=== PATIENT | male | born 1950 | race Caucasian/White ===

== ENCOUNTER 2018-08-13 12:01 | Emergency (ER) | payer MEDICARE, OTHER ==
[~2018-08-13] VITALS: Ht 170.2 cm; Wt 122.5 kg
[2018-08-13 12:06] VITALS: BP 137/79
[2018-08-13 13:02] LABS: BASO % 1 % (0-3); EOS # 0.1 x10^3/uL (0.0-0.7); EOS % 2 % (0-3); HEMATOCRIT 36.8 % (39.0-53.0); HEMOGLOBIN 12.2 g/dL (13.0-17.5); LYMPH # 0.8 x10^3/uL (1.0-4.8); LYMPH % 13 % (24-48); MEAN CORPUSCULAR HEMOGLOBIN 32 pg (25-35); MEAN CORPUSCULAR HGB CONC 33 g/dL (31-37); MEAN CORPUSCULAR VOLUME 97 fL (79-100); MONO # 0.6 x10^3/uL (0.0-1.1); MONO % 10 % (0-9); NEUT # 4.6 x10^3uL (1.8-7.7); NEUT % 74 % (31-73); PLATELET COUNT 195 x10^3/uL (140-400); RED BLOOD COUNT 3.81 x10^6/uL (4.30-5.70); RED CELL DISTRIBUTION WIDTH 14.2 % (11.5-14.5); WHITE BLOOD COUNT 6.2 x10^3/uL (4.0-11.0)
[2018-08-13 13:12] LABS: CALCIUM 8.9 mg/dL (8.5-10.1); CREATININE 1.4 mg/dL (0.7-1.3); GFR 50.5; POTASSIUM 4.2 mmol/L (3.5-5.1)
[2018-08-13 13:17] LABS: ALBUMIN 3.7 g/dL (3.4-5.0); ALBUMIN/GLOBULIN RATIO 1.3 (1.0-1.7); TOTAL BILIRUBIN 0.4 mg/dL (0.2-1.0); TOTAL PROTEIN 6.6 g/dL (6.4-8.2)
--- NOTE | 2018-08-13 13:48 | RAD ---
Examination: PA view the chest with the 4 views of the bilateral ribs HISTORY: History of fall, pain COMPARISON: None available Findings/ impression: Low lung volumes and technique accentuates heart size and pulmonary vascularity. There is no acute infiltrate or visualized pneumothorax identified. Minimal displaced fracture of the right lower anterolateral rib fractures identified possibly the eighth or the ninth rib. Probable minimal displaced fractures of the left posterior seventh, eighth, ninth ribs. Examination limited due to patient body habitus. Electronically signed by: Ender Moreno MD (08/13/2018 1:45 PM) [place] [id number]
[2018-08-13] MEDS ORDERED: fentaNYL PF VIAL 100 MCG/2 ML VIAL IV PRN (14:15)
[2018-08-13] MEDS ORDERED: IV NORMAL SALINE 500ML BAG 500 ML IV ONE (14:15)
[2018-08-13] MEDS ORDERED: HYDR-2761 PO (16:00)
--- NOTE | 2018-08-13 16:01 | PHYS DOC ---
Past Medical History Past Medical History: CHF, Hypertension Additional Past Medical Histor: CHRONIC LOW BACK PAIN Past Surgical History: Other Additional Past Surgical Histo: EYE SURG Alcohol Use: Heavy Additional Information: DRINKS 1 PINT OR MORE EVERY DAY, LAST DRINK AT 0100 Drug Use: None Adult General Chief Complaint Chief Complaint: MECHANICAL FALL HPI HPI 68-year-old gentleman presenting with a fall and complaining of pain in the left and right ribs. He was walking to the mailbox when he slipped and fell on the anterior portion of his chest. He has pain in the ribs that is sharp shooting and worse with deep breaths. The pain is moderate. He denies head injury or loss of conscious. He is not on blood thinners. Review of systems is negative for abdominal pain nausea vomiting. He denies any injuries to his extremities. All other review of systems is negative unless otherwise noted in history of present illness. ED course: 68-year-old male presenting the emergency room after falling and sustaining rib fractures found on chest x-ray. EKG obtained and reviewed by myself shows sinus rhythm with a regular rate. QTc is mildly prolonged. [place] interval is also prolonged. EKG is not consistent with ACS. No previous available for me at this time. Patient was given pain medication here in the emergency room and pain medication upon discharge. We had respiratory therapy come down to do incentive spirometry and teaching patient about incentive spirometry. I offer the patient [place] the hospital which she declined. Will need him to follow-up with his PCP tomorrow or the next day or to return for worsening symptoms.The patient has been examined and was not found to have an emergency medical condition. The patient was then discharged home in stable condition to follow up with their primary care physician over the next 1-2 days. They were to return if their symptoms worsened or if they were concerned for any reason. They were also instructed to return to the emergency department if they were unable to get the recommended and appropriate follow- up. [id number] discharge instructions and return precautions were given. Patient's questions were answered to their satisfaction. Patient is comfortable with plan. Review of Systems Review of Systems SEE ABOVE. Current Medications Current Medications Current Medications Medications (Trade) Dose Ordered Sig/Marlon Start Time Stop Time Status Last Admin Dose Admin Fentanyl Citrate (Fentanyl 2ml Vial) 25 mcg 1X PRN PRN 08/13/18 14:15 Sodium Chloride 500 ml @ 500 mls/hr 1X ONCE 08/13/18 14:15 08/13/18 15:14 DC 08/13/18 14:31 500 MLS/HR Allergies Allergies Allergies Coded Allergies Type Severity Reaction Last Updated Verified No Known Drug Allergies 08/13/18 No Physical Exam Physical Exam SEE ABOVE Constitutional: Well developed, well nourished, no acute distress, non-toxic appearance. [] HENT: Normocephalic, atraumatic, bilateral external ears normal, oropharynx moist, no oral exudates, nose normal. [] Eyes: PERRLA, EOMI, conjunctiva normal, no discharge. [] Neck: Normal range of motion, no tenderness, supple, no stridor. [] Cardiovascular:Heart rate regular rhythm, no murmur [] Lungs & Thorax: Bilateral breath sounds clear to auscultation []no crepitus to palpation the chest wall. There is tenderness palpation along the left and right ribs. Nontender abdomen. Abdomen: Bowel sounds normal, soft, no tenderness. No rebound tenderness or guarding. Patient does have a umbilical hernia that he states has been there for many years and is not causing him any pain. Skin: Warm, dry, no erythema, no rash. [] Back: No tenderness, no CVA tenderness. [] Extremities: No tenderness, no cyanosis, no clubbing, ROM intact, no edema. [] Neurologic: Alert and oriented X 3, normal motor function, normal sensory function, no focal deficits noted. [] Psychologic: Affect normal, judgement normal, mood normal. [] Current Patient Data Vital Signs Vital Signs Date Time Temp Pulse Resp B/P (MAP) Pulse Ox O2 Delivery O2 Flow Rate FiO2 08/13/18 12:06 97.7 83 18 137/79 (98) 96 Room Air 97.7 Lab Values Laboratory Tests Test 08/13/18 12:53 White Blood Count 6.2 x10^3/uL (4.0-11.0) Red Blood Count 3.81 x10^6/uL (4.30-5.70) L Hemoglobin 12.2 g/dL (13.0-17.5) L Hematocrit 36.8 % (39.0-53.0) L Mean Corpuscular Volume 97 fL (79-100) Mean Corpuscular Hemoglobin 32 pg (25-35) Mean Corpuscular Hemoglobin Concent 33 g/dL (31-37) Red Cell Distribution Width 14.2 % (11.5-14.5) Platelet Count 195 x10^3/uL (140-400) Neutrophils (%) (Auto) 74 % (31-73) H Lymphocytes (%) (Auto) 13 % (24-48) L Monocytes (%) (Auto) 10 % (0-9) H Eosinophils (%) (Auto) 2 % (0-3) Basophils (%) (Auto) 1 % (0-3) Neutrophils # (Auto) 4.6 x10^3uL (1.8-7.7) Lymphocytes # (Auto) 0.8 x10^3/uL (1.0-4.8) L Monocytes # (Auto) 0.6 x10^3/uL (0.0-1.1) Eosinophils # (Auto) 0.1 x10^3/uL (0.0-0.7) Basophils # (Auto) 0.0 x10^3/uL (0.0-0.2) Sodium Level 139 mmol/L (136-145) Potassium Level 4.2 mmol/L (3.5-5.1) Chloride Level 104 mmol/L (98-107) Carbon Dioxide Level 27 mmol/L (21-32) Anion Gap 8 (6-14) Blood Urea Nitrogen 20 mg/dL (8-26) Creatinine 1.4 mg/dL (0.7-1.3) H Estimated GFR (Cockcroft-Gault) 50.5 BUN/Creatinine Ratio 14 (6-20) Glucose Level 108 mg/dL (70-99) H Calcium Level 8.9 mg/dL (8.5-10.1) Total Bilirubin 0.4 mg/dL (0.2-1.0) Aspartate Amino Transferase (AST) 25 U/L (15-37) Alanine Aminotransferase (ALT) 26 U/L (16-63) Alkaline Phosphatase 55 U/L (46-116) Troponin I Quantitative 0.027 ng/mL (0.000-0.055) Total Protein 6.6 g/dL (6.4-8.2) Albumin 3.7 g/dL (3.4-5.0) Albumin/Globulin Ratio 1.3 (1.0-1.7) Laboratory Tests 2/15/19 12:53 Laboratory Tests 08/13/18 12:53 EKG EKG [] Radiology/Procedures Radiology/Procedures [] Course & Med Decision Making Course & Med Decision Making Pertinent Labs and Imaging studies reviewed. (See chart for details) [] Dragon Disclaimer Dragon Disclaimer This electronic medical record was generated, in whole or in part, using a voice recognition dictation system. Departure Departure Impression: Primary Impression: Ribs, multiple fractures Disposition: HOME, SELF-CARE Condition: STABLE Referrals: UNKNOWN PCP NAME (PCP) Patient Instructions: Rib Fracture Additional Instructions: Thank you for allowing us to participate in your care today. Return to the emergency department you have any new or worsening symptoms, or if you are concerned for any reason. Return to emergency department if you have any new or concerning symptoms including but not limited to fever, chills, nausea, vomiting, intractable pain, any new rashes, chest pain, shortness of air , uncontrolled bleeding, difficulty breathing, and/or vision loss. Follow up with your primary care physician within 1-2 days. Call your Primary Doctor tomorrow and inform them of your visit today. If you do not have a primary care provider we are happy to provide you with a list of our primary care providers contact information. This condition should be evaluated by your primary care physician and any recommended consulting services for continued management within 2 days after discharge. If at any time, you are having difficulty getting into your primary care doctor or a specialist, return to the emergency department. Scripts Hydrocodone Bit/Acetaminophen (HYDROCODONE-APAP 5-325 ) 1 Tab Tablet 1 TAB PO PRN Q8HRS PRN for sev, #12 TAB 0 Refills Prov: HUSEYIN JARA MD 08/13/18 HUSEYIN JARA MD Aug 13, 2018 16:01
--- NOTE | 2018-08-16 14:00 | EKG ---
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
== END 2018-08-13 15:57 | disposition home or self-care (01) ==
LOC: ER 12:01
DX: S22.43XA Multiple fractures of ribs, bilateral, initial encounter for closed fracture (principal); K42.9 Umbilical hernia without obstruction or gangrene; I11.0 Hypertensive heart disease with heart failure; I50.9 Heart failure, unspecified; G89.29 Other chronic pain; F10.20 Alcohol dependence, uncomplicated; Y90.9 Presence of alcohol in blood, level not specified; W01.0XXA Fall on same level from slipping, tripping and stumbling without subsequent striking against object, initial encounter; Y93.89 Activity, other specified; Y92.89 Other specified places as the place of occurrence of the external cause; Y99.8 Other external cause status
CPT/HCPCS: 36415; 71111; 80053; 84484; 85025; 93005; 99284; G0238; J7040

== ENCOUNTER 2018-08-17 08:57 | Emergency (ER) | payer MEDICARE, OTHER ==
[~2018-08-17] VITALS: Ht 170.2 cm; Wt 124.7 kg
[~2018-08-17 08:57] MED LIST: HYDR-2761 PO
[2018-08-17 09:00] VITALS: BP 199/88
[2018-08-17] MEDS ORDERED: ONDANSETRON PF 4 MG/2 ML VIAL. IV ONE (09:15)
[2018-08-17] MEDS ORDERED: MORPHINE SULFATE 10 MG/ML VIAL. IV ONE (09:15)
--- NOTE | 2018-08-17 09:16 | PHYS DOC ---
Past Medical History Past Medical History: CHF, Hypertension Additional Past Medical Histor: CHRONIC LOW BACK PAIN Past Surgical History: Other Additional Past Surgical Histo: EYE SURG Alcohol Use: Heavy Drug Use: None Adult General Chief Complaint Chief Complaint: RIB PAIN HPI HPI Patient is a 68 year old male who presents to the ED today to be evaluated for worsening rib pain and shortness of breath. Patient fell 5 days ago and sustained multiple rib fractures. He was seen in the ED and sent home with 5 hydrocodone which he ran out. He states has continued to have rib pain as well as shortness of breath. He states his rib pain is worse when he takes a deep breath. Patient denies any fever. Review of Systems Review of Systems Constitutional: Denies fever or chills [] Eyes: Denies change in visual acuity, redness, or eye pain [] HENT: Denies nasal congestion or sore throat [] Respiratory: Reports left sided rib pain and shortness of breath Cardiovascular: No additional information not addressed in HPI [] GI: Denies abdominal pain, nausea, vomiting, bloody stools or diarrhea [] : Denies dysuria or hematuria [] Musculoskeletal: Denies back pain or joint pain [] Integument: Denies rash or skin lesions [] Neurologic: Denies headache, focal weakness or sensory changes [] All other systems were reviewed and found to be within normal limits, except as documented in this note. Current Medications Current Medications Current Medications Medications (Trade) Dose Ordered Sig/Marlon Start Time Stop Time Status Last Admin Dose Admin Info (CONTRAST GIVEN -- Rx MONITORING) 1 each PRN DAILY PRN 08/17/18 10:15 08/19/18 10:14 Iohexol (Omnipaque 300 Mg/ml) 75 ml 1X ONCE 08/17/18 10:00 08/17/18 10:01 DC 08/17/18 10:00 75 ML Morphine Sulfate (Morphine Sulfate) 5 mg 1X ONCE 08/17/18 09:15 08/17/18 09:16 DC 08/17/18 09:31 5 MG Ondansetron HCl (Zofran) 4 mg 1X ONCE 08/17/18 09:15 08/17/18 09:16 DC 08/17/18 09:31 4 MG Allergies Allergies Allergies Coded Allergies Type Severity Reaction Last Updated Verified No Known Drug Allergies 08/13/18 No Physical Exam Physical Exam Constitutional: Well developed, well nourished, no acute distress, non-toxic appearance. [] HENT: Normocephalic, atraumatic, bilateral external ears normal, oropharynx moist, no oral exudates, nose normal. [] Eyes: PERRLA, EOMI, conjunctiva normal, no discharge. [] Neck: Normal range of motion, no tenderness, supple, no stridor. [] Cardiovascular:Heart rate regular rhythm, no murmur [] Lungs & Thorax: Patient is guarding his left mid ribs. Tenderness to posterior left lower ribs, tenderness on the left anterior mid and lower ribs mid clavicular line, Bilateral breath sounds clear to auscultation [] Abdomen: Bowel sounds normal, soft, no tenderness, no masses, no pulsatile masses. [] Skin: Warm, dry, no erythema, no rash. [] Back: No tenderness, no CVA tenderness. [] Extremities: No tenderness, no cyanosis, no clubbing, ROM intact, no edema. [] Neurologic: Alert and oriented X 3, normal motor function, normal sensory function, no focal deficits noted. [] Psychologic: Affect normal, judgement normal, mood normal. [] Current Patient Data Vital Signs Vital Signs Date Time Temp Pulse Resp B/P (MAP) Pulse Ox O2 Delivery O2 Flow Rate FiO2 08/17/18 09:31 20 97 Room Air 08/17/18 09:00 98.1 106 166/112 (130) 98.1 199/88 (125) Lab Values Laboratory Tests Test 08/17/18 09:25 White Blood Count 4.6 x10^3/uL (4.0-11.0) Red Blood Count 3.66 x10^6/uL (4.30-5.70) L Hemoglobin 11.9 g/dL (13.0-17.5) L Hematocrit 34.9 % (39.0-53.0) L Mean Corpuscular Volume 95 fL (79-100) Mean Corpuscular Hemoglobin 33 pg (25-35) Mean Corpuscular Hemoglobin Concent 34 g/dL (31-37) Red Cell Distribution Width 13.7 % (11.5-14.5) Platelet Count 189 x10^3/uL (140-400) Neutrophils (%) (Auto) 65 % (31-73) Lymphocytes (%) (Auto) 20 % (24-48) L Monocytes (%) (Auto) 12 % (0-9) H Eosinophils (%) (Auto) 2 % (0-3) Basophils (%) (Auto) 1 % (0-3) Neutrophils # (Auto) 3.0 x10^3uL (1.8-7.7) Lymphocytes # (Auto) 0.9 x10^3/uL (1.0-4.8) L Monocytes # (Auto) 0.5 x10^3/uL (0.0-1.1) Eosinophils # (Auto) 0.1 x10^3/uL (0.0-0.7) Basophils # (Auto) 0.0 x10^3/uL (0.0-0.2) Sodium Level 141 mmol/L (136-145) Potassium Level 4.7 mmol/L (3.5-5.1) Chloride Level 103 mmol/L (98-107) Carbon Dioxide Level 26 mmol/L (21-32) Anion Gap 12 (6-14) Blood Urea Nitrogen 23 mg/dL (8-26) Creatinine 1.2 mg/dL (0.7-1.3) Estimated GFR (Cockcroft-Gault) 60.4 BUN/Creatinine Ratio 19 (6-20) Glucose Level 110 mg/dL (70-99) H Calcium Level 9.7 mg/dL (8.5-10.1) Total Bilirubin 0.3 mg/dL (0.2-1.0) Aspartate Amino Transferase (AST) 40 U/L (15-37) H Alanine Aminotransferase (ALT) 32 U/L (16-63) Alkaline Phosphatase 60 U/L (46-116) Troponin I Quantitative 0.029 ng/mL (0.000-0.055) UP-Hsn-U-Type Natriuretic Peptide 330 pg/mL (0-124) H Total Protein 6.8 g/dL (6.4-8.2) Albumin 3.6 g/dL (3.4-5.0) Albumin/Globulin Ratio 1.1 (1.0-1.7) Laboratory Tests 08/17/18 09:25 Laboratory Tests 08/17/18 09:25 EKG EKG [address] Aguirre by sinus rhythm HR 97 no STEMI Radiology/Procedures Radiology/Procedures []PROCEDURE: CT CHEST W/CONTRAST CT STUDY OF THE CHEST WITH CONTRAST Clinical indications: Rib fracture last week. Shortness of air. History of a fall. COMPARISON: No previous chest CT. TECHNIQUE: After IV infusion of 75 cc of Omnipaque 300, helical CT scanning of the chest was performed. PQRS compliance Statement One or more of the following individualized dose reduction techniques were utilized for this study: 1. Automated exposure control 2. Adjustment of the mA and/or kV according to patient size 3. Use of iterative reconstruction technique FINDINGS: No enlarged thoracic lymphadenopathy is evident. No focal aneurysmal dilatation or dissection of the thoracic aorta is seen. The heart size is at the upper limits of normal and no pericardial effusion is seen. Calcified atheromatous disease of coronary arteries is seen. No pleural effusion or pneumothorax is seen. There is focal pleural thickening of the left lateral pleural space related to a displaced subacute fracture of the posterior lateral aspect of the left eighth rib. This fracture is not healed. There is a nonhealed subacute fracture of the posterior lateral aspect of the left seventh rib. Acute appearing nondisplaced fracture of the anterolateral aspect of the left sixth rib is seen. Healed fracture of the posterior lateral aspect of the left ninth rib is seen. Nondisplaced fracture of the anterolateral aspect of the right 6 and seventh ribs is seen. No lytic process is seen. Right renal cyst is seen. Nonobstructing punctate stone of the right kidney is seen. No adrenal mass is evident. Diffuse fatty infiltration of liver is evident. IMPRESSION: Bilateral rib contractures as discussed above. No acute lung infiltrate or pleural effusion or pneumothorax is seen. Mild calcified atheromatous disease of the coronary arteries. Electronically signed by: Aurora Georges MD (08/17/2018 11:04 AM) [id number] DICTATED and SIGNED BY: AURORA GEORGES MD DATE: 08/17/18 1039 Course & Med Decision Making Course & Med Decision Making Pertinent Labs and Imaging studies reviewed. (See chart for details) This is a 68-year-old male patient presenting to the ED today with worsening rib pain and shortness of breath. Patient fell down 5 days ago, sustained a 5 rib fractures. O2 sats 96% on room air on arrival, respiration 24. Patient states she ran out of the medications There is focal pleural thickening of the left lateral pleural space related to a displaced subacute fracture of the posterior lateral aspect of the left eighth rib.This fracture is not healed. There is a nonhealed subacute fracture of the posterior lateral aspect of the left seventh rib. Acute appearing nondisplaced fracture of the anterolateral aspect of the left sixth rib is seen. Healed fracture of the posterior lateral aspect of the left ninth rib is seen. Nondisplaced fracture of the anterolateral aspect of the right 6 and seventh ribs is seen. No lytic process is seen. Patient feeling better after being given morphine. Will be discharged with oxycodone. Also given cyclobenzaprine. Encouraged to continue using the incentive spirometry every hour while awake. F/u with PCP in the course of this week. Dragon Disclaimer Dragon Disclaimer This electronic medical record was generated, in whole or in part, using a voice recognition dictation system. Departure Departure Impression: Primary Impression: Ribs, multiple fractures Disposition: HOME, SELF-CARE Condition: STABLE Referrals: UNKNOWN PCP NAME (PCP) Follow-up with your doctor in the course of this week Patient Instructions: Rib Fracture, [id number] Additional Instructions: You were evaluated in the emergency room for multiple rib fractures. Continue using your incentive spirometry every hour while awake. Take the prescribed pain medicine as needed. Follow-up with your doctor in the course of this week. Scripts Cyclobenzaprine Hcl (CYCLOBENZAPRINE HCL) 10 Mg Tablet 1 TAB PO TID, #40 TAB Prov: EVER CHRISTINA APRN 08/17/18 Oxycodone/Apap 5-325 (PERCOCET 5-325 MG TABLET ) 1 Each Tablet 1 TAB PO PRN Q6HRS PRN for PAIN, #35 TAB 0 Refills Prov: EVER CHRISTINA APRN 08/17/18 Problem Qualifiers Primary Impression: Ribs, multiple fractures Encounter type: initial encounter Fracture type: closed Laterality: bilateral Qualified Codes: S22.43XA - Multiple fractures of ribs, bilateral, initial encounter for closed fracture EVER CHRISTINA APRN Aug 17, 2018 09:16
[2018-08-17 09:43] LABS: BASO % 1 % (0-3); EOS # 0.1 x10^3/uL (0.0-0.7); EOS % 2 % (0-3); HEMATOCRIT 34.9 % (39.0-53.0); HEMOGLOBIN 11.9 g/dL (13.0-17.5); LYMPH # 0.9 x10^3/uL (1.0-4.8); LYMPH % 20 % (24-48); MEAN CORPUSCULAR HEMOGLOBIN 33 pg (25-35); MEAN CORPUSCULAR HGB CONC 34 g/dL (31-37); MEAN CORPUSCULAR VOLUME 95 fL (79-100); MONO # 0.5 x10^3/uL (0.0-1.1); MONO % 12 % (0-9); NEUT % 65 % (31-73); PLATELET COUNT 189 x10^3/uL (140-400); RED BLOOD COUNT 3.66 x10^6/uL (4.30-5.70); RED CELL DISTRIBUTION WIDTH 13.7 % (11.5-14.5); WHITE BLOOD COUNT 4.6 x10^3/uL (4.0-11.0)
[2018-08-17 09:48] LABS: CALCIUM 9.7 mg/dL (8.5-10.1); CREATININE 1.2 mg/dL (0.7-1.3); GFR 60.4
[2018-08-17 09:54] LABS: ALBUMIN 3.6 g/dL (3.4-5.0); ALBUMIN/GLOBULIN RATIO 1.1 (1.0-1.7); POTASSIUM 4.7 mmol/L (3.5-5.1); TOTAL BILIRUBIN 0.3 mg/dL (0.2-1.0); TOTAL PROTEIN 6.8 g/dL (6.4-8.2)
[2018-08-17] MEDS ORDERED: IOHEXOL 300 MG/ML 100ML VIAL. IV ONE (10:00)
[2018-08-17] MEDS ORDERED: CONTRAST GIVEN. MC PRN (10:15)
--- NOTE | 2018-08-17 11:08 | RAD ---
CT STUDY OF THE CHEST WITH CONTRAST Clinical indications: Rib fracture last week. Shortness of air. History of a fall. COMPARISON: No previous chest CT. TECHNIQUE: After IV infusion of 75 cc of Omnipaque 300, helical CT scanning of the chest was performed. PQRS compliance Statement One or more of the following individualized dose reduction techniques were utilized for this study: 1. Automated exposure control 2. Adjustment of the mA and/or kV according to patient size 3. Use of iterative reconstruction technique FINDINGS: No enlarged thoracic lymphadenopathy is evident. No focal aneurysmal dilatation or dissection of the thoracic aorta is seen. The heart size is at the upper limits of normal and no pericardial effusion is seen. Calcified atheromatous disease of coronary arteries is seen. No pleural effusion or pneumothorax is seen. There is focal pleural thickening of the left lateral pleural space related to a displaced subacute fracture of the posterior lateral aspect of the left eighth rib. This fracture is not healed. There is a nonhealed subacute fracture of the posterior lateral aspect of the left seventh rib. Acute appearing nondisplaced fracture of the anterolateral aspect of the left sixth rib is seen. Healed fracture of the posterior lateral aspect of the left ninth rib is seen. Nondisplaced fracture of the anterolateral aspect of the right 6 and seventh ribs is seen. No lytic process is seen. Right renal cyst is seen. Nonobstructing punctate stone of the right kidney is seen. No adrenal mass is evident. Diffuse fatty infiltration of liver is evident. IMPRESSION: Bilateral rib contractures as discussed above. No acute lung infiltrate or pleural effusion or pneumothorax is seen. Mild calcified atheromatous disease of the coronary arteries. Electronically signed by: Jared Georges MD (08/17/2018 11:04 AM) [id number]
[2018-08-17] MEDS ORDERED: CYCL10TA2 PO (11:35)
[2018-08-17] MEDS ORDERED: OXYC1TAB15 PO (11:35)
--- NOTE | 2018-08-17 14:18 | EKG ---
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
[2018-11-28] MEDS ORDERED: WARF4TAB68 PO (10:46)
[2018-11-28] MEDS ORDERED: ENOX120D SQ (10:46)
== END 2018-08-17 11:56 | disposition home or self-care (01) ==
LOC: ER 08:57
DX: S22.42XG Multiple fractures of ribs, left side, subsequent encounter for fracture with delayed healing (principal); I11.0 Hypertensive heart disease with heart failure; I50.9 Heart failure, unspecified; G89.29 Other chronic pain; M54.5 Low back pain; F10.20 Alcohol dependence, uncomplicated; Y90.9 Presence of alcohol in blood, level not specified; W18.39XD Other fall on same level, subsequent encounter
CPT/HCPCS: 36415; 71260; 80053; 83880; 84484; 85025; 93005; 96374; 96375; 99284; J2270; J2405; Q9967

== ENCOUNTER 2018-11-27 05:43 | Inpatient (IN) | payer MEDICARE, OTHER ==
[~2018-11-27] VITALS: Ht 170.2 cm; Wt 124.7 kg
[~2018-11-27 05:43] MED LIST changes: +CYCL10TA2 PO; +OXYC1TAB15 PO
--- NOTE | 2018-11-27 05:55 | PHYS DOC ---
Past Medical History Past Medical History: CAD, CHF, High Cholesterol, Hypertension Additional Past Medical Histor: CHRONIC LOW BACK PAIN, rib fx (MONTRELL HURTADO DO) Past Surgical History: Appendectomy, Coronary Bypass Surgery, Knee Replacement, Pacemaker, Other Additional Past Surgical Histo: EYE SURG (MONTRELL HURTADO DO) Alcohol Use: Heavy Drug Use: None (MONTRELL HURTADO DO) Adult General Chief Complaint Chief Complaint: SHORTNESS OF BREATH HPI HPI 68-year-old male status post CABG and pacemaker placement 2 weeks ago at presents with report of progressive shortness of breath since yesterday. Reports worse this AM. Patient denies known trauma. Denies fever or chills. Denies calves pain. Reports some increased fluid hydration. Patient does reports history of CHF. Reports some chest wall pain but thinks it is from his surgery. (MONTRELL HURTADO DO) Review of Systems Review of Systems Constitutional: Denies fever or chills Eyes: Denies redness or eye pain HENT: Denies nasal congestion or sore throat Respiratory: Reports shortness of breath and orthopnea Cardiovascular: Reports chest discomfort; denies palpitations GI: Denies abdominal pain, nausea, or vomiting : Denies dysuria or hematuria Musculoskeletal: Reports some leg swelling; denies calf pain Integument: Denies rash or skin lesions Neurologic: Denies headache, focal weakness or sensory changes Complete systems were reviewed and found to be within normal limits, except as documented in this note. (MONTRELL HURTADO DO) Current Medications Current Medications Current Medications Medications (Trade) Dose Ordered Sig/Marlon Start Time Stop Time Status Last Admin Dose Admin Aspirin (Ruth Aspirin) 325 mg 1X ONCE 11/27/18 06:00 11/27/18 06:01 DC 11/27/18 06:19 325 MG Fentanyl Citrate (Fentanyl 2ml Vial) 50 mcg 1X ONCE 11/27/18 06:30 11/27/18 06:31 DC 11/27/18 06:30 50 MCG Info (CONTRAST GIVEN -- Rx MONITORING) 1 each PRN DAILY PRN 11/27/18 08:15 11/29/18 08:14 Iohexol (Omnipaque 350 Mg/ml) 100 ml 1X ONCE 11/27/18 08:15 11/27/18 08:16 DC 11/27/18 08:44 100 ML Nitroglycerin (Nitro-Bid Oint) 1 inch 1X ONCE 11/27/18 06:00 11/27/18 06:01 DC 11/27/18 06:20 1 INCH (JOSE MARTIN BONNER MD) Allergies Allergies Allergies Coded Allergies Type Severity Reaction Last Updated Verified No Known Drug Allergies 08/13/18 No (JOSE MARTIN BONNER MD) Physical Exam Physical Exam Constitutional: Well developed, well nourished, mild respiratory distress, non- toxic appearance HENT: Normocephalic, atraumatic, oropharynx moist Eyes: PERRL, EOMI, conjunctiva normal, no discharge Neck: Normal range of motion, no tenderness, supple, JVD Cardiovascular: Heart rate normal, regular rhythm Lungs & Thorax: Coarse breath sounds throughout, healing with sternal incision- clean dry and intact Abdomen: Soft, no tenderness Skin: Warm, dry, no erythema, no rash Back: No tenderness, no CVA tenderness Extremities: No tenderness, ROM intact, trace bilateral edema Neurologic: Alert and oriented X 3, normal motor function, normal sensory function, no focal deficits noted Psychologic: Affect normal, judgement normal, mood normal (MONTRELL HURTADO DO) Current Patient Data Vital Signs Vital Signs Date Time Temp Pulse Resp B/P (MAP) Pulse Ox O2 Delivery O2 Flow Rate FiO2 11/27/18 08:03 76 21 125/64 (84) 96 Nasal Cannula 2.0 11/27/18 05:45 97.8 97.8 (JOSE MARTIN BONNER MD) Lab Values Laboratory Tests Test 11/27/18 05:45 White Blood Count 9.9 x10^3/uL (4.0-11.0) Red Blood Count 2.88 x10^6/uL (4.30-5.70) L Hemoglobin 8.7 g/dL (13.0-17.5) L Hematocrit 26.8 % (39.0-53.0) L Mean Corpuscular Volume 93 fL (79-100) Mean Corpuscular Hemoglobin 30 pg (25-35) Mean Corpuscular Hemoglobin Concent 33 g/dL (31-37) Red Cell Distribution Width 14.4 % (11.5-14.5) Platelet Count 428 x10^3/uL (140-400) H Neutrophils (%) (Auto) 79 % (31-73) H Lymphocytes (%) (Auto) 11 % (24-48) L Monocytes (%) (Auto) 8 % (0-9) Eosinophils (%) (Auto) 2 % (0-3) Basophils (%) (Auto) 1 % (0-3) Neutrophils # (Auto) 7.9 x10^3uL (1.8-7.7) H Lymphocytes # (Auto) 1.0 x10^3/uL (1.0-4.8) Monocytes # (Auto) 0.8 x10^3/uL (0.0-1.1) Eosinophils # (Auto) 0.1 x10^3/uL (0.0-0.7) Basophils # (Auto) 0.1 x10^3/uL (0.0-0.2) Prothrombin Time 23.6 SEC (11.7-14.0) H Prothrombin Time INR 2.1 (0.8-1.1) H PTT 56 SEC (24-38) H D-Dimer (Kenyatta) 6.29 ug/mlFEU (0.00-0.50) H Sodium Level 143 mmol/L (136-145) Potassium Level 4.0 mmol/L (3.5-5.1) Chloride Level 106 mmol/L (98-107) Carbon Dioxide Level 27 mmol/L (21-32) Anion Gap 10 (6-14) Blood Urea Nitrogen 20 mg/dL (8-26) Creatinine 0.9 mg/dL (0.7-1.3) Estimated GFR (Cockcroft-Gault) 84.2 BUN/Creatinine Ratio 22 (6-20) H Glucose Level 123 mg/dL (70-99) H Lactic Acid Level 0.9 mmol/L (0.4-2.0) Calcium Level 9.6 mg/dL (8.5-10.1) Magnesium Level 2.0 mg/dL (1.8-2.4) Total Bilirubin 0.3 mg/dL (0.2-1.0) Aspartate Amino Transferase (AST) 23 U/L (15-37) Alanine Aminotransferase (ALT) 37 U/L (16-63) Alkaline Phosphatase 90 U/L (46-116) Creatine Kinase 103 U/L (39-308) Creatine Kinase MB (Mass) 3.6 ng/mL (0.0-3.6) Creatine Kinase MB Relative Index 3.5 % (0-4) Troponin I Quantitative 0.043 ng/mL (0.000-0.055) CE-Viw-V-Type Natriuretic Peptide 1110 pg/mL (0-124) H Total Protein 6.6 g/dL (6.4-8.2) Albumin 3.0 g/dL (3.4-5.0) L Albumin/Globulin Ratio 0.8 (1.0-1.7) L Lipase 444 U/L (73-393) H Laboratory Tests 11/27/18 05:45 Laboratory Tests 11/27/18 05:45 (JOSE MARTIN BONNER MD) EKG EKG @0549 Paced rhythm at 82bpm (MONTRELL HURTADO DO) Radiology/Procedures Radiology/Procedures [] (MONTRELL HURTADO DO) Radiology/Procedures [facility] [address] [place] [address] IMAGING REPORT Signed PATIENT: LADARIUS ELLIS ACCOUNT: [id number] : 1950 LOCATION: [address] [place] [address] AGE: 68 SEX: M EXAM STATUS: ADM IN ORD. PHYSICIAN: JOSE MARTIN BONNER MD REASON: Recent CABG, shortness of breath, elevated d-dimer PROCEDURE: CT ANGIOGRAPHY CHEST Examination: CT angio chest HISTORY: History of shortness of breath, elevated d-dimer COMPARISON: CT chest from 08/17/2018 TECHNIQUE: Axial CT and radiographic images of chest were performed with IV contrast. Coronal and sagittal 3-D MIP reformats are performed Exposure: One or more of the following individualized dose reduction techniques were utilized for this examination: 1. Automated exposure control 2. Adjustment of the mA and/or kV according to patient size 3. Use of iterative reconstruction technique FINDINGS: The central airways are patent. Mild cardiomegaly. Coronary artery calcifications identified. Mitral valve prosthesis is identified. The caliber of the aorta grossly appears unremarkable. There is mild stranding identified in the anterior mediastinum probably due to recent surgery. Probable small pericardial effusion the evaluation of which is limited due to streak artifact. There is no evidence of filling defect identified in the main pulmonary artery and right and left main pulmonary arteries. The evaluation of the lobar, segmental branches of the pulmonary arteries is limited due to lack of significant contrast within these branches. Coronary artery calcifications. Patchy airspace opacities identified in the right upper lobe, left lower lobe of the lung and in the left lingula likely atelectasis or infiltrates. Trace left pleural effusion. The visualized liver, spleen, adrenals grossly appears unremarkable. Moderate degenerative changes thoracic spine. Old fractures of the left fourth, fifth, sixth, seventh, eighth ribs. There is mild pleural thickening identified about the eighth rib fracture. IMPRESSION: 1. No evidence of central pulmonary embolism. However examination is limited due to lack of significant contrast within the distal lobar, segmental branches. If clinical suspicion for pulmonary embolism persists, consider follow-up VQ scan and bilateral lower extremity venous Doppler. 2. Trace pericardial effusion and small left pleural effusion. 3. Patchy airspace opacities identified in the right upper lobe, left lingular left lung base likely atelectasis or infiltrates. 4. Coronary artery calcifications. Electronically signed by: Ender Moreno MD (11/27/2018 8:52 AM) [facility] DICTATED and SIGNED BY: ENDER MORENO MD DATE: 11/27/18 0852 (JOSE MARTIN BONNER MD) Course & Med Decision Making Course & Med Decision Making Patient with recent CABG and pacemaker placement at 2 weeks ago presents with progressive dyspnea over the last few days. EKG with paced rhythm. Labs obtained and pending. Chest x-ray pending. Concern for possible CHF exacerbation. 1 inch of nitroglycerin placed provided. Aspirin also given. Sign out given to Dr. Bonner for further evaluation and final disposition. Discussed current findings and plan with patient and family, who acknowledge understanding and agreement. (MONTRELL HURTADO DO) Course & Med Decision Making Patient had elevation of d-dimer with unremarkable CT of chest for PE and concern for possible atelectasia or infiltrate. Patient didn't have fever, leukocytosis or elevation of lactic acid. Patient had Lasix and plan to admit with diagnosis of CHF exacerbation. (JOSE MARTIN BONNER MD) Dragon Disclaimer Dragon Disclaimer This electronic medical record was generated, in whole or in part, using a voice recognition dictation system. (MONTRELL HURTADO DO) Departure Departure Impression: Primary Impression: Shortness of breath Additional Impressions: CHF exacerbation Anemia Disposition: 09 ADMITTED INPATIENT (at 0908) Admitting Physician: [facility] (Dr. Gillespie accepted admission at 0907) (JOSE MARTIN BONNER MD) Condition: IMPROVED Referrals: UNKNOWN PCP NAME (PCP) Problem Qualifiers Additional Impressions: CHF exacerbation Heart failure type: unspecified Qualified Codes: I50.9 - Heart failure, unspecified Anemia Anemia type: unspecified type Qualified Codes: D64.9 - Anemia, unspecified MONTRELL HURTADO DO Nov 27, 2018 05:55 JOSE MARTIN BONNER MD Nov 27, 2018 09:11
[2018-11-27] MEDS ORDERED: NITROGLYCERIN OINT 1 GM PACKET. TP ONE (06:00)
[2018-11-27] MEDS ORDERED: ASPIRIN 325 MG TABLET PO ONE (06:00)
[2018-11-27 06:15] LABS: BASO # 0.1 x10^3/uL (0.0-0.2); BASO % 1 % (0-3); EOS # 0.1 x10^3/uL (0.0-0.7); EOS % 2 % (0-3); HEMATOCRIT 26.8 % (39.0-53.0); HEMOGLOBIN 8.7 g/dL (13.0-17.5); LYMPH % 11 % (24-48); MEAN CORPUSCULAR HEMOGLOBIN 30 pg (25-35); MEAN CORPUSCULAR HGB CONC 33 g/dL (31-37); MEAN CORPUSCULAR VOLUME 93 fL (79-100); MONO # 0.8 x10^3/uL (0.0-1.1); MONO % 8 % (0-9); NEUT # 7.9 x10^3uL (1.8-7.7); NEUT % 79 % (31-73); PLATELET COUNT 428 x10^3/uL (140-400); RED BLOOD COUNT 2.88 x10^6/uL (4.30-5.70); RED CELL DISTRIBUTION WIDTH 14.4 % (11.5-14.5); WHITE BLOOD COUNT 9.9 x10^3/uL (4.0-11.0)
[2018-11-27] MEDS ORDERED: fentaNYL PF VIAL 100 MCG/2 ML VIAL IV ONE ×2 (06:30→08:45)
[2018-11-27 06:32] LABS: CALCIUM 9.6 mg/dL (8.5-10.1); CREATININE 0.9 mg/dL (0.7-1.3); GFR 84.2
[2018-11-27 06:37] LABS: ALBUMIN/GLOBULIN RATIO 0.8 (1.0-1.7); TOTAL BILIRUBIN 0.3 mg/dL (0.2-1.0); TOTAL PROTEIN 6.6 g/dL (6.4-8.2)
[2018-11-27 06:48] LABS: PROTHROMBIN TIME PATIENT 23.6 SEC (11.7-14.0)
[2018-11-27] MEDS ORDERED: IOHEXOL 350 MG/ML 100 ML VIAL. IV ONE (08:15)
[2018-11-27] MEDS ORDERED: CONTRAST GIVEN. MC PRN (08:15)
--- NOTE | 2018-11-27 08:15 | RAD ---
EXAM: CHEST 1 VIEW History: Dyspnea COMPARISON: 08/13/2018 TECHNIQUE: Single portable radiograph of the chest FINDINGS: Low lung volumes and technique accentuates heart size and pulmonary vascularity. Mild cardiomegaly. There is mild prominent appearing bilateral interstitial lung markings likely congestive changes. Left lung base airspace opacity likely atelectasis or infiltrate. Partially visualized right-sided cardiac pacer identified. Valve prosthesis is identified. IMPRESSION: 1. Mild congestive changes. 2. Left lung base airspace opacity likely atelectasis or infiltrate. Electronically signed by: Ender Moreno MD (11/27/2018 8:12 AM) [facility]
--- NOTE | 2018-11-27 08:55 | RAD ---
Examination: CT angio chest HISTORY: History of shortness of breath, elevated d-dimer COMPARISON: CT chest from 08/17/2018 TECHNIQUE: Axial CT and radiographic images of chest were performed with IV contrast. Coronal and sagittal 3-D MIP reformats are performed Exposure: One or more of the following individualized dose reduction techniques were utilized for this examination: 1. Automated exposure control 2. Adjustment of the mA and/or kV according to patient size 3. Use of iterative reconstruction technique FINDINGS: The central airways are patent. Mild cardiomegaly. Coronary artery calcifications identified. Mitral valve prosthesis is identified. The caliber of the aorta grossly appears unremarkable. There is mild stranding identified in the anterior mediastinum probably due to recent surgery. Probable small pericardial effusion the evaluation of which is limited due to streak artifact. There is no evidence of filling defect identified in the main pulmonary artery and right and left main pulmonary arteries. The evaluation of the lobar, segmental branches of the pulmonary arteries is limited due to lack of significant contrast within these branches. Coronary artery calcifications. Patchy airspace opacities identified in the right upper lobe, left lower lobe of the lung and in the left lingula likely atelectasis or infiltrates. Trace left pleural effusion. The visualized liver, spleen, adrenals grossly appears unremarkable. Moderate degenerative changes thoracic spine. Old fractures of the left fourth, fifth, sixth, seventh, eighth ribs. There is mild pleural thickening identified about the eighth rib fracture. IMPRESSION: 1. No evidence of central pulmonary embolism. However examination is limited due to lack of significant contrast within the distal lobar, segmental branches. If clinical suspicion for pulmonary embolism persists, consider follow-up VQ scan and bilateral lower extremity venous Doppler. 2. Trace pericardial effusion and small left pleural effusion. 3. Patchy airspace opacities identified in the right upper lobe, left lingular left lung base likely atelectasis or infiltrates. 4. Coronary artery calcifications. Electronically signed by: Ender Moreno MD (11/27/2018 8:52 AM) [facility]
[2018-11-27] MEDS ORDERED: FUROSEMIDE 40 MG/4 ML VIAL. IVP ONE (09:00)
--- NOTE | 2018-11-27 09:13 | PDOC1 ---
History and Physical Date of Admission Date of Admission DATE: 11/27/18 TIME: 09:10 Identification/Chief Complaint Chief Complaint Shortness of breath Source Source: Patient History of Present Illness History of Present Illness Mr Campos is a 68 yo M w/ PMHx chronic low back pain, CHF, High Cholesterol, Hypertension, ESTEFANI, Bipolar I most recently depressed, HOCM status post ventricular septal myomectomy and mechanical mitral valve replacement and PPM placement at [facility] 2 weeks ago who presents with report of progressive shortness of breath since yesterday. Reports worse this AM with sternal pain and cough. Patient denies known trauma. Denies fever or chills. Denies calves pain. Reports some increased fluid hydration. Patient does reports history of CHF. Reports some chest wall pain but thinks it is from his surgery. He moved from [place] 9 months ago and had progressive shortness of breath since then. He had a prolonged hospital stay at [facility] from where he was just discharged 11/21/18 with above ventricular septal myomectomy and mechanical mitral valve replacement and PPM placement performed. 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 Previously has been hospitalized for Bipolar depression and suicide attempt which was successfully treated with ECT followed by maintenance lamictal with cymbalta dosing. EKG showed paced rhythm. BNP elevated at 1100. CXR consistent with recent sternotomy. Past Medical History Cardiovascular: AFIB (S/p PPM), CHF, HTN, Mitral valve stenosis (S/p mechanical mitral valve replacement), Other (HOCM) Pulmonary: No pertinent hx GI: No pertinent hx Heme/Onc: No pertinent hx Hepatobiliary: No pertinent hx Psych: Bipolar, Depression Musculoskeletal: low back pain Rheumatologic: No pertinent hx Infectious disease: No pertinent hx ENT: No pertinent hx Renal/: No pertinent hx Endocrine: No pertinent hx Dermatology: No pertinent hx Past Surgical History Past Surgical History: Pacemaker, Appendectomy, Total knee replacement (Bilateral), Other (Mechanical Mitral Valve, Ventricular Septal Myomectomy) Family History Family History: High Cholestrol, Hypertension Social History Smoke: Quit ALCOHOL: rare Drugs: None Current Problem List Problem List Problems Medical Problems: (1) Shortness of breath Status: Acute Current Medications Current Medications Current Medications Aspirin (Ruth Aspirin) 325 mg 1X ONCE PO Last administered on 11/27/18at 06:19; Start 11/27/18 at 06:00; Stop 11/27/18 at 06:01; Status DC Nitroglycerin (Nitro-Bid Oint) 1 inch 1X ONCE TP Last administered on 11/27/18at 06:20; Start 11/27/18 at 06:00; Stop 11/27/18 at 06:01; Status DC Fentanyl Citrate (Fentanyl 2ml Vial) 50 mcg 1X ONCE IV Last administered on 11/27/18at 06:30; Start 11/27/18 at 06:30; Stop 11/27/18 at 06:31; Status DC Iohexol (Omnipaque 350 Mg/ml) 100 ml 1X ONCE IV Last administered on 11/27/18at 08:44; Start 11/27/18 at 08:15; Stop 11/27/18 at 08:16; Status DC Info (CONTRAST GIVEN -- Rx MONITORING) 1 each PRN DAILY PRN MC SEE COMMENTS; Start 11/27/18 at 08:15; Stop 11/29/18 at 08:14 Fentanyl Citrate (Fentanyl 2ml Vial) 50 mcg 1X ONCE IV Last administered on 11/27/18at 08:46; Start 11/27/18 at 08:45; Stop 11/27/18 at 08:46; Status DC Furosemide (Lasix) 40 mg 1X ONCE IVP Last administered on 11/27/18at 09:04; Start 11/27/18 at 09:00; Stop 11/27/18 at 09:01; Status DC Active Scripts Active Cyclobenzaprine Hcl 10 Mg Tablet 1 Tab PO TID Percocet 5-325 Mg Tablet (Oxycodone/Acetaminophen) 1 Each Tablet 1 Tab PO PRN Q6HRS PRN Hydrocodone-Apap 5-325 (Hydrocodone Bit/Acetaminophen) 1 Tab Tablet 1 Tab PO PRN Q8HRS PRN Allergies Allergies: Coded Allergies: No Known Drug Allergies (Unverified , 08/13/18) ROS General: YES: Fatigue, Malaise; No: Chills, Night Sweats, Appetite, Other PSYCHOLOGICAL ROS: YES: Anxiety, Depression; No: Behavioral Disorder, Concentration difficultie, Decreased libido, Disor ientation, Hallucinations, Hostility, Irritablity, Memory difficulties, Mood Swings, Obsessive thoughts, Physical abuse, Sexual abuse, Sleep disturbances, Suicidal ideation, Other Eyes: No Blurry vision, No Decreased vision, No Double vision, No Dry eyes, No Excessive tearing, No Eye Pain, No Itchy Eyes, No Loss of vision, No Photophobia, No Scotomata, No Uses contacts, No Uses glasses, No Other HEENT: No: Heacaches, Visual Changes, Hearing change, Nasal congestion, Nasal discharge, Oral lesions, Sinus pain, Sore Throat, Epistaxis, Sneezing, Snoring, Tinnitus, Vertigo, Vocal changes, Other ALLERGY AND IMMUNOLOGY: No: Hives, Insect Bite Sensitivity, Itchy/Watery Eyes, Nasal Congestion, Post Nasal Drip, Seasonal Allergies, Other Hematological and Lymphatic: No: Bleeding Problems, Blood Clots, Blood Transfusions, Brusing, Night Sweats, Pallor, Swollen Lymph Nodes, Other ENDOCRINE: No: Breast Changes, Galactorrhea, Hair Pattern Changes, Hot Flashes, Malaise/lethargy, Mood Swings, Palpitations, Polydipsia/polyuria, Skin Changes, Temperature Intolerance, Unexpected Weight Changes, Other Breast: No New/Changing Breast Lumps, No Nipple changes, No Nipple discharge, No Other Respiratory: YES: Cough, Pleuritic Pain, Shortness of breath, Tachypnea; No: Hemoptysis, Orthopnea, SOB with excertion, Sputum Changes, Stridor, Wheezing, Other Cardiovascular: yes Chest Pain, yes Edema; No Palpitations, No Orthopnea, No Paroxysmal Noc. Dyspnea, No Lt Headedness, No Other Gastrointestinal: Yes Nausea; No Vomiting, No Abdominal Pain, No Diarrhea, No Constipation, No Melena, No Hematochezia, No Other Genitourinary: No Dysuria, No Frequency, No Incontinence, No Hematuria, No Retention, No Discharge, No Urgency, No Pain, No Flank Pain, No Other, No , No , No , No , No , No , No Musculoskeletal: No Gait Disturbance, No Joint Pain, No Joint Stiffness, No Joint Swelling, No Muscle Pain, No Muscular Weakness, No Pain In:, No Swelling In:, No Other Neurological: No Behavorial Changes, No Bowel/Bladder ControlChng, No Confusion, No Dizziness, No Gait Disturbance, No Headaches, No Impaired Coord/balance, No Memory Loss, No Numbness/Tingling, No Seizures, No Speech Problems, No Tremors, No Visual Changes, No Weakness, No Other Skin: No Dry Skin, No Eczema, No Hair Changes, No Lumps, No Mole Changes, No Mottling, No Nail Changes, No Pruritus, No Rash, No Skin Lesion Changes, No Other, No Acne Physical Exam General: Alert, Oriented X3, Cooperative, No acute distress HEENT: Atraumatic, PERRLA, EOMI, Mucous membr. moist/pink Lungs: Other (Bilateral crackles) Heart: S1S2, RRR, murmurs (3/6 mechanical diastolic murmur), other (Right chest wall sutures, palpable PPM. Sternotomy clean and dry) Abdomen: Normal bowel sounds, Soft, No tenderness, No hepatosplenomegaly, No masses Rectal Exam: not examined Extremities: No clubbing, No cyanosis, Normal pulses, No tenderness/swelling, Other (2+ pedal edema) Skin: No rashes, No breakdown, No significant lesion Neuro: Normal gait, Normal speech, Strength at 5/5 X4 ext, Normal tone, Sensation intact, Cranial nerves 3-12 NL, Reflexes 2+ Psych/Mental Status: Mental status NL, Mood NL Vitals Vitals Vital Signs Date Time Temp Pulse Resp B/P (MAP) Pulse Ox O2 Delivery O2 Flow Rate FiO2 11/27/18 08:46 20 94 Room Air 11/27/18 08:44 78 164/81 (108) 2.0 11/27/18 05:45 97.8 97.8 Labs Labs Laboratory Tests Test 11/27/18 05:45 White Blood Count 9.9 x10^3/uL (4.0-11.0) Red Blood Count 2.88 x10^6/uL (4.30-5.70) Hemoglobin 8.7 g/dL (13.0-17.5) Hematocrit 26.8 % (39.0-53.0) Mean Corpuscular Volume 93 fL (79-100) Mean Corpuscular Hemoglobin 30 pg (25-35) Mean Corpuscular Hemoglobin Concent 33 g/dL (31-37) Red Cell Distribution Width 14.4 % (11.5-14.5) Platelet Count 428 x10^3/uL (140-400) Neutrophils (%) (Auto) 79 % (31-73) Lymphocytes (%) (Auto) 11 % (24-48) Monocytes (%) (Auto) 8 % (0-9) Eosinophils (%) (Auto) 2 % (0-3) Basophils (%) (Auto) 1 % (0-3) Neutrophils # (Auto) 7.9 x10^3uL (1.8-7.7) Lymphocytes # (Auto) 1.0 x10^3/uL (1.0-4.8) Monocytes # (Auto) 0.8 x10^3/uL (0.0-1.1) Eosinophils # (Auto) 0.1 x10^3/uL (0.0-0.7) Basophils # (Auto) 0.1 x10^3/uL (0.0-0.2) Prothrombin Time 23.6 SEC (11.7-14.0) Prothromb Time International Ratio 2.1 (0.8-1.1) Activated Partial Thromboplast Time 56 SEC (24-38) D-Dimer (Kenyatta) 6.29 ug/mlFEU (0.00-0.50) Sodium Level 143 mmol/L (136-145) Potassium Level 4.0 mmol/L (3.5-5.1) Chloride Level 106 mmol/L (98-107) Carbon Dioxide Level 27 mmol/L (21-32) Anion Gap 10 (6-14) Blood Urea Nitrogen 20 mg/dL (8-26) Creatinine 0.9 mg/dL (0.7-1.3) Estimated GFR (Cockcroft-Gault) 84.2 BUN/Creatinine Ratio 22 (6-20) Glucose Level 123 mg/dL (70-99) Lactic Acid Level 0.9 mmol/L (0.4-2.0) Calcium Level 9.6 mg/dL (8.5-10.1) Magnesium Level 2.0 mg/dL (1.8-2.4) Total Bilirubin 0.3 mg/dL (0.2-1.0) Aspartate Amino Transf (AST/SGOT) 23 U/L (15-37) Alanine Aminotransferase (ALT/SGPT) 37 U/L (16-63) Alkaline Phosphatase 90 U/L (46-116) Creatine Kinase 103 U/L (39-308) Creatine Kinase MB (Mass) 3.6 ng/mL (0.0-3.6) Creatine Kinase MB Relative Index 3.5 % (0-4) Troponin I Quantitative 0.043 ng/mL (0.000-0.055) JO-Jcd-Z-Type Natriuretic Peptide 1110 pg/mL (0-124) Total Protein 6.6 g/dL (6.4-8.2) Albumin 3.0 g/dL (3.4-5.0) Albumin/Globulin Ratio 0.8 (1.0-1.7) Lipase 444 U/L (73-393) Laboratory Tests Test 11/27/18 05:45 White Blood Count 9.9 x10^3/uL (4.0-11.0) Red Blood Count 2.88 x10^6/uL (4.30-5.70) Hemoglobin 8.7 g/dL (13.0-17.5) Hematocrit 26.8 % (39.0-53.0) Mean Corpuscular Volume 93 fL (79-100) Mean Corpuscular Hemoglobin 30 pg (25-35) Mean Corpuscular Hemoglobin Concent 33 g/dL (31-37) Red Cell Distribution Width 14.4 % (11.5-14.5) Platelet Count 428 x10^3/uL (140-400) Neutrophils (%) (Auto) 79 % (31-73) Lymphocytes (%) (Auto) 11 % (24-48) Monocytes (%) (Auto) 8 % (0-9) Eosinophils (%) (Auto) 2 % (0-3) Basophils (%) (Auto) 1 % (0-3) Neutrophils # (Auto) 7.9 x10^3uL (1.8-7.7) Lymphocytes # (Auto) 1.0 x10^3/uL (1.0-4.8) Monocytes # (Auto) 0.8 x10^3/uL (0.0-1.1) Eosinophils # (Auto) 0.1 x10^3/uL (0.0-0.7) Basophils # (Auto) 0.1 x10^3/uL (0.0-0.2) Prothrombin Time 23.6 SEC (11.7-14.0) Prothromb Time International Ratio 2.1 (0.8-1.1) Activated Partial Thromboplast Time 56 SEC (24-38) D-Dimer (Kenyatta) 6.29 ug/mlFEU (0.00-0.50) Sodium Level 143 mmol/L (136-145) Potassium Level 4.0 mmol/L (3.5-5.1) Chloride Level 106 mmol/L (98-107) Carbon Dioxide Level 27 mmol/L (21-32) Anion Gap 10 (6-14) Blood Urea Nitrogen 20 mg/dL (8-26) Creatinine 0.9 mg/dL (0.7-1.3) Estimated GFR (Cockcroft-Gault) 84.2 BUN/Creatinine Ratio 22 (6-20) Glucose Level 123 mg/dL (70-99) Lactic Acid Level 0.9 mmol/L (0.4-2.0) Calcium Level 9.6 mg/dL (8.5-10.1) Magnesium Level 2.0 mg/dL (1.8-2.4) Total Bilirubin 0.3 mg/dL (0.2-1.0) Aspartate Amino Transf (AST/SGOT) 23 U/L (15-37) Alanine Aminotransferase (ALT/SGPT) 37 U/L (16-63) Alkaline Phosphatase 90 U/L (46-116) Creatine Kinase 103 U/L (39-308) Creatine Kinase MB (Mass) 3.6 ng/mL (0.0-3.6) Creatine Kinase MB Relative Index 3.5 % (0-4) Troponin I Quantitative 0.043 ng/mL (0.000-0.055) MR-Mzs-Z-Type Natriuretic Peptide 1110 pg/mL (0-124) Total Protein 6.6 g/dL (6.4-8.2) Albumin 3.0 g/dL (3.4-5.0) Albumin/Globulin Ratio 0.8 (1.0-1.7) Lipase 444 U/L (73-393) Images Images CXR - 1. Mild congestive changes. 2. Left lung base airspace opacity likely atelectasis or infiltrate. CTPA - 1. No evidence of central pulmonary embolism. However examination is limited due to lack of significant contrast within the distal lobar, segmental branches. 2. Trace pericardial effusion and small left pleural effusion. 3. Patchy airspace opacities identified in the right upper lobe, left lingular left lung base likely atelectasis or infiltrates. 4. Coronary artery calcifications. VTE Prophylaxis Ordered VTE Prophylaxis Devices: No VTE Pharmacological Prophylaxi: Yes Assessment/Plan Assessment/Plan A/P: Shortness of breath - with elevated BNP, congestive changes on CXR and CT scan (patchy) and recently mitral valve replacement this is likely acute pulmonary edema, possibly from diastolic CHF, will check procalcitonin to r/o pneumonia (otherwise will treat HCAP). Lucille, consult cards HOCM - status post ventricular septal myomectomy S/P mechanical mitral valve replacement - INR subtherapeutic at 2.1, will place on heparin GTT and bridge back to goal INR of 2.5-2.5 S/P PPM placement - paced on telemetry, will monitor. He states this was 2/2 afib. Will obtain records CHF - per [facility] discharge records patient is holding, unknown EF. Will get stat [facility] records High Cholesterol - cont lipitor Hypertension - cont metoprolol ESTEFANI with Bipolar I most recently depressed - cont lamictal, cymbalta. He is s/o ECT with good outcome Hyperglycemia - unknown DM history, will screen with A1c. Elevated Lipase - Likely had some mild pancreatitis. Will ADAT Anemia - likely post-operative. Will monitor. Would transfuse for Hb < 8, trend. Thrombocytosis - likely reactive with his anemia. Will monitor Chronic low back pain - states he would rather not take pain meds for this FEN - Cardiac diet PPX - heparin gtt --> warfarin, goal INR 2.5-3.5 DNI, ok with pressors, shocks and compressions Dispo - CVC for likely acute CHF exacerbation, will consult cardiology. Likely 2 midnights inpatient FAY LEMUS MD Nov 27, 2018 09:13
[2018-11-27 09:35] VITALS: BP 112/68
--- NOTE | 2018-11-27 10:34 | EKG ---
[facility] [address] [place] [address] Test Date: 2018-11-27 Test Time: 05:49:31 Pat Name: LADARIUS ELLIS Department: Room: Gender: M Consultant: : [id number] Requested By: MONTRELL HURTADO Order Number: [id number] Reading MD: Measurements Intervals [place] Rate: 81 P: -46 MD: 272 QRS: -2 QRSD: 138 T: 171 QT: 448 QTc: 527 Interpretive Statements SUPRAVENTRICULAR RHYTHM PROLONGED MD INTERVAL LEFT ATRIAL ABNORMALITY LEFTWARD AXIS LEFT BUNDLE BRANCH BLOCK ABNORMAL ECG No previous ECG available for comparison
[2018-11-27] MEDS ORDERED: WARF2TAB96 PO (10:47)
[2018-11-27] MEDS ORDERED: LAMO200T2 PO (10:47)
[2018-11-27] MEDS ORDERED: ASPI-612 PO (10:47)
[2018-11-27] MEDS ORDERED: OXYC1TAB7 PO (10:47)
[2018-11-27] MEDS ORDERED: GABA600T7 PO (10:47)
[2018-11-27] MEDS ORDERED: DULO60CA6 PO (10:47)
[2018-11-27] MEDS ORDERED: EZET10TA18 PO (10:47)
[2018-11-27] MEDS ORDERED: SENN-80 PO (10:47)
[2018-11-27] MEDS ORDERED: ATOR40TA59 PO (10:47)
[2018-11-27] MEDS ORDERED: METO25TA4 PO (10:47)
[2018-11-27] MEDS ORDERED: AMIO200T4 PO (10:47)
[2018-11-27] MEDS ORDERED: FENO145T PO (10:47)
[2018-11-27] MEDS ORDERED: POTA10TA12 PO (10:47)
[2018-11-27] MEDS ORDERED: FURO20TA3 PO (10:47)
[2018-11-27] MEDS ORDERED: MULT-245 PO (10:47)
[2018-11-27] MEDS ORDERED: CLON1TAB PO (10:47)
[2018-11-27] MEDS: MORPHINE SULFATE 4 MG/ML VIAL. IV PRN ×3 (11:15→19:20)
[2018-11-27] MEDS ORDERED: clonazePAM 1 MG TABLET PO PRN (13:30)
[2018-11-27] MEDS ORDERED: oxyCODONE/APAP 5/325 1 TAB TABLET PO PRN (13:30)
[2018-11-27] MEDS ORDERED: HEPARIN for IV BOLUS 10,000 UNIT/10 ML VIAL. IV PRN ×2 (13:30)
[2018-11-27] MEDS ORDERED: ONDANSETRON PF 4 MG/2 ML VIAL. IV PRN (13:45)
[2018-11-27] MEDS: MULTIVITAMIN with MINERAL TABLET. PO SCH (14:00)
[2018-11-27] MEDS: DULoxetine HCL 30 MG CAPSULE.DR PO SCH (14:11)
[2018-11-27] MEDS: lamoTRIgine 100 MG TABLET. PO SCH ×2 (14:12→20:51)
[2018-11-27] MEDS: EZETIMIBE 10 MG TABLET. PO SCH (14:12)
[2018-11-27] MEDS: GABAPENTIN 300 MG CAPSULE. PO SCH ×2 (14:14→20:51)
[2018-11-27] MEDS: ASPIRIN ENTERIC COATED 81 MG TABLET.DR. PO SCH (14:14)
[2018-11-27] MEDS: POTASSIUM CHLORIDE 10 MEQ TABLET.ER. PO SCH (14:14)
[2018-11-27] MEDS: AMIODARONE HCL 200 MG TABLET. PO SCH (14:14)
[2018-11-27] MEDS: METOPROLOL TART IMMED RELEASE 25 MG TABLET. PO SCH ×2 (14:15→20:52)
[2018-11-27] MEDS: POLYETHYLENE GLYCOL 3350 17 GM PACKET. PO SCH (14:15)
[2018-11-27] MEDS: FUROSEMIDE 40 MG/4 ML VIAL. IVP SCH (14:16)
[2018-11-27] MEDS: HEPARIN 25,000UTS/500ML PREMIX 500 ML IV PRN (14:30)
[2018-11-27 15:01] VITALS: BP 124/73
--- NOTE | 2018-11-27 15:15 | NUR ---
Pharmacy Warfarin Dosing Note S:Pharmacy consulted to assist with anticoagulation therapy with target INR: 2.5 - 3.5 O:LADARIUS ELLIS is a 68 year old M with Atrial Fibrillation, Mechanical Mitral Valve LABS: Last INR: 2.1 Last HGB: 8.7 Last HCT: 26.8 Last PLT: 428 Previous Regimen: 2MG/DAY Vitamin K given: N A:INR of 2.1 is below desired range. Target range for this patient is: 2.5 - 3.5 P: Warfarin dose: 3 mg Today at 1600 Bridge Therapy: Heparin Therapeutic Next INR due tomorrow Pharmacy anticoagulation service will continue to follow. Cat Mott RPH, 11/27/18 2088
[2018-11-27 15:22] LABS: BARBITURATES NEG (NEG); BENZODIAZEPINES NEG (NEG); CANNABINOIDS NEG (NEG); COCAINE NEG (NEG); METHADONE NEG (NEG); OPIATES POS (NEG); PHENCYCLIDINE NEG (NEG)
[2018-11-27 15:23] LABS: AMPHETAMINE/METHAMPHETAMINE NEG (NEG)
[2018-11-27] MEDS ORDERED: WARFARIN 3 MG TABLET. PO ONE (16:00)
--- NOTE | 2018-11-27 16:00 | PDOC2 ---
CONSULT Date of Consult Date of Consult DATE: 11/27/18 TIME: 15:51 Reason for Consult Reason for Consult: Heart failure, recent cardiac surgery at . Referring Physician Referring Physician: Dr. Gillespie Identification/Chief Complaint Chief Complaint Shortness of breath. Source Source: Chart review, Patient History of Present Illness Reason for Visit: The patient is a 68-year-old male who presented to the emergency room with one to 2 days of increasing shortness of breath. Patient reported chest discomfort over the side of a recent incision but no other episodes of chest discomfort. His chest x-ray showed mild congestive changes. A CT scan of the chest showed no central PE, trace pericardial effusion and a small left pleural effusion patient has been initially treated with diuretics and is feeling better. Limited records show the patient was just discharged from on November 21. He has a diagnosis of HOCM and underwent a ventricular septal myomectomy and mitral valve replacement approximately 2 weeks ago. He also had a permanent pacemaker placed and reporte rosita has chronic atrial fibrillation. The patient reports being compliant with his medications although he cannot give a clear history of his hospital course or the procedure performed during his hospitalization. Past Medical History Cardiovascular: AFIB (S/p PPM), CHF, HTN, Mitral valve stenosis (S/p mechanical mitral valve replacement), Other (HOCM) Pulmonary: No pertinent hx, COPD GI: No pertinent hx Heme/Onc: No pertinent hx Hepatobiliary: No pertinent hx Psych: Bipolar, Depression Musculoskeletal: low back pain Rheumatologic: No pertinent hx Infectious disease: No pertinent hx ENT: No pertinent hx Renal/: No pertinent hx Endocrine: No pertinent hx Dermatology: No pertinent hx Past Surgical History Past Surgical History: Pacemaker, Appendectomy, Total knee replacement (Bilateral), Other (Mechanical Mitral Valve, Ventricular Septal Myomectomy) Family History Family History: High Cholestrol, Hypertension Social History Quit ALCOHOL: rare Drugs: None Current Problem List Problem List Problems Medical Problems: (1) Anemia Status: Acute (2) CHF exacerbation Status: Acute (3) Shortness of breath Status: Acute Current Medications Current Medications Current Medications Aspirin (Ruth Aspirin) 325 mg 1X ONCE PO Last administered on 11/27/18at 06:19; Start 11/27/18 at 06:00; Stop 11/27/18 at 06:01; Status DC Nitroglycerin (Nitro-Bid Oint) 1 inch 1X ONCE TP Last administered on 11/27/18at 06:20; Start 11/27/18 at 06:00; Stop 11/27/18 at 06:01; Status DC Fentanyl Citrate (Fentanyl 2ml Vial) 50 mcg 1X ONCE IV Last administered on 11/27/18at 06:30; Start 11/27/18 at 06:30; Stop 11/27/18 at 06:31; Status DC Iohexol (Omnipaque 350 Mg/ml) 100 ml 1X ONCE IV Last administered on 11/27/18at 08:44; Start 11/27/18 at 08:15; Stop 11/27/18 at 08:16; Status DC Info (CONTRAST GIVEN -- Rx MONITORING) 1 each PRN DAILY PRN MC SEE COMMENTS; Start 11/27/18 at 08:15; Stop 11/29/18 at 08:14 Fentanyl Citrate (Fentanyl 2ml Vial) 50 mcg 1X ONCE IV Last administered on 11/27/18at 08:46; Start 11/27/18 at 08:45; Stop 11/27/18 at 08:46; Status DC Furosemide (Lasix) 40 mg 1X ONCE IVP Last administered on 11/27/18at 09:04; Start 11/27/18 at 09:00; Stop 11/27/18 at 09:01; Status DC Morphine Sulfate (Morphine Sulfate) 4 mg PRN Q3HRS PRN IV PAIN Last administered on 11/27/18at 11:15; Start 11/27/18 at 11:15 Amiodarone HCl (Cordarone) 200 mg DAILY PO Last administered on 11/27/18at 14:14; Start 11/27/18 at 14:00 Aspirin (Ecotrin) 81 mg DAILY08 PO Last administered on 11/27/18at 14:14; Start 11/27/18 at 14:00 Atorvastatin Calcium (Lipitor) 40 mg QHS PO ; Start 11/27/18 at 21:00 Clonazepam (KlonoPIN) 1 mg PRN BID PRN PO ANXIETY / AGITATION; Start 11/27/18 at 13:30 EZETIMIBE (Zetia) 10 mg DAILY PO Last administered on 11/27/18at 14:12; Start 11/27/18 at 14:00 Metoprolol Tartrate (Lopressor) 12.5 mg BID PO Last administered on 11/27/18at 14:15; Start 11/27/18 at 14:00 Oxycodone/ Acetaminophen (Percocet 5/325) 1 tab PRN Q4HRS PRN PO PAIN; Start 11/27/18 at 13:30 Potassium Chloride (Klor-Con) 10 meq DAILY08 PO Last administered on 11/27/18at 14:14; Start 11/27/18 at 14:00 Duloxetine HCl (Cymbalta) 90 mg DAILY PO Last administered on 11/27/18at 14:11; Start 11/27/18 at 14:00 Gabapentin (Neurontin) 300 mg TID PO Last administered on 11/27/18at 14:14; Start 11/27/18 at 14:00 Lamotrigine (LaMICtal) 200 mg BID PO Last administered on 11/27/18at 14:12; Start 11/27/18 at 14:00 Multivitamins (Thera M Plus) 1 tab DAILY PO Last administered on 11/27/18at 14:00; Start 11/27/18 at 14:00 Warfarin Sodium (Coumadin) 2 mg DAILY16 PO ; Start 11/28/18 at 16:00 Heparin Sodium/ Dextrose 500 ml @ 0 mls/hr CONT PRN IV SEE I/O RECORD Last administered on 11/27/18at 14:30; Start 11/27/18 at 13:30 Heparin Sodium (Porcine) (Heparin Sodium) 3,800 unit PRN Q6HRS PRN IV FOR UFH LEVEL LESS THAN 0.2; Start 11/27/18 at 13:30 Heparin Sodium (Porcine) (Heparin Sodium) 1,900 unit PRN Q6HRS PRN IV FOR UFH LEVEL 0.2 - 0.29; Start 11/27/18 at 13:30 Warfarin Sodium (Coumadin Per Pharmacy) 1 each PRN DAILY PRN MC SEE COMMENTS Last administered on 11/27/18at 15:15; Start 11/27/18 at 13:30 Warfarin Sodium (Coumadin Per Pharmacy) 1 each PRN DAILY PRN MC SEE COMMENTS; Start 11/27/18 at 13:30; Status UNV Ondansetron HCl (Zofran) 4 mg PRN Q6HRS PRN IV NAUSEA/VOMITING; Start 11/27/18 at 13:45 Polyethylene Glycol (miraLAX PACKET) 17 gm DAILY PO Last administered on 11/27/18at 14:15; Start 11/27/18 at 13:45 Furosemide (Lasix) 40 mg BID92 IVP Last administered on 11/27/18at 14:16; Start 11/27/18 at 14:00 Warfarin Sodium (Coumadin) 3 mg 1X WARF ONCE PO ; Start 11/27/18 at 16:00; Stop 11/27/18 at 16:01 Active Scripts Active Reported Multi Vitamin Daily (Multivitamin) 1 Each Tablet 1 Each PO DAILY Warfarin Sodium 2 Mg Tablet 2 Mg PO DAILY Senna (Sennosides) 8.6 Mg Tablet 17.2 Mg PO BID Potassium Chloride 10 Meq Tablet.er 10 Meq PO DAILY Oxycodone-Acetaminophen 5-325 (Oxycodone Hcl/Acetaminophen) 1 Each Tablet 1 Each PO PRN Q4HRS PRN Metoprolol Tartrate 25 Mg Tablet 12.5 Mg PO BID Lamotrigine 200 Mg Tablet 1 Tab PO BID Klonopin (Clonazepam) 1 Mg Tablet 1 Mg PO PRN BID PRN Gabapentin 600 Mg Tablet 300 Mg PO TID Furosemide 20 Mg Tablet 1 Tab PO DAILY Tricor (Fenofibrate Nanocrystallized) 145 Mg Tablet 1 Tab PO DAILY Zetia (Ezetimibe) 10 Mg Tablet 1 Tab PO DAILY Cymbalta (Duloxetine Hcl) 60 Mg Capsule.dr 90 Mg PO DAILY Atorvastatin Calcium 40 Mg Tablet 1 Tab PO DAILY Aspirin Ec (Aspirin) 81 Mg Tablet.dr 1 Tab PO DAILY Amiodarone Hcl 200 Mg Tablet 200 Mg PO DAILY Allergies Allergies: Coded Allergies: No Known Drug Allergies (Unverified , 08/13/18) ROS General: YES: Fatigue Respiratory: YES: Shortness of breath, SOB with excertion Physical Exam General: mild distress HEENT: Atraumatic Lungs: Other (decreased breath sounds) Heart: Regular rate Abdomen: Normal bowel sounds Vitals VITALS Vital Signs Date Time Temp Pulse Resp B/P (MAP) Pulse Ox O2 Delivery O2 Flow Rate FiO2 11/27/18 15:01 98.2 75 16 124/73 (90) 95 Room Air 98.2 11/27/18 11:05 2.0 Labs Labs Laboratory Tests Test 11/27/18 05:45 11/27/18 12:55 11/27/18 14:08 11/27/18 14:30 White Blood Count 9.9 x10^3/uL (4.0-11.0) Red Blood Count 2.88 x10^6/uL (4.30-5.70) Hemoglobin 8.7 g/dL (13.0-17.5) Hematocrit 26.8 % (39.0-53.0) Mean Corpuscular Volume 93 fL (79-100) Mean Corpuscular Hemoglobin 30 pg (25-35) Mean Corpuscular Hemoglobin Concent 33 g/dL (31-37) Red Cell Distribution Width 14.4 % (11.5-14.5) Platelet Count 428 x10^3/uL (140-400) Neutrophils (%) (Auto) 79 % (31-73) Lymphocytes (%) (Auto) 11 % (24-48) Monocytes (%) (Auto) 8 % (0-9) Eosinophils (%) (Auto) 2 % (0-3) Basophils (%) (Auto) 1 % (0-3) Neutrophils # (Auto) 7.9 x10^3uL (1.8-7.7) Lymphocytes # (Auto) 1.0 x10^3/uL (1.0-4.8) Monocytes # (Auto) 0.8 x10^3/uL (0.0-1.1) Eosinophils # (Auto) 0.1 x10^3/uL (0.0-0.7) Basophils # (Auto) 0.1 x10^3/uL (0.0-0.2) Prothrombin Time 23.6 SEC (11.7-14.0) Prothromb Time International Ratio 2.1 (0.8-1.1) Activated Partial Thromboplast Time 56 SEC (24-38) D-Dimer (Kenyatta) 6.29 ug/mlFEU (0.00-0.50) Sodium Level 143 mmol/L (136-145) Potassium Level 4.0 mmol/L (3.5-5.1) Chloride Level 106 mmol/L (98-107) Carbon Dioxide Level 27 mmol/L (21-32) Anion Gap 10 (6-14) Blood Urea Nitrogen 20 mg/dL (8-26) Creatinine 0.9 mg/dL (0.7-1.3) Estimated GFR (Cockcroft-Gault) 84.2 BUN/Creatinine Ratio 22 (6-20) Glucose Level 123 mg/dL (70-99) Lactic Acid Level 0.9 mmol/L (0.4-2.0) Calcium Level 9.6 mg/dL (8.5-10.1) Magnesium Level 2.0 mg/dL (1.8-2.4) Total Bilirubin 0.3 mg/dL (0.2-1.0) Aspartate Amino Transf (AST/SGOT) 23 U/L (15-37) Alanine Aminotransferase (ALT/SGPT) 37 U/L (16-63) Alkaline Phosphatase 90 U/L (46-116) Creatine Kinase 103 U/L (39-308) Creatine Kinase MB (Mass) 3.6 ng/mL (0.0-3.6) Creatine Kinase MB Relative Index 3.5 % (0-4) Troponin I Quantitative 0.043 ng/mL (0.000-0.055) 0.047 ng/mL (0.000-0.055) KN-Sqx-K-Type Natriuretic Peptide 1110 pg/mL (0-124) Total Protein 6.6 g/dL (6.4-8.2) Albumin 3.0 g/dL (3.4-5.0) Albumin/Globulin Ratio 0.8 (1.0-1.7) Lipase 444 U/L (73-393) Thyroid Stimulating Hormone (TSH) 5.545 uIU/mL (0.358-3.74) Procalcitonin < 0.10 ng/mL (0.00-0.10) Urine Opiates Screen Pos (NEG) Urine Methadone Screen Neg (NEG) Urine Barbiturates Neg (NEG) Urine Phencyclidine Screen Neg (NEG) Urine Amphetamine/Methamphetamine Neg (NEG) Urine Benzodiazepines Screen Neg (NEG) Urine Cocaine Screen Neg (NEG) Urine Cannabinoids Screen Neg (NEG) Urine Ethyl Alcohol Neg (NEG) Laboratory Tests Test 11/27/18 05:45 11/27/18 12:55 11/27/18 14:08 11/27/18 14:30 White Blood Count 9.9 x10^3/uL (4.0-11.0) Red Blood Count 2.88 x10^6/uL (4.30-5.70) Hemoglobin 8.7 g/dL (13.0-17.5) Hematocrit 26.8 % (39.0-53.0) Mean Corpuscular Volume 93 fL (79-100) Mean Corpuscular Hemoglobin 30 pg (25-35) Mean Corpuscular Hemoglobin Concent 33 g/dL (31-37) Red Cell Distribution Width 14.4 % (11.5-14.5) Platelet Count 428 x10^3/uL (140-400) Neutrophils (%) (Auto) 79 % (31-73) Lymphocytes (%) (Auto) 11 % (24-48) Monocytes (%) (Auto) 8 % (0-9) Eosinophils (%) (Auto) 2 % (0-3) Basophils (%) (Auto) 1 % (0-3) Neutrophils # (Auto) 7.9 x10^3uL (1.8-7.7) Lymphocytes # (Auto) 1.0 x10^3/uL (1.0-4.8) Monocytes # (Auto) 0.8 x10^3/uL (0.0-1.1) Eosinophils # (Auto) 0.1 x10^3/uL (0.0-0.7) Basophils # (Auto) 0.1 x10^3/uL (0.0-0.2) Prothrombin Time 23.6 SEC (11.7-14.0) Prothromb Time International Ratio 2.1 (0.8-1.1) Activated Partial Thromboplast Time 56 SEC (24-38) D-Dimer (Kenyatta) 6.29 ug/mlFEU (0.00-0.50) Sodium Level 143 mmol/L (136-145) Potassium Level 4.0 mmol/L (3.5-5.1) Chloride Level 106 mmol/L (98-107) Carbon Dioxide Level 27 mmol/L (21-32) Anion Gap 10 (6-14) Blood Urea Nitrogen 20 mg/dL (8-26) Creatinine 0.9 mg/dL (0.7-1.3) Estimated GFR (Cockcroft-Gault) 84.2 BUN/Creatinine Ratio 22 (6-20) Glucose Level 123 mg/dL (70-99) Lactic Acid Level 0.9 mmol/L (0.4-2.0) Calcium Level 9.6 mg/dL (8.5-10.1) Magnesium Level 2.0 mg/dL (1.8-2.4) Total Bilirubin 0.3 mg/dL (0.2-1.0) Aspartate Amino Transf (AST/SGOT) 23 U/L (15-37) Alanine Aminotransferase (ALT/SGPT) 37 U/L (16-63) Alkaline Phosphatase 90 U/L (46-116) Creatine Kinase 103 U/L (39-308) Creatine Kinase MB (Mass) 3.6 ng/mL (0.0-3.6) Creatine Kinase MB Relative Index 3.5 % (0-4) Troponin I Quantitative 0.043 ng/mL (0.000-0.055) 0.047 ng/mL (0.000-0.055) MQ-Itp-B-Type Natriuretic Peptide 1110 pg/mL (0-124) Total Protein 6.6 g/dL (6.4-8.2) Albumin 3.0 g/dL (3.4-5.0) Albumin/Globulin Ratio 0.8 (1.0-1.7) Lipase 444 U/L (73-393) Thyroid Stimulating Hormone (TSH) 5.545 uIU/mL (0.358-3.74) Procalcitonin < 0.10 ng/mL (0.00-0.10) Urine Opiates Screen Pos (NEG) Urine Methadone Screen Neg (NEG) Urine Barbiturates Neg (NEG) Urine Phencyclidine Screen Neg (NEG) Urine Amphetamine/Methamphetamine Neg (NEG) Urine Benzodiazepines Screen Neg (NEG) Urine Cocaine Screen Neg (NEG) Urine Cannabinoids Screen Neg (NEG) Urine Ethyl Alcohol Neg (NEG) Images Images CT scan of the chest shows no central PE. It does show trace pericardial effusion and a small left pleural effusion. Chest x-ray shows mild congestive changes. Assessment/Plan Assessment/Plan 1. Acute and chronic heart failure. Probable diastolic heart failure. We'll treat with diuresis and close monitoring. Will check an echocardiogram. 2. Status post mechanical mitral valve. As per the primary's notes patient is being covered with heparin due to a below therapeutic INR. Echocardiogram as above. Further discussion with the patient. 3. HOCM. Status post ventricular septal myomectomy. We'll continue present medications and obtain records from [facility]. 4. Status post recent pacemaker placement. 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 5. History of atrial fibrillation. Pacemaker as above. On anticoagulation. 6. Hypertension. Continue to monitor and adjust medications as needed. 7. Hyperlipidemia. We'll check home medications. We'll check a lipid panel. 8. Possible bipolar disease. Thank you for allowing us to participate in the care of your patient. MAXIMILIAN RIVERA MD Nov 27, 2018 16:00
[2018-11-27 18:50] VITALS: BP 108/83
[2018-11-27] MEDS: ATORVASTATIN CALCIUM 40 MG TABLET. PO SCH (20:51)
[2018-11-27 22:56] VITALS: BP 103/58
[2018-11-28] MEDS: HEPARIN 25,000UTS/500ML PREMIX 500 ML IV PRN (02:12)
[2018-11-28 02:53] VITALS: BP 123/72
[2018-11-28 05:19] LABS: HEMOGLOBIN 8.9 g/dL (13.0-17.5); RED BLOOD COUNT 2.96 x10^6/uL (4.30-5.70); RED CELL DISTRIBUTION WIDTH 15.1 % (11.5-14.5); WHITE BLOOD COUNT 7.5 x10^3/uL (4.0-11.0)
[2018-11-28 05:42] LABS: CALCIUM 9.5 mg/dL (8.5-10.1); CREATININE 1.2 mg/dL (0.7-1.3); GFR 60.4; POTASSIUM 3.6 mmol/L (3.5-5.1)
[2018-11-28 06:07] LABS: PROTHROMBIN TIME PATIENT 22.7 SEC (11.7-14.0)
[2018-11-28 06:39] LABS: CHOLESTEROL/HDL RATIO 4.3
[2018-11-28 07:00] VITALS: BP 125/73
--- NOTE | 2018-11-28 08:03 | PDOC ---
PROGRESS NOTES Chief Complaint Chief Complaint A/P: Shortness of breath - with elevated BNP, congestive changes on CXR and CT scan (patchy) and recently mitral valve replacement this is likely acute pulmonary edema, possibly from diastolic CHF, will check procalcitonin to r/o pneumonia (otherwise will treat HCAP). Lucille, consult cards HOCM - status post ventricular septal myomectomy S/P mechanical mitral valve replacement - INR subtherapeutic at 2.1, will place on heparin GTT and bridge back to goal INR of 2.5-2.5 S/P PPM placement - paced on telemetry, will monitor. He states this was 2/2 afib. Will obtain records CHF - per [facility] discharge records patient is holding, unknown EF. Will get stat [facility] records High Cholesterol - cont lipitor Hypertension - cont metoprolol ESTEFANI with Bipolar I most recently depressed - cont lamictal, cymbalta. He is s/o ECT with good outcome Hyperglycemia - unknown DM history, will screen with A1c. Elevated Lipase - Likely had some mild pancreatitis. Will ADAT Anemia - likely post-operative. Iron levels are low, though TIBC is WNL, will give IVF iron as he states he has not tolerated PO well, but he should still try along with vitamin c to aid absorption Thrombocytosis - likely reactive with his anemia. Will monitor Chronic low back pain - states he would rather not take pain meds for this FEN - Cardiac diet PPX - heparin gtt --> warfarin, goal INR 2.5-3.5 DNI, ok with pressors, shocks and compressions Dispo - CVC for likely acute CHF exacerbation, will consult cardiology. Likely 2 midnights inpatient History of Present Illness History of Present Illness Mr Campos is a 68 yo M w/ PMHx chronic low back pain, CHF, High Cholesterol, Hypertension, ESTEFANI, Bipolar I most recently depressed, HOCM status post ventricular septal myomectomy and mechanical mitral valve replacement and PPM placement at [facility] 2 weeks ago who presents with report of progressive shortness of breath since yesterday. Reports worse this AM with sternal pain and cough. Patient denies known trauma. Denies fever or chills. Denies calves pain. Reports some increased fluid hydration. Patient does reports history of CHF. Reports some chest wall pain but thinks it is from his surgery. He moved from [place] 9 months ago and had progressive shortness of breath since then. He had a prolonged hospital stay at [facility] from where he was just discharged 11/21/18 with above ventricular septal myomectomy and mechanical mitral valve replacement and PPM placement performed. 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 Previously has been hospitalized for Bipolar depression and suicide attempt which was successfully treated with ECT followed by maintenance lamictal with cymbalta dosing. EKG showed paced rhythm. BNP elevated at 1100. CXR consistent with recent sternotomy. Overnight with 3 doses of IV lasix he feels significantly better. However, his INR is now 2. He wishes to leave the hospital and is amenable to lovenox injections to bridge back to therapeutic INR as he has good cardiology f/u at [facility]. He diuresed 2L and went from 125.7kg to 122.4kg, feels this is where he is most comfortable, no longer requiring O2. Procalcitonin and troponin both negative. Vitals Vitals Vital Signs Date Time Temp Pulse Resp B/P (MAP) Pulse Ox O2 Delivery O2 Flow Rate FiO2 11/28/18 02:53 98.1 69 21 123/72 (89) 96 Nasal Cannula 2.0 98.1 Physical Exam General: mild distress Heart: Regular rate Abdomen: Normal bowel sounds Extremities: No clubbing, No cyanosis, Normal pulses, No tenderness/swelling, Other (2+ pedal edema) Skin: No rashes, No breakdown, No significant lesion Labs LABS Laboratory Tests Test 11/27/18 12:55 11/27/18 14:08 11/27/18 14:30 11/27/18 20:40 Troponin I Quantitative 0.047 ng/mL (0.000-0.055) 0.054 ng/mL (0.000-0.055) Procalcitonin < 0.10 ng/mL (0.00-0.10) Urine Opiates Screen Pos (NEG) Urine Methadone Screen Neg (NEG) Urine Barbiturates Neg (NEG) Urine Phencyclidine Screen Neg (NEG) Urine Amphetamine/Methamphetamine Neg (NEG) Urine Benzodiazepines Screen Neg (NEG) Urine Cocaine Screen Neg (NEG) Urine Cannabinoids Screen Neg (NEG) Urine Ethyl Alcohol Neg (NEG) Heparin Anti-Xa Act, Unfractionated 0.34 IU/mL (0.30-0.70) Test 11/28/18 04:45 White Blood Count 7.5 x10^3/uL (4.0-11.0) Red Blood Count 2.96 x10^6/uL (4.30-5.70) Hemoglobin 8.9 g/dL (13.0-17.5) Hematocrit 28.0 % (39.0-53.0) Mean Corpuscular Volume 95 fL (79-100) Mean Corpuscular Hemoglobin 30 pg (25-35) Mean Corpuscular Hemoglobin Concent 32 g/dL (31-37) Red Cell Distribution Width 15.1 % (11.5-14.5) Platelet Count 432 x10^3/uL (140-400) Prothrombin Time 22.7 SEC (11.7-14.0) Prothromb Time International Ratio 2.0 (0.8-1.1) Sodium Level 145 mmol/L (136-145) Potassium Level 3.6 mmol/L (3.5-5.1) Chloride Level 104 mmol/L (98-107) Carbon Dioxide Level 33 mmol/L (21-32) Anion Gap 8 (6-14) Blood Urea Nitrogen 18 mg/dL (8-26) Creatinine 1.2 mg/dL (0.7-1.3) Estimated GFR (Cockcroft-Gault) 60.4 Glucose Level 106 mg/dL (70-99) Calcium Level 9.5 mg/dL (8.5-10.1) Magnesium Level 2.1 mg/dL (1.8-2.4) Iron Level 36 ug/dL (65-175) Total Iron Binding Capacity 353 ug/dL (250-450) Iron Saturation 10 % (15-34) Triglycerides Level 176 mg/dL (0-150) Cholesterol Level 124 mg/dL (0-200) LDL Cholesterol, Calculated 60 mg/dL (0-100) VLDL Cholesterol, Calculated 35 mg/dL (0-40) Non-HDL Cholesterol Calculated 95 mg/dL (0-129) HDL Cholesterol 29 mg/dL (40-60) Cholesterol/HDL Ratio 4.3 Assessment and Plan Assessmemt and Plan Problems Medical Problems: (1) Anemia Status: Acute (2) CHF exacerbation Status: Acute (3) Shortness of breath Status: Acute Comment Review of Relevant I have reviewed the following items sebastian (where applicable) has been applied. Labs Laboratory Tests Test 11/27/18 05:45 11/27/18 12:55 11/27/18 14:08 11/27/18 14:30 White Blood Count 9.9 x10^3/uL (4.0-11.0) Red Blood Count 2.88 x10^6/uL (4.30-5.70) Hemoglobin 8.7 g/dL (13.0-17.5) Hematocrit 26.8 % (39.0-53.0) Mean Corpuscular Volume 93 fL (79-100) Mean Corpuscular Hemoglobin 30 pg (25-35) Mean Corpuscular Hemoglobin Concent 33 g/dL (31-37) Red Cell Distribution Width 14.4 % (11.5-14.5) Platelet Count 428 x10^3/uL (140-400) Neutrophils (%) (Auto) 79 % (31-73) Lymphocytes (%) (Auto) 11 % (24-48) Monocytes (%) (Auto) 8 % (0-9) Eosinophils (%) (Auto) 2 % (0-3) Basophils (%) (Auto) 1 % (0-3) Neutrophils # (Auto) 7.9 x10^3uL (1.8-7.7) Lymphocytes # (Auto) 1.0 x10^3/uL (1.0-4.8) Monocytes # (Auto) 0.8 x10^3/uL (0.0-1.1) Eosinophils # (Auto) 0.1 x10^3/uL (0.0-0.7) Basophils # (Auto) 0.1 x10^3/uL (0.0-0.2) Prothrombin Time 23.6 SEC (11.7-14.0) Prothromb Time International Ratio 2.1 (0.8-1.1) Activated Partial Thromboplast Time 56 SEC (24-38) D-Dimer (Kenyatta) 6.29 ug/mlFEU (0.00-0.50) Sodium Level 143 mmol/L (136-145) Potassium Level 4.0 mmol/L (3.5-5.1) Chloride Level 106 mmol/L (98-107) Carbon Dioxide Level 27 mmol/L (21-32) Anion Gap 10 (6-14) Blood Urea Nitrogen 20 mg/dL (8-26) Creatinine 0.9 mg/dL (0.7-1.3) Estimated GFR (Cockcroft-Gault) 84.2 BUN/Creatinine Ratio 22 (6-20) Glucose Level 123 mg/dL (70-99) Lactic Acid Level 0.9 mmol/L (0.4-2.0) Calcium Level 9.6 mg/dL (8.5-10.1) Magnesium Level 2.0 mg/dL (1.8-2.4) Total Bilirubin 0.3 mg/dL (0.2-1.0) Aspartate Amino Transf (AST/SGOT) 23 U/L (15-37) Alanine Aminotransferase (ALT/SGPT) 37 U/L (16-63) Alkaline Phosphatase 90 U/L (46-116) Creatine Kinase 103 U/L (39-308) Creatine Kinase MB (Mass) 3.6 ng/mL (0.0-3.6) Creatine Kinase MB Relative Index 3.5 % (0-4) Troponin I Quantitative 0.043 ng/mL (0.000-0.055) 0.047 ng/mL (0.000-0.055) SX-Zcg-E-Type Natriuretic Peptide 1110 pg/mL (0-124) Total Protein 6.6 g/dL (6.4-8.2) Albumin 3.0 g/dL (3.4-5.0) Albumin/Globulin Ratio 0.8 (1.0-1.7) Lipase 444 U/L (73-393) Thyroid Stimulating Hormone (TSH) 5.545 uIU/mL (0.358-3.74) Procalcitonin < 0.10 ng/mL (0.00-0.10) Urine Opiates Screen Pos (NEG) Urine Methadone Screen Neg (NEG) Urine Barbiturates Neg (NEG) Urine Phencyclidine Screen Neg (NEG) Urine Amphetamine/Methamphetamine Neg (NEG) Urine Benzodiazepines Screen Neg (NEG) Urine Cocaine Screen Neg (NEG) Urine Cannabinoids Screen Neg (NEG) Urine Ethyl Alcohol Neg (NEG) Test 11/27/18 20:40 11/28/18 04:45 Heparin Anti-Xa Act, Unfractionated 0.34 IU/mL (0.30-0.70) Troponin I Quantitative 0.054 ng/mL (0.000-0.055) White Blood Count 7.5 x10^3/uL (4.0-11.0) Red Blood Count 2.96 x10^6/uL (4.30-5.70) Hemoglobin 8.9 g/dL (13.0-17.5) Hematocrit 28.0 % (39.0-53.0) Mean Corpuscular Volume 95 fL (79-100) Mean Corpuscular Hemoglobin 30 pg (25-35) Mean Corpuscular Hemoglobin Concent 32 g/dL (31-37) Red Cell Distribution Width 15.1 % (11.5-14.5) Platelet Count 432 x10^3/uL (140-400) Prothrombin Time 22.7 SEC (11.7-14.0) Prothromb Time International Ratio 2.0 (0.8-1.1) Sodium Level 145 mmol/L (136-145) Potassium Level 3.6 mmol/L (3.5-5.1) Chloride Level 104 mmol/L (98-107) Carbon Dioxide Level 33 mmol/L (21-32) Anion Gap 8 (6-14) Blood Urea Nitrogen 18 mg/dL (8-26) Creatinine 1.2 mg/dL (0.7-1.3) Estimated GFR (Cockcroft-Gault) 60.4 Glucose Level 106 mg/dL (70-99) Calcium Level 9.5 mg/dL (8.5-10.1) Magnesium Level 2.1 mg/dL (1.8-2.4) Iron Level 36 ug/dL (65-175) Total Iron Binding Capacity 353 ug/dL (250-450) Iron Saturation 10 % (15-34) Triglycerides Level 176 mg/dL (0-150) Cholesterol Level 124 mg/dL (0-200) LDL Cholesterol, Calculated 60 mg/dL (0-100) VLDL Cholesterol, Calculated 35 mg/dL (0-40) Non-HDL Cholesterol Calculated 95 mg/dL (0-129) HDL Cholesterol 29 mg/dL (40-60) Cholesterol/HDL Ratio 4.3 Laboratory Tests Test 11/27/18 12:55 11/27/18 14:08 11/27/18 14:30 11/27/18 20:40 Troponin I Quantitative 0.047 ng/mL (0.000-0.055) 0.054 ng/mL (0.000-0.055) Procalcitonin < 0.10 ng/mL (0.00-0.10) Urine Opiates Screen Pos (NEG) Urine Methadone Screen Neg (NEG) Urine Barbiturates Neg (NEG) Urine Phencyclidine Screen Neg (NEG) Urine Amphetamine/Methamphetamine Neg (NEG) Urine Benzodiazepines Screen Neg (NEG) Urine Cocaine Screen Neg (NEG) Urine Cannabinoids Screen Neg (NEG) Urine Ethyl Alcohol Neg (NEG) Heparin Anti-Xa Act, Unfractionated 0.34 IU/mL (0.30-0.70) Test 11/28/18 04:45 White Blood Count 7.5 x10^3/uL (4.0-11.0) Red Blood Count 2.96 x10^6/uL (4.30-5.70) Hemoglobin 8.9 g/dL (13.0-17.5) Hematocrit 28.0 % (39.0-53.0) Mean Corpuscular Volume 95 fL (79-100) Mean Corpuscular Hemoglobin 30 pg (25-35) Mean Corpuscular Hemoglobin Concent 32 g/dL (31-37) Red Cell Distribution Width 15.1 % (11.5-14.5) Platelet Count 432 x10^3/uL (140-400) Prothrombin Time 22.7 SEC (11.7-14.0) Prothromb Time International Ratio 2.0 (0.8-1.1) Sodium Level 145 mmol/L (136-145) Potassium Level 3.6 mmol/L (3.5-5.1) Chloride Level 104 mmol/L (98-107) Carbon Dioxide Level 33 mmol/L (21-32) Anion Gap 8 (6-14) Blood Urea Nitrogen 18 mg/dL (8-26) Creatinine 1.2 mg/dL (0.7-1.3) Estimated GFR (Cockcroft-Gault) 60.4 Glucose Level 106 mg/dL (70-99) Calcium Level 9.5 mg/dL (8.5-10.1) Magnesium Level 2.1 mg/dL (1.8-2.4) Iron Level 36 ug/dL (65-175) Total Iron Binding Capacity 353 ug/dL (250-450) Iron Saturation 10 % (15-34) Triglycerides Level 176 mg/dL (0-150) Cholesterol Level 124 mg/dL (0-200) LDL Cholesterol, Calculated 60 mg/dL (0-100) VLDL Cholesterol, Calculated 35 mg/dL (0-40) Non-HDL Cholesterol Calculated 95 mg/dL (0-129) HDL Cholesterol 29 mg/dL (40-60) Cholesterol/HDL Ratio 4.3 Microbiology 11/27/18 Blood Culture - Preliminary, Resulted NO GROWTH AFTER 1 DAY Medications Current Medications Aspirin (Ruth Aspirin) 325 mg 1X ONCE PO Last administered on 11/27/18at 06:19; Start 11/27/18 at 06:00; Stop 11/27/18 at 06:01; Status DC Nitroglycerin (Nitro-Bid Oint) 1 inch 1X ONCE TP Last administered on 11/27/18at 06:20; Start 11/27/18 at 06:00; Stop 11/27/18 at 06:01; Status DC Fentanyl Citrate (Fentanyl 2ml Vial) 50 mcg 1X ONCE IV Last administered on 11/27/18at 06:30; Start 11/27/18 at 06:30; Stop 11/27/18 at 06:31; Status DC Iohexol (Omnipaque 350 Mg/ml) 100 ml 1X ONCE IV Last administered on 11/27/18at 08:44; Start 11/27/18 at 08:15; Stop 11/27/18 at 08:16; Status DC Info (CONTRAST GIVEN -- Rx MONITORING) 1 each PRN DAILY PRN MC SEE COMMENTS; Start 11/27/18 at 08:15; Stop 11/29/18 at 08:14 Fentanyl Citrate (Fentanyl 2ml Vial) 50 mcg 1X ONCE IV Last administered on 11/27/18at 08:46; Start 11/27/18 at 08:45; Stop 11/27/18 at 08:46; Status DC Furosemide (Lasix) 40 mg 1X ONCE IVP Last administered on 11/27/18at 09:04; Start 11/27/18 at 09:00; Stop 11/27/18 at 09:01; Status DC Morphine Sulfate (Morphine Sulfate) 4 mg PRN Q3HRS PRN IV PAIN Last administered on 11/27/18at 19:20; Start 11/27/18 at 11:15 Amiodarone HCl (Cordarone) 200 mg DAILY PO Last administered on 11/27/18 14:14; Start 11/27/18 at 14:00 Aspirin (Ecotrin) 81 mg DAILY08 PO Last administered on 11/27/18 14:14; Start 11/27/18 at 14:00 Atorvastatin Calcium (Lipitor) 40 mg QHS PO Last administered on 11/27/18 20:51; Start 11/27/18 at 21:00 Clonazepam (KlonoPIN) 1 mg PRN BID PRN PO ANXIETY / AGITATION; Start 11/27/18 at 13:30 EZETIMIBE (Zetia) 10 mg DAILY PO Last administered on 11/27/18 14:12; Start 11/27/18 at 14:00 Metoprolol Tartrate (Lopressor) 12.5 mg BID PO Last administered on 11/27/18 20:52; Start 11/27/18 at 14:00 Oxycodone/ Acetaminophen (Percocet 5/325) 1 tab PRN Q4HRS PRN PO PAIN; Start 11/27/18 at 13:30 Potassium Chloride (Klor-Con) 10 meq DAILY08 PO Last administered on 11/27/18 14:14; Start 11/27/18 at 14:00 Duloxetine HCl (Cymbalta) 90 mg DAILY PO Last administered on 11/27/18 14:11; Start 11/27/18 at 14:00 Gabapentin (Neurontin) 300 mg TID PO Last administered on 11/27/18 20:51; Start 11/27/18 at 14:00 Lamotrigine (LaMICtal) 200 mg BID PO Last administered on 11/27/18 20:51; Start 11/27/18 at 14:00 Multivitamins (Thera M Plus) 1 tab DAILY PO Last administered on 11/27/18 14:00; Start 11/27/18 at 14:00 Warfarin Sodium (Coumadin) 2 mg DAILY16 PO ; Start 11/28/18 at 16:00 Heparin Sodium/ Dextrose 500 ml @ 0 mls/hr CONT PRN IV SEE I/O RECORD Last administered on 11/28/18at 02:12; Start 11/27/18 at 13:30 Heparin Sodium (Porcine) (Heparin Sodium) 3,800 unit PRN Q6HRS PRN IV FOR UFH LEVEL LESS THAN 0.2; Start 11/27/18 at 13:30 Heparin Sodium (Porcine) (Heparin Sodium) 1,900 unit PRN Q6HRS PRN IV FOR UFH LEVEL 0.2 - 0.29; Start 11/27/18 at 13:30 Warfarin Sodium (Coumadin Per Pharmacy) 1 each PRN DAILY PRN MC SEE COMMENTS Last administered on 11/27/18at 15:15; Start 11/27/18 at 13:30 Warfarin Sodium (Coumadin Per Pharmacy) 1 each PRN DAILY PRN MC SEE COMMENTS; Start 11/27/18 at 13:30; Status UNV Ondansetron HCl (Zofran) 4 mg PRN Q6HRS PRN IV NAUSEA/VOMITING; Start 11/27/18 at 13:45 Polyethylene Glycol (miraLAX PACKET) 17 gm DAILY PO Last administered on 11/27/18at 14:15; Start 11/27/18 at 13:45 Furosemide (Lasix) 40 mg BID92 IVP Last administered on 11/27/18at 14:16; Start 11/27/18 at 14:00 Warfarin Sodium (Coumadin) 3 mg 1X WARF ONCE PO Last administered on 11/27/18at 16:07; Start 11/27/18 at 16:00; Stop 11/27/18 at 16:01; Status DC Active Scripts Active Reported Multi Vitamin Daily (Multivitamin) 1 Each Tablet 1 Each PO DAILY Warfarin Sodium 2 Mg Tablet 2 Mg PO DAILY Senna (Sennosides) 8.6 Mg Tablet 17.2 Mg PO BID Potassium Chloride 10 Meq Tablet.er 10 Meq PO DAILY Oxycodone-Acetaminophen 5-325 (Oxycodone Hcl/Acetaminophen) 1 Each Tablet 1 Each PO PRN Q4HRS PRN Metoprolol Tartrate 25 Mg Tablet 12.5 Mg PO BID Lamotrigine 200 Mg Tablet 1 Tab PO BID Klonopin (Clonazepam) 1 Mg Tablet 1 Mg PO PRN BID PRN Gabapentin 600 Mg Tablet 300 Mg PO TID Furosemide 20 Mg Tablet 1 Tab PO DAILY Tricor (Fenofibrate Nanocrystallized) 145 Mg Tablet 1 Tab PO DAILY Zetia (Ezetimibe) 10 Mg Tablet 1 Tab PO DAILY Cymbalta (Duloxetine Hcl) 60 Mg Capsule.dr 90 Mg PO DAILY Atorvastatin Calcium 40 Mg Tablet 1 Tab PO DAILY Aspirin Ec (Aspirin) 81 Mg Tablet.dr 1 Tab PO DAILY Amiodarone Hcl 200 Mg Tablet 200 Mg PO DAILY Vitals/I & O Vital Sign - Last 24 Hours 11/27/18 11/27/18 11/27/18 11/27/18 08:03 08:44 08:46 09:30 Pulse 76 78 Resp 21 29 20 B/P (MAP) 125/64 (84) 164/81 (108) Pulse Ox 96 94 94 95 O2 Delivery Nasal Cannula Nasal Cannula Room Air Nasal Cannula O2 Flow Rate 2.0 2.0 2.0 11/27/18 11/27/18 11/27/18 11/27/18 09:30 09:35 09:35 11:05 Temp 97.7 97.7 Pulse 75 Resp 20 B/P (MAP) 112/68 (83) Pulse Ox 95 95 O2 Delivery Nasal Cannula Room Air Nasal Cannula Nasal Cannula O2 Flow Rate 2.0 2.0 2.0 11/27/18 11/27/18 11/27/18 11/27/18 11:15 14:14 14:15 15:01 Temp 98.2 98.2 Pulse 75 75 75 Resp 16 B/P (MAP) 112/68 112/68 124/73 (90) Pulse Ox 95 95 O2 Delivery Room Air Room Air 11/27/18 11/27/18 11/27/18 11/27/18 16:09 18:50 19:20 19:50 Temp 98.3 98.3 Pulse 67 Resp 16 B/P (MAP) 108/83 (91) Pulse Ox 95 98 98 98 O2 Delivery Room Air Room Air Room Air Room Air 11/27/18 11/27/18 11/27/18 11/28/18 20:00 20:52 22:56 02:53 Temp 98.1 98.1 98.1 98.1 Pulse 67 61 69 Resp 20 21 B/P (MAP) 108/83 103/58 (73) 123/72 (89) Pulse Ox 97 96 O2 Delivery Room Air Nasal Cannula Nasal Cannula O2 Flow Rate 2.0 2.0 Intake and Output 11/27/18 11/27/18 11/28/18 14:59 22:59 06:59 Intake Total 240 ml 900 ml 627 ml Output Total 750 ml 1225 ml 0 ml Balance -510 ml -325 ml 627 ml FAY LEMUS MD Nov 28, 2018 08:03
[2018-11-28] MEDS: MULTIVITAMIN with MINERAL TABLET. PO SCH (09:35)
[2018-11-28] MEDS: DULoxetine HCL 30 MG CAPSULE.DR PO SCH (09:35)
[2018-11-28] MEDS: GABAPENTIN 300 MG CAPSULE. PO SCH ×3 (09:35→20:59)
[2018-11-28] MEDS: EZETIMIBE 10 MG TABLET. PO SCH (09:35)
[2018-11-28] MEDS: ASPIRIN ENTERIC COATED 81 MG TABLET.DR. PO SCH (09:35)
[2018-11-28] MEDS: METOPROLOL TART IMMED RELEASE 25 MG TABLET. PO SCH ×2 (09:36→20:59)
[2018-11-28] MEDS: lamoTRIgine 100 MG TABLET. PO SCH ×2 (09:36→20:59)
[2018-11-28] MEDS: POTASSIUM CHLORIDE 10 MEQ TABLET.ER. PO SCH (09:36)
[2018-11-28] MEDS: AMIODARONE HCL 200 MG TABLET. PO SCH (09:36)
[2018-11-28] MEDS: FUROSEMIDE 40 MG/4 ML VIAL. IVP SCH ×2 (09:37→14:11)
[2018-11-28] MEDS: POLYETHYLENE GLYCOL 3350 17 GM PACKET. PO SCH (09:37)
[2018-11-28] MEDS ORDERED: ENOX120D SQ (10:46)
[2018-11-28] MEDS ORDERED: WARF4TAB68 PO (10:46)
--- NOTE | 2018-11-28 10:56 | PDOC3 ---
Discharge Summary Visit Information Date of Admission: Nov 27, 2018 Date of Discharge: Nov 29, 2018 Admitting Diagnosis: Acute CHF exacerbation, subtherapeutic INR Final Diagnosis Problems Medical Problems: (1) Anemia Status: Acute (2) CHF exacerbation Status: Acute (3) Shortness of breath Status: Acute Brief Hospital Course Allergies Allergies Coded Allergies Type Severity Reaction Last Updated Verified No Known Drug Allergies 08/13/18 No Vital Signs Vital Signs Date Time Temp Pulse Resp B/P (MAP) Pulse Ox O2 Delivery O2 Flow Rate FiO2 11/28/18 09:36 77 125/73 11/28/18 08:00 Room Air 11/28/18 07:00 98.0 18 94 2.0 98.0 Lab Results Laboratory Tests Test 11/27/18 05:45 11/27/18 12:55 11/27/18 14:08 11/27/18 14:30 White Blood Count 9.9 x10^3/uL (4.0-11.0) Red Blood Count 2.88 x10^6/uL (4.30-5.70) Hemoglobin 8.7 g/dL (13.0-17.5) Hematocrit 26.8 % (39.0-53.0) Mean Corpuscular Volume 93 fL (79-100) Mean Corpuscular Hemoglobin 30 pg (25-35) Mean Corpuscular Hemoglobin Concent 33 g/dL (31-37) Red Cell Distribution Width 14.4 % (11.5-14.5) Platelet Count 428 x10^3/uL (140-400) Neutrophils (%) (Auto) 79 % (31-73) Lymphocytes (%) (Auto) 11 % (24-48) Monocytes (%) (Auto) 8 % (0-9) Eosinophils (%) (Auto) 2 % (0-3) Basophils (%) (Auto) 1 % (0-3) Neutrophils # (Auto) 7.9 x10^3uL (1.8-7.7) Lymphocytes # (Auto) 1.0 x10^3/uL (1.0-4.8) Monocytes # (Auto) 0.8 x10^3/uL (0.0-1.1) Eosinophils # (Auto) 0.1 x10^3/uL (0.0-0.7) Basophils # (Auto) 0.1 x10^3/uL (0.0-0.2) Prothrombin Time 23.6 SEC (11.7-14.0) Prothromb Time International Ratio 2.1 (0.8-1.1) Activated Partial Thromboplast Time 56 SEC (24-38) D-Dimer (Kenyatta) 6.29 ug/mlFEU (0.00-0.50) Sodium Level 143 mmol/L (136-145) Potassium Level 4.0 mmol/L (3.5-5.1) Chloride Level 106 mmol/L (98-107) Carbon Dioxide Level 27 mmol/L (21-32) Anion Gap 10 (6-14) Blood Urea Nitrogen 20 mg/dL (8-26) Creatinine 0.9 mg/dL (0.7-1.3) Estimated GFR (Cockcroft-Gault) 84.2 BUN/Creatinine Ratio 22 (6-20) Glucose Level 123 mg/dL (70-99) Lactic Acid Level 0.9 mmol/L (0.4-2.0) Calcium Level 9.6 mg/dL (8.5-10.1) Magnesium Level 2.0 mg/dL (1.8-2.4) Total Bilirubin 0.3 mg/dL (0.2-1.0) Aspartate Amino Transf (AST/SGOT) 23 U/L (15-37) Alanine Aminotransferase (ALT/SGPT) 37 U/L (16-63) Alkaline Phosphatase 90 U/L (46-116) Creatine Kinase 103 U/L (39-308) Creatine Kinase MB (Mass) 3.6 ng/mL (0.0-3.6) Creatine Kinase MB Relative Index 3.5 % (0-4) Troponin I Quantitative 0.043 ng/mL (0.000-0.055) 0.047 ng/mL (0.000-0.055) GN-Mzb-P-Type Natriuretic Peptide 1110 pg/mL (0-124) Total Protein 6.6 g/dL (6.4-8.2) Albumin 3.0 g/dL (3.4-5.0) Albumin/Globulin Ratio 0.8 (1.0-1.7) Lipase 444 U/L (73-393) Thyroid Stimulating Hormone (TSH) 5.545 uIU/mL (0.358-3.74) Procalcitonin < 0.10 ng/mL (0.00-0.10) Urine Opiates Screen Pos (NEG) Urine Methadone Screen Neg (NEG) Urine Barbiturates Neg (NEG) Urine Phencyclidine Screen Neg (NEG) Urine Amphetamine/Methamphetamine Neg (NEG) Urine Benzodiazepines Screen Neg (NEG) Urine Cocaine Screen Neg (NEG) Urine Cannabinoids Screen Neg (NEG) Urine Ethyl Alcohol Neg (NEG) Test 11/27/18 20:40 11/28/18 04:45 Heparin Anti-Xa Act, Unfractionated 0.34 IU/mL (0.30-0.70) Troponin I Quantitative 0.054 ng/mL (0.000-0.055) White Blood Count 7.5 x10^3/uL (4.0-11.0) Red Blood Count 2.96 x10^6/uL (4.30-5.70) Hemoglobin 8.9 g/dL (13.0-17.5) Hematocrit 28.0 % (39.0-53.0) Mean Corpuscular Volume 95 fL (79-100) Mean Corpuscular Hemoglobin 30 pg (25-35) Mean Corpuscular Hemoglobin Concent 32 g/dL (31-37) Red Cell Distribution Width 15.1 % (11.5-14.5) Platelet Count 432 x10^3/uL (140-400) Prothrombin Time 22.7 SEC (11.7-14.0) Prothromb Time International Ratio 2.0 (0.8-1.1) Sodium Level 145 mmol/L (136-145) Potassium Level 3.6 mmol/L (3.5-5.1) Chloride Level 104 mmol/L (98-107) Carbon Dioxide Level 33 mmol/L (21-32) Anion Gap 8 (6-14) Blood Urea Nitrogen 18 mg/dL (8-26) Creatinine 1.2 mg/dL (0.7-1.3) Estimated GFR (Cockcroft-Gault) 60.4 Glucose Level 106 mg/dL (70-99) Calcium Level 9.5 mg/dL (8.5-10.1) Magnesium Level 2.1 mg/dL (1.8-2.4) Iron Level 36 ug/dL (65-175) Total Iron Binding Capacity 353 ug/dL (250-450) Iron Saturation 10 % (15-34) Triglycerides Level 176 mg/dL (0-150) Cholesterol Level 124 mg/dL (0-200) LDL Cholesterol, Calculated 60 mg/dL (0-100) VLDL Cholesterol, Calculated 35 mg/dL (0-40) Non-HDL Cholesterol Calculated 95 mg/dL (0-129) HDL Cholesterol 29 mg/dL (40-60) Cholesterol/HDL Ratio 4.3 Laboratory Tests Test 11/27/18 12:55 11/27/18 14:08 11/27/18 14:30 11/27/18 20:40 Troponin I Quantitative 0.047 ng/mL (0.000-0.055) 0.054 ng/mL (0.000-0.055) Procalcitonin < 0.10 ng/mL (0.00-0.10) Urine Opiates Screen Pos (NEG) Urine Methadone Screen Neg (NEG) Urine Barbiturates Neg (NEG) Urine Phencyclidine Screen Neg (NEG) Urine Amphetamine/Methamphetamine Neg (NEG) Urine Benzodiazepines Screen Neg (NEG) Urine Cocaine Screen Neg (NEG) Urine Cannabinoids Screen Neg (NEG) Urine Ethyl Alcohol Neg (NEG) Heparin Anti-Xa Act, Unfractionated 0.34 IU/mL (0.30-0.70) Test 11/28/18 04:45 White Blood Count 7.5 x10^3/uL (4.0-11.0) Red Blood Count 2.96 x10^6/uL (4.30-5.70) Hemoglobin 8.9 g/dL (13.0-17.5) Hematocrit 28.0 % (39.0-53.0) Mean Corpuscular Volume 95 fL (79-100) Mean Corpuscular Hemoglobin 30 pg (25-35) Mean Corpuscular Hemoglobin Concent 32 g/dL (31-37) Red Cell Distribution Width 15.1 % (11.5-14.5) Platelet Count 432 x10^3/uL (140-400) Prothrombin Time 22.7 SEC (11.7-14.0) Prothromb Time International Ratio 2.0 (0.8-1.1) Sodium Level 145 mmol/L (136-145) Potassium Level 3.6 mmol/L (3.5-5.1) Chloride Level 104 mmol/L (98-107) Carbon Dioxide Level 33 mmol/L (21-32) Anion Gap 8 (6-14) Blood Urea Nitrogen 18 mg/dL (8-26) Creatinine 1.2 mg/dL (0.7-1.3) Estimated GFR (Cockcroft-Gault) 60.4 Glucose Level 106 mg/dL (70-99) Calcium Level 9.5 mg/dL (8.5-10.1) Magnesium Level 2.1 mg/dL (1.8-2.4) Iron Level 36 ug/dL (65-175) Total Iron Binding Capacity 353 ug/dL (250-450) Iron Saturation 10 % (15-34) Triglycerides Level 176 mg/dL (0-150) Cholesterol Level 124 mg/dL (0-200) LDL Cholesterol, Calculated 60 mg/dL (0-100) VLDL Cholesterol, Calculated 35 mg/dL (0-40) Non-HDL Cholesterol Calculated 95 mg/dL (0-129) HDL Cholesterol 29 mg/dL (40-60) Cholesterol/HDL Ratio 4.3 Brief Hospital Course Mr Campos is a 68 yo M w/ PMHx chronic low back pain, CHF, High Cholesterol, Hypertension, ESTEFANI, Bipolar I most recently depressed, HOCM status post ve ntricular septal myomectomy and mechanical mitral valve replacement and PPM placement at [facility] 2 weeks ago who presents with report of progressive shortness of breath since yesterday. Reports worse this AM with sternal pain and cough. Patient denies known trauma. Denies fever or chills. Denies calves pain. Reports some increased fluid hydration. Patient does reports history of CHF. Reports some chest wall pain but thinks it is from his surgery. He moved from [place] 9 months ago and had progressive shortness of breath since then. He had a prolonged hospital stay at [facility] from where he was just discharged 11/21/18 with above ventricular septal myomectomy and mechanical mitral valve replacement and PPM placement performed. 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 Previously has been hospitalized for Bipolar depression and suicide attempt whi ch was successfully treated with ECT followed by maintenance lamictal with cymbalta dosing. EKG showed paced rhythm. BNP elevated at 1100. CXR consistent with recent sternotomy. Overnight with 3 doses of IV lasix he feels significantly better. However, his INR is now 2. He wishes to leave the hospital and is amenable to lovenox injections to bridge back to therapeutic INR as he has good cardiology f/u at [facility]. He diuresed 2L and went from 125.7kg to 122.4kg, feels this is where he is most comfortable, no longer requiring O2. Procalcitonin and troponin both negative. Seen by cardiology here who is amenable to the plan as he already has outpatient f/u scheduled at [phone] A/P: Shortness of breath - with elevated BNP, congestive changes on CXR and CT scan (patchy) and recently mitral valve replacement this is likely acute pulmonary edema, possibly from diastolic CHF, negative procalcitonin to r/o pneumonia. Diuresed, consulted cards HOCM - status post ventricular septal myomectomy S/P mechanical mitral valve replacement - INR subtherapeutic at 2.1, will place on heparin GTT and bridge back to goal INR of 2.5-2.5 S/P PPM placement - paced on telemetry, will monitor. He states this was 2/2 afib. Will obtain records CHF - per [facility] discharge records patient is holding, unknown EF. Will get stat [facility] records High Cholesterol - cont lipitor Hypertension - cont metoprolol ESTEFANI with Bipolar I most recently depressed - cont lamictal, cymbalta. He is s/o ECT with good outcome Hyperglycemia - unknown DM history, will screen with A1c. Elevated Lipase - Likely had some mild pancreatitis. Will ADAT Anemia - likely post-operative. Iron levels are low, though TIBC is WNL, will give IVF iron as he states he has not tolerated PO well, but he should still try along with vitamin c to aid absorption Thrombocytosis - likely reactive with his anemia. Will monitor Chronic low back pain - states he would rather not take pain meds for this DNI, ok with pressors, shocks and compressions Dispo - Ok for d/c on lovenox 120mg BID and Coumadin 4mg SuTuThSa, 2mg MWF, f/u INR 11/30/18 Greater than 30 minutes spent on discharge. He does not wish for home health at this time. Discharge Information Condition at Discharge: Improved Follow Up: Weeks (1) Disposition/Orders: D/C to Home Scheduled Amiodarone Hcl (Amiodarone Hcl) 200 Mg Tablet, 200 MG PO DAILY for Recurrent afib, (Reported) Entered as Reported by: ALESHA JORGE on 11/27/181046 Last Action: Continued on 11/27/181334 by FAY LEMUS MD Aspirin (Aspirin Ec) 81 Mg Tablet.dr, 1 TAB PO DAILY for CAD, #30 Ref 3 (Reported) Entered as Reported by: ALESHA JORGE on 11/27/181046 Last Action: Continued on 11/27/181334 by FAY LEMUS MD Atorvastatin Calcium (Atorvastatin Calcium) 40 Mg Tablet, 1 TAB PO DAILY for HLD, #30 Ref 5 (Reported) Entered as Reported by: ALESHA JORGE on 11/27/181046 Last Action: Continued on 11/27/181334 by FAY LEMUS MD Duloxetine Hcl (Cymbalta) 60 Mg Capsule.dr, 90 MG PO DAILY for Depression, (Reported) Entered as Reported by: ALESHA JORGE on 11/27/181046 Last Action: Converted on 11/27/181334 by FAY LEMUS MD Enoxaparin Sodium (Lovenox) 120 Mg/0.8 Ml Disp.syrin, 120 MG SQ BID for ANTI- COAGULANT for 5 Days, #10 Prescribed by: FAY LEUMS MD on 11/28/181045 Ezetimibe (Zetia) 10 Mg Tablet, 1 TAB PO DAILY for HLD, #30 Ref 5 (Reported) Entered as Reported by: ALESHA JORGE on 11/27/181046 Last Action: Continued on 11/27/181334 by FAY LEMUS MD Fenofibrate Nanocrystallized (Tricor) 145 Mg Tablet, 1 TAB PO DAILY for HLD, #30 Ref 5 (Reported) Entered as Reported by: ALESHA JORGE on 11/27/181046 Last Action: New Order on 11/27/181046 by ALESHA JORGE Furosemide (Furosemide) 20 Mg Tablet, 1 TAB PO DAILY for CHF, #90 Ref 1 (Reported) Entered as Reported by: ALESHA JORGE on 11/27/181046 Last Action: New Order on 11/27/181046 by ALESHA JORGE Gabapentin (Gabapentin) 600 Mg Tablet, 300 MG PO TID for NEUROGENIC PAIN, (Reported) Entered as Reported by: ALESHA JORGE on 11/27/181046 Last Action: Converted on 11/27/181334 by FAY LEMUS MD Lamotrigine (Lamotrigine) 200 Mg Tablet, 1 TAB PO BID for Anticonvulsant, #60 Ref 2 (Reported) Entered as Reported by: ALESHA JORGE on 11/27/181046 Last Action: Converted on 11/27/181334 by FAY LEMUS MD Metoprolol Tartrate (Metoprolol Tartrate) 25 Mg Tablet, 12.5 MG PO BID for FOR HYPERTENSION, #60 Ref 0 (Reported) Entered as Reported by: ALESHA JORGE on 11/27/181046 Last Action: Continued on 11/27/181334 by FAY LEMUS MD Multivitamin (Multi Vitamin Daily) 1 Each Tablet, 1 EACH PO DAILY for Multivitamin, (Reported) Entered as Reported by: ALESHA JORGE on 11/27/181046 Last Action: Converted on 11/27/181334 by FAY LEMUS MD Potassium Chloride (Potassium Chloride) 10 Meq Tablet.er, 10 MEQ PO DAILY for Electrolyte support, (Reported) Entered as Reported by: ALESHA JORGE on 11/27/181046 Last Action: Continued on 11/27/181334 by FAY LEMUS MD Sennosides (Senna) 8.6 Mg Tablet, 17.2 MG PO BID for Stool Softener, (Reported) Entered as Reported by: ALESHA JORGE on 11/27/181046 Last Action: New Order on 11/27/181046 by ALESHA JORGE Warfarin Sodium (Warfarin Sodium) 2 Mg Tablet, 2 MG PO DAILY for Blood Thinner, #30 (Reported) Entered as Reported by: ALESHA JORGE on 11/27/181046 Last Action: Converted on 11/27/181334 by FAY LEMUS MD Warfarin Sodium (Coumadin) 4 Mg Tablet, 1 TAB PO see admin instructio for Mechanical mitral valve for 30 Days, #30 Take Thursday, Thursday, , and Thursday. Take 2mg tabs MWF F/u INR at [facility] Cardiology clinic Prescribed by: FAY LEMUS MD on 11/28/18 1046 Scheduled PRN Clonazepam (Klonopin) 1 Mg Tablet, 1 MG PO PRN BID PRN for ANXIETY / AGITATION, (Reported) Entered as Reported by: ALESHA JORGE on 11/27/18 104 Last Action: Continued on 11/27/181334 by FAY LEMUS MD Oxycodone Hcl/Acetaminophen (Oxycodone-Acetaminophen 5-325) 1 Each Tablet, 1 EACH PO PRN Q4HRS PRN for PAIN, Ref 0 (Reported) Entered as Reported by: ALESHA JORGE on 11/27/181046 Last Action: Continued on 11/27/181334 by MD ALLAN BURT CHRISTOPHER S MD Nov 28, 2018 10:56
[2018-11-28 11:00] VITALS: BP 129/75
[2018-11-28] MEDS ORDERED: IRON SUCROSE COMPLEX 200 MG in IV NORMAL SALINE 100ML 100 ML IV ONE (12:00)
--- NOTE | 2018-11-28 12:35 | PDOC ---
PROGRESS NOTES Subjective Subjective Patient seen and examined He is feeling better today. Objective Objective Vital Signs Date Time Temp Pulse Resp B/P (MAP) Pulse Ox O2 Delivery O2 Flow Rate FiO2 11/28/18 11:00 98.3 67 18 129/75 (93) 93 Nasal Cannula 2.0 98.3 Intake and Output 11/28/18 07:00 Intake Total 1767 ml Output Total 1975 ml Balance -208 ml Intake Oral 1140 ml IV Total 627 ml Output Urine Total 1975 ml Physical Exam Abdomen: Normal bowel sounds Heart: Regular rate General: mild distress Lungs: Other (mildly decreased breath sounds) Assessment Assessment Problems Medical Problems: (1) Anemia Status: Acute (2) CHF exacerbation Status: Acute (3) Shortness of breath Status: Acute 1. Acute and chronic heart failure. Probable diastolic heart failure. Approved today on diuresis. Echocardiogram pending. 2. Status post mechanical mitral valve. As per the primary's notes patient is being covered with heparin due to a below therapeutic INR. Echocardiogram as above. 3. HOCM. Status post ventricular septal myomectomy. We'll continue present medications and obtain records from [facility]. 4. Status post recent pacemaker placement. We'll obtain side splitter and interrogate. 5. History of atrial fibrillation. Pacemaker as above. On anticoagulation. 6. Hypertension. Continue to monitor and adjust medications as needed. 7. Hyperlipidemia. We'll check home medications. 8. Possible bipolar disease. Comment Review of Relevant I have reviewed the following items sebastian (where applicable) has been applied. Labs Laboratory Tests Test 11/27/18 05:45 11/27/18 12:55 11/27/18 14:08 11/27/18 14:30 White Blood Count 9.9 x10^3/uL (4.0-11.0) Red Blood Count 2.88 x10^6/uL (4.30-5.70) Hemoglobin 8.7 g/dL (13.0-17.5) Hematocrit 26.8 % (39.0-53.0) Mean Corpuscular Volume 93 fL (79-100) Mean Corpuscular Hemoglobin 30 pg (25-35) Mean Corpuscular Hemoglobin Concent 33 g/dL (31-37) Red Cell Distribution Width 14.4 % (11.5-14.5) Platelet Count 428 x10^3/uL (140-400) Neutrophils (%) (Auto) 79 % (31-73) Lymphocytes (%) (Auto) 11 % (24-48) Monocytes (%) (Auto) 8 % (0-9) Eosinophils (%) (Auto) 2 % (0-3) Basophils (%) (Auto) 1 % (0-3) Neutrophils # (Auto) 7.9 x10^3uL (1.8-7.7) Lymphocytes # (Auto) 1.0 x10^3/uL (1.0-4.8) Monocytes # (Auto) 0.8 x10^3/uL (0.0-1.1) Eosinophils # (Auto) 0.1 x10^3/uL (0.0-0.7) Basophils # (Auto) 0.1 x10^3/uL (0.0-0.2) Prothrombin Time 23.6 SEC (11.7-14.0) Prothromb Time International Ratio 2.1 (0.8-1.1) Activated Partial Thromboplast Time 56 SEC (24-38) D-Dimer (Kenyatta) 6.29 ug/mlFEU (0.00-0.50) Sodium Level 143 mmol/L (136-145) Potassium Level 4.0 mmol/L (3.5-5.1) Chloride Level 106 mmol/L (98-107) Carbon Dioxide Level 27 mmol/L (21-32) Anion Gap 10 (6-14) Blood Urea Nitrogen 20 mg/dL (8-26) Creatinine 0.9 mg/dL (0.7-1.3) Estimated GFR (Cockcroft-Gault) 84.2 BUN/Creatinine Ratio 22 (6-20) Glucose Level 123 mg/dL (70-99) Lactic Acid Level 0.9 mmol/L (0.4-2.0) Calcium Level 9.6 mg/dL (8.5-10.1) Magnesium Level 2.0 mg/dL (1.8-2.4) Total Bilirubin 0.3 mg/dL (0.2-1.0) Aspartate Amino Transf (AST/SGOT) 23 U/L (15-37) Alanine Aminotransferase (ALT/SGPT) 37 U/L (16-63) Alkaline Phosphatase 90 U/L (46-116) Creatine Kinase 103 U/L (39-308) Creatine Kinase MB (Mass) 3.6 ng/mL (0.0-3.6) Creatine Kinase MB Relative Index 3.5 % (0-4) Troponin I Quantitative 0.043 ng/mL (0.000-0.055) 0.047 ng/mL (0.000-0.055) IY-Pxb-P-Type Natriuretic Peptide 1110 pg/mL (0-124) Total Protein 6.6 g/dL (6.4-8.2) Albumin 3.0 g/dL (3.4-5.0) Albumin/Globulin Ratio 0.8 (1.0-1.7) Lipase 444 U/L (73-393) Thyroid Stimulating Hormone (TSH) 5.545 uIU/mL (0.358-3.74) Procalcitonin < 0.10 ng/mL (0.00-0.10) Urine Opiates Screen Pos (NEG) Urine Methadone Screen Neg (NEG) Urine Barbiturates Neg (NEG) Urine Phencyclidine Screen Neg (NEG) Urine Amphetamine/Methamphetamine Neg (NEG) Urine Benzodiazepines Screen Neg (NEG) Urine Cocaine Screen Neg (NEG) Urine Cannabinoids Screen Neg (NEG) Urine Ethyl Alcohol Neg (NEG) Test 11/27/18 20:40 11/28/18 04:45 11/28/18 10:40 Heparin Anti-Xa Act, Unfractionated 0.34 IU/mL (0.30-0.70) 0.54 IU/mL (0.30-0.70) Troponin I Quantitative 0.054 ng/mL (0.000-0.055) White Blood Count 7.5 x10^3/uL (4.0-11.0) Red Blood Count 2.96 x10^6/uL (4.30-5.70) Hemoglobin 8.9 g/dL (13.0-17.5) Hematocrit 28.0 % (39.0-53.0) Mean Corpuscular Volume 95 fL (79-100) Mean Corpuscular Hemoglobin 30 pg (25-35) Mean Corpuscular Hemoglobin Concent 32 g/dL (31-37) Red Cell Distribution Width 15.1 % (11.5-14.5) Platelet Count 432 x10^3/uL (140-400) Prothrombin Time 22.7 SEC (11.7-14.0) Prothromb Time International Ratio 2.0 (0.8-1.1) Sodium Level 145 mmol/L (136-145) Potassium Level 3.6 mmol/L (3.5-5.1) Chloride Level 104 mmol/L (98-107) Carbon Dioxide Level 33 mmol/L (21-32) Anion Gap 8 (6-14) Blood Urea Nitrogen 18 mg/dL (8-26) Creatinine 1.2 mg/dL (0.7-1.3) Estimated GFR (Cockcroft-Gault) 60.4 Glucose Level 106 mg/dL (70-99) Calcium Level 9.5 mg/dL (8.5-10.1) Magnesium Level 2.1 mg/dL (1.8-2.4) Iron Level 36 ug/dL (65-175) Total Iron Binding Capacity 353 ug/dL (250-450) Iron Saturation 10 % (15-34) Triglycerides Level 176 mg/dL (0-150) Cholesterol Level 124 mg/dL (0-200) LDL Cholesterol, Calculated 60 mg/dL (0-100) VLDL Cholesterol, Calculated 35 mg/dL (0-40) Non-HDL Cholesterol Calculated 95 mg/dL (0-129) HDL Cholesterol 29 mg/dL (40-60) Cholesterol/HDL Ratio 4.3 Laboratory Tests Test 11/27/18 12:55 11/27/18 14:08 11/27/18 14:30 11/27/18 20:40 Troponin I Quantitative 0.047 ng/mL (0.000-0.055) 0.054 ng/mL (0.000-0.055) Procalcitonin < 0.10 ng/mL (0.00-0.10) Urine Opiates Screen Pos (NEG) Urine Methadone Screen Neg (NEG) Urine Barbiturates Neg (NEG) Urine Phencyclidine Screen Neg (NEG) Urine Amphetamine/Methamphetamine Neg (NEG) Urine Benzodiazepines Screen Neg (NEG) Urine Cocaine Screen Neg (NEG) Urine Cannabinoids Screen Neg (NEG) Urine Ethyl Alcohol Neg (NEG) Heparin Anti-Xa Act, Unfractionated 0.34 IU/mL (0.30-0.70) Test 11/28/18 04:45 11/28/18 10:40 White Blood Count 7.5 x10^3/uL (4.0-11.0) Red Blood Count 2.96 x10^6/uL (4.30-5.70) Hemoglobin 8.9 g/dL (13.0-17.5) Hematocrit 28.0 % (39.0-53.0) Mean Corpuscular Volume 95 fL (79-100) Mean Corpuscular Hemoglobin 30 pg (25-35) Mean Corpuscular Hemoglobin Concent 32 g/dL (31-37) Red Cell Distribution Width 15.1 % (11.5-14.5) Platelet Count 432 x10^3/uL (140-400) Prothrombin Time 22.7 SEC (11.7-14.0) Prothromb Time International Ratio 2.0 (0.8-1.1) Sodium Level 145 mmol/L (136-145) Potassium Level 3.6 mmol/L (3.5-5.1) Chloride Level 104 mmol/L (98-107) Carbon Dioxide Level 33 mmol/L (21-32) Anion Gap 8 (6-14) Blood Urea Nitrogen 18 mg/dL (8-26) Creatinine 1.2 mg/dL (0.7-1.3) Estimated GFR (Cockcroft-Gault) 60.4 Glucose Level 106 mg/dL (70-99) Calcium Level 9.5 mg/dL (8.5-10.1) Magnesium Level 2.1 mg/dL (1.8-2.4) Iron Level 36 ug/dL (65-175) Total Iron Binding Capacity 353 ug/dL (250-450) Iron Saturation 10 % (15-34) Triglycerides Level 176 mg/dL (0-150) Cholesterol Level 124 mg/dL (0-200) LDL Cholesterol, Calculated 60 mg/dL (0-100) VLDL Cholesterol, Calculated 35 mg/dL (0-40) Non-HDL Cholesterol Calculated 95 mg/dL (0-129) HDL Cholesterol 29 mg/dL (40-60) Cholesterol/HDL Ratio 4.3 Heparin Anti-Xa Act, Unfractionated 0.54 IU/mL (0.30-0.70) Microbiology 11/27/18 Blood Culture - Preliminary, Resulted NO GROWTH AFTER 1 DAY Medications Current Medications Aspirin (Ruth Aspirin) 325 mg 1X ONCE PO Last administered on 11/27/18at 06:19; Start 11/27/18 at 06:00; Stop 11/27/18 at 06:01; Status DC Nitroglycerin (Nitro-Bid Oint) 1 inch 1X ONCE TP Last administered on 11/27/18at 06:20; Start 11/27/18 at 06:00; Stop 11/27/18 at 06:01; Status DC Fentanyl Citrate (Fentanyl 2ml Vial) 50 mcg 1X ONCE IV Last administered on 11/27/18at 06:30; Start 11/27/18 at 06:30; Stop 11/27/18 at 06:31; Status DC Iohexol (Omnipaque 350 Mg/ml) 100 ml 1X ONCE IV Last administered on 11/27/18at 08:44; Start 11/27/18 at 08:15; Stop 11/27/18 at 08:16; Status DC Info (CONTRAST GIVEN -- Rx MONITORING) 1 each PRN DAILY PRN MC SEE COMMENTS; Start 11/27/18 at 08:15; Stop 11/29/18 at 08:14 Fentanyl Citrate (Fentanyl 2ml Vial) 50 mcg 1X ONCE IV Last administered on 11/27/18at 08:46; Start 11/27/18 at 08:45; Stop 11/27/18 at 08:46; Status DC Furosemide (Lasix) 40 mg 1X ONCE IVP Last administered on 11/27/18at 09:04; Start 11/27/18 at 09:00; Stop 11/27/18 at 09:01; Status DC Morphine Sulfate (Morphine Sulfate) 4 mg PRN Q3HRS PRN IV PAIN Last administered on 11/27/18at 19:20; Start 11/27/18 at 11:15 Amiodarone HCl (Cordarone) 200 mg DAILY PO Last administered on 11/28/18at 09:36; Start 11/27/18 at 14:00 Aspirin (Ecotrin) 81 mg DAILY08 PO Last administered on 11/28/18 09:35; Start 11/27/18 at 14:00 Atorvastatin Calcium (Lipitor) 40 mg QHS PO Last administered on 11/27/18at 20:51; Start 11/27/18 at 21:00 Clonazepam (KlonoPIN) 1 mg PRN BID PRN PO ANXIETY / AGITATION; Start 11/27/18 at 13:30 EZETIMIBE (Zetia) 10 mg DAILY PO Last administered on 11/28/18 09:35; Start 11/27/18 at 14:00 Metoprolol Tartrate (Lopressor) 12.5 mg BID PO Last administered on 11/28/18 09:36; Start 11/27/18 at 14:00 Oxycodone/ Acetaminophen (Percocet 5/325) 1 tab PRN Q4HRS PRN PO PAIN; Start 11/27/18 at 13:30 Potassium Chloride (Klor-Con) 10 meq DAILY08 PO Last administered on 11/28/18 09:36; Start 11/27/18 at 14:00 Duloxetine HCl (Cymbalta) 90 mg DAILY PO Last administered on 11/28/18 09:35; Start 11/27/18 at 14:00 Gabapentin (Neurontin) 300 mg TID PO Last administered on 11/28/18 09:35; Start 11/27/18 at 14:00 Lamotrigine (LaMICtal) 200 mg BID PO Last administered on 11/28/18 09:36; Start 11/27/18 at 14:00 Multivitamins (Thera M Plus) 1 tab DAILY PO Last administered on 11/28/18 09:35; Start 11/27/18 at 14:00 Warfarin Sodium (Coumadin) 2 mg DAILY16 PO ; Start 11/28/18 at 16:00 Heparin Sodium/ Dextrose 500 ml @ 0 mls/hr CONT PRN IV SEE I/O RECORD Last administered on 11/28/18at 02:12; Start 11/27/18 at 13:30; Stop 11/28/18 at 12:04; Status DC Heparin Sodium (Porcine) (Heparin Sodium) 3,800 unit PRN Q6HRS PRN IV FOR UFH LEVEL LESS THAN 0.2; Start 11/27/18 at 13:30; Stop 11/28/18 at 12:04; Status DC Heparin Sodium (Porcine) (Heparin Sodium) 1,900 unit PRN Q6HRS PRN IV FOR UFH LEVEL 0.2 - 0.29; Start 11/27/18 at 13:30; Stop 11/28/18 at 12:04; Status DC Warfarin Sodium (Coumadin Per Pharmacy) 1 each PRN DAILY PRN MC SEE COMMENTS Last administered on 11/27/18at 15:15; Start 11/27/18 at 13:30 Warfarin Sodium (Coumadin Per Pharmacy) 1 each PRN DAILY PRN MC SEE COMMENTS; Start 11/27/18 at 13:30; Status UNV Ondansetron HCl (Zofran) 4 mg PRN Q6HRS PRN IV NAUSEA/VOMITING; Start 11/27/18 at 13:45 Polyethylene Glycol (miraLAX PACKET) 17 gm DAILY PO Last administered on 11/28/18at 09:37; Start 11/27/18 at 13:45 Furosemide (Lasix) 40 mg BID92 IVP Last administered on 11/28/18at 09:37; Start 11/27/18 at 14:00 Warfarin Sodium (Coumadin) 3 mg 1X WARF ONCE PO Last administered on 11/27/18at 16:07; Start 11/27/18 at 16:00; Stop 11/27/18 at 16:01; Status DC Iron Sucrose 200 mg/Sodium Chloride 110 ml @ 55 mls/hr 1X ONCE IV Last administered on 11/28/18at 12:08; Start 11/28/18 at 12:00; Stop 11/28/18 at 13:59 Enoxaparin Sodium (Lovenox 120mg Syringe) 120 mg Q12HR SQ ; Start 11/28/18 at 12:15 Active Scripts Active Coumadin (Warfarin Sodium) 4 Mg Tablet 1 Tab PO SEE ADMIN INSTRUCTIO 30 Days Take Thursday, Thursday, , and Thursday. Take 2mg tabs MWF F/u INR at [facility] Cardiology clinic Lovenox (Enoxaparin Sodium) 120 Mg/0.8 Ml Disp.syrin 120 Mg SQ BID 5 Days Reported Multi Vitamin Daily (Multivitamin) 1 Each Tablet 1 Each PO DAILY Warfarin Sodium 2 Mg Tablet 2 Mg PO DAILY Senna (Sennosides) 8.6 Mg Tablet 17.2 Mg PO BID Potassium Chloride 10 Meq Tablet.er 10 Meq PO DAILY Oxycodone-Acetaminophen 5-325 (Oxycodone Hcl/Acetaminophen) 1 Each Tablet 1 Each PO PRN Q4HRS PRN Metoprolol Tartrate 25 Mg Tablet 12.5 Mg PO BID Lamotrigine 200 Mg Tablet 1 Tab PO BID Klonopin (Clonazepam) 1 Mg Tablet 1 Mg PO PRN BID PRN Gabapentin 600 Mg Tablet 300 Mg PO TID Furosemide 20 Mg Tablet 1 Tab PO DAILY Tricor (Fenofibrate Nanocrystallized) 145 Mg Tablet 1 Tab PO DAILY Zetia (Ezetimibe) 10 Mg Tablet 1 Tab PO DAILY Cymbalta (Duloxetine Hcl) 60 Mg Capsule. 90 Mg PO DAILY Atorvastatin Calcium 40 Mg Tablet 1 Tab PO DAILY Aspirin Ec (Aspirin) 81 Mg Tablet.dr 1 Tab PO DAILY Amiodarone Hcl 200 Mg Tablet 200 Mg PO DAILY Vitals/I & O Vital Sign - Last 24 Hours 11/27/18 11/27/18 11/27/18 11/27/18 14:14 14:15 15:01 16:09 Temp 98.2 98.2 Pulse 75 75 75 Resp 16 B/P (MAP) 112/68 112/68 124/73 (90) Pulse Ox 95 95 O2 Delivery Room Air Room Air 11/27/18 11/27/18 11/27/18 11/27/18 18:50 19:20 19:50 20:00 Temp 98.3 98.3 Pulse 67 Resp 16 B/P (MAP) 108/83 (91) Pulse Ox 98 98 98 O2 Delivery Room Air Room Air Room Air Room Air 11/27/18 11/27/18 11/28/18 11/28/18 20:52 22:56 02:53 07:00 Temp 98.1 98.1 98.0 98.1 98.1 98.0 Pulse 67 61 69 66 Resp 20 21 18 B/P (MAP) 108/83 103/58 (73) 123/72 (89) 125/73 (90) Pulse Ox 97 96 94 O2 Delivery Nasal Cannula Nasal Cannula Nasal Cannula O2 Flow Rate 2.0 2.0 2.0 11/28/18 11/28/18 11/28/18 11/28/18 08:00 09:36 09:36 11:00 Temp 98.3 98.3 Pulse 77 77 67 Resp 18 B/P (MAP) 125/73 125/73 129/75 (93) Pulse Ox 93 O2 Delivery Room Air Nasal Cannula O2 Flow Rate 2.0 Intake and Output 11/27/18 11/27/18 11/28/18 15:00 23:00 07:00 Intake Total 240 ml 900 ml 627 ml Output Total 750 ml 1225 ml 0 ml Balance -510 ml -325 ml 627 ml MAXIMILIAN RIVERA MD Nov 28, 2018 12:34
--- NOTE | 2018-11-28 13:07 | NUR ---
Pharmacy Warfarin Dosing Note S:Pharmacy consulted to assist with anticoagulation therapy with target INR: 2.5 - 3.5 O:LADARIUS ELLIS is a 68 year old M with Atrial Fibrillation, Mechanical Mitral Valve LABS: Last INR: 2 Last HGB: 8.9 Last HCT: 28 Last PLT: 432 Last dose of 3 mg given on 11/27/18 at 1607 Previous Regimen: 2MG/DAY Vitamin K given: N Drug Interaction Changes: Same Interacting Drug Ongoing Drug Interactions: DULOXETINE, AMIODARONE A:INR of 2 is below desired range. Target range for this patient is: 2.5 - 3.5 P: Warfarin dose: 4 mg Today at 1600 Bridge Therapy: Enoxaparin 1 mg/kg q12h Next INR due tomorrow Pharmacy anticoagulation service will continue to follow. Cat Mott RPH, 11/28/18 [id number]
[2018-11-28 15:00] VITALS: BP_SYST 108; BP_SYST 117; BP_DIAS 59; BP_DIAS 60
[2018-11-28] MEDS ORDERED: WARFARIN 2 MG TABLET. PO SCH (16:00)
[2018-11-28] MEDS ORDERED: WARFARIN 4 MG TABLET. PO ONE ×2 (16:00)
[2018-11-28 19:25] VITALS: BP 108/59
[2018-11-28] MEDS: ATORVASTATIN CALCIUM 40 MG TABLET. PO SCH (20:59)
[2018-11-28 22:50] VITALS: BP 120/74
[2018-11-29 01:06] LABS: HEMOGLOBIN A1C 5.5 % (4.8-5.6)
[2018-11-29 01:06] LABS: HEMOGLOBIN A1C 5.6 % (4.8-5.6)
[2018-11-29 03:05] VITALS: BP 110/64
[2018-11-29 06:25] LABS: HEMATOCRIT 28.5 % (39.0-53.0); HEMOGLOBIN 9.4 g/dL (13.0-17.5); RED BLOOD COUNT 3.12 x10^6/uL (4.30-5.70); RED CELL DISTRIBUTION WIDTH 14.8 % (11.5-14.5); WHITE BLOOD COUNT 6.1 x10^3/uL (4.0-11.0)
[2018-11-29 06:39] LABS: CALCIUM 9.6 mg/dL (8.5-10.1); CREATININE 1.1 mg/dL (0.7-1.3); GFR 66.8; POTASSIUM 3.7 mmol/L (3.5-5.1)
[2018-11-29 07:00] VITALS: BP 135/70
[2018-11-29] MEDS: MULTIVITAMIN with MINERAL TABLET. PO SCH (08:03)
[2018-11-29] MEDS: ASPIRIN ENTERIC COATED 81 MG TABLET.DR. PO SCH (08:03)
[2018-11-29] MEDS: EZETIMIBE 10 MG TABLET. PO SCH (08:03)
[2018-11-29] MEDS: GABAPENTIN 300 MG CAPSULE. PO SCH ×2 (08:03→14:00)
[2018-11-29] MEDS: POLYETHYLENE GLYCOL 3350 17 GM PACKET. PO SCH (08:03)
[2018-11-29] MEDS: lamoTRIgine 100 MG TABLET. PO SCH (08:03)
[2018-11-29] MEDS: DULoxetine HCL 30 MG CAPSULE.DR PO SCH (08:03)
[2018-11-29] MEDS: METOPROLOL TART IMMED RELEASE 25 MG TABLET. PO SCH (08:04)
[2018-11-29] MEDS: POTASSIUM CHLORIDE 10 MEQ TABLET.ER. PO SCH (08:04)
[2018-11-29] MEDS: FUROSEMIDE 40 MG/4 ML VIAL. IVP SCH ×2 (08:05→14:00)
[2018-11-29] MEDS: AMIODARONE HCL 200 MG TABLET. PO SCH (08:05)
--- NOTE | 2018-11-29 08:20 | PDOC ---
PROGRESS NOTES Chief Complaint Chief Complaint A/P: Shortness of breath - with elevated BNP, congestive changes on CXR and CT scan (patchy) and recently mitral valve replacement this is likely acute pulmonary edema, possibly from diastolic CHF, will check procalcitonin to r/o pneumonia (otherwise will treat HCAP). Lucille, consult cards HOCM - status post ventricular septal myomectomy S/P mechanical mitral valve replacement - INR subtherapeutic at 2.1, will place on heparin GTT and bridge back to goal INR of 2.5-2.5 S/P PPM placement - paced on telemetry, will monitor. He states this was 2/2 afib. Will obtain records CHF - per [facility] discharge records patient is holding, unknown EF. Will get stat [facility] records High Cholesterol - cont lipitor Hypertension - cont metoprolol ESTEFANI with Bipolar I most recently depressed - cont lamictal, cymbalta. He is s/o ECT with good outcome Hyperglycemia - unknown DM history, will screen with A1c. Elevated Lipase - Likely had some mild pancreatitis. Will ADAT Anemia - likely post-operative. Iron levels are low, though TIBC is WNL, will give IVF iron as he states he has not tolerated PO well, but he should still try along with vitamin c to aid absorption Thrombocytosis - likely reactive with his anemia. Will monitor Chronic low back pain - states he would rather not take pain meds for this FEN - Cardiac diet PPX - heparin gtt --> warfarin, goal INR 2.5-3.5 DNI, ok with pressors, shocks and compressions Dispo - CVC for likely acute CHF exacerbation, will consult cardiology. Likely 2 midnights inpatient History of Present Illness History of Present Illness Mr Campos is a 68 yo M w/ PMHx chronic low back pain, CHF, High Cholesterol, Hypertension, ESTEFANI, Bipolar I most recently depressed, HOCM status post ventricular septal myomectomy and mechanical mitral valve replacement and PPM placement at [facility] 2 weeks ago who presents with report of progressive shortness of breath since yesterday. Reports worse this AM with sternal pain and cough. Patient denies known trauma. Denies fever or chills. Denies calves pain. Reports some increased fluid hydration. Patient does reports history of CHF. Reports some chest wall pain but thinks it is from his surgery. He moved from [place] 9 months ago and had progressive shortness of breath since then. He had a prolonged hospital stay at [facility] from where he was just discharged 11/21/18 with above ventricular septal myomectomy and mechanical mitral valve replacement and PPM placement performed. 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 Previously has been hospitalized for Bipolar depression and suicide attempt which was successfully treated with ECT followed by maintenance lamictal with cymbalta dosing. EKG showed paced rhythm. BNP elevated at 1100. CXR consistent with recent sternotomy. Total 5 doses of IV lasix he feels significantly better. However, his INR is still low. He wishes to leave the hospital and is amenable to lovenox injections to bridge back to therapeutic INR as he has good cardiology f/u at [facility]. He diuresed 2L and went from 125.7kg to 122.4kg, feels this is where he is most comfortable, no longer requiring O2. Procalcitonin and troponin both negative. Vitals Vitals Vital Signs Date Time Temp Pulse Resp B/P (MAP) Pulse Ox O2 Delivery O2 Flow Rate FiO2 11/29/18 08:05 75 135/70 11/29/18 07:00 97.8 18 95 Room Air 97.8 11/28/18 15:00 2.0 Physical Exam General: mild distress Heart: Regular rate Abdomen: Normal bowel sounds Extremities: No clubbing, No cyanosis, Normal pulses, No tenderness/swelling, Other (2+ pedal edema) Skin: No rashes, No breakdown, No significant lesion Labs LABS Laboratory Tests Test 11/28/18 10:40 11/29/18 06:15 Heparin Anti-Xa Act, Unfractionated 0.54 IU/mL (0.30-0.70) White Blood Count 6.1 x10^3/uL (4.0-11.0) Red Blood Count 3.12 x10^6/uL (4.30-5.70) Hemoglobin 9.4 g/dL (13.0-17.5) Hematocrit 28.5 % (39.0-53.0) Mean Corpuscular Volume 91 fL (79-100) Mean Corpuscular Hemoglobin 30 pg (25-35) Mean Corpuscular Hemoglobin Concent 33 g/dL (31-37) Red Cell Distribution Width 14.8 % (11.5-14.5) Platelet Count 402 x10^3/uL (140-400) Prothrombin Time 24.0 SEC (11.7-14.0) Prothromb Time International Ratio 2.2 (0.8-1.1) Sodium Level 141 mmol/L (136-145) Potassium Level 3.7 mmol/L (3.5-5.1) Chloride Level 101 mmol/L (98-107) Carbon Dioxide Level 32 mmol/L (21-32) Anion Gap 8 (6-14) Blood Urea Nitrogen 18 mg/dL (8-26) Creatinine 1.1 mg/dL (0.7-1.3) Estimated GFR (Cockcroft-Gault) 66.8 Glucose Level 108 mg/dL (70-99) Calcium Level 9.6 mg/dL (8.5-10.1) Magnesium Level 2.0 mg/dL (1.8-2.4) Assessment and Plan Assessmemt and Plan Problems Medical Problems: (1) Anemia Status: Acute (2) CHF exacerbation Status: Acute (3) Shortness of breath Status: Acute Comment Review of Relevant I have reviewed the following items sebastian (where applicable) has been applied. Labs Laboratory Tests Test 11/27/18 12:55 11/27/18 14:08 11/27/18 14:30 11/27/18 20:40 Troponin I Quantitative 0.047 ng/mL (0.000-0.055) 0.054 ng/mL (0.000-0.055) Procalcitonin < 0.10 ng/mL (0.00-0.10) Urine Opiates Screen Pos (NEG) Urine Methadone Screen Neg (NEG) Urine Barbiturates Neg (NEG) Urine Phencyclidine Screen Neg (NEG) Urine Amphetamine/Methamphetamine Neg (NEG) Urine Benzodiazepines Screen Neg (NEG) Urine Cocaine Screen Neg (NEG) Urine Cannabinoids Screen Neg (NEG) Urine Ethyl Alcohol Neg (NEG) Heparin Anti-Xa Act, Unfractionated 0.34 IU/mL (0.30-0.70) Test 11/28/18 04:45 11/28/18 10:40 11/29/18 06:15 White Blood Count 7.5 x10^3/uL (4.0-11.0) 6.1 x10^3/uL (4.0-11.0) Red Blood Count 2.96 x10^6/uL (4.30-5.70) 3.12 x10^6/uL (4.30-5.70) Hemoglobin 8.9 g/dL (13.0-17.5) 9.4 g/dL (13.0-17.5) Hematocrit 28.0 % (39.0-53.0) 28.5 % (39.0-53.0) Mean Corpuscular Volume 95 fL (79-100) 91 fL (79-100) Mean Corpuscular Hemoglobin 30 pg (25-35) 30 pg (25-35) Mean Corpuscular Hemoglobin Concent 32 g/dL (31-37) 33 g/dL (31-37) Red Cell Distribution Width 15.1 % (11.5-14.5) 14.8 % (11.5-14.5) Platelet Count 432 x10^3/uL (140-400) 402 x10^3/uL (140-400) Prothrombin Time 22.7 SEC (11.7-14.0) 24.0 SEC (11.7-14.0) Prothromb Time International Ratio 2.0 (0.8-1.1) 2.2 (0.8-1.1) Sodium Level 145 mmol/L (136-145) 141 mmol/L (136-145) Potassium Level 3.6 mmol/L (3.5-5.1) 3.7 mmol/L (3.5-5.1) Chloride Level 104 mmol/L (98-107) 101 mmol/L (98-107) Carbon Dioxide Level 33 mmol/L (21-32) 32 mmol/L (21-32) Anion Gap 8 (6-14) 8 (6-14) Blood Urea Nitrogen 18 mg/dL (8-26) 18 mg/dL (8-26) Creatinine 1.2 mg/dL (0.7-1.3) 1.1 mg/dL (0.7-1.3) Estimated GFR (Cockcroft-Gault) 60.4 66.8 Glucose Level 106 mg/dL (70-99) 108 mg/dL (70-99) Hemoglobin A1c 5.5 % (4.8-5.6) Calcium Level 9.5 mg/dL (8.5-10.1) 9.6 mg/dL (8.5-10.1) Magnesium Level 2.1 mg/dL (1.8-2.4) 2.0 mg/dL (1.8-2.4) Iron Level 36 ug/dL (65-175) Total Iron Binding Capacity 353 ug/dL (250-450) Iron Saturation 10 % (15-34) Triglycerides Level 176 mg/dL (0-150) Cholesterol Level 124 mg/dL (0-200) LDL Cholesterol, Calculated 60 mg/dL (0-100) VLDL Cholesterol, Calculated 35 mg/dL (0-40) Non-HDL Cholesterol Calculated 95 mg/dL (0-129) HDL Cholesterol 29 mg/dL (40-60) Cholesterol/HDL Ratio 4.3 Heparin Anti-Xa Act, Unfractionated 0.54 IU/mL (0.30-0.70) Laboratory Tests Test 11/28/18 10:40 11/29/18 06:15 Heparin Anti-Xa Act, Unfractionated 0.54 IU/mL (0.30-0.70) White Blood Count 6.1 x10^3/uL (4.0-11.0) Red Blood Count 3.12 x10^6/uL (4.30-5.70) Hemoglobin 9.4 g/dL (13.0-17.5) Hematocrit 28.5 % (39.0-53.0) Mean Corpuscular Volume 91 fL (79-100) Mean Corpuscular Hemoglobin 30 pg (25-35) Mean Corpuscular Hemoglobin Concent 33 g/dL (31-37) Red Cell Distribution Width 14.8 % (11.5-14.5) Platelet Count 402 x10^3/uL (140-400) Prothrombin Time 24.0 SEC (11.7-14.0) Prothromb Time International Ratio 2.2 (0.8-1.1) Sodium Level 141 mmol/L (136-145) Potassium Level 3.7 mmol/L (3.5-5.1) Chloride Level 101 mmol/L (98-107) Carbon Dioxide Level 32 mmol/L (21-32) Anion Gap 8 (6-14) Blood Urea Nitrogen 18 mg/dL (8-26) Creatinine 1.1 mg/dL (0.7-1.3) Estimated GFR (Cockcroft-Gault) 66.8 Glucose Level 108 mg/dL (70-99) Calcium Level 9.6 mg/dL (8.5-10.1) Magnesium Level 2.0 mg/dL (1.8-2.4) Microbiology 11/27/18 Blood Culture - Preliminary, Resulted NO GROWTH AFTER 1 DAY Medications Current Medications Aspirin (Ruth Aspirin) 325 mg 1X ONCE PO Last administered on 11/27/18at 06:19; Start 11/27/18 at 06:00; Stop 11/27/18 at 06:01; Status DC Nitroglycerin (Nitro-Bid Oint) 1 inch 1X ONCE TP Last administered on 11/27/18at 06:20; Start 11/27/18 at 06:00; Stop 11/27/18 at 06:01; Status DC Fentanyl Citrate (Fentanyl 2ml Vial) 50 mcg 1X ONCE IV Last administered on 11/27/18at 06:30; Start 11/27/18 at 06:30; Stop 11/27/18 at 06:31; Status DC Iohexol (Omnipaque 350 Mg/ml) 100 ml 1X ONCE IV Last administered on 11/27/18at 08:44; Start 11/27/18 at 08:15; Stop 11/27/18 at 08:16; Status DC Info (CONTRAST GIVEN -- Rx MONITORING) 1 each PRN DAILY PRN MC SEE COMMENTS; Start 11/27/18 at 08:15; Stop 11/29/18 at 08:14; Status DC Fentanyl Citrate (Fentanyl 2ml Vial) 50 mcg 1X ONCE IV Last administered on 11/27/18at 08:46; Start 11/27/18 at 08:45; Stop 11/27/18 at 08:46; Status DC Furosemide (Lasix) 40 mg 1X ONCE IVP Last administered on 11/27/18at 09:04; Start 11/27/18 at 09:00; Stop 11/27/18 at 09:01; Status DC Morphine Sulfate (Morphine Sulfate) 4 mg PRN Q3HRS PRN IV PAIN Last administer ed on 11/27/18at 19:20; Start 11/27/18 at 11:15 Amiodarone HCl (Cordarone) 200 mg DAILY PO Last administered on 11/29/18at 08:05; Start 11/27/18 at 14:00 Aspirin (Ecotrin) 81 mg DAILY08 PO Last administered on 11/29/18 08:03; Start 11/27/18 at 14:00 Atorvastatin Calcium (Lipitor) 40 mg QHS PO Last administered on 11/28/18at 20:59; Start 11/27/18 at 21:00 Clonazepam (KlonoPIN) 1 mg PRN BID PRN PO ANXIETY / AGITATION; Start 11/27/18 at 13:30 EZETIMIBE (Zetia) 10 mg DAILY PO Last administered on 11/29/18 08:03; Start 11/27/18 at 14:00 Metoprolol Tartrate (Lopressor) 12.5 mg BID PO Last administered on 11/29/18 08:04; Start 11/27/18 at 14:00 Oxycodone/ Acetaminophen (Percocet 5/325) 1 tab PRN Q4HRS PRN PO PAIN; Start 11/27/18 at 13:30 Potassium Chloride (Klor-Con) 10 meq DAILY08 PO Last administered on 11/29/18at 08:04; Start 11/27/18 at 14:00 Duloxetine HCl (Cymbalta) 90 mg DAILY PO Last administered on 11/29/18 08:03; Start 11/27/18 at 14:00 Gabapentin (Neurontin) 300 mg TID PO Last administered on 11/29/18 08:03; Sta rt 11/27/18 at 14:00 Lamotrigine (LaMICtal) 200 mg BID PO Last administered on 11/29/18 08:03; Start 11/27/18 at 14:00 Multivitamins (Thera M Plus) 1 tab DAILY PO Last administered on 11/29/18 08:03; Start 11/27/18 at 14:00 Warfarin Sodium (Coumadin) 2 mg DAILY16 PO ; Start 11/28/18 at 16:00; Stop 11/28/18 at 16:00; Status DC Heparin Sodium/ Dextrose 500 ml @ 0 mls/hr CONT PRN IV SEE I/O RECORD Last administered on 11/28/18at 02:12; Start 11/27/18 at 13:30; Stop 11/28/18 at 12:04; Status DC Heparin Sodium (Porcine) (Heparin Sodium) 3,800 unit PRN Q6HRS PRN IV FOR UFH LEVEL LESS THAN 0.2; Start 11/27/18 at 13:30; Stop 11/28/18 at 12:04; Status DC Heparin Sodium (Porcine) (Heparin Sodium) 1,900 unit PRN Q6HRS PRN IV FOR UFH LEVEL 0.2 - 0.29; Start 11/27/18 at 13:30; Stop 11/28/18 at 12:04; Status DC Warfarin Sodium (Coumadin Per Pharmacy) 1 each PRN DAILY PRN MC SEE COMMENTS Last administered on 11/28/18at 13:05; Start 11/27/18 at 13:30 Warfarin Sodium (Coumadin Per Pharmacy) 1 each PRN DAILY PRN MC SEE COMMENTS; Start 11/27/18 at 13:30; Status UNV Ondansetron HCl (Zofran) 4 mg PRN Q6HRS PRN IV NAUSEA/VOMITING; Start 11/27/18 at 13:45 Polyethylene Glycol (miraLAX PACKET) 17 gm DAILY PO Last administered on 11/29/18at 08:03; Start 11/27/18 at 13:45 Furosemide (Lasix) 40 mg BID92 IVP Last administered on 11/29/18at 08:05; Start 11/27/18 at 14:00 Warfarin Sodium (Coumadin) 3 mg 1X WARF ONCE PO Last administered on 11/27/18at 16:07; Start 11/27/18 at 16:00; Stop 11/27/18 at 16:01; Status DC Iron Sucrose 200 mg/Sodium Chloride 110 ml @ 55 mls/hr 1X ONCE IV Last administered on 11/28/18at 12:08; Start 11/28/18 at 12:00; Stop 11/28/18 at 13:59; Status DC Enoxaparin Sodium (Lovenox 120mg Syringe) 120 mg Q12HR SQ Last administered on 11/29/18at 08:06; Start 11/28/18 at 12:15 Warfarin Sodium (Coumadin) 4 mg 1X WARF ONCE PO ; Start 11/28/18 at 16:00; Stop 11/28/18 at 16:01; Status Cancel Warfarin Sodium (Coumadin) 4 mg 1X WARF ONCE PO Last administered on 11/28/18at 16:12; Start 11/28/18 at 16:00; Stop 11/28/18 at 16:01; Status DC Active Scripts Active Coumadin (Warfarin Sodium) 4 Mg Tablet 1 Tab PO SEE ADMIN INSTRUCTIO 30 Days Take Thursday, Thursday, , and Thursday. Take 2mg tabs MWF F/u INR at [facility] Cardiology clinic Lovenox (Enoxaparin Sodium) 120 Mg/0.8 Ml Disp.syrin 120 Mg SQ BID 5 Days Reported Multi Vitamin Daily (Multivitamin) 1 Each Tablet 1 Each PO DAILY Warfarin Sodium 2 Mg Tablet 2 Mg PO DAILY Senna (Sennosides) 8.6 Mg Tablet 17.2 Mg PO BID Potassium Chloride 10 Meq Tablet.er 10 Meq PO DAILY Oxycodone-Acetaminophen 5-325 (Oxycodone Hcl/Acetaminophen) 1 Each Tablet 1 Each PO PRN Q4HRS PRN Metoprolol Tartrate 25 Mg Tablet 12.5 Mg PO BID Lamotrigine 200 Mg Tablet 1 Tab PO BID Klonopin (Clonazepam) 1 Mg Tablet 1 Mg PO PRN BID PRN Gabapentin 600 Mg Tablet 300 Mg PO TID Furosemide 20 Mg Tablet 1 Tab PO DAILY Tricor (Fenofibrate Nanocrystallized) 145 Mg Tablet 1 Tab PO DAILY Zetia (Ezetimibe) 10 Mg Tablet 1 Tab PO DAILY Cymbalta (Duloxetine Hcl) 60 Mg Capsule. 90 Mg PO DAILY Atorvastatin Calcium 40 Mg Tablet 1 Tab PO DAILY Aspirin Ec (Aspirin) 81 Mg Tablet. 1 Tab PO DAILY Amiodarone Hcl 200 Mg Tablet 200 Mg PO DAILY Vitals/I & O Vital Sign - Last 24 Hours 11/28/18 11/28/18 11/28/18 11/28/18 09:36 09:36 11:00 15:00 Temp 98.3 97.9 98.3 97.9 Pulse 77 77 67 68 Resp 18 18 B/P (MAP) 125/73 125/73 129/75 (93) 117/60 (79) Pulse Ox 93 97 O2 Delivery Nasal Cannula Nasal Cannula O2 Flow Rate 2.0 2.0 11/28/18 11/28/18 11/28/18 11/28/18 19:25 19:35 20:59 22:50 Temp 98.1 98.2 98.1 98.2 Pulse 77 77 66 Resp 20 18 B/P (MAP) 108/59 (75) 108/59 120/74 (89) Pulse Ox 94 97 O2 Delivery Room Air Room Air Room Air 11/29/18 11/29/18 11/29/18 11/29/18 03:05 07:00 08:04 08:05 Temp 97.7 97.8 97.7 97.8 Pulse 67 70 75 75 Resp 20 18 B/P (MAP) 110/64 (79) 135/70 (91) 135/70 135/70 Pulse Ox 94 95 O2 Delivery Room Air Room Air Intake and Output 0 11/28/18 11/28/18 11/29/18 14:59 22:59 06:59 Intake Total 710 ml 600 ml Output Total 500 ml 1475 ml 300 ml Balance 210 ml -1475 ml 300 ml FAY LEMUS MD Nov 29, 2018 08:19
--- NOTE | 2018-11-29 08:26 | CARD ---
MR#: [id number] Date of Study: 11/28/2018 Ordering Physician: MAXIMILIAN RIVERA, Referring Physician: FAY LEMUS Tech: Chloe Nichole SACHIN APPROVED REPORT EXAM: Two-dimensional and M-mode echocardiogram with Doppler and color Doppler. Other Information Quality : Fair Technically limited study due to body habitus. INDICATION Congestive Heart Failure MVR Surgery/Intervention Status/Post Mitral Valve Replacement: Mechanical Date: 10/2018 Pacemaker: 2D DIMENSIONS RVDd2.6 (2.9-3.5cm)Left Atrium(2D)6.2 (1.6-4.0cm) IVSd1.5 (0.7-1.1cm)Aortic Root(2D)3.6 (2.0-3.7cm) LVDd5.5 (3.9-5.9cm)LVOT Diameter2.5 (1.8-2.4cm) PWd1.6 (0.7-1.1cm)LVDs4.6 (2.5-4.0cm) FS (%) 16.1 %SV49.2 ml LVEF(%)33.5 (>50%) Aortic Valve AoV Peak Maco.181.9cm/sAoV VTI29.3cm AO Peak GR.13.2mmHgLVOT VTI 21.51cm AO Mean GR.7mmHgAVA (VTI)3.70cm2 Mitral Valve MV E Aosfgitb527.1cm/sMV E Peak Gr.14mmHg MV DECEL [id number] A Xeuywlvn196.4cm/s MV E Mean Gr.6mmHgE/A Ratio1.2 Tricuspid Valve TR P. [id number] [id number] TR Peak Gr.[id number] LEFT VENTRICLE The left ventricle is normal size. There is moderate concentric left ventricular hypertrophy. Left ve ntricle systolic function is mildly to moderately impaired. The Ejection Fraction is 40%. Septal kevin on consistent with post-operative state and pacing. Moderate global hypokinesis. Wall motion not well visualized. Tissue Doppler imaging reveals moderate left ventricular diastolic dysfunction. RIGHT VENTRICLE The right ventricle is normal size. The right ventricular systolic function is normal. ATRIA The left atrium is severely dilated. The right atrium size is normal. The interatrial septum is intac t with no evidence for an atrial septal defect or patent foramen ovale as noted on 2-D or Doppler mahendra ging. AORTIC VALVE The aortic valve is not well visualized. Doppler and Color Flow revealed no significant aortic regurg itation. There is no significant aortic valvular stenosis. MITRAL VALVE Calculated mitral valve area is 2.7 cm2 with maximum pressure gradient of 14 mmHg and mean pressure g radient of 6 mmHg. Doppler and Color-flow revealed trace mitral regurgitation. There is a mechanical mitral valve and it is not well visualized. TRICUSPID VALVE The tricuspid valve is normal in structure and function. Doppler and Color Flow revealed trace tricus pid regurgitation. The PA pressure was estimated at 36 mmHg. There is no tricuspid valve stenosis. PULMONIC VALVE The pulmonic valve is not well visualized. Doppler and Color Flow revealed no pulmonic valvular regur gitation. There is no pulmonic valvular stenosis. GREAT VESSELS Not well visualized. The ascending aorta is normal in size. The IVC is normal in size and collapses > 50% with inspiration. PERICARDIAL EFFUSION There is no evidence of significant pericardial effusion. Critical Notification Critical Value: No <Conclusion> Left ventricle systolic function is mildly to moderately impaired. The Ejection Fraction is 40%. Septal motion consistent with post-operative state and pacing. Moderate global hypokinesis. Wall kevin on not well visualized. There is a mechanical mitral valve and it is not well visualized. Calculated mitral valve area is 2.7 cm2 with maximum pressure gradient of 14 mmHg and mean pressure g radient of 6 mmHg. Technically very difficult study Signed by : Lucas Carranza, Electronically Approved : 11/29/2018 08:26:05
[2018-11-29 10:45] VITALS: BP 123/60
--- NOTE | 2018-11-29 14:57 | NUR ---
Discharge Note: LADARIUS ELLIS Discharge instructions and discharge home medications reviewed with Patient and a copy given. All questions have been answered and understanding verbalized. The following instructions and handouts were given: Low Sodium diet, cardiac diet,and alcohol use. Discontinued iv lines and catheter intact. Patient discharged to home with self-care via private vehicle.
== END 2018-11-29 14:33 | disposition home or self-care (01) | DRG 291 ==
LOC: ER 05:43 → 2 NORTH 08:15
PROVIDERS: ADMIT Internal Medicine; ATTEND Internal Medicine
DX: I11.0 Hypertensive heart disease with heart failure (principal); K85.90 Acute pancreatitis without necrosis or infection, unspecified; I50.33 Acute on chronic diastolic (congestive) heart failure; I42.1 Obstructive hypertrophic cardiomyopathy; E78.00 Pure hypercholesterolemia, unspecified; I25.10 Atherosclerotic heart disease of native coronary artery without angina pectoris; G89.29 Other chronic pain; Z96.653 Presence of artificial knee joint, bilateral; D64.9 Anemia, unspecified; F41.1 Generalized anxiety disorder; F31.9 Bipolar disorder, unspecified; R73.9 Hyperglycemia, unspecified; D47.3 Essential (hemorrhagic) thrombocythemia; I48.2 Chronic atrial fibrillation; E78.5 Hyperlipidemia, unspecified; I05.0 Rheumatic mitral stenosis; Z90.49 Acquired absence of other specified parts of digestive tract; Z95.1 Presence of aortocoronary bypass graft; Z95.0 Presence of cardiac pacemaker; Z95.2 Presence of prosthetic heart valve; Z82.49 Family history of ischemic heart disease and other diseases of the circulatory system; Z87.891 Personal history of nicotine dependence; Z79.01 Long term (current) use of anticoagulants; Z91.5 Personal history of self-harm
CPT/HCPCS: 36415; 71045; 71275; 80048; 80053; 80061; 80307; 82553; 82607; 83036; 83540; 83550; 83605; 83690; 83735; 83880; 84145; 84443; 84484; 85025; 85027; 85379; 85520; 85610; 85730; 87040; 93005; 93306; 96374; 96375; 96376; J1650; J1756; J1940; J2270; J3010; Q9967; 99285-25

== ENCOUNTER 2019-03-04 17:09 | Emergency (ER) | payer MEDICARE, OTHER ==
[~2019-03-04] VITALS: Ht 167.6 cm; Wt 124.7 kg
[~2019-03-04 17:09] MED LIST changes: +AMIO200T4 PO; +ASPI-612 PO; +ATOR40TA59 PO; +CLON1TAB PO; +DULO60CA6 PO; +ENOX120D SQ; +EZET10TA20 PO; +FENO145T PO; +FURO20TA3 PO; +GABA600T7 PO; +LAMO200T2 PO; +METO25TA4 PO; +MULT-245 PO; +OXYC1TAB7 PO; +POTA10TA12 PO; +SENN-80 PO; +WARF2TAB96 PO; +WARF4TAB68 PO
[2019-03-04] MEDS ORDERED: NITROGLYCERIN SUBLINGUAL 0.4 MG BOTTLE OF 25. SL PRN (17:30)
[2019-03-04] MEDS ORDERED: ASPIRIN 325 MG TABLET PO ONE (17:30)
[2019-03-04] MEDS ORDERED: IPRATRPIUM/ALBUTEROL 0.5/2.5MG 3 ML NEBU. NEB ONE (17:30)
[2019-03-04] MEDS ORDERED: MORPHINE SULFATE 4 MG/ML VIAL. IV/SQ PRN (17:30)
[2019-03-04] MEDS ORDERED: methylPREDNISolone SOD SUCC PF 125 MG/2 ML VIAL. IV ONE (17:30)
[2019-03-04 17:50] LABS: BASO # 0.1 x10^3/uL (0.0-0.2); BASO % 1 % (0-3); EOS # 0.2 x10^3/uL (0.0-0.7); EOS % 3 % (0-3); HEMATOCRIT 40.1 % (39.0-53.0); HEMOGLOBIN 13.3 g/dL (13.0-17.5); LYMPH # 1.5 x10^3/uL (1.0-4.8); LYMPH % 21 % (24-48); MEAN CORPUSCULAR HEMOGLOBIN 29 pg (25-35); MEAN CORPUSCULAR HGB CONC 33 g/dL (31-37); MEAN CORPUSCULAR VOLUME 88 fL (79-100); MONO # 0.8 x10^3/uL (0.0-1.1); MONO % 11 % (0-9); NEUT # 4.5 x10^3/uL (1.8-7.7); NEUT % 64 % (31-73); PLATELET COUNT 206 x10^3/uL (140-400); RED BLOOD COUNT 4.56 x10^6/uL (4.30-5.70); RED CELL DISTRIBUTION WIDTH 18.3 % (11.5-14.5); WHITE BLOOD COUNT 7.1 x10^3/uL (4.0-11.0)
[2019-03-04 18:03] LABS: CALCIUM 9.8 mg/dL (8.5-10.1); CREATININE 1.2 mg/dL (0.7-1.3); GFR 60.2
[2019-03-04 18:08] LABS: ALBUMIN 3.9 g/dL (3.4-5.0); ALBUMIN/GLOBULIN RATIO 1.1 (1.0-1.7); TOTAL BILIRUBIN 0.4 mg/dL (0.2-1.0); TOTAL PROTEIN 7.3 g/dL (6.4-8.2)
--- NOTE | 2019-03-04 18:14 | PHYS DOC ---
Past Medical History Past Medical History: CAD, CHF, High Cholesterol, Hypertension Additional Past Medical Histor: CHRONIC LOW BACK PAIN, rib fx (EVER CHRISTINA APRN) Past Surgical History: Appendectomy, Coronary Bypass Surgery, Knee Replacement, Pacemaker, Other Additional Past Surgical Histo: EYE SURG (EVER CHRISTINA APRN) Alcohol Use: Heavy Drug Use: None (EVER CHRISTINA APRN) Adult General Chief Complaint Chief Complaint: SHORTNESS OF BREATH HPI HPI Patient is a 69 year old male with history of hypertension, open heart surgery 5 months ago at [facility], high cholesterol, who presents to the ED today complaining of shortness of breath for 5 days. Patient states 3 weeks ago he developed upper respiratory infection symptoms specifically cough and running nose. He states for the last 5 days it's noted increased work of breathing e specially on exertion. Denies any chest pain. He states he is on Coumadin. (EVER CHRISTINA APRN) Review of Systems Review of Systems Constitutional: Denies fever or chills [] Eyes: Denies change in visual acuity, redness, or eye pain [] HENT: Reports nasal congestion, denies sore throat [] Respiratory: Reports cough and shortness of breath [] Cardiovascular: No additional information not addressed in HPI [] GI: Denies abdominal pain, nausea, vomiting, bloody stools or diarrhea [] : Denies dysuria or hematuria [] Musculoskeletal: Denies back pain or joint pain [] Integument: Denies rash or skin lesions [] Neurologic: Denies headache, focal weakness or sensory changes [] All other systems were reviewed and found to be within normal limits, except as documented in this note. (EVER CHRISTINA APRN) Current Medications Current Medications Current Medications Medications (Trade) Dose Ordered Sig/Marlon Start Time Stop Time Status Last Admin Dose Admin Albuterol/ Ipratropium (Duoneb) 3 ml 1X ONCE 03/04/19 17:30 03/04/19 17:31 DC 03/04/19 17:40 3 ML Aspirin (Ruth Aspirin) 325 mg 1X ONCE 03/04/19 17:30 03/04/19 17:31 DC 03/04/19 17:50 325 MG Ceftriaxone Sodium (Rocephin) 1 gm 1X ONCE 03/04/19 18:45 03/04/19 18:46 DC 03/04/19 18:59 1 GM Methylprednisolone Sodium Succinate (SOLU-Medrol 125MG VIAL) 125 mg 1X ONCE 03/04/19 17:30 03/04/19 17:31 DC 03/04/19 17:50 125 MG Morphine Sulfate (Morphine Sulfate) 4 mg PRN Q15MIN PRN 03/04/19 17:30 03/04/19 19:09 DC Nitroglycerin (Nitrostat) 0.4 mg PRN Q5MIN PRN 03/04/19 17:30 03/04/19 19:09 DC (MONTRELL HURTADO DO) Allergies Allergies Allergies Coded Allergies Type Severity Reaction Last Updated Verified No Known Drug Allergies 08/13/18 No (MONTRELL HURTADO DO) Physical Exam Physical Exam Constitutional: Well developed, well nourished, no acute distress, non-toxic appearance. [] HENT: Normocephalic, atraumatic, bilateral external ears normal, oropharynx moist, no oral exudates, nose normal. [] Eyes: PERRLA, EOMI, conjunctiva normal, no discharge. [] Neck: Normal range of motion, no tenderness, supple, no stridor. [] Cardiovascular: Well-healed surgical incision noted midline chest. Heart rate regular rhythm, no murmur [] Lungs & Thorax: Patient appears short of breath on exertion. Wheezing noted posterior lung bases. Abdomen: Bowel sounds normal, soft, no tenderness, no masses, no pulsatile masses. [] Skin: Warm, dry, no erythema, no rash. [] Back: No tenderness, no CVA tenderness. [] Extremities: No tenderness, no cyanosis, no clubbing, ROM intact, no edema. [] Neurologic: Alert and oriented X 3, normal motor function, normal sensory function, no focal deficits noted. [] Psychologic: Affect normal, judgement normal, mood normal. [] (EVER CHRISTINA APRN) Current Patient Data Vital Signs Vital Signs Date Time Temp Pulse Resp B/P (MAP) Pulse Ox O2 Delivery O2 Flow Rate FiO2 03/04/19 18:48 72 20 150/70 (96) 93 Room Air 03/04/19 17:14 98.1 98.1 (MONTRELL HURTADO DO) Lab Values Laboratory Tests Test 03/04/19 17:25 03/04/19 17:37 03/04/19 18:11 Urine Opiates Screen Neg (NEG) Urine Methadone Screen Neg (NEG) Urine Barbiturates Neg (NEG) Urine Phencyclidine Screen Neg (NEG) Urine Amphetamine/Methamphetamine Neg (NEG) Urine Benzodiazepines Screen Neg (NEG) Urine Cocaine Screen Neg (NEG) Urine Cannabinoids Screen Neg (NEG) Urine Ethyl Alcohol Neg (NEG) White Blood Count 7.1 x10^3/uL (4.0-11.0) Red Blood Count 4.56 x10^6/uL (4.30-5.70) Hemoglobin 13.3 g/dL (13.0-17.5) Hematocrit 40.1 % (39.0-53.0) Mean Corpuscular Volume 88 fL (79-100) Mean Corpuscular Hemoglobin 29 pg (25-35) Mean Corpuscular Hemoglobin Concent 33 g/dL (31-37) Red Cell Distribution Width 18.3 % (11.5-14.5) H Platelet Count 206 x10^3/uL (140-400) Neutrophils (%) (Auto) 64 % (31-73) Lymphocytes (%) (Auto) 21 % (24-48) L Monocytes (%) (Auto) 11 % (0-9) H Eosinophils (%) (Auto) 3 % (0-3) Basophils (%) (Auto) 1 % (0-3) Neutrophils # (Auto) 4.5 x10^3/uL (1.8-7.7) Lymphocytes # (Auto) 1.5 x10^3/uL (1.0-4.8) Monocytes # (Auto) 0.8 x10^3/uL (0.0-1.1) Eosinophils # (Auto) 0.2 x10^3/uL (0.0-0.7) Basophils # (Auto) 0.1 x10^3/uL (0.0-0.2) Prothrombin Time 22.9 SEC (11.7-14.0) H Prothrombin Time INR 2.1 (0.8-1.1) H Sodium Level 140 mmol/L (136-145) Potassium Level 5.0 mmol/L (3.5-5.1) Chloride Level 103 mmol/L (98-107) Carbon Dioxide Level 29 mmol/L (21-32) Anion Gap 8 (6-14) Blood Urea Nitrogen 23 mg/dL (8-26) Creatinine 1.2 mg/dL (0.7-1.3) Estimated GFR (Cockcroft-Gault) 60.2 BUN/Creatinine Ratio 19 (6-20) Glucose Level 100 mg/dL (70-99) H Calcium Level 9.8 mg/dL (8.5-10.1) Magnesium Level 2.0 mg/dL (1.8-2.4) Total Bilirubin 0.4 mg/dL (0.2-1.0) Aspartate Amino Transferase (AST) 28 U/L (15-37) Alanine Aminotransferase (ALT) 24 U/L (16-63) Alkaline Phosphatase 72 U/L (46-116) Creatine Kinase 277 U/L (39-308) Creatine Kinase MB (Mass) 6.8 ng/mL (0.0-3.6) H Creatine Kinase MB Relative Index 2.5 % (0-4) Troponin I Quantitative 0.026 ng/mL (0.000-0.055) KB-Qlt-A-Type Natriuretic Peptide 411 pg/mL (0-124) H Total Protein 7.3 g/dL (6.4-8.2) Albumin 3.9 g/dL (3.4-5.0) Albumin/Globulin Ratio 1.1 (1.0-1.7) Thyroid Stimulating Hormone (TSH) 3.572 uIU/mL (0.358-3.74) Urine Collection Type Void Urine Color Yellow Urine Clarity Clear Urine pH 6.5 Urine Specific [place] 1.020 Urine Protein Negative mg/dL (NEG-TRACE) Urine Glucose (UA) Negative mg/dL (NEG) Urine Ketones (Stick) Negative mg/dL (NEG) Urine Blood Negative (NEG) Urine Nitrite Negative (NEG) Urine Bilirubin Negative (NEG) Urine Urobilinogen Dipstick 0.2 mg/dL (0.2 mg/dL) Urine Leukocyte Esterase Negative (NEG) Urine RBC 0 /HPF (0-2) Urine WBC 1-4 /HPF (0-4) Urine Squamous Epithelial Cells Few /LPF Urine Bacteria Few /HPF (0-FEW) Urine Hyaline Casts Occasional /HPF Urine Mucus Mod /LPF Laboratory Tests 03/04/19 17:37 Laboratory Tests 03/04/19 17:37 (MONTRELL HURTADO DO) EKG EKG 172s Interpreted by Dr. Stanley chronic LBBB no STEMI, EKG similar to 11/27/2018 (EVER CHRISTINA APRN) Radiology/Procedures Radiology/Procedures [] (EVER CHRISTINA APRN) Course & Med Decision Making Course & Med Decision Making Pertinent Labs and Imaging studies reviewed. (See chart for details) This is a 69-year-old male patient who presents to the ED today complaining of shortness of breath that began 5 days ago. Patient did have a cold 3 weeks ago that has progressed to shortness of breath. CBC with a normal WBC. CMP with no acute findings. Troponin 0.026, EKG noted for chronic LBBB. Chest x-ray was noted for atelectasis, underlying pneumonia was hard to rule out. Patient is on Coumadin, INR 2.1. Vitals temperature 98.1, heart rate 82, respirations 20, blood pressure 152/91 and O2 sats 99% he was given a DuoNeb treatment and Solu-Medrol in the ED. He s tates is feeling better. Patient was offered admission, he declined, he states he has bad memories of this hospital, he states his in this hospital recently and he cannot stand being in any hospital rooms, he states he cannot stand looking at Hospital equipment. Patient was discharged to home on doxycycline. He was given Rocephin IV before discharge. He promised to be back in the ED at any point symptoms worsen. (EVER CHRISTINA APRN) Dragon Disclaimer Dragon Disclaimer This electronic medical record was generated, in whole or in part, using a voice recognition dictation system. (EVER CHRISTINA APRN) Departure Departure Impression: Primary Impression: Shortness of breath Additional Impressions: Upper respiratory infection Acute bronchitis Disposition: HOME, SELF-CARE Condition: STABLE Referrals: UNKNOWN PCP NAME (PCP) Follow-up with your doctor on Thursday Patient Instructions: Acute Bronchitis, [id number], Shortness of Breath, [id number], Upper Respiratory Infection, Adult, [id number] Additional Instructions: You were evaluated in the emergency and was discharged on antibiotics. Ensure you take them until completed. Use the breathing treatments as needed. Please follow-up with your doctor on Thursday to the ED at any point symptoms worsen. Scripts Doxycycline Hyclate (DOXYCYCLINE HYCLATE) 100 Mg Tablet 1 TAB PO BID, #14 TAB Prov: EVER CHRISTINA LEAD MANUFACTURING ENGINEERING TECH 03/04/19 Albuterol Sulfate (Proair Hfa) 8.5 Gm Hfa.aer.ad 1 PUFF INH PRN Q6HRS PRN for SHORTNESS OF BREATH, #1 INHALER Prov: EVER CHRISTINA LEAD MANUFACTURING ENGINEERING TECH 03/04/19 Attending Signature Attending Signature I have reviewed the PA/SHEAR TENDER's note and plan of care. I was available for consultation as needed during the patient's visit in the emergency department. I agree with the clinical impression, plan, and disposition. (MONTRELL HURTADO DO) Problem Qualifiers Additional Impressions: Upper respiratory infection URI type: unspecified URI Qualified Codes: J06.9 - Acute upper respiratory infection, unspecified Acute bronchitis Bronchitis organism: unspecified organism Qualified Codes: J20.9 - Acute bronchitis, unspecified EVER CHRISTINA THIAGO Mar 04, 2019 18:14 MONTRELL HURTADO DO Mar 04, 2019 22:03
[2019-03-04 18:19] LABS: PROTHROMBIN TIME PATIENT 22.9 SEC (11.7-14.0)
[2019-03-04 18:24] LABS: BILIRUBIN,URINE NEGATIVE (NEG); CLARITY,URINE CLEAR; COLOR,URINE YELLOW; NITRITE,URINE NEGATIVE (NEG); PH,URINE 6.5; PROTEIN,URINE NEGATIVE (NEG-TRACE); UROBILINOGEN,URINE 0.2 mg/dL (0.2 mg/dL)
[2019-03-04 18:29] LABS: BARBITURATES NEG (NEG); BENZODIAZEPINES NEG (NEG); CANNABINOIDS NEG (NEG); COCAINE NEG (NEG); METHADONE NEG (NEG); OPIATES NEG (NEG); PHENCYCLIDINE NEG (NEG)
[2019-03-04 18:30] LABS: AMPHETAMINE/METHAMPHETAMINE NEG (NEG)
[2019-03-04] MEDS ORDERED: ALBU2.5V8 INH (18:41)
[2019-03-04] MEDS ORDERED: DOXY100T PO (18:41)
[2019-03-04] MEDS ORDERED: cefTRIAXone IV Push 1 GM VIAL. IVP ONE (18:45)
[2019-03-04 18:48] VITALS: BP 150/70
[2019-03-04 18:52] LABS: BACTERIA,URINE FEW /HPF (0-FEW); RBC,URINE 0 /HPF (0-2); SQUAMOUS EPITHELIAL CELL,UR FEW /LPF
[2019-03-04 18:53] LABS: HYALINE CASTS, URINE OCCASIONAL /HPF
--- NOTE | 2019-03-04 19:30 | RAD ---
PORTABLE CHEST 1V History: Shortness of breath. Comparison with 11/27/2018. Cardiomediastinal silhouette remains widened and enlarged. Mild improvement in congestive findings. No pneumothorax. No large effusion. Markings in left lung base is again seen, likely atelectasis or fibrosis. Less apparent than on prior study. Impression: Enlargement of the cardiomediastinal silhouette persists. No new consolidating infiltrate. Electronically signed by: Ba Spears MD (03/04/2019 7:20 PM) [id number]
--- NOTE | 2019-03-07 07:06 | EKG ---
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
== END 2019-03-04 19:01 | disposition home or self-care (01) ==
LOC: ER 17:09
DX: J20.9 Acute bronchitis, unspecified (principal); J06.9 Acute upper respiratory infection, unspecified; I11.0 Hypertensive heart disease with heart failure; I50.9 Heart failure, unspecified; E78.00 Pure hypercholesterolemia, unspecified; I25.10 Atherosclerotic heart disease of native coronary artery without angina pectoris; G89.29 Other chronic pain; Z95.0 Presence of cardiac pacemaker; Z95.1 Presence of aortocoronary bypass graft; Z79.01 Long term (current) use of anticoagulants; F10.20 Alcohol dependence, uncomplicated; Y90.9 Presence of alcohol in blood, level not specified
CPT/HCPCS: 36415; 71045; 80053; 80307; 81001; 82553; 83735; 83880; 84443; 84484; 85025; 85610; 93005; 94640; 96374; 96375; 99285; J0696; J2930; J7620

== ENCOUNTER 2019-05-16 12:48 | Inpatient (IN) | payer MEDICARE, OTHER ==
[~2019-05-16] VITALS: Ht 170.2 cm; Wt 122.2 kg
[~2019-05-16 12:48] MED LIST changes: +ALBU2.5V8 INH; +DOXY100T PO; -LAMO200T2 PO; +LAMO200T6 PO
[2019-05-16] MEDS ORDERED: ONDANSETRON PF 4 MG/2 ML VIAL. IV ONE (14:00)
[2019-05-16 14:01] LABS: BASO % 1 % (0-3); EOS # 0.2 x10^3/uL (0.0-0.7); EOS % 3 % (0-3); HEMATOCRIT 42.5 % (39.0-53.0); HEMOGLOBIN 14.2 g/dL (13.0-17.5); LYMPH # 0.6 x10^3/uL (1.0-4.8); LYMPH % 11 % (24-48); MEAN CORPUSCULAR HEMOGLOBIN 31 pg (25-35); MEAN CORPUSCULAR HGB CONC 34 g/dL (31-37); MEAN CORPUSCULAR VOLUME 92 fL (79-100); MONO # 0.6 x10^3/uL (0.0-1.1); MONO % 11 % (0-9); NEUT # 4.2 x10^3/uL (1.8-7.7); NEUT % 75 % (31-73); PLATELET COUNT 167 x10^3/uL (140-400); RED BLOOD COUNT 4.61 x10^6/uL (4.30-5.70); RED CELL DISTRIBUTION WIDTH 14.5 % (11.5-14.5); WHITE BLOOD COUNT 5.6 x10^3/uL (4.0-11.0)
[2019-05-16 14:12] LABS: CALCIUM 10.1 mg/dL (8.5-10.1); CREATININE 1.1 mg/dL (0.7-1.3); GFR 66.6; POTASSIUM 4.6 mmol/L (3.5-5.1)
[2019-05-16] MEDS ORDERED: CONTRAST GIVEN. MC PRN (14:15)
[2019-05-16] MEDS ORDERED: IOHEXOL 300 MG/ML 100ML VIAL. IV ONE (14:15)
[2019-05-16 14:17] LABS: ALBUMIN 3.9 g/dL (3.4-5.0); ALBUMIN/GLOBULIN RATIO 1.1 (1.0-1.7); TOTAL BILIRUBIN 0.2 mg/dL (0.2-1.0); TOTAL PROTEIN 7.5 g/dL (6.4-8.2)
[2019-05-16] MEDS: MORPHINE SULFATE 4 MG/ML VIAL. IV/SQ PRN ×3 (14:24→16:56)
--- NOTE | 2019-05-16 14:43 | RAD ---
PORTABLE CHEST 1V 05/16/2019 1:50 PM INDICATION: Abdominal pain, diaphoretic COMPARISON: 03/04/2019 TECHNIQUE: Portable frontal view of the chest is provided. FINDINGS: The cardiomediastinal silhouette is similar in appearance. Median sternotomy changes are present. Cardiac valvular prosthesis noted. There are no significant pleural effusions. There is no pulmonary vascular congestion. No pneumothorax. IMPRESSION: Stable cardiomegaly without new airspace consolidation. Electronically signed by: Janell Palmer MD (05/16/2019 2:41 PM) [id number]
--- NOTE | 2019-05-16 15:05 | RAD ---
CT of the abdomen and pelvis with contrast 05/16/2019 INDICATION: Abdominal pain COMPARISON STUDY: None TECHNIQUE: Multidetector CT imaging of the abdomen and pelvis was performed following the administration of contrast FINDINGS: Lung bases demonstrate no acute abnormality. Chronic left-sided rib fractures noted. 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 The appearance is unchanged from prior CT chest exam. Liver and gallbladder are unremarkable. Spleen is unremarkable. Adrenal glands are unremarkable. Pancreas is unremarkable. Nonspecific mild perinephric stranding is seen bilaterally. Small cyst noted within the anterior mid right kidney. The kidneys are otherwise grossly unremarkable. Descending and distal colonic diverticulosis is noted without evidence of acute diverticulitis. There is a umbilical hernia containing a loop of mildly dilated small bowel. Moderate fat stranding is noted within the hernia sac. On sagittal imaging the hernia defect in the anterior abdominal wall measures 2 cm in diameter. Hernia sac measures 10 cm AP by 8 cm transverse by 8 cm longitudinal. The small bowel distal to the hernia is nearly completely decompressed. The small bowel proximal to the hernia is not overtly dilated, but mildly prominent with respect to the more distal small bowel. Partial obstruction is not excluded. Given the amount of stranding within the hernia sac early incarceration cannot be completely excluded. No free fluid or free air is seen in the abdomen or pelvis. The bladder is grossly unremarkable. No evidence of acute osseous abnormality is seen. Degenerative changes of the thoracolumbar spine are seen. IMPRESSION: Umbilical hernia as described, containing a mildly dilated loop of small bowel with moderate fat stranding within the hernia sac. No gross obstruction. Early incarceration not excluded. Correlate with physical exam findings. CT DOSING PQRS STATEMENT: One or more of the following individualized dose reduction techniques were utilized for this examination: 1. Automated exposure control 2. Adjustment of the mA and/or kV according to patient size 3. Use of iterative reconstruction technique Electronically signed by: Willard Chow MD (05/16/2019 3:02 PM) [id number]
--- NOTE | 2019-05-16 15:14 | EKG ---
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
[2019-05-16 17:14] LABS: BARBITURATES NEG (NEG); BENZODIAZEPINES NEG (NEG); CANNABINOIDS NEG (NEG); COCAINE NEG (NEG); METHADONE NEG (NEG); OPIATES POS (NEG); PHENCYCLIDINE NEG (NEG)
[2019-05-16 17:15] LABS: AMPHETAMINE/METHAMPHETAMINE NEG (NEG)
[2019-05-16] MEDS ORDERED: clonazePAM 0.5 MG TABLET PO PRN (17:30)
[2019-05-16] MEDS ORDERED: hydrALAZINE 20 MG/ML VIAL. IVP PRN (17:30)
[2019-05-16] MEDS ORDERED: oxyCODONE/APAP 5/325 1 TAB TABLET PO PRN ×2 (17:30)
--- NOTE | 2019-05-16 17:36 | PDOC1 ---
History and Physical Date of Admission Date of Admission DATE: 05/16/19 TIME: 17:29 Identification/Chief Complaint Chief Complaint abd pain Source Source: Caregiver, Chart review, Patient History of Present Illness History of Present Illness HE has long standing umbilical hernia that has not been causing any problems up until today, sudden onset 10/10 Right sided abd pain, no fevers, no mention of emesis,. CT is non commital, cant say if early obstruction or strangulation but the hernia is there with bowel loops. Pt has signif CARDIAC hx including RECENT CABG AND ARTIFICIAL valve on warfarin at [facility] October 2018, NO INR check yet, REst of VS and labs ok, TEnder to my moderate palpation on exam, right side , i see at ER, no rebound guarding, non toxic ,looking. HE is agreeable to sx if recommended\ CT: Umbilical hernia as described, containing a mildly dilated loop of small bowel with moderate fat stranding within the hernia sac. No gross obstruction. Early incarceration not excluded. Correlate with physical exam finding Past Medical History Cardiovascular: AFIB, CHF, HTN, Mitral valve stenosis, Other Pulmonary: No pertinent hx, COPD GI: No pertinent hx Heme/Onc: No pertinent hx Hepatobiliary: No pertinent hx Psych: Bipolar, Depression Musculoskeletal: low back pain Rheumatologic: No pertinent hx Infectious disease: No pertinent hx Renal/: No pertinent hx Endocrine: No pertinent hx Past Surgical History Past Surgical History: Pacemaker, Appendectomy, Total knee replacement, Other Family History Family History: High Cholestrol, Hypertension Social History Smoke: No ALCOHOL: rare Drugs: None Current Medications Current Medications Current Medications Morphine Sulfate (Morphine Sulfate) 4 mg PRN Q15MIN PRN IV/SQ PAIN GREATER THAN 3/10 Last administered on 05/16/19at 16:56; Start 05/16/19 at 14:00; Stop 05/17/19 at 13:59 Ondansetron HCl (Zofran) 4 mg 1X ONCE IV Last administered on 05/16/19at 14:23; Start 05/16/19 at 14:00; Stop 05/16/19 at 14:01; Status DC Iohexol (Omnipaque 300 Mg/ml) 75 ml 1X ONCE IV Last administered on 05/16/19at 14:15; Start 05/16/19 at 14:15; Stop 05/16/19 at 14:16; Status DC Info (CONTRAST GIVEN -- Rx MONITORING) 1 each PRN DAILY PRN MC SEE COMMENTS; Start 05/16/19 at 14:15; Stop 05/18/19 at 14:14 Hydralazine HCl (Apresoline Inj) 10 mg PRN Q4HRS PRN IVP ELEVATED BP, SEE COMMENTS; Start 05/16/19 at 17:30; Status UNV Morphine Sulfate (Morphine Sulfate) 4 mg PRN Q2HR PRN IV PAIN; Start 05/16/19 at 17:30; Status UNV Ondansetron HCl (Zofran) 4 mg PRN Q6HRS PRN IVP NAUSEA/VOMITING; Start 05/16/19 at 17:30; Status UNV Oxycodone/ Acetaminophen (Percocet 5/325) 1 tab PRN Q4HRS PRN PO PAIN; Start 05/16/19 at 17:30; Status UNV Calcium Carbonate/ Glycine (Tums) 500 mg PRN AFTMEALHC PRN PO INDIGESTION; Start 05/16/19 at 17:30; Status UNV Active Scripts Active Doxycycline Hyclate 100 Mg Tablet 1 Tab PO BID Proair Hfa (Albuterol Sulfate) 8.5 Gm Hfa.aer.ad 1 Puff INH PRN Q6HRS PRN Coumadin (Warfarin Sodium) 4 Mg Tablet 1 Tab PO SEE ADMIN INSTRUCTIO 30 Days Take Thursday, Thursday, , and Thursday. Take 2mg tabs MWF F/u INR at [facility] Cardiology clinic Lovenox (Enoxaparin Sodium) 120 Mg/0.8 Ml Disp.syrin 120 Mg SQ BID 5 Days Reported Multi Vitamin Daily (Multivitamin) 1 Each Tablet 1 Each PO DAILY Warfarin Sodium 2 Mg Tablet 2 Mg PO DAILY Senna (Sennosides) 8.6 Mg Tablet 17.2 Mg PO BID Potassium Chloride 10 Meq Tablet.er 10 Meq PO DAILY Oxycodone-Acetaminophen 5-325 (Oxycodone Hcl/Acetaminophen) 1 Each Tablet 1 Each PO PRN Q4HRS PRN Metoprolol Tartrate 25 Mg Tablet 12.5 Mg PO BID Lamotrigine 200 Mg Tablet 1 Tab PO BID Klonopin (Clonazepam) 1 Mg Tablet 1 Mg PO PRN BID PRN Gabapentin 600 Mg Tablet 300 Mg PO TID Furosemide 20 Mg Tablet 1 Tab PO DAILY Tricor (Fenofibrate Nanocrystallized) 145 Mg Tablet 1 Tab PO DAILY Zetia (Ezetimibe) 10 Mg Tablet 1 Tab PO DAILY Cymbalta (Duloxetine Hcl) 60 Mg Capsule.dr 90 Mg PO DAILY Atorvastatin Calcium 40 Mg Tablet 1 Tab PO DAILY Aspirin Ec (Aspirin) 81 Mg Tablet.dr 1 Tab PO DAILY Amiodarone Hcl 200 Mg Tablet 200 Mg PO DAILY Allergies Allergies: Coded Allergies: No Known Drug Allergies (Unverified , 08/13/18) ROS Review of System abd pain as per HPI, all else is neg Physical Exam General: Alert, Oriented X3, Cooperative, No acute distress HEENT: Atraumatic, PERRLA, EOMI Lungs: Clear to auscultation, Normal air movement Heart: S1S2, RRR, no thrills, no rubs, no gallops, no murmurs Cardiovascular: S1, S2 Abdomen: Normal bowel sounds, Soft, Other (RT sided abd pain, on palp, no rebound guarding, no guarding) Male Genitals Exam: normal genitalia, normal prostate Rectal Exam: not examined PELVIC: Nml ext genitalia Extremities: No clubbing, No cyanosis, No edema, Normal pulses, No tenderness/swelling Skin: No rashes, No breakdown, No significant lesion Neuro: Normal gait, Normal speech, Strength at 5/5 X4 ext, Normal tone, Sensation intact, Cranial nerves 3-12 NL, Reflexes 2+ Psych/Mental Status: Mental status NL, Mood NL Vitals Vitals Vital Signs Date Time Temp Pulse Resp B/P (MAP) Pulse Ox O2 Delivery O2 Flow Rate FiO2 05/16/19 16:56 Room Air 05/16/19 13:35 97.5 65 16 157/89 (111) 97 97.5 Labs Labs Laboratory Tests Test 05/16/19 13:49 05/16/19 16:59 White Blood Count 5.6 x10^3/uL (4.0-11.0) Red Blood Count 4.61 x10^6/uL (4.30-5.70) Hemoglobin 14.2 g/dL (13.0-17.5) Hematocrit 42.5 % (39.0-53.0) Mean Corpuscular Volume 92 fL (79-100) Mean Corpuscular Hemoglobin 31 pg (25-35) Mean Corpuscular Hemoglobin Concent 34 g/dL (31-37) Red Cell Distribution Width 14.5 % (11.5-14.5) Platelet Count 167 x10^3/uL (140-400) Neutrophils (%) (Auto) 75 % (31-73) Lymphocytes (%) (Auto) 11 % (24-48) Monocytes (%) (Auto) 11 % (0-9) Eosinophils (%) (Auto) 3 % (0-3) Basophils (%) (Auto) 1 % (0-3) Neutrophils # (Auto) 4.2 x10^3/uL (1.8-7.7) Lymphocytes # (Auto) 0.6 x10^3/uL (1.0-4.8) Monocytes # (Auto) 0.6 x10^3/uL (0.0-1.1) Eosinophils # (Auto) 0.2 x10^3/uL (0.0-0.7) Basophils # (Auto) 0.0 x10^3/uL (0.0-0.2) Sodium Level 140 mmol/L (136-145) Potassium Level 4.6 mmol/L (3.5-5.1) Chloride Level 101 mmol/L (98-107) Carbon Dioxide Level 31 mmol/L (21-32) Anion Gap 8 (6-14) Blood Urea Nitrogen 21 mg/dL (8-26) Creatinine 1.1 mg/dL (0.7-1.3) Estimated GFR (Cockcroft-Gault) 66.6 BUN/Creatinine Ratio 19 (6-20) Glucose Level 118 mg/dL (70-99) Calcium Level 10.1 mg/dL (8.5-10.1) Magnesium Level 2.0 mg/dL (1.8-2.4) Total Bilirubin 0.2 mg/dL (0.2-1.0) Aspartate Amino Transf (AST/SGOT) 27 U/L (15-37) Alanine Aminotransferase (ALT/SGPT) 28 U/L (16-63) Alkaline Phosphatase 74 U/L (46-116) Creatine Kinase 267 U/L (39-308) Creatine Kinase MB (Mass) 7.4 ng/mL (0.0-3.6) Creatine Kinase MB Relative Index 2.8 % (0-4) Troponin I Quantitative < 0.017 ng/mL (0.000-0.055) IH-Fyw-J-Type Natriuretic Peptide 182 pg/mL (0-124) Total Protein 7.5 g/dL (6.4-8.2) Albumin 3.9 g/dL (3.4-5.0) Albumin/Globulin Ratio 1.1 (1.0-1.7) Lipase 85 U/L (73-393) Thyroid Stimulating Hormone (TSH) 3.098 uIU/mL (0.358-3.74) Urine Opiates Screen Pos (NEG) Urine Methadone Screen Neg (NEG) Urine Barbiturates Neg (NEG) Urine Phencyclidine Screen Neg (NEG) Urine Amphetamine/Methamphetamine Neg (NEG) Urine Benzodiazepines Screen Neg (NEG) Urine Cocaine Screen Neg (NEG) Urine Cannabinoids Screen Neg (NEG) Urine Ethyl Alcohol Neg (NEG) Laboratory Tests Test 05/16/19 13:49 05/16/19 16:59 White Blood Count 5.6 x10^3/uL (4.0-11.0) Red Blood Count 4.61 x10^6/uL (4.30-5.70) Hemoglobin 14.2 g/dL (13.0-17.5) Hematocrit 42.5 % (39.0-53.0) Mean Corpuscular Volume 92 fL (79-100) Mean Corpuscular Hemoglobin 31 pg (25-35) Mean Corpuscular Hemoglobin Concent 34 g/dL (31-37) Red Cell Distribution Width 14.5 % (11.5-14.5) Platelet Count 167 x10^3/uL (140-400) Neutrophils (%) (Auto) 75 % (31-73) Lymphocytes (%) (Auto) 11 % (24-48) Monocytes (%) (Auto) 11 % (0-9) Eosinophils (%) (Auto) 3 % (0-3) Basophils (%) (Auto) 1 % (0-3) Neutrophils # (Auto) 4.2 x10^3/uL (1.8-7.7) Lymphocytes # (Auto) 0.6 x10^3/uL (1.0-4.8) Monocytes # (Auto) 0.6 x10^3/uL (0.0-1.1) Eosinophils # (Auto) 0.2 x10^3/uL (0.0-0.7) Basophils # (Auto) 0.0 x10^3/uL (0.0-0.2) Sodium Level 140 mmol/L (136-145) Potassium Level 4.6 mmol/L (3.5-5.1) Chloride Level 101 mmol/L (98-107) Carbon Dioxide Level 31 mmol/L (21-32) Anion Gap 8 (6-14) Blood Urea Nitrogen 21 mg/dL (8-26) Creatinine 1.1 mg/dL (0.7-1.3) Estimated GFR (Cockcroft-Gault) 66.6 BUN/Creatinine Ratio 19 (6-20) Glucose Level 118 mg/dL (70-99) Calcium Level 10.1 mg/dL (8.5-10.1) Magnesium Level 2.0 mg/dL (1.8-2.4) Total Bilirubin 0.2 mg/dL (0.2-1.0) Aspartate Amino Transf (AST/SGOT) 27 U/L (15-37) Alanine Aminotransferase (ALT/SGPT) 28 U/L (16-63) Alkaline Phosphatase 74 U/L (46-116) Creatine Kinase 267 U/L (39-308) Creatine Kinase MB (Mass) 7.4 ng/mL (0.0-3.6) Creatine Kinase MB Relative Index 2.8 % (0-4) Troponin I Quantitative < 0.017 ng/mL (0.000-0.055) QD-Mvo-T-Type Natriuretic Peptide 182 pg/mL (0-124) Total Protein 7.5 g/dL (6.4-8.2) Albumin 3.9 g/dL (3.4-5.0) Albumin/Globulin Ratio 1.1 (1.0-1.7) Lipase 85 U/L (73-393) Thyroid Stimulating Hormone (TSH) 3.098 uIU/mL (0.358-3.74) Urine Opiates Screen Pos (NEG) Urine Methadone Screen Neg (NEG) Urine Barbiturates Neg (NEG) Urine Phencyclidine Screen Neg (NEG) Urine Amphetamine/Methamphetamine Neg (NEG) Urine Benzodiazepines Screen Neg (NEG) Urine Cocaine Screen Neg (NEG) Urine Cannabinoids Screen Neg (NEG) Urine Ethyl Alcohol Neg (NEG) VTE Prophylaxis Ordered VTE Prophylaxis Devices: Yes VTE Pharmacological Prophylaxi: Yes Assessment/Plan Assessment/Plan Long standing umbilical hernia with acute abd pain cat r/o early obstruction or strangulation Recent CABG with artificial valve on warfarin _ October 2018, [facility] - check INR CHF, dyslipdemia, etc chronic stable Accel HTN with relative bradycardia - Hydralazine IVF PLAn: I allowed liq diet tonyt then NPO post MN since there was no immediate surgical plans as dw ER mid level PAin control HOLD Warfarin and ASA Check INR I will reverse if high once concrete surgical plans if any Otherwise, continue rest of cardiac meds FULL CODe seen at ER NO indication for abx, prophy as of now HYdralazine IV prn for high BP - can give on tele floor JER COSTELLO MD May 16, 2019 17:36
[2019-05-16 17:55] LABS: PROTHROMBIN TIME PATIENT 33.5 SEC (11.7-14.0)
[2019-05-16] MEDS ORDERED: ONDANSETRON PF 4 MG/2 ML VIAL. IV PRN (18:30)
[2019-05-16] MEDS ORDERED: MORPHINE SULFATE 4 MG/ML VIAL. IV PRN (18:30)
[2019-05-16] MEDS ORDERED: ACETAMINOPHEN 325 MG TABLET. PO PRN (18:30)
[2019-05-16] MEDS ORDERED: HYDROmorphone 2 MG/ML VIAL IV ONE (18:30)
--- NOTE | 2019-05-16 18:32 | PHYS DOC ---
Past Medical History Past Medical History: CAD, High Cholesterol, Hypertension Additional Past Medical Histor: hernia Past Surgical History: Appendectomy, Coronary Bypass Surgery, Other Additional Past Surgical Histo: eye surgery Alcohol Use: Heavy Drug Use: None Adult General Chief Complaint Chief Complaint: ABDOMINAL PAIN HPI HPI Patient is a 69 year old male patient with history of CAD, open heart surgery in August 2018, hypertension, high cholesterol, umbilical hernia, who presents to the ED today complaining of 10 out of 10 epigastric abdominal pain radiating to the umbilicus that began at 11:30 AM this morning. Patient describes the pain as sharp worse when he is sitting up from lying position. Denies anything specific at her living the pain. He reports he has an umbilical hernia that has been there for years. Denies any fever, chest pain, shortness of breath. Review of Systems Review of Systems Constitutional: Denies fever or chills [] Eyes: Denies change in visual acuity, redness, or eye pain [] HENT: Denies nasal congestion or sore throat [] Respiratory: Denies cough or shortness of breath [] Cardiovascular: No additional information not addressed in HPI [] GI: Reports epigastric abdominal pain, umbilicus abdominal pain, denies nausea, vomiting, bloody stools or diarrhea [] : Denies dysuria or hematuria [] Musculoskeletal: Denies back pain or joint pain [] Integument: Denies rash or skin lesions [] Neurologic: Denies headache, focal weakness or sensory changes [] All other systems were reviewed and found to be within normal limits, except as documented in this note. Current Medications Current Medications Current Medications Medications (Trade) Dose Ordered Sig/Marlon Start Time Stop Time Status Last Admin Dose Admin Amiodarone HCl (Cordarone) 200 mg DAILY 05/17/19 09:00 Atorvastatin Calcium (Lipitor) 40 mg DAILY 05/17/19 09:00 Calcium Carbonate/ Glycine (Tums) 500 mg PRN AFTMEALHC PRN 05/16/19 17:30 Clonazepam (KlonoPIN) 1 mg PRN BID PRN 05/16/19 17:30 Duloxetine HCl (Cymbalta) 90 mg DAILY 05/17/19 09:00 EZETIMIBE (Zetia) 10 mg DAILY 05/17/19 09:00 Fenofibrate (Lofibra) 134 mg DAILY 05/17/19 09:00 Furosemide (Lasix) 20 mg DAILY 05/17/19 09:00 Gabapentin (Neurontin) 300 mg TID 05/16/19 21:00 Hydralazine HCl (Apresoline Inj) 10 mg PRN Q4HRS PRN 05/16/19 17:30 Hydromorphone HCl (Dilaudid) 1 mg 1X ONCE 05/16/19 18:30 05/16/19 18:31 05/16/19 18:21 1 MG Info (CONTRAST GIVEN -- Rx MONITORING) 1 each PRN DAILY PRN 05/16/19 14:15 05/18/19 14:14 Iohexol (Omnipaque 300 Mg/ml) 75 ml 1X ONCE 05/16/19 14:15 05/16/19 14:16 DC 05/16/19 14:15 75 ML Lamotrigine (LaMICtal) 200 mg BID 05/16/19 21:00 Metoprolol Tartrate (Lopressor) 12.5 mg BID 05/16/19 21:00 Morphine Sulfate (Morphine Sulfate) 4 mg PRN Q2HR PRN 05/16/19 17:30 Multivitamins (Thera M Plus) 1 tab DAILY 05/17/19 09:00 Ondansetron HCl (Zofran) 4 mg PRN Q6HRS PRN 05/16/19 17:30 Oxycodone/ Acetaminophen (Percocet 5/325) 1 tab PRN Q4HRS PRN 05/16/19 17:30 Potassium Chloride (Klor-Con) 10 meq DAILY 05/17/19 09:00 Sennosides (Senna) 17.2 mg BID 05/16/19 21:00 Zolpidem Tartrate (Ambien) 5 mg PRN QHS PRN 05/16/19 17:30 Allergies Allergies Allergies Coded Allergies Type Severity Reaction Last Updated Verified No Known Drug Allergies 08/13/18 No Physical Exam Physical Exam Constitutional: Well developed, well nourished, no acute distress, non-toxic appearance. [] HENT: Normocephalic, atraumatic, bilateral external ears normal, oropharynx moist, no oral exudates, nose normal. [] Eyes: PERRLA, EOMI, conjunctiva normal, no discharge. [] Neck: Normal range of motion, no tenderness, supple, no stridor. [] Cardiovascular: Old healed surgical incision midline chest. Heart rate regular rhythm, no murmur [] Lungs & Thorax: Bilateral breath sounds clear to auscultation [] Abdomen: Rounded abdomen. Umbilical hernia noted physical exam, patient would not let me reduce it. He states it is painful and has been like that for years. Bowel sounds normal, soft, no masses, no pulsatile masses. [] Skin: Warm, dry, no erythema, no rash. [] Back: No tenderness, no CVA tenderness. [] Extremities: No tenderness, no cyanosis, no clubbing, ROM intact, no edema. [] Neurologic: Alert and oriented X 3, normal motor function, normal sensory function, no focal deficits noted. [] Psychologic: Affect normal, judgement normal, mood normal. [] Current Patient Data Vital Signs Vital Signs Date Time Temp Pulse Resp B/P (MAP) Pulse Ox O2 Delivery O2 Flow Rate FiO2 05/16/19 18:21 Room Air 05/16/19 17:00 61 12 173/79 (110) 98 2.0 05/16/19 13:35 97.5 97.5 Lab Values Laboratory Tests Test 05/16/19 13:49 05/16/19 16:59 White Blood Count 5.6 x10^3/uL (4.0-11.0) Red Blood Count 4.61 x10^6/uL (4.30-5.70) Hemoglobin 14.2 g/dL (13.0-17.5) Hematocrit 42.5 % (39.0-53.0) Mean Corpuscular Volume 92 fL (79-100) Mean Corpuscular Hemoglobin 31 pg (25-35) Mean Corpuscular Hemoglobin Concent 34 g/dL (31-37) Red Cell Distribution Width 14.5 % (11.5-14.5) Platelet Count 167 x10^3/uL (140-400) Neutrophils (%) (Auto) 75 % (31-73) H Lymphocytes (%) (Auto) 11 % (24-48) L Monocytes (%) (Auto) 11 % (0-9) H Eosinophils (%) (Auto) 3 % (0-3) Basophils (%) (Auto) 1 % (0-3) Neutrophils # (Auto) 4.2 x10^3/uL (1.8-7.7) Lymphocytes # (Auto) 0.6 x10^3/uL (1.0-4.8) L Monocytes # (Auto) 0.6 x10^3/uL (0.0-1.1) Eosinophils # (Auto) 0.2 x10^3/uL (0.0-0.7) Basophils # (Auto) 0.0 x10^3/uL (0.0-0.2) Prothrombin Time 33.5 SEC (11.7-14.0) H Prothrombin Time INR 3.3 (0.8-1.1) H Sodium Level 140 mmol/L (136-145) Potassium Level 4.6 mmol/L (3.5-5.1) Chloride Level 101 mmol/L (98-107) Carbon Dioxide Level 31 mmol/L (21-32) Anion Gap 8 (6-14) Blood Urea Nitrogen 21 mg/dL (8-26) Creatinine 1.1 mg/dL (0.7-1.3) Estimated GFR (Cockcroft-Gault) 66.6 BUN/Creatinine Ratio 19 (6-20) Glucose Level 118 mg/dL (70-99) H Calcium Level 10.1 mg/dL (8.5-10.1) Magnesium Level 2.0 mg/dL (1.8-2.4) Total Bilirubin 0.2 mg/dL (0.2-1.0) Aspartate Amino Transferase (AST) 27 U/L (15-37) Alanine Aminotransferase (ALT) 28 U/L (16-63) Alkaline Phosphatase 74 U/L (46-116) Creatine Kinase 267 U/L (39-308) Creatine Kinase MB (Mass) 7.4 ng/mL (0.0-3.6) H Creatine Kinase MB Relative Index 2.8 % (0-4) Troponin I Quantitative < 0.017 ng/mL (0.000-0.055) MW-Kcx-J-Type Natriuretic Peptide 182 pg/mL (0-124) H Total Protein 7.5 g/dL (6.4-8.2) Albumin 3.9 g/dL (3.4-5.0) Albumin/Globulin Ratio 1.1 (1.0-1.7) Lipase 85 U/L (73-393) Thyroid Stimulating Hormone (TSH) 3.098 uIU/mL (0.358-3.74) Urine Opiates Screen Pos (NEG) Urine Methadone Screen Neg (NEG) Urine Barbiturates Neg (NEG) Urine Phencyclidine Screen Neg (NEG) Urine Amphetamine/Methamphetamine Neg (NEG) Urine Benzodiazepines Screen Neg (NEG) Urine Cocaine Screen Neg (NEG) Urine Cannabinoids Screen Neg (NEG) Urine Ethyl Alcohol Neg (NEG) Laboratory Tests 05/16/19 13:49 Laboratory Tests 05/16/19 13:49 EKG EKG [address] Lizeth AYALABB HR 65 no STEMI. EKG similar to 03/04/2019[] Radiology/Procedures Radiology/Procedures []PROCEDURE: CT ABD PELV W/ IV CONTRST ONLY CT of the abdomen and pelvis with contrast 05/16/2019 INDICATION: Abdominal pain COMPARISON STUDY: None TECHNIQUE: Multidetector CT imaging of the abdomen and pelvis was performed following the administration of contrast FINDINGS: Lung bases demonstrate no acute abnormality. Chronic left-sided rib fractures noted. 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 The appearance is unchanged from prior CT chest exam. Liver and gallbladder are unremarkable. Spleen is unremarkable. Adrenal glands are unremarkable. Pancreas is unremarkable. Nonspecific mild perinephric stranding is seen bilaterally. Small cyst noted within the anterior mid right kidney. The kidneys are otherwise grossly unremarkable. Descending and distal colonic diverticulosis is noted without evidence of acute diverticulitis. There is a umbilical hernia containing a loop of mildly dilated small bowel. Moderate fat stranding is noted within the hernia sac. On sagittal imaging the hernia defect in the anterior abdominal wall measures 2 cm in diameter. Hernia sac measures 10 cm AP by 8 cm transverse by 8 cm longitudinal. The small bowel distal to the hernia is nearly completely decompressed. The small bowel proximal to the hernia is not overtly dilated, but mildly prominent with respect to the more distal small bowel. Partial obstruction is not excluded. Given the amount of stranding within the hernia sac early incarceration cannot be completely excluded. No free fluid or free air is seen in the abdomen or pelvis. The bladder is grossly unremarkable. No evidence of acute osseous abnormality is seen. Degenerative changes of the thoracolumbar spine are seen. IMPRESSION: Umbilical hernia as described, containing a mildly dilated loop of small bowel with moderate fat stranding within the hernia sac. No gross obstruction. Early incarceration not excluded. Correlate with physical exam findings. CT DOSING PQRS STATEMENT: One or more of the following individualized dose reduction techniques were utilized for this examination: 1. Automated exposure control 2. Adjustment of the mA and/or kV according to patient size 3. Use of iterative reconstruction technique Electronically signed by: Willard Carpenter MD (05/16/2019 3:02 PM) [id number] DICTATED and SIGNED BY: WILLARD CARPENTER MD PROCEDURE: PORTABLE CHEST 1V PORTABLE CHEST 1V 05/16/2019 1:50 PM INDICATION: Abdominal pain, diaphoretic COMPARISON: 03/04/2019 TECHNIQUE: Portable frontal view of the chest is provided. FINDINGS: The cardiomediastinal silhouette is similar in appearance. Median sternotomy changes are present. Cardiac valvular prosthesis noted. There are no significant pleural effusions. There is no pulmonary vascular congestion. No pneumothorax. IMPRESSION: Stable cardiomegaly without new airspace consolidation. Electronically signed by: Stan Das MD (05/16/2019 2:41 PM) [id number] DICTATED and SIGNED BY: STAN DAS MD DATE: 05/16/19 1441 Course & Med Decision Making Course & Med Decision Making Pertinent Labs and Imaging studies reviewed. (See chart for details) This is a 69-year-old male patient presenting to the ED today with complaints of epigastric as well as umbilicus abdominal pain that began this morning. Labs are negative for any acute findings. CT of the abdomen and pelvis was noted for umbilical hernia, incarceration was not ruled out. Spoke with Dr. Centeno who will follow-up with patient Spoke with Dr. Nunes who accepted patient for admission Dragon Disclaimer Dragon Disclaimer This electronic medical record was generated, in whole or in part, using a voice recognition dictation system. Departure Departure Impression: Primary Impression: Umbilical hernia Disposition: ADMITTED INPATIENT Condition: STABLE Referrals: UNKNOWN PCP NAME (PCP) Problem Qualifiers Primary Impression: Umbilical hernia Obstruction and gangrene presence: without obstruction or gangrene Qualified Codes: K42.9 - Umbilical hernia without obstruction or gangrene [employer] May 16, 2019 18:32
[2019-05-16 19:55] VITALS: BP 148/101
--- NOTE | 2019-05-16 20:15 | NUR ---
PT ADMITTED TO ROOM 263 FROM ER WITH ABDOMINAL PAIN. ADMISSION PACKET GIVEN TO PT, CALL LIGHT IN PLACE, PLAN OF CARE EXPLAINED. WILL CONT TO MONITOR PT SAFETY AND STATUS. PMRN
--- NOTE | 2019-05-16 20:54 | PDOC2 ---
CONSULT Date of Consult Date of Consult DATE: 05/16/19 TIME: 20:51 History of Present Illness Reason for Visit: The patient is a 69 year old male who reported to the ER with abdominal pain. He has known about an umbilical hernia for many years, but was told that surgery wasn't necessary. This morning he developed acute onset of pain across the mid abdomen, worse at the umbilicus. The pain does not radiate and is constant. He denies nausea, vomiting, or changes in bowel function. Past Medical History Cardiovascular: AFIB, CHF, HTN, Mitral valve stenosis, Other Pulmonary: No pertinent hx, COPD GI: No pertinent hx Heme/Onc: No pertinent hx Hepatobiliary: No pertinent hx Psych: Bipolar, Depression Musculoskeletal: low back pain Rheumatologic: No pertinent hx Infectious disease: No pertinent hx Renal/: No pertinent hx Endocrine: No pertinent hx Past Surgical History Past Surgical History: Pacemaker, Appendectomy, Total knee replacement, Other Family History Family History: High Cholestrol, Hypertension Social History No ALCOHOL: rare Drugs: None Current Problem List Problem List Problems Medical Problems: (1) Umbilical hernia Status: Acute Current Medications Current Medications Current Medications Morphine Sulfate (Morphine Sulfate) 4 mg PRN Q15MIN PRN IV/SQ PAIN GREATER THAN 3/10 Last administered on 05/16/19at 16:56; Start 05/16/19 at 14:00; Stop 05/16/19 at 21:00 Ondansetron HCl (Zofran) 4 mg 1X ONCE IV Last administered on 05/16/19at 14:23; Start 05/16/19 at 14:00; Stop 05/16/19 at 14:01; Status DC Iohexol (Omnipaque 300 Mg/ml) 75 ml 1X ONCE IV Last administered on 05/16/19at 14:15; Start 05/16/19 at 14:15; Stop 05/16/19 at 14:16; Status DC Info (CONTRAST GIVEN -- Rx MONITORING) 1 each PRN DAILY PRN MC SEE COMMENTS; Start 05/16/19 at 14:15; Stop 05/18/19 at 14:14 Hydralazine HCl (Apresoline Inj) 10 mg PRN Q4HRS PRN IVP ELEVATED BP, SEE COMMENTS; Start 05/16/19 at 17:30 Morphine Sulfate (Morphine Sulfate) 4 mg PRN Q2HR PRN IV PAIN; Start 05/16/19 at 17:30 Ondansetron HCl (Zofran) 4 mg PRN Q6HRS PRN IVP NAUSEA/VOMITING; Start 05/16/19 at 17:30 Oxycodone/ Acetaminophen (Percocet 5/325) 1 tab PRN Q4HRS PRN PO PAIN; Start 05/16/19 at 17:30 Calcium Carbonate/ Glycine (Tums) 500 mg PRN AFTMEALHC PRN PO INDIGESTION; Start 05/16/19 at 17:30 Zolpidem Tartrate (Ambien) 5 mg PRN QHS PRN PO INSOMNIA; Start 05/16/19 at 17:30 Amiodarone HCl (Cordarone) 200 mg DAILY PO ; Start 05/17/19 at 09:00 Atorvastatin Calcium (Lipitor) 40 mg DAILY PO ; Start 05/17/19 at 09:00 EZETIMIBE (Zetia) 10 mg DAILY PO ; Start 05/17/19 at 09:00 Furosemide (Lasix) 20 mg DAILY PO ; Start 05/17/19 at 09:00 Metoprolol Tartrate (Lopressor) 12.5 mg BID PO ; Start 05/16/19 at 21:00 Oxycodone/ Acetaminophen (Percocet 5/325) 1 tab PRN Q4HRS PRN PO PAIN; Start 05/16/19 at 17:30; Status Cancel Potassium Chloride (Klor-Con) 10 meq DAILY PO ; Start 05/17/19 at 09:00 Sennosides (Senna) 17.2 mg BID PO ; Start 05/16/19 at 21:00 Clonazepam (KlonoPIN) 1 mg PRN BID PRN PO ANXIETY / AGITATION; Start 05/16/19 at 17:30 Duloxetine HCl (Cymbalta) 90 mg DAILY PO ; Start 05/17/19 at 09:00 Fenofibrate (Lofibra) 134 mg DAILY PO ; Start 05/17/19 at 09:00 Gabapentin (Neurontin) 300 mg TID PO ; Start 05/16/19 at 21:00 Lamotrigine (LaMICtal) 200 mg BID PO ; Start 05/16/19 at 21:00 Multivitamins (Thera M Plus) 1 tab DAILY PO ; Start 05/17/19 at 09:00 Hydromorphone HCl (Dilaudid) 1 mg 1X ONCE IV Last administered on 05/16/19at 18:21; Start 05/16/19 at 18:30; Stop 05/16/19 at 18:31; Status DC Ondansetron HCl (Zofran) 4 mg PRN Q8HRS PRN IV NAUSEA/VOMITING; Start 05/16/19 at 18:30; Stop 05/17/19 at 18:29; Status UNV Morphine Sulfate (Morphine Sulfate) 4 mg PRN Q2HR PRN IV PAIN; Start 05/16/19 at 18:30; Stop 05/17/19 at 18:29; Status UNV Acetaminophen (Tylenol) 650 mg PRN Q4HRS PRN PO FEVER; Start 05/16/19 at 18:30; Stop 05/17/19 at 18:29 Phytonadione 10 mg/Dextrose 51 ml @ 102 mls/hr 1X ONCE IV ; Start 05/16/19 at 21:00; Stop 05/16/19 at 21:29 Active Scripts Active Doxycycline Hyclate 100 Mg Tablet 1 Tab PO BID Proair Hfa (Albuterol Sulfate) 8.5 Gm Hfa.aer.ad 1 Puff INH PRN Q6HRS PRN Coumadin (Warfarin Sodium) 4 Mg Tablet 1 Tab PO SEE ADMIN INSTRUCTIO 30 Days Take Thursday, Thursday, , and Thursday. Take 2mg tabs MWF F/u INR at [facility] Cardiology clinic Lovenox (Enoxaparin Sodium) 120 Mg/0.8 Ml Disp.syrin 120 Mg SQ BID 5 Days Reported Multi Vitamin Daily (Multivitamin) 1 Each Tablet 1 Each PO DAILY Warfarin Sodium 2 Mg Tablet 2 Mg PO DAILY Senna (Sennosides) 8.6 Mg Tablet 17.2 Mg PO BID Potassium Chloride 10 Meq Tablet.er 10 Meq PO DAILY Oxycodone-Acetaminophen 5-325 (Oxycodone Hcl/Acetaminophen) 1 Each Tablet 1 Each PO PRN Q4HRS PRN Metoprolol Tartrate 25 Mg Tablet 12.5 Mg PO BID Lamotrigine 200 Mg Tablet 1 Tab PO BID Klonopin (Clonazepam) 1 Mg Tablet 1 Mg PO PRN BID PRN Gabapentin 600 Mg Tablet 300 Mg PO TID Furosemide 20 Mg Tablet 1 Tab PO DAILY Tricor (Fenofibrate Nanocrystallized) 145 Mg Tablet 1 Tab PO DAILY Zetia (Ezetimibe) 10 Mg Tablet 1 Tab PO DAILY Cymbalta (Duloxetine Hcl) 60 Mg Capsule.dr 90 Mg PO DAILY Atorvastatin Calcium 40 Mg Tablet 1 Tab PO DAILY Aspirin Ec (Aspirin) 81 Mg Tablet.dr 1 Tab PO DAILY Amiodarone Hcl 200 Mg Tablet 200 Mg PO DAILY Allergies Allergies: Coded Allergies: No Known Drug Allergies (Unverified , 08/13/18) ROS General: No: Chills, Night Sweats, Fatigue, Malaise, Appetite, Other PSYCHOLOGICAL ROS: No: Anxiety, Behavioral Disorder, Concentration difficultie, Decreased libido, Depression, Disorientation, Hallucinations, Hostility, Irritablity, Memory difficulties, Mood Swings, Obsessive thoughts, Physical abuse, Sexual abuse, Sleep disturbances, Suicidal ideation, Other Eyes: No Blurry vision, No Decreased vision, No Double vision, No Dry eyes, No Excessive tearing, No Eye Pain, No Itchy Eyes, No Loss of vision, No Photophobia, No Scotomata, No Uses contacts, No Uses glasses, No Other HEENT: No: Heacaches, Visual Changes, Hearing change, Nasal congestion, Nasal discharge, Oral lesions, Sinus pain, Sore Throat, Epistaxis, Sneezing, Snoring, Tinnitus, Vertigo, Vocal changes, Other ALLERGY AND IMMUNOLOGY: No: Hives, Insect Bite Sensitivity, Itchy/Watery Eyes, Nasal Congestion, Post Nasal Drip, Seasonal Allergies, Other Hematological and Lymphatic: No: Bleeding Problems, Blood Clots, Blood Transfusions, Brusing, Night Sweats, Pallor, Swollen Lymph Nodes, Other ENDOCRINE: No: Breast Changes, Galactorrhea, Hair Pattern Changes, Hot Flashes, Malaise/lethargy, Mood Swings, Palpitations, Polydipsia/polyuria, Skin Changes, Temperature Intolerance, Unexpected Weight Changes, Other Respiratory: No: Cough, Hemoptysis, Orthopnea, Pleuritic Pain, Shortness of breath, SOB with excertion, Sputum Changes, Stridor, Tachypnea, Wheezing, Other Cardiovascular: No Chest Pain, No Palpitations, No Orthopnea, No Paroxysmal Noc. Dyspnea, No Edema, No Lt Headedness, No Other Gastrointestinal: Yes Abdominal Pain Genitourinary: No Dysuria, No Frequency, No Incontinence, No Hematuria, No Retention, No Discharge, No Urgency, No Pain, No Flank Pain, No Other, No , No , No , No , No , No , No Musculoskeletal: No Gait Disturbance, No Joint Pain, No Joint Stiffness, No Joint Swelling, No Muscle Pain, No Muscular Weakness, No Pain In:, No Swelling In:, No Other Neurological: No Behavorial Changes, No Bowel/Bladder ControlChng, No Confusion, No Dizziness, No Gait Disturbance, No Headaches, No Impaired Coord/balance, No Memory Loss, No Numbness/Tingling, No Seizures, No Speech Problems, No Tremors, No Visual Changes, No Weakness, No Other Skin: No Dry Skin, No Eczema, No Hair Changes, No Lumps, No Mole Changes, No Mottling, No Nail Changes, No Pruritus, No Rash, No Skin Lesion Changes, No Other, No Acne Physical Exam General: Alert, Oriented X3, Cooperative HEENT: Atraumatic Lungs: Clear to auscultation Heart: Regular rate Abdomen: Soft (morbidly obese, incarcerated large umbilical hernia, tender with palpation) Extremities: No clubbing, No cyanosis Skin: No rashes Neuro: Normal speech, Strength at 5/5 X4 ext Psych/Mental Status: Mental status NL Vitals VITALS Vital Signs Date Time Temp Pulse Resp B/P (MAP) Pulse Ox O2 Delivery O2 Flow Rate FiO2 05/16/19 18:21 Room Air 05/16/19 18:00 64 12 186/98 (127) 98 3.0 05/16/19 13:35 97.5 97.5 Labs Labs Laboratory Tests Test 05/16/19 13:49 05/16/19 16:59 White Blood Count 5.6 x10^3/uL (4.0-11.0) Red Blood Count 4.61 x10^6/uL (4.30-5.70) Hemoglobin 14.2 g/dL (13.0-17.5) Hematocrit 42.5 % (39.0-53.0) Mean Corpuscular Volume 92 fL (79-100) Mean Corpuscular Hemoglobin 31 pg (25-35) Mean Corpuscular Hemoglobin Concent 34 g/dL (31-37) Red Cell Distribution Width 14.5 % (11.5-14.5) Platelet Count 167 x10^3/uL (140-400) Neutrophils (%) (Auto) 75 % (31-73) Lymphocytes (%) (Auto) 11 % (24-48) Monocytes (%) (Auto) 11 % (0-9) Eosinophils (%) (Auto) 3 % (0-3) Basophils (%) (Auto) 1 % (0-3) Neutrophils # (Auto) 4.2 x10^3/uL (1.8-7.7) Lymphocytes # (Auto) 0.6 x10^3/uL (1.0-4.8) Monocytes # (Auto) 0.6 x10^3/uL (0.0-1.1) Eosinophils # (Auto) 0.2 x10^3/uL (0.0-0.7) Basophils # (Auto) 0.0 x10^3/uL (0.0-0.2) Prothrombin Time 33.5 SEC (11.7-14.0) Prothromb Time International Ratio 3.3 (0.8-1.1) Sodium Level 140 mmol/L (136-145) Potassium Level 4.6 mmol/L (3.5-5.1) Chloride Level 101 mmol/L (98-107) Carbon Dioxide Level 31 mmol/L (21-32) Anion Gap 8 (6-14) Blood Urea Nitrogen 21 mg/dL (8-26) Creatinine 1.1 mg/dL (0.7-1.3) Estimated GFR (Cockcroft-Gault) 66.6 BUN/Creatinine Ratio 19 (6-20) Glucose Level 118 mg/dL (70-99) Calcium Level 10.1 mg/dL (8.5-10.1) Magnesium Level 2.0 mg/dL (1.8-2.4) Total Bilirubin 0.2 mg/dL (0.2-1.0) Aspartate Amino Transf (AST/SGOT) 27 U/L (15-37) Alanine Aminotransferase (ALT/SGPT) 28 U/L (16-63) Alkaline Phosphatase 74 U/L (46-116) Creatine Kinase 267 U/L (39-308) Creatine Kinase MB (Mass) 7.4 ng/mL (0.0-3.6) Creatine Kinase MB Relative Index 2.8 % (0-4) Troponin I Quantitative < 0.017 ng/mL (0.000-0.055) TS-Jhg-C-Type Natriuretic Peptide 182 pg/mL (0-124) Total Protein 7.5 g/dL (6.4-8.2) Albumin 3.9 g/dL (3.4-5.0) Albumin/Globulin Ratio 1.1 (1.0-1.7) Lipase 85 U/L (73-393) Thyroid Stimulating Hormone (TSH) 3.098 uIU/mL (0.358-3.74) Ethyl Alcohol Level < 10 mg/dL (0-10) Urine Opiates Screen Pos (NEG) Urine Methadone Screen Neg (NEG) Urine Barbiturates Neg (NEG) Urine Phencyclidine Screen Neg (NEG) Urine Amphetamine/Methamphetamine Neg (NEG) Urine Benzodiazepines Screen Neg (NEG) Urine Cocaine Screen Neg (NEG) Urine Cannabinoids Screen Neg (NEG) Urine Ethyl Alcohol Neg (NEG) Laboratory Tests Test 05/16/19 13:49 05/16/19 16:59 White Blood Count 5.6 x10^3/uL (4.0-11.0) Red Blood Count 4.61 x10^6/uL (4.30-5.70) Hemoglobin 14.2 g/dL (13.0-17.5) Hematocrit 42.5 % (39.0-53.0) Mean Corpuscular Volume 92 fL (79-100) Mean Corpuscular Hemoglobin 31 pg (25-35) Mean Corpuscular Hemoglobin Concent 34 g/dL (31-37) Red Cell Distribution Width 14.5 % (11.5-14.5) Platelet Count 167 x10^3/uL (140-400) Neutrophils (%) (Auto) 75 % (31-73) Lymphocytes (%) (Auto) 11 % (24-48) Monocytes (%) (Auto) 11 % (0-9) Eosinophils (%) (Auto) 3 % (0-3) Basophils (%) (Auto) 1 % (0-3) Neutrophils # (Auto) 4.2 x10^3/uL (1.8-7.7) Lymphocytes # (Auto) 0.6 x10^3/uL (1.0-4.8) Monocytes # (Auto) 0.6 x10^3/uL (0.0-1.1) Eosinophils # (Auto) 0.2 x10^3/uL (0.0-0.7) Basophils # (Auto) 0.0 x10^3/uL (0.0-0.2) Prothrombin Time 33.5 SEC (11.7-14.0) Prothromb Time International Ratio 3.3 (0.8-1.1) Sodium Level 140 mmol/L (136-145) Potassium Level 4.6 mmol/L (3.5-5.1) Chloride Level 101 mmol/L (98-107) Carbon Dioxide Level 31 mmol/L (21-32) Anion Gap 8 (6-14) Blood Urea Nitrogen 21 mg/dL (8-26) Creatinine 1.1 mg/dL (0.7-1.3) Estimated GFR (Cockcroft-Gault) 66.6 BUN/Creatinine Ratio 19 (6-20) Glucose Level 118 mg/dL (70-99) Calcium Level 10.1 mg/dL (8.5-10.1) Magnesium Level 2.0 mg/dL (1.8-2.4) Total Bilirubin 0.2 mg/dL (0.2-1.0) Aspartate Amino Transf (AST/SGOT) 27 U/L (15-37) Alanine Aminotransferase (ALT/SGPT) 28 U/L (16-63) Alkaline Phosphatase 74 U/L (46-116) Creatine Kinase 267 U/L (39-308) Creatine Kinase MB (Mass) 7.4 ng/mL (0.0-3.6) Creatine Kinase MB Relative Index 2.8 % (0-4) Troponin I Quantitative < 0.017 ng/mL (0.000-0.055) EW-Qqe-Y-Type Natriuretic Peptide 182 pg/mL (0-124) Total Protein 7.5 g/dL (6.4-8.2) Albumin 3.9 g/dL (3.4-5.0) Albumin/Globulin Ratio 1.1 (1.0-1.7) Lipase 85 U/L (73-393) Thyroid Stimulating Hormone (TSH) 3.098 uIU/mL (0.358-3.74) Ethyl Alcohol Level < 10 mg/dL (0-10) Urine Opiates Screen Pos (NEG) Urine Methadone Screen Neg (NEG) Urine Barbiturates Neg (NEG) Urine Phencyclidine Screen Neg (NEG) Urine Amphetamine/Methamphetamine Neg (NEG) Urine Benzodiazepines Screen Neg (NEG) Urine Cocaine Screen Neg (NEG) Urine Cannabinoids Screen Neg (NEG) Urine Ethyl Alcohol Neg (NEG) Assessment/Plan Assessment/Plan 69 year old male with incarcerated umbilical hernia, recommend surgical correction. The patient takes coumadin and his INR was elevated at 3.3. There has been no reversal of his coumadin thus far. Recommend FFP, Vit K VARUN to reverse his coumadin as soon as possible with urgent surgery to follow. I reviewed the details of surgery with the patient and he would like to proceed. HARRIET MCCORD MD May 16, 2019 20:54
[2019-05-16] MEDS ORDERED: PHYTONADIONE (VIT K1) IV 10 MG in IV DEXTROSE 5% 50 ML IV ONE (21:00)
[2019-05-16] MEDS: GABAPENTIN 300 MG CAPSULE. PO SCH (21:00)
[2019-05-16] MEDS: SENNOSIDES 8.6 MG TABLET PO SCH (21:05)
[2019-05-16] MEDS: lamoTRIgine 100 MG TABLET. PO SCH (21:06)
[2019-05-16] MEDS: METOPROLOL TART IMMED RELEASE 25 MG TABLET. PO SCH (21:06)
--- NOTE | 2019-05-16 22:00 | NUR ---
dr Centeno her to see pt, order received for ffp and vit k to be infused as soon as possible. will cont to monitor pt status and safety. pmrn
[2019-05-16 22:48] VITALS: BP 144/100
[2019-05-16 23:00] VITALS: BP 151/99
[2019-05-16 23:22] VITALS: BP 144/94
[2019-05-17] VITALS (22 sets, daily range): BP systolic 102–175; BP diastolic 58–96
[2019-05-17] MEDS ORDERED: NICOTINE 21MG PATCH. TD PRN
[2019-05-17 01:11] LABS: PROTHROMBIN TIME PATIENT 18.3 SEC (11.7-14.0)
--- NOTE | 2019-05-17 01:45 | NUR ---
dr harry notified of pt inr at 1.6 orde given to transfuse 2 more units of ffp's, would like inr close to 1.0 if at all possible. will cont to monitor pt. pmrn
[2019-05-17] MEDS: MORPHINE SULFATE 4 MG/ML VIAL. IV PRN ×3 (02:42→20:43)
[2019-05-17] MEDS: ONDANSETRON PF 4 MG/2 ML VIAL. IVP PRN ×2 (03:49→16:44)
[2019-05-17 04:05] LABS: BASO % 0 % (0-3); EOS # 0.1 x10^3/uL (0.0-0.7); EOS % 1 % (0-3); HEMATOCRIT 41.9 % (39.0-53.0); HEMOGLOBIN 13.9 g/dL (13.0-17.5); LYMPH # 0.4 x10^3/uL (1.0-4.8); LYMPH % 5 % (24-48); MEAN CORPUSCULAR HEMOGLOBIN 31 pg (25-35); MEAN CORPUSCULAR HGB CONC 33 g/dL (31-37); MEAN CORPUSCULAR VOLUME 93 fL (79-100); MONO # 0.8 x10^3/uL (0.0-1.1); MONO % 10 % (0-9); NEUT # 7.1 x10^3/uL (1.8-7.7); NEUT % 84 % (31-73); PLATELET COUNT 166 x10^3/uL (140-400); RED CELL DISTRIBUTION WIDTH 15.2 % (11.5-14.5); WHITE BLOOD COUNT 8.5 x10^3/uL (4.0-11.0)
[2019-05-17 04:15] LABS: PROTHROMBIN TIME PATIENT 16.1 SEC (11.7-14.0)
[2019-05-17 04:28] LABS: ALBUMIN 3.9 g/dL (3.4-5.0); ALBUMIN/GLOBULIN RATIO 1.1 (1.0-1.7); CALCIUM 10.5 mg/dL (8.5-10.1); CREATININE 0.8 mg/dL (0.7-1.3); GFR 96.1; TOTAL BILIRUBIN 0.3 mg/dL (0.2-1.0); TOTAL PROTEIN 7.5 g/dL (6.4-8.2)
[2019-05-17] MEDS ORDERED: HYDROmorphone 2 MG/ML VIAL IV PRN (06:30)
[2019-05-17] MEDS ORDERED: LIDOCAINE 1% PF 2 ML VIAL. ID PRN (06:30)
[2019-05-17] MEDS ORDERED: fentaNYL PF VIAL 100 MCG/2 ML VIAL IV PRN ×2 (06:30)
[2019-05-17] MEDS ORDERED: PROCHLORPERAZINE 10 MG/2 ML VIAL. IV PRN (06:30)
[2019-05-17] MEDS ORDERED: IV RINGERS,LACTATED 1000ML 1,000 ML IV SCH (06:30)
[2019-05-17] MEDS ORDERED: MORPHINE SULFATE 2 MG/ML VIAL. IV PRN (06:30)
[2019-05-17] MEDS ORDERED: ONDANSETRON PF 4 MG/2 ML VIAL. IV PRN (06:30)
--- NOTE | 2019-05-17 06:37 | NUR ---
pt to surgery via bed, family at bedside, report given to sonia hills.pmrn
[2019-05-17] MEDS ORDERED: IPRATRPIUM/ALBUTEROL 0.5/2.5MG 3 ML NEBU. ONE (06:45)
[2019-05-17] MEDS ORDERED: IPRATRPIUM/ALBUTEROL 0.5/2.5MG 3 ML NEBU. NEB ONE (07:00)
[2019-05-17] MEDS ORDERED: ONDANSETRON PF 4 MG/2 ML VIAL. ONE (07:12)
[2019-05-17] MEDS ORDERED: LIDOCAINE 2% PF 5 ML VIAL. ONE (07:12)
[2019-05-17] MEDS ORDERED: KETOROLAC 30 MG/ML VIAL. ONE (07:12)
[2019-05-17] MEDS ORDERED: DEXAMETHASONE SOD PHOS 4 MG/ML VIAL ONE (07:12)
[2019-05-17] MEDS ORDERED: PROPOFOL 20 ML IV ONE (07:12)
[2019-05-17] MEDS ORDERED: ROCURONIUM 50 MG/5 ML VIAL. ONE ×2 (07:13→08:27)
[2019-05-17] MEDS ORDERED: MIDAZOLAM HCL/PF 2 MG/2 ML VIAL. ONE (07:13)
[2019-05-17] MEDS ORDERED: fentaNYL PF VIAL 250 MCG/5 ML VIAL ONE (07:13)
[2019-05-17] MEDS ORDERED: SUCCINYLCHOLINE 200 MG/10 ML VIAL. ONE (07:13)
[2019-05-17] MEDS ORDERED: FAMOTIDINE 20 MG/2 ML VIAL ONE (07:14)
[2019-05-17] MEDS ORDERED: BUPIVACAINE-EPI 0.5%-1:200000 MPF 30 ML VIAL. INJ ONE (07:15)
[2019-05-17] MEDS ORDERED: SEVOFLURANE 61 TO 120 MINUTES. IH ONE (07:38)
[2019-05-17] MEDS ORDERED: NEOSTIGMINE METHYLSULFATE 5 MG/5 ML SYRINGE. ONE (07:40)
[2019-05-17] MEDS ORDERED: GLYCOPYRROLATE 1 MG/5 ML VIAL. ONE (07:40)
[2019-05-17] MEDS ORDERED: PHENYLEPHRINE in 0.9% NACL PF 1 MG/10 ML SYRINGE. IV ONE (07:42)
[2019-05-17] MEDS ORDERED: ceFAZolin 2GM PREMIX 2 GM/50 ML BAG IV ONE (08:00)
[2019-05-17] MEDS: GABAPENTIN 300 MG CAPSULE. PO SCH ×3 (09:00→20:12)
[2019-05-17] MEDS: METOPROLOL TART IMMED RELEASE 25 MG TABLET. PO SCH ×2 (09:00→20:13)
[2019-05-17] MEDS: AMIODARONE HCL 200 MG TABLET. PO SCH (09:00)
[2019-05-17] MEDS: EZETIMIBE 10 MG TABLET. PO SCH (09:00)
[2019-05-17] MEDS: MULTIVITAMIN with MINERAL TABLET. PO SCH (09:00)
[2019-05-17] MEDS ORDERED: FLU VAX QS 2019-20 (36MOS+)/PF 0.5 ML SYRINGE. VAX IM ONE (09:00)
[2019-05-17] MEDS: DULoxetine HCL 30 MG CAPSULE.DR PO SCH (09:00)
[2019-05-17] MEDS: FENOFIBRATE,MICRONIZED 134 MG CAPSULE PO SCH (09:00)
[2019-05-17] MEDS: ATORVASTATIN CALCIUM 40 MG TABLET. PO SCH (09:00)
[2019-05-17] MEDS: lamoTRIgine 100 MG TABLET. PO SCH ×2 (09:00→20:12)
[2019-05-17] MEDS: FUROSEMIDE 20 MG TABLET PO SCH (09:00)
[2019-05-17] MEDS: POTASSIUM CHLORIDE 10 MEQ TABLET.ER. PO SCH (09:00)
[2019-05-17] MEDS: SENNOSIDES 8.6 MG TABLET PO SCH ×2 (09:00→20:12)
--- NOTE | 2019-05-17 09:36 | PDOC4 ---
Operative Note Operative Note Operative Note: Preoperative Diagnosis: Incarcerated umbilical hernia Postoperative Diagnosis: Same Procedure: Repair of incarcerated umbilical hernia with mesh Surgeon: Jacobo Radio Station Manager: Alejandra PARKER Anesthesia: Gen. EBL: 50 mL Specimen: Incarcerated omentum, hernia sac to pathology Findings: Incarcerated omentum, single loop of small bowel with reversible ischemia Drains: None Complications: None Indication: The patient is a 69-year-old male with a long-standing history of an umbilical hernia. He developed acute onset of pain and clinical and radiographic findings are consistent with incarcerated hernia. The plan is for urgent surgical correction. He did present coagulopathic due to Coumadin and this was rapidly reversed preoperatively. The risks of surgery were discussed with the patient which include bleeding, infection, recurrence, pain, anesthetic risk, potential need for additional surgery or procedure. He understands and would like to proceed. Description: The patient was taken to the operating room and placed supine on the operating table. Gen. anesthesia was performed. The abdomen was prepped with ChloraPrep and draped in a standard surgical manner. A curved incision was made in the superior inferior direction around the umbilicus. Cautery dissection was carried down to the fascia. The skin was from the hernia sac and its contents. The hernia sac was opened with return of some clear fluid. There shania eared to be a large amount of incarcerated omentum. As we began mobilizing the omentum we did identify a single loop of small bowel located within the hernia sac which appeared dusky with signs of ischemia. The fascia of the hernia defect was opened some both superiorly and inferiorly to help relieve the obstruction. We were then able to deliver the loop of bowel for inspection. Initially there were ischemic findings however this did improve with time indicating that the ischemia was reversible. The bowel was returned to the abdominal cavity. Some of the excess incarcerated omentum was excised using the LigaSure. Also some redundant hernia sac was excised, and both these were sent to pathology. A preperitoneal plane was then developed circumferentially around the hernia defect. A large Ventralex ST mesh was then placed in the preperitoneal plane. The mesh was sutured around its periphery with several 0 Prolene sutures placed in horizontal mattress fashion. The fascial edges were closed over the mesh with interrupted 0 Prolene. The umbilicus was secured back to the fascia with 0 Vicryl. The subcutaneous tissue was closed with 3-0 Vicryl. The skin was approximated with 4-0 Monocryl. A sterile dressing was then applied. The patient tolerated the procedure well and was sent to the recovery room in stable condition. At the end of the case all counts were correct. HARRIET MCCORD MD May 17, 2019 09:36
--- NOTE | 2019-05-17 10:59 | NUR ---
SS following for discharge planning. SS reviewed pt chart. Pt is from home and is currently requiring oxygen. SS will continue to follow for discharge planning.
[2019-05-17] MEDS: oxyCODONE/APAP 5/325 1 TAB TABLET PO PRN ×2 (16:36→22:10)
[2019-05-17] MEDS ORDERED: ENOXAPARIN 40 MG/0.4 ML SYRINGE. SQ SCH (21:00)
[2019-05-18] VITALS (7 sets, daily range): BP systolic 111–142; BP diastolic 62–81
[2019-05-18] MEDS: METOPROLOL TART IMMED RELEASE 25 MG TABLET. PO SCH ×2 (09:27→21:04)
[2019-05-18] MEDS: GABAPENTIN 300 MG CAPSULE. PO SCH ×3 (09:27→21:04)
[2019-05-18] MEDS: FUROSEMIDE 20 MG TABLET PO SCH (09:27)
[2019-05-18] MEDS: DULoxetine HCL 30 MG CAPSULE.DR PO SCH (09:27)
[2019-05-18] MEDS: MULTIVITAMIN with MINERAL TABLET. PO SCH (09:27)
[2019-05-18] MEDS: ATORVASTATIN CALCIUM 40 MG TABLET. PO SCH (09:28)
[2019-05-18] MEDS: EZETIMIBE 10 MG TABLET. PO SCH (09:28)
[2019-05-18] MEDS: FENOFIBRATE,MICRONIZED 134 MG CAPSULE PO SCH (09:28)
[2019-05-18] MEDS: lamoTRIgine 100 MG TABLET. PO SCH ×2 (09:28→21:03)
[2019-05-18] MEDS: POTASSIUM CHLORIDE 10 MEQ TABLET.ER. PO SCH (09:28)
[2019-05-18] MEDS: AMIODARONE HCL 200 MG TABLET. PO SCH (09:28)
[2019-05-18] MEDS: SENNOSIDES 8.6 MG TABLET PO SCH ×2 (09:28→21:04)
--- NOTE | 2019-05-18 09:42 | PDOC ---
CARLOS RUANO CHAIN FORMING MACHINE OPERATOR 05/18/19 0942: SURGICAL PROGRESS NOTE Subjective has been taking liquids this AM denies n/v reports small amount of flatus wants to go home today Vital Signs Vital Signs Date Time Temp Pulse Resp B/P (MAP) Pulse Ox O2 Delivery O2 Flow Rate FiO2 05/18/19 09:28 78 111/68 05/18/19 07:28 98.1 16 96 Nasal Cannula 2.0 98.1 I&O Intake and Output 05/18/19 07:00 Intake Total 1380 ml Output Total 650 ml Balance 730 ml Intake Oral 380 ml IV Total 1000 ml Output Urine Total 350 ml Emesis 250 ml Estimated Blood Loss 50 ml # Voids 2 General: Alert, Cooperative Abdomen: Soft, Other (dressing dry, binder in place) Labs Laboratory Tests Test 05/16/19 13:49 05/16/19 16:59 05/17/19 00:45 05/17/19 03:55 White Blood Count 5.6 x10^3/uL (4.0-11.0) 8.5 x10^3/uL (4.0-11.0) Red Blood Count 4.61 x10^6/uL (4.30-5.70) 4.50 x10^6/uL (4.30-5.70) Hemoglobin 14.2 g/dL (13.0-17.5) 13.9 g/dL (13.0-17.5) Hematocrit 42.5 % (39.0-53.0) 41.9 % (39.0-53.0) Mean Corpuscular Volume 92 fL (79-100) 93 fL (79-100) Mean Corpuscular Hemoglobin 31 pg (25-35) 31 pg (25-35) Mean Corpuscular Hemoglobin Concent 34 g/dL (31-37) 33 g/dL (31-37) Red Cell Distribution Width 14.5 % (11.5-14.5) 15.2 % (11.5-14.5) Platelet Count 167 x10^3/uL (140-400) 166 x10^3/uL (140-400) Neutrophils (%) (Auto) 75 % (31-73) 84 % (31-73) Lymphocytes (%) (Auto) 11 % (24-48) 5 % (24-48) Monocytes (%) (Auto) 11 % (0-9) 10 % (0-9) Eosinophils (%) (Auto) 3 % (0-3) 1 % (0-3) Basophils (%) (Auto) 1 % (0-3) 0 % (0-3) Neutrophils # (Auto) 4.2 x10^3/uL (1.8-7.7) 7.1 x10^3/uL (1.8-7.7) Lymphocytes # (Auto) 0.6 x10^3/uL (1.0-4.8) 0.4 x10^3/uL (1.0-4.8) Monocytes # (Auto) 0.6 x10^3/uL (0.0-1.1) 0.8 x10^3/uL (0.0-1.1) Eosinophils # (Auto) 0.2 x10^3/uL (0.0-0.7) 0.1 x10^3/uL (0.0-0.7) Basophils # (Auto) 0.0 x10^3/uL (0.0-0.2) 0.0 x10^3/uL (0.0-0.2) Prothrombin Time 33.5 SEC (11.7-14.0) 18.3 SEC (11.7-14.0) 16.1 SEC (11.7-14.0) Prothromb Time International Ratio 3.3 (0.8-1.1) 1.6 (0.8-1.1) 1.3 (0.8-1.1) Sodium Level 140 mmol/L (136-145) 140 mmol/L (136-145) Potassium Level 4.6 mmol/L (3.5-5.1) 4.0 mmol/L (3.5-5.1) Chloride Level 101 mmol/L (98-107) 102 mmol/L (98-107) Carbon Dioxide Level 31 mmol/L (21-32) 31 mmol/L (21-32) Anion Gap 8 (6-14) 7 (6-14) Blood Urea Nitrogen 21 mg/dL (8-26) 13 mg/dL (8-26) Creatinine 1.1 mg/dL (0.7-1.3) 0.8 mg/dL (0.7-1.3) Estimated GFR (Cockcroft-Gault) 66.6 96.1 BUN/Creatinine Ratio 19 (6-20) 16 (6-20) Glucose Level 118 mg/dL (70-99) 142 mg/dL (70-99) Calcium Level 10.1 mg/dL (8.5-10.1) 10.5 mg/dL (8.5-10.1) Magnesium Level 2.0 mg/dL (1.8-2.4) Total Bilirubin 0.2 mg/dL (0.2-1.0) 0.3 mg/dL (0.2-1.0) Aspartate Amino Transf (AST/SGOT) 27 U/L (15-37) 28 U/L (15-37) Alanine Aminotransferase (ALT/SGPT) 28 U/L (16-63) 25 U/L (16-63) Alkaline Phosphatase 74 U/L (46-116) 77 U/L (46-116) Creatine Kinase 267 U/L (39-308) Creatine Kinase MB (Mass) 7.4 ng/mL (0.0-3.6) Creatine Kinase MB Relative Index 2.8 % (0-4) Troponin I Quantitative < 0.017 ng/mL (0.000-0.055) PS-Xkc-[id number]-Type Natriuretic Peptide 182 pg/mL (0-124) Total Protein 7.5 g/dL (6.4-8.2) 7.5 g/dL (6.4-8.2) Albumin 3.9 g/dL (3.4-5.0) 3.9 g/dL (3.4-5.0) Albumin/Globulin Ratio 1.1 (1.0-1.7) 1.1 (1.0-1.7) Lipase 85 U/L (73-393) Thyroid Stimulating Hormone (TSH) 3.098 uIU/mL (0.358-3.74) Ethyl Alcohol Level < 10 mg/dL (0-10) Urine Opiates Screen Pos (NEG) Urine Methadone Screen Neg (NEG) Urine Barbiturates Neg (NEG) Urine Phencyclidine Screen Neg (NEG) Urine Amphetamine/Methamphetamine Neg (NEG) Urine Benzodiazepines Screen Neg (NEG) Urine Cocaine Screen Neg (NEG) Urine Cannabinoids Screen Neg (NEG) Urine Ethyl Alcohol Neg (NEG) Test 05/17/19 06:35 Prothrombin Time 15.0 SEC (11.7-14.0) Prothromb Time International Ratio 1.2 (0.8-1.1) Problem List Problems Medical Problems: (1) Umbilical hernia Status: Acute Assessment/Plan s/p umbo repair will await bowel function, ok to continue clears HARRIET MCCORD MD 05/19/19 1259: SURGICAL PROGRESS NOTE Assessment/Plan Agree with above CARLOS RUANO CHAIN FORMING MACHINE OPERATOR May 18, 2019 09:42 HARRIET MCCORD MD May 19, 2019 12:59
[2019-05-18] MEDS ORDERED: FLU VAX QS 2019-20 (36MOS+)/PF 0.5 ML SYRINGE. VAX IM ONE (13:00)
--- NOTE | 2019-05-18 15:07 | PATHOLOGY ---
[facility] Accession Number: [id number] . 01 Material submitted: . abdomen - OMENTUM AND HERNIA SAC . 01 Clinical history: . Umbilical hernia . 02 Diagnosis: Segments of fibromembranous and fibroadipose tissue and omentum, hernia repair: - Hernia sac. - Congestion and focal fibrosis and chronic inflammation of omentum. . (JPM:aura; 05/18/2019) QMS 05/18/2019 1249 Local . 02 Comment: There is no evidence of malignancy. . 02 Electronically signed: . Blake Sunshine MD, Pathologist NPI- [id number] . 01 Gross description: . The specimen is received in formalin, labeled "Zan Campos, omentum and hernia sac". Received is a segment of pink-lang to red-brown fibromembranous tissue measuring 7.3 x 6.1 x 2.9 cm in greatest dimensions. No distinct nodules or lesions are noted grossly. The specimen is submitted representatively in cassette A1. . Also received within the specimen container is a large segment of omentum with attached fibromembranous tissue measuring 19.3 x 12.9 x 3.5 cm in greatest dimensions. Sectioning reveals yellow-mock, lobulated cut surfaces with no grossly distinct nodules or lesions. The specimen is submitted representatively in cassette A2. (CAA; 05/17/2019) QAC/QAC 05/17/2019 1506 Local . 02 Pathologist provided ICD-10: K44.9 . 02 CPT . 179219, [id number] Specimen Comment: A courtesy copy of this report has been sent to [phone] Specimen Comment: Report sent to Performed at: [address], [place], [place] [id number] MD David An MD Phone: [phone] Performed at: [address] [id number] MD Blake Sunshine MD Phone: [phone]
[2019-05-18] MEDS: oxyCODONE/APAP 5/325 1 TAB TABLET PO PRN ×2 (15:24→21:03)
[2019-05-18] MEDS: MORPHINE SULFATE 4 MG/ML VIAL. IV PRN (15:58)
[2019-05-18] MEDS: ONDANSETRON PF 4 MG/2 ML VIAL. IVP PRN (18:53)
[2019-05-18] MEDS: ZOLPIDEM 5 MG TABLET. PO PRN (21:07)
[2019-05-18] MEDS: CALCIUM CARBONATE 500 MG TAB.CHEW PO PRN (23:16)
[2019-05-19 03:42] VITALS: BP 123/63
[2019-05-19] MEDS: CALCIUM CARBONATE 500 MG TAB.CHEW PO PRN ×3 (06:17→17:32)
[2019-05-19 07:00] VITALS: BP 140/82
[2019-05-19] MEDS: DULoxetine HCL 30 MG CAPSULE.DR PO SCH (08:57)
[2019-05-19] MEDS: EZETIMIBE 10 MG TABLET. PO SCH (08:57)
[2019-05-19] MEDS: FENOFIBRATE,MICRONIZED 134 MG CAPSULE PO SCH (08:57)
[2019-05-19] MEDS: lamoTRIgine 100 MG TABLET. PO SCH ×2 (08:57→21:31)
[2019-05-19] MEDS: POTASSIUM CHLORIDE 10 MEQ TABLET.ER. PO SCH (08:57)
[2019-05-19] MEDS: MULTIVITAMIN with MINERAL TABLET. PO SCH (08:58)
[2019-05-19] MEDS: FUROSEMIDE 20 MG TABLET PO SCH (08:58)
[2019-05-19] MEDS: METOPROLOL TART IMMED RELEASE 25 MG TABLET. PO SCH ×2 (08:58→21:30)
[2019-05-19] MEDS: GABAPENTIN 300 MG CAPSULE. PO SCH ×3 (08:58→21:31)
[2019-05-19] MEDS: SENNOSIDES 8.6 MG TABLET PO SCH ×2 (08:59→21:31)
[2019-05-19] MEDS: ATORVASTATIN CALCIUM 40 MG TABLET. PO SCH (08:59)
[2019-05-19] MEDS: AMIODARONE HCL 200 MG TABLET. PO SCH (08:59)
[2019-05-19] MEDS: ONDANSETRON PF 4 MG/2 ML VIAL. IVP PRN (09:10)
--- NOTE | 2019-05-19 09:13 | NUR ---
SW following pt. Pt is a transfer from 2nd floor. Gen Sx following and await bowel function, okay to do clears diet. No SW needs identified at this time. SW will be available as needed.
--- NOTE | 2019-05-19 09:55 | PDOC ---
CARLOS RUANO MARBLE SETTER HELPER 05/19/19 0955: SURGICAL PROGRESS NOTE Subjective some nausea not much flatus pain managed Vital Signs Vital Signs Date Time Temp Pulse Resp B/P (MAP) Pulse Ox O2 Delivery O2 Flow Rate FiO2 05/19/19 08:59 79 140/82 05/19/19 07:00 98.8 20 91 Room Air 98.8 05/18/19 14:43 2.0 I&O Intake and Output 05/19/19 07:00 Intake Total 1310 ml Balance 1310 ml Intake Oral 1310 ml # Voids 1 General: Alert, Oriented X3, Cooperative Abdomen: Soft, Other (binder on , incision clean, mildly distended ) Problem List Problems Medical Problems: (1) Umbilical hernia Status: Acute Assessment/Plan s/p hernia repair advance diet when bowel function improved HARRIET MCCORD MD 05/19/19 1259: SURGICAL PROGRESS NOTE Problem List Agree with above CARLOS RUANO APRN May 19, 2019 09:55 HARRIET MCCORD MD May 19, 2019 12:59
[2019-05-19 11:00] VITALS: BP 138/79
--- NOTE | 2019-05-19 13:32 | PDOC ---
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 EBL: 50 mL Specimen: Incarcerated omentum, hernia sac to pathology Findings: Incarcerated omentum, single loop of small bowel with reversible ischemia Vitals Vitals Vital Signs Date Time Temp Pulse Resp B/P (MAP) Pulse Ox O2 Delivery O2 Flow Rate FiO2 05/19/19 11:00 98.4 77 18 138/79 (98) 93 Room Air 98.4 05/18/19 14:43 2.0 Physical Exam General: Alert, Oriented X3, Cooperative Heart: Regular rate Abdomen: Soft, Other (binder on , incision clean, mildly distended ) Extremities: No clubbing, No cyanosis Skin: No rashes Labs LABS INDICATION: Abdominal pain COMPARISON STUDY: None TECHNIQUE: Multidetector CT imaging of the abdomen and pelvis was performed following the administration of contrast FINDINGS: Lung bases demonstrate no acute abnormality. Chronic left-sided rib fractures noted. 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 The appearance is unchanged from prior CT chest exam. Liver and gallbladder are unremarkable. Spleen is unremarkable. Adrenal glands are unremarkable. Pancreas is unremarkable. Nonspecific mild perinephric stranding is seen bilaterally. Small cyst noted within the anterior mid right kidney. The kidneys are otherwise grossly unremarkable. Descending and distal colonic diverticulosis is noted without evidence of acute diverticulitis. There is a umbilical hernia containing a loop of mildly dilated small bowel. Moderate fat stranding is noted within the hernia sac. On sagittal imaging the hernia defect in the anterior abdominal wall measures 2 cm in diameter. Hernia sac measures 10 cm AP by 8 cm transverse by 8 cm longitudinal. The small bowel distal to the hernia is nearly completely decompressed. The small bowel proximal to the hernia is not overtly dilated, but mildly prominent with respect to the more distal small bowel. Partial obstruction is not excluded. Given the amount of stranding within the hernia sac early incarceration cannot be completely excluded. No free fluid or free air is seen in the abdomen or pelvis. The bladder is grossly unremarkable. No evidence of acute osseous abnormality is seen. Degenerative changes of the thoracolumbar spine are seen. IMPRESSION: Umbilical hernia as described, containing a mildly dilated loop of small bowel with moderate fat stranding within the hernia sac. No gross obstruction. Early incarceration not excluded. Correlate with physical exam findings. CT DOSING PQRS STATEMENT: One or more of the following individualized dose reduction techniques were utilized for this examination: 1. Automated exposure control 2. Adjustment of the mA and/or kV according to patient size 3. Use of iterative reconstruction technique Electronically signed by: Willard Chow MD (05/16/2019 3:02 PM) [facility] Assessment and Plan Assessmemt and Plan Problems Medical Problems: (1) Umbilical hernia Status: Acute Comment Review of Relevant I have reviewed the following items sebastian (where applicable) has been applied. Medications Current Medications Morphine Sulfate (Morphine Sulfate) 4 mg PRN Q15MIN PRN IV/SQ PAIN GREATER THAN 3/10 Last administered on 05/16/19at 16:56; Start 05/16/19 at 14:00; Stop 05/16/19 at 21:00; Status DC Ondansetron HCl (Zofran) 4 mg 1X ONCE IV Last administered on 05/16/19at 14:23; Start 05/16/19 at 14:00; Stop 05/16/19 at 14:01; Status DC Iohexol (Omnipaque 300 Mg/ml) 75 ml 1X ONCE IV Last administered on 05/16/19at 14:15; Start 05/16/19 at 14:15; Stop 05/16/19 at 14:16; Status DC Info (CONTRAST GIVEN -- Rx MONITORING) 1 each PRN DAILY PRN MC SEE COMMENTS; Start 05/16/19 at 14:15; Stop 05/18/19 at 14:14; Status DC Hydralazine HCl (Apresoline Inj) 10 mg PRN Q4HRS PRN IVP ELEVATED BP, SEE COMMENTS; Start 05/16/19 at 17:30 Morphine Sulfate (Morphine Sulfate) 4 mg PRN Q2HR PRN IV PAIN Last administered on 05/18/19at 15:58; Start 05/16/19 at 17:30 Ondansetron HCl (Zofran) 4 mg PRN Q6HRS PRN IVP NAUSEA/VOMITING Last administered on 05/19/19 09:10; Start 05/16/19 at 17:30 Oxycodone/ Acetaminophen (Percocet 5/325) 1 tab PRN Q4HRS PRN PO PAIN Last administered on 05/16/19 23:08; Start 05/16/19 at 17:30; Stop 05/17/19 at 09:46; Status DC Calcium Carbonate/ Glycine (Tums) 500 mg PRN AFTMEALHC PRN PO INDIGESTION Last administered on 05/19/19 09:06; Start 05/16/19 at 17:30 Zolpidem Tartrate (Ambien) 5 mg PRN QHS PRN PO INSOMNIA Last administered on 05/18/19 21:07; Start 05/16/19 at 17:30 Amiodarone HCl (Cordarone) 200 mg DAILY PO Last administered on 05/19/19 08:59; Start 05/17/19 at 09:00 Atorvastatin Calcium (Lipitor) 40 mg DAILY PO Last administered on 05/19/19 08:59; Start 05/17/19 at 09:00 EZETIMIBE (Zetia) 10 mg DAILY PO Last administered on 05/19/19 08:57; Start 05/17/19 at 09:00 Furosemide (Lasix) 20 mg DAILY PO Last administered on 05/19/19 08:58; Start 05/17/19 at 09:00 Metoprolol Tartrate (Lopressor) 12.5 mg BID PO Last administered on 05/19/19 08:58; Start 05/16/19 at 21:00 Oxycodone/ Acetaminophen (Percocet 5/325) 1 tab PRN Q4HRS PRN PO PAIN; Start 05/16/19 at 17:30; Status Cancel Potassium Chloride (Klor-Con) 10 meq DAILY PO Last administered on 05/19/19 08:57; Start 05/17/19 at 09:00 Sennosides (Senna) 17.2 mg BID PO Last administered on 05/19/19 08:59; Start 05/16/19 at 21:00 Clonazepam (KlonoPIN) 1 mg PRN BID PRN PO ANXIETY / AGITATION Last administered on 05/18/19 15:57; Start 05/16/19 at 17:30 Duloxetine HCl (Cymbalta) 90 mg DAILY PO Last administered on 05/19/19 08:57; Start 05/17/19 at 09:00 Fenofibrate (Lofibra) 134 mg DAILY PO Last administered on 05/19/19 08:57; Start 05/17/19 at 09:00 Gabapentin (Neurontin) 300 mg TID PO Last administered on 05/19/19 08:58; Start 05/16/19 at 21:00 Lamotrigine (LaMICtal) 200 mg BID PO Last administered on 05/19/19 08:57; Start 05/16/19 at 21:00 Multivitamins (Thera M Plus) 1 tab DAILY PO Last administered on 05/19/19 08 :58; Start 05/17/19 at 09:00 Hydromorphone HCl (Dilaudid) 1 mg 1X ONCE IV Last administered on 05/16/19 18:21; Start 05/16/19 at 18:30; Stop 05/16/19 at 18:31; Status DC Ondansetron HCl (Zofran) 4 mg PRN Q8HRS PRN IV NAUSEA/VOMITING; Start 05/16/19 at 18:30; Stop 05/17/19 at 18:29; Status UNV Morphine Sulfate (Morphine Sulfate) 4 mg PRN Q2HR PRN IV PAIN; Start 05/16/19 at 18:30; Stop 05/17/19 at 18:29; Status UNV Acetaminophen (Tylenol) 650 mg PRN Q4HRS PRN PO FEVER; Start 05/16/19 at 18:3 0; Stop 05/17/19 at 18:29; Status DC Phytonadione 10 mg/Dextrose 51 ml @ 102 mls/hr 1X ONCE IV Last administered on 05/16/19 20:54; Start 05/16/19 at 21:00; Stop 05/16/19 at 21:29; Status DC Cefazolin Sodium/ Dextrose 50 ml @ 100 mls/hr 1X PREOP PRN IV PER PROTOCOL; Start 05/17/19 at 06:00; Stop 05/17/19 at 18:00; Status DC Nicotine (Nicoderm Cq 21mg) 1 patch PRN DAILY PRN TD SMOKING CESSATION Last administered on 05/19/19at 09:10; Start 05/17/19 at 00:00 Influenza Virus Vaccine Quadrival (Afluria Quad 2019-20 (3yr Up) Syringe) 0.5 ml ONCE ONCE VAX IM ; Start 05/17/19 at 09:00; Stop 05/17/19 at 09:01; Status DC Ondansetron HCl (Zofran) 4 mg PRN Q6HRS PRN IV NAUSEA/VOMITING Last administered on 05/18/19at 04:18; Start 05/17/19 at 06:30; Stop 05/18/19 at 06:29; Status DC Fentanyl Citrate (Fentanyl 2ml Vial) 25 mcg PRN Q5MIN PRN IV MILD PAIN 1-3; Start 05/17/19 at 06:30; Stop 05/18/19 at 06:29; Status DC Fentanyl Citrate (Fentanyl 2ml Vial) 50 mcg PRN Q5MIN PRN IV MODERATE TO SEVERE PAIN Last administered on 05/17/19at 07:00; Start 05/17/19 at 06:30; Stop 05/18/19 at 06:29; Status DC Morphine Sulfate (Morphine Sulfate) 1 mg PRN Q10MIN PRN IV SEVERE PAIN 7-10; Start 05/17/19 at 06:30; Stop 05/18/19 at 06:29; Status DC Ringer's Solution 1,000 ml @ 30 mls/hr Q24H IV Last administered on 05/17/19at 06:56; Start 05/17/19 at 06:30; Stop 05/17/19 at 06:43; Status DC Lidocaine HCl (Xylocaine-Mpf 1% 2ml Vial) 2 ml 1X PRN PRN ID IV START; Start 05/17/19 at 06:30; Stop 05/18/19 at 06:29; Status DC Hydromorphone HCl (Dilaudid) 0.5 mg PRN Q10MIN PRN IV SEV PAIN, Second choice; Start 05/17/19 at 06:30; Stop 05/18/19 at 06:29; Status DC Prochlorperazine Edisylate (Compazine) 5 mg PACU PRN PRN IV NAUSEA, MRX1; Start 05/17/19 at 06:30; Stop 05/18/19 at 06:29; Status DC Albuterol/ Ipratropium (Duoneb) 3 ml STK-MED ONCE .ROUTE ; Start 05/17/19 at 06:45; Stop 05/17/19 at 06:46; Status DC Albuterol/ Ipratropium (Duoneb) 3 ml 1X ONCE NEB Last administered on 05/17/19at 06:56; Start 05/17/19 at 07:00; Stop 05/17/19 at 07:01; Status DC Bupivacaine HCl/ Epinephrine Bitart (Sensorcain-Epi 0.5%-1:[id number] Mpf) 30 ml 1X ONCE INJ ; Start 05/17/19 at 07:15; Stop 05/17/19 at 07:16; Status DC Propofol 20 ml @ As Directed STK-MED ONCE IV ; Start 05/17/19 at 07:12; Stop 05/17/19 at 07:13; Status DC Ketorolac Tromethamine (Toradol 30mg Vial) 30 mg STK-MED ONCE .ROUTE ; Start 05/17/19 at 07:12; Stop 05/17/19 at 07:13; Status DC Lidocaine HCl (Lidocaine Pf 2% Vial) 5 ml STK-MED ONCE .ROUTE ; Start 05/17/19 at 07:12; Stop 05/17/19 at 07:13; Status DC Ondansetron HCl (Zofran) 4 mg STK-MED ONCE .ROUTE ; Start 05/17/19 at 07:12; Stop 05/17/19 at 07:13; Status DC Dexamethasone Sodium Phosphate (Decadron) 4 mg STK-MED ONCE .ROUTE ; Start 05/17/19 at 07:12; Stop 05/17/19 at 07:13; Status DC Succinylcholine Chloride (Anectine) 200 mg STK-MED ONCE .ROUTE ; Start 05/17/19 at 07:13; Stop 05/17/19 at 07:13; Status DC Rocuronium Cross (Zemuron) 50 mg STK-MED ONCE .ROUTE ; Start 05/17/19 at 07:13; Stop 05/17/19 at 07:13; Status DC Midazolam HCl (Versed) 2 mg STK-MED ONCE .ROUTE ; Start 05/17/19 at 07:13; Stop 05/17/19 at 07:13; Status DC Fentanyl Citrate (Fentanyl 5ml Vial) 250 mcg STK-MED ONCE .ROUTE ; Start 05/17/19 at 07:13; Stop 05/17/19 at 07:13; Status DC Famotidine (Pepcid Vial) 20 mg STK-MED ONCE .ROUTE ; Start 05/17/19 at 07:14; Stop 05/17/19 at 07:15; Status DC Cefazolin Sodium/ Dextrose 50 ml @ 100 mls/hr 1X PREOP ONCE IV ; Start 05/17/19 at 07:30; Stop 05/17/19 at 07:59; Status UNV Sevoflurane (Ultane) 60 ml STK-MED ONCE IH ; Start 05/17/19 at 07:38; Stop 05/17/19 at 07:38; Status DC Neostigmine Methylsulfate (Neostigmine Methylsulfate) 5 mg STK-MED ONCE .ROUTE ; Start 05/17/19 at 07:40; Stop 05/17/19 at 07:40; Status DC Glycopyrrolate (Robinul) 1 mg STK-MED ONCE .ROUTE ; Start 05/17/19 at 07:40; Stop 05/17/19 at 07:40; Status DC Phenylephrine HCl (PHENYLEPHRINE in 0.9% NACL PF) 1 mg STK-MED ONCE IV ; Start 05/17/19 at 07:42; Stop 05/17/19 at 07:42; Status DC Rocuronium Cross (Zemuron) 50 mg STK-MED ONCE .ROUTE ; Start 05/17/19 at 08:27; Stop 05/17/19 at 08:27; Status DC Oxycodone/ Acetaminophen (Percocet 5/325) 1 tab PRN Q4HRS PRN PO PAIN MILD TO MOD Last administered on 05/18/19at 21:03; Start 05/17/19 at 09:45 Enoxaparin Sodium (Lovenox 40mg Syringe) 40 mg Q12HR SQ ; Start 05/17/19 at 21:00; Status Cancel Oxycodone/ Acetaminophen (Percocet 5/325) 2 tab PRN Q4HRS PRN PO PAIN SEVERE Last administered on 05/17/19at 22:10; Start 05/17/19 at 10:00 Enoxaparin Sodium (Lovenox 120mg Syringe) 120 mg Q12HR SQ Last administered on 05/19/19at 08:59; Start 05/17/19 at 21:00 Influenza Virus Vaccine Quadrival (Afluria Quad 2019-20 (3yr Up) Syringe) 0.5 ml ONCE ONCE VAX IM Last administered on 05/18/19at 14:09; Start 05/18/19 at 13:00; Stop 05/18/19 at 13:01; Status DC Cefazolin Sodium/ Dextrose (Ancef 2gm Premix) 2 gm STK-MED ONCE IV ; Start 05/17/19 at 08:00; Stop 05/19/19 at 13:18; Status DC Active Scripts Active Doxycycline Hyclate 100 Mg Tablet 1 Tab PO BID Proair Hfa (Albuterol Sulfate) 8.5 Gm Hfa.aer.ad 1 Puff INH PRN Q6HRS PRN Coumadin (Warfarin Sodium) 4 Mg Tablet 1 Tab PO SEE ADMIN INSTRUCTIO 30 Days Take Thursday, Thursday, , and Thursday. Take 2mg tabs MWF F/u INR at [facility] Cardiology clinic Lovenox (Enoxaparin Sodium) 120 Mg/0.8 Ml Disp.syrin 120 Mg SQ BID 5 Days Reported Multi Vitamin Daily (Multivitamin) 1 Each Tablet 1 Each PO DAILY Warfarin Sodium 2 Mg Tablet 2 Mg PO DAILY Senna (Sennosides) 8.6 Mg Tablet 17.2 Mg PO BID Potassium Chloride 10 Meq Tablet.er 10 Meq PO DAILY Oxycodone-Acetaminophen 5-325 (Oxycodone Hcl/Acetaminophen) 1 Each Tablet 1 Each PO PRN Q4HRS PRN Metoprolol Tartrate 25 Mg Tablet 12.5 Mg PO BID Lamotrigine 200 Mg Tablet 1 Tab PO BID Klonopin (Clonazepam) 1 Mg Tablet 1 Mg PO PRN BID PRN Gabapentin 600 Mg Tablet 300 Mg PO TID Furosemide 20 Mg Tablet 1 Tab PO DAILY Tricor (Fenofibrate Nanocrystallized) 145 Mg Tablet 1 Tab PO DAILY Zetia (Ezetimibe) 10 Mg Tablet 1 Tab PO DAILY Cymbalta (Duloxetine Hcl) 60 Mg Capsule. 90 Mg PO DAILY Atorvastatin Calcium 40 Mg Tablet 1 Tab PO DAILY Aspirin Ec (Aspirin) 81 Mg Tablet. 1 Tab PO DAILY Amiodarone Hcl 200 Mg Tablet 200 Mg PO DAILY Vitals/I & O Vital Sign - Last 24 Hours 05/18/19 05/18/19 05/18/19 05/18/19 14:43 15:24 15:58 16:30 Temp 98.5 98.5 Pulse 74 Resp 16 B/P (MAP) 119/62 (81) Pulse Ox 95 95 95 95 O2 Delivery Nasal Cannula Room Air Room Air Room Air O2 Flow Rate 2.0 05/18/19 05/18/19 05/18/19 05/18/19 16:47 17:30 19:46 20:00 Temp 98.3 98.9 98.3 98.9 Pulse 79 79 Resp 20 16 B/P (MAP) 142/71 (94) 140/81 (100) Pulse Ox 95 95 90 O2 Delivery Room Air Room Air Room Air Room Air 05/18/19 05/18/19 05/18/19 05/19/19 21:03 21:04 23:09 03:42 Temp 98.7 97.9 98.7 97.9 Pulse 79 79 77 Resp 18 16 B/P (MAP) 140/81 134/69 (90) 123/63 (83) Pulse Ox 91 91 O2 Delivery Room Air Room Air Room Air 05/19/19 05/19/19 05/19/19 05/19/19 07:00 08:00 08:58 08:59 Temp 98.8 98.8 Pulse 79 79 79 Resp 20 B/P (MAP) 140/82 (101) 140/82 140/82 Pulse Ox 91 O2 Delivery Room Air Room Air 05/19/19 11:00 Temp 98.4 98.4 Pulse 77 Resp 18 B/P (MAP) 138/79 (98) Pulse Ox 93 O2 Delivery Room Air Intake and Output 05/18/19 05/18/19 05/19/19 15:00 23:00 07:00 Intake Total 600 ml 500 ml 210 ml Balance 600 ml 500 ml 210 ml ROHAN SHAH MD May 19, 2019 13:32
[2019-05-19] MEDS: MORPHINE SULFATE 4 MG/ML VIAL. IV PRN ×2 (14:56→17:25)
[2019-05-19 15:00] VITALS: BP 127/76
[2019-05-19] MEDS: oxyCODONE/APAP 5/325 1 TAB TABLET PO PRN (15:28)
[2019-05-19 16:40] LABS: BASO % 0 % (0-3); EOS # 0.1 x10^3/uL (0.0-0.7); EOS % 1 % (0-3); HEMATOCRIT 39.6 % (39.0-53.0); HEMOGLOBIN 13.2 g/dL (13.0-17.5); LYMPH # 0.6 x10^3/uL (1.0-4.8); LYMPH % 13 % (24-48); MEAN CORPUSCULAR HEMOGLOBIN 31 pg (25-35); MEAN CORPUSCULAR HGB CONC 33 g/dL (31-37); MEAN CORPUSCULAR VOLUME 92 fL (79-100); MONO # 0.9 x10^3/uL (0.0-1.1); MONO % 20 % (0-9); NEUT # 3.1 x10^3/uL (1.8-7.7); NEUT % 66 % (31-73); PLATELET COUNT 158 x10^3/uL (140-400); RED BLOOD COUNT 4.29 x10^6/uL (4.30-5.70); WHITE BLOOD COUNT 4.7 x10^3/uL (4.0-11.0)
[2019-05-19 17:03] LABS: ALBUMIN/GLOBULIN RATIO 0.8 (1.0-1.7); CALCIUM 9.6 mg/dL (8.5-10.1); CREATININE 0.9 mg/dL (0.7-1.3); GFR 83.9; POTASSIUM 3.8 mmol/L (3.5-5.1); TOTAL BILIRUBIN 0.5 mg/dL (0.2-1.0); TOTAL PROTEIN 6.9 g/dL (6.4-8.2)
[2019-05-19] MEDS ORDERED: IV NORMAL SALINE 1000ML BAG 1,000 ML IV ONE (17:15)
[2019-05-19] MEDS: PANTOPRAZOLE IV PUSH 40 MG VIAL. IVP SCH (17:25)
[2019-05-19 18:24] LABS: % BANDS 21 % (0-9); % EOS 1 % (0-5); % LYMPHS 21 % (24-48); % METAS 2 % (0-0); % MONOS 17 % (0-10); % SEGS 38 % (35-66); PLT ESTIMATE ADEQUATE (ADEQUATE)
[2019-05-19 19:04] VITALS: BP 147/75
[2019-05-19 23:05] VITALS: BP 159/95
[2019-05-20 03:05] VITALS: BP 142/78
[2019-05-20 07:00] VITALS: BP 140/77
--- NOTE | 2019-05-20 07:20 | PDOC ---
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 _ follow INR CHF, dyslipdemia, etc chronic stable Accel HTN with relative bradycardia - Hydralazine IVF, fair control hypercalcemia RECENT CABG AND ARTIFICIAL valve on warfarin ///[facility] October 2018 PLAn: s/p hernia repair PAin control HOLD Warfarin and ASA Check INR iv fluid support cardiac meds FULL CODe seen at ER HYdralazine IV prn for high BP - 05/19 C/O GERD SYMPTOMS 05/20 needs lovenox bridging on d/c , home health s/p hernia repair 05/19 POD # 3 Operative Note Operative Note Operative Note: Preoperative Diagnosis: Incarcerated umbilical hernia Postoperative Diagnosis: Same Procedure: Repair of incarcerated umbilical hernia with mesh Surgeon: Jacobo Trimmer Machine: Alejandra PARKER Anesthesia: Gen. EBL: 50 mL Specimen: Incarcerated omentum, hernia sac to pathology Findings: Incarcerated omentum, single loop of small bowel with reversible ischemia Vitals Vitals Vital Signs Date Time Temp Pulse Resp B/P (MAP) Pulse Ox O2 Delivery O2 Flow Rate FiO2 05/20/19 03:05 97.7 70 18 142/78 (99) 93 Room Air 97.7 05/19/19 20:00 2.0 Physical Exam General: Alert, Oriented X3, Cooperative, No acute distress Heart: Regular rate, Normal S1 Lungs: Clear Abdomen: Normal bowel sounds, Soft, Other (binder on , incision clean, mildly distended ) Extremities: No clubbing, No cyanosis Skin: No rashes Labs LABS Aortic Valve AoV Peak Maco. 181.9cm/s AoV VTI 29.3cm AO Peak GR. 13.2mmHg LVOT VTI 21.51cm AO Mean GR. 7mmHg RAZA (VTI) 3.70cm2 Mitral Valve MV E Velocity 163.1cm/s MV E Peak Gr. 14mmHg MV DECEL TIME 286ms MV A Velocity 131.4cm/s MV E Mean Gr. 6mmHg E/A Ratio 1.2 Tricuspid Valve TR P. Velocity 287cm/s RAP ESTIMATE 3mmHg TR Peak Gr. 33mmHg RVSP 36mmHg LEFT VENTRICLE The left ventricle is normal size. There is moderate concentric left ventricular hypertrophy. Left ventricle systolic function is mildly to moderately impaired. The Ejection Fraction is 40%. Septal motion consistent with post-operative state and pacing. Moderate global hypokinesis. Wall motion not well visualized. Tissue Doppler imaging reveals moderate left ventricular diastolic dysfunction. RIGHT VENTRICLE The right ventricle is normal size. The right ventricular systolic function is normal. ATRIA The left atrium is severely dilated. The right atrium size is normal. The interatrial septum is intact with no evidence for an atrial septal defect or patent foramen ovale as noted on 2-D or Doppler imaging. AORTIC VALVE The aortic valve is not well visualized. Doppler and Color Flow revealed no significant aortic regurgitation. There is no significant aortic valvular stenosis. MITRAL VALVE Calculated mitral valve area is 2.7 cm2 with maximum pressure gradient of 14 mmHg and mean pressure gradient of 6 mmHg. Doppler and Color-flow revealed trace mitral regurgitation. There is a mechanical mitral valve and it is not well visualized. TRICUSPID VALVE The tricuspid valve is normal in structure and function. Doppler and Color Flow revealed trace tricuspid regurgitation. The PA pressure was estimated at 36 mmHg. There is no tricuspid valve stenosis. PULMONIC VALVE The pulmonic valve is not well visualized. Doppler and Color Flow revealed no pulmonic valvular regurgitation. There is no pulmonic valvular stenosis. GREAT VESSELS Not well visualized. The ascending aorta is normal in size. The IVC is normal in size and collapses >50% with inspiration. PERICARDIAL EFFUSION There is no evidence of significant pericardial effusion. Critical Notification Critical Value: No <Conclusion> Left ventricle systolic function is mildly to moderately impaired. The Ejection Fraction is 40%. Septal motion consistent with post-operative state and pacing. Moderate global hypokinesis. Wall motion not well visualized. There is a mechanical mitral valve and it is not well visualized. Calculated mitral valve area is 2.7 cm2 with maximum pressure gradient of 14 mmHg and mean pressure gradient of 6 mmHg. Technically very difficult study Signed by : Lucas Carranza, Electronically Approved : 11/29/2018 08:26:05 Laboratory Tests Test 05/19/19 16:35 White Blood Count 4.7 x10^3/uL (4.0-11.0) Red Blood Count 4.29 x10^6/uL (4.30-5.70) Hemoglobin 13.2 g/dL (13.0-17.5) Hematocrit 39.6 % (39.0-53.0) Mean Corpuscular Volume 92 fL (79-100) Mean Corpuscular Hemoglobin 31 pg (25-35) Mean Corpuscular Hemoglobin Concent 33 g/dL (31-37) Red Cell Distribution Width 14.0 % (11.5-14.5) Platelet Count 158 x10^3/uL (140-400) Neutrophils (%) (Auto) 66 % (31-73) Lymphocytes (%) (Auto) 13 % (24-48) Monocytes (%) (Auto) 20 % (0-9) Eosinophils (%) (Auto) 1 % (0-3) Basophils (%) (Auto) 0 % (0-3) Neutrophils # (Auto) 3.1 x10^3/uL (1.8-7.7) Lymphocytes # (Auto) 0.6 x10^3/uL (1.0-4.8) Monocytes # (Auto) 0.9 x10^3/uL (0.0-1.1) Eosinophils # (Auto) 0.1 x10^3/uL (0.0-0.7) Basophils # (Auto) 0.0 x10^3/uL (0.0-0.2) Segmented Neutrophils % 38 % (35-66) Band Neutrophils % 21 % (0-9) Lymphocytes % 21 % (24-48) Monocytes % 17 % (0-10) Eosinophils % 1 % (0-5) Metamyelocytes % 2 % (0-0) Platelet Estimate Adequate (ADEQUATE) Large Platelets Present Sodium Level 134 mmol/L (136-145) Potassium Level 3.8 mmol/L (3.5-5.1) Chloride Level 94 mmol/L (98-107) Carbon Dioxide Level 33 mmol/L (21-32) Anion Gap 7 (6-14) Blood Urea Nitrogen 19 mg/dL (8-26) Creatinine 0.9 mg/dL (0.7-1.3) Estimated GFR (Cockcroft-Gault) 83.9 BUN/Creatinine Ratio 21 (6-20) Glucose Level 115 mg/dL (70-99) Calcium Level 9.6 mg/dL (8.5-10.1) Total Bilirubin 0.5 mg/dL (0.2-1.0) Aspartate Amino Transf (AST/SGOT) 24 U/L (15-37) Alanine Aminotransferase (ALT/SGPT) 19 U/L (16-63) Alkaline Phosphatase 61 U/L (46-116) Total Protein 6.9 g/dL (6.4-8.2) Albumin 3.0 g/dL (3.4-5.0) Albumin/Globulin Ratio 0.8 (1.0-1.7) Assessment and Plan Assessmemt and Plan Problems Medical Problems: (1) Umbilical hernia Status: Acute Comment Review of Relevant I have reviewed the following items sebastian (where applicable) has been applied. Labs Laboratory Tests Test 05/19/19 16:35 White Blood Count 4.7 x10^3/uL (4.0-11.0) Red Blood Count 4.29 x10^6/uL (4.30-5.70) Hemoglobin 13.2 g/dL (13.0-17.5) Hematocrit 39.6 % (39.0-53.0) Mean Corpuscular Volume 92 fL (79-100) Mean Corpuscular Hemoglobin 31 pg (25-35) Mean Corpuscular Hemoglobin Concent 33 g/dL (31-37) Red Cell Distribution Width 14.0 % (11.5-14.5) Platelet Count 158 x10^3/uL (140-400) Neutrophils (%) (Auto) 66 % (31-73) Lymphocytes (%) (Auto) 13 % (24-48) Monocytes (%) (Auto) 20 % (0-9) Eosinophils (%) (Auto) 1 % (0-3) Basophils (%) (Auto) 0 % (0-3) Neutrophils # (Auto) 3.1 x10^3/uL (1.8-7.7) Lymphocytes # (Auto) 0.6 x10^3/uL (1.0-4.8) Monocytes # (Auto) 0.9 x10^3/uL (0.0-1.1) Eosinophils # (Auto) 0.1 x10^3/uL (0.0-0.7) Basophils # (Auto) 0.0 x10^3/uL (0.0-0.2) Segmented Neutrophils % 38 % (35-66) Band Neutrophils % 21 % (0-9) Lymphocytes % 21 % (24-48) Monocytes % 17 % (0-10) Eosinophils % 1 % (0-5) Metamyelocytes % 2 % (0-0) Platelet Estimate Adequate (ADEQUATE) Large Platelets Present Sodium Level 134 mmol/L (136-145) Potassium Level 3.8 mmol/L (3.5-5.1) Chloride Level 94 mmol/L (98-107) Carbon Dioxide Level 33 mmol/L (21-32) Anion Gap 7 (6-14) Blood Urea Nitrogen 19 mg/dL (8-26) Creatinine 0.9 mg/dL (0.7-1.3) Estimated GFR (Cockcroft-Gault) 83.9 BUN/Creatinine Ratio 21 (6-20) Glucose Level 115 mg/dL (70-99) Calcium Level 9.6 mg/dL (8.5-10.1) Total Bilirubin 0.5 mg/dL (0.2-1.0) Aspartate Amino Transf (AST/SGOT) 24 U/L (15-37) Alanine Aminotransferase (ALT/SGPT) 19 U/L (16-63) Alkaline Phosphatase 61 U/L (46-116) Total Protein 6.9 g/dL (6.4-8.2) Albumin 3.0 g/dL (3.4-5.0) Albumin/Globulin Ratio 0.8 (1.0-1.7) Laboratory Tests Test 05/19/19 16:35 White Blood Count 4.7 x10^3/uL (4.0-11.0) Red Blood Count 4.29 x10^6/uL (4.30-5.70) Hemoglobin 13.2 g/dL (13.0-17.5) Hematocrit 39.6 % (39.0-53.0) Mean Corpuscular Volume 92 fL (79-100) Mean Corpuscular Hemoglobin 31 pg (25-35) Mean Corpuscular Hemoglobin Concent 33 g/dL (31-37) Red Cell Distribution Width 14.0 % (11.5-14.5) Platelet Count 158 x10^3/uL (140-400) Neutrophils (%) (Auto) 66 % (31-73) Lymphocytes (%) (Auto) 13 % (24-48) Monocytes (%) (Auto) 20 % (0-9) Eosinophils (%) (Auto) 1 % (0-3) Basophils (%) (Auto) 0 % (0-3) Neutrophils # (Auto) 3.1 x10^3/uL (1.8-7.7) Lymphocytes # (Auto) 0.6 x10^3/uL (1.0-4.8) Monocytes # (Auto) 0.9 x10^3/uL (0.0-1.1) Eosinophils # (Auto) 0.1 x10^3/uL (0.0-0.7) Basophils # (Auto) 0.0 x10^3/uL (0.0-0.2) Segmented Neutrophils % 38 % (35-66) Band Neutrophils % 21 % (0-9) Lymphocytes % 21 % (24-48) Monocytes % 17 % (0-10) Eosinophils % 1 % (0-5) Metamyelocytes % 2 % (0-0) Platelet Estimate Adequate (ADEQUATE) Large Platelets Present Sodium Level 134 mmol/L (136-145) Potassium Level 3.8 mmol/L (3.5-5.1) Chloride Level 94 mmol/L (98-107) Carbon Dioxide Level 33 mmol/L (21-32) Anion Gap 7 (6-14) Blood Urea Nitrogen 19 mg/dL (8-26) Creatinine 0.9 mg/dL (0.7-1.3) Estimated GFR (Cockcroft-Gault) 83.9 BUN/Creatinine Ratio 21 (6-20) Glucose Level 115 mg/dL (70-99) Calcium Level 9.6 mg/dL (8.5-10.1) Total Bilirubin 0.5 mg/dL (0.2-1.0) Aspartate Amino Transf (AST/SGOT) 24 U/L (15-37) Alanine Aminotransferase (ALT/SGPT) 19 U/L (16-63) Alkaline Phosphatase 61 U/L (46-116) Total Protein 6.9 g/dL (6.4-8.2) Albumin 3.0 g/dL (3.4-5.0) Albumin/Globulin Ratio 0.8 (1.0-1.7) Medications Current Medications Morphine Sulfate (Morphine Sulfate) 4 mg PRN Q15MIN PRN IV/SQ PAIN GREATER THAN 3/10 Last administered on 05/16/19at 16:56; Start 05/16/19 at 14:00; Stop 05/16/19 at 21:00; Status DC Ondansetron HCl (Zofran) 4 mg 1X ONCE IV Last administered on 05/16/19at 14:23; Start 05/16/19 at 14:00; Stop 05/16/19 at 14:01; Status DC Iohexol (Omnipaque 300 Mg/ml) 75 ml 1X ONCE IV Last administered on 05/16/19at 14:15; Start 05/16/19 at 14:15; Stop 05/16/19 at 14:16; Status DC Info (CONTRAST GIVEN -- Rx MONITORING) 1 each PRN DAILY PRN MC SEE COMMENTS; Start 05/16/19 at 14:15; Stop 05/18/19 at 14:14; Status DC Hydralazine HCl (Apresoline Inj) 10 mg PRN Q4HRS PRN IVP ELEVATED BP, SEE COMME NTS; Start 05/16/19 at 17:30 Morphine Sulfate (Morphine Sulfate) 4 mg PRN Q2HR PRN IV PAIN Last administered on 05/19/19at 17:25; Start 05/16/19 at 17:30 Ondansetron HCl (Zofran) 4 mg PRN Q6HRS PRN IVP NAUSEA/VOMITING Last administered on 05/19/19at 09:10; Start 05/16/19 at 17:30 Oxycodone/ Acetaminophen (Percocet 5/325) 1 tab PRN Q4HRS PRN PO PAIN Last administered on 05/16/19at 23:08; Start 05/16/19 at 17:30; Stop 05/17/19 at 09:46; Status DC Calcium Carbonate/ Glycine (Tums) 500 mg PRN AFTMEALHC PRN PO INDIGESTION Last administered on 05/19/19at 17:32; Start 05/16/19 at 17:30 Zolpidem Tartrate (Ambien) 5 mg PRN QHS PRN PO INSOMNIA Last administered on 05/18/19at 21:07; Start 05/16/19 at 17:30 Amiodarone HCl (Cordarone) 200 mg DAILY PO Last administered on 05/19/19at 08:59; Start 05/17/19 at 09:00 Atorvastatin Calcium (Lipitor) 40 mg DAILY PO Last administered on 05/19/19 08:59; Start 05/17/19 at 09:00 EZETIMIBE (Zetia) 10 mg DAILY PO Last administered on 05/19/19 08:57; Start 05/17/19 at 09:00 Furosemide (Lasix) 20 mg DAILY PO Last administered on 05/19/19 08:58; Start 05/17/19 at 09:00 Metoprolol Tartrate (Lopressor) 12.5 mg BID PO Last administered on 05/19/19 21:30; Start 05/16/19 at 21:00 Oxycodone/ Acetaminophen (Percocet 5/325) 1 tab PRN Q4HRS PRN PO PAIN; Start 05/16/19 at 17:30; Status Cancel Potassium Chloride (Klor-Con) 10 meq DAILY PO Last administered on 05/19/19 08:57; Start 05/17/19 at 09:00 Sennosides (Senna) 17.2 mg BID PO Last administered on 05/19/19 21:31; Start 05/16/19 at 21:00 Clonazepam (KlonoPIN) 1 mg PRN BID PRN PO ANXIETY / AGITATION Last administered on 05/18/19 15:57; Start 05/16/19 at 17:30 Duloxetine HCl (Cymbalta) 90 mg DAILY PO Last administered on 05/19/19 08:57; Start 05/17/19 at 09:00 Fenofibrate (Lofibra) 134 mg DAILY PO Last administered on 05/19/19 08:57; Start 05/17/19 at 09:00 Gabapentin (Neurontin) 300 mg TID PO Last administered on 05/19/19 21:31; Start 05/16/19 at 21:00 Lamotrigine (LaMICtal) 200 mg BID PO Last administered on 05/19/19 21:31; Start 05/16/19 at 21:00 Multivitamins (Thera M Plus) 1 tab DAILY PO Last administered on 05/19/19 08:58; Start 05/17/19 at 09:00 Hydromorphone HCl (Dilaudid) 1 mg 1X ONCE IV Last administered on 05/16/19 18:21; Start 05/16/19 at 18:30; Stop 05/16/19 at 18:31; Status DC Ondansetron HCl (Zofran) 4 mg PRN Q8HRS PRN IV NAUSEA/VOMITING; Start 05/16/19 at 18:30; Stop 05/17/19 at 18:29; Status UNV Morphine Sulfate (Morphine Sulfate) 4 mg PRN Q2HR PRN IV PAIN; Start 05/16/19 at 18:30; Stop 05/17/19 at 18:29; Status UNV Acetaminophen (Tylenol) 650 mg PRN Q4HRS PRN PO FEVER; Start 05/16/19 at 18:30; Stop 05/17/19 at 18:29; Status DC Phytonadione 10 mg/Dextrose 51 ml @ 102 mls/hr 1X ONCE IV Last administered on 05/16/19at 20:54; Start 05/16/19 at 21:00; Stop 05/16/19 at 21:29; Status DC Cefazolin Sodium/ Dextrose 50 ml @ 100 mls/hr 1X PREOP PRN IV PER PROTOCOL; Start 05/17/19 at 06:00; Stop 05/17/19 at 18:00; Status DC Nicotine (Nicoderm Cq 21mg) 1 patch PRN DAILY PRN TD SMOKING CESSATION Last administered on 05/19/19at 09:10; Start 05/17/19 at 00:00 Influenza Virus Vaccine Quadrival (Afluria Quad 2019-20 (3yr Up) Syringe) 0.5 ml ONCE ONCE VAX IM ; Start 05/17/19 at 09:00; Stop 05/17/19 at 09:01; Status DC Ondansetron HCl (Zofran) 4 mg PRN Q6HRS PRN IV NAUSEA/VOMITING Last administered on 05/18/19at 04:18; Start 05/17/19 at 06:30; Stop 05/18/19 at 06:29; Status DC Fentanyl Citrate (Fentanyl 2ml Vial) 25 mcg PRN Q5MIN PRN IV MILD PAIN 1-3; St art 05/17/19 at 06:30; Stop 05/18/19 at 06:29; Status DC Fentanyl Citrate (Fentanyl 2ml Vial) 50 mcg PRN Q5MIN PRN IV MODERATE TO SEVERE PAIN Last administered on 05/17/19at 07:00; Start 05/17/19 at 06:30; Stop 05/18/19 at 06:29; Status DC Morphine Sulfate (Morphine Sulfate) 1 mg PRN Q10MIN PRN IV SEVERE PAIN 7-10; Start 05/17/19 at 06:30; Stop 05/18/19 at 06:29; Status DC Ringer's Solution 1,000 ml @ 30 mls/hr Q24H IV Last administered on 05/17/19at 06:56; Start 05/17/19 at 06:30; Stop 05/17/19 at 06:43; Status DC Lidocaine HCl (Xylocaine-Mpf 1% 2ml Vial) 2 ml 1X PRN PRN ID IV START; Start 05/17/19 at 06:30; Stop 05/18/19 at 06:29; Status DC Hydromorphone HCl (Dilaudid) 0.5 mg PRN Q10MIN PRN IV SEV PAIN, Second choice; Start 05/17/19 at 06:30; Stop 05/18/19 at 06:29; Status DC Prochlorperazine Edisylate (Compazine) 5 mg PACU PRN PRN IV NAUSEA, MRX1; Start 05/17/19 at 06:30; Stop 05/18/19 at 06:29; Status DC Albuterol/ Ipratropium (Duoneb) 3 ml STK-MED ONCE .ROUTE ; Start 05/17/19 at 06:45; Stop 05/17/19 at 06:46; Status DC Albuterol/ Ipratropium (Duoneb) 3 ml 1X ONCE NEB Last administered on 05/17/19at 06:56; Start 05/17/19 at 07:00; Stop 05/17/19 at 07:01; Status DC Bupivacaine HCl/ Epinephrine Bitart (Sensorcain-Epi 0.5%-1:[id number] Mpf) 30 ml 1X ONCE INJ ; Start 05/17/19 at 07:15; Stop 05/17/19 at 07:16; Status DC Propofol 20 ml @ As Directed STK-MED ONCE IV ; Start 05/17/19 at 07:12; Stop 05/17/19 at 07:13; Status DC Ketorolac Tromethamine (Toradol 30mg Vial) 30 mg STK-MED ONCE .ROUTE ; Start 05/17/19 at 07:12; Stop 05/17/19 at 07:13; Status DC Lidocaine HCl (Lidocaine Pf 2% Vial) 5 ml STK-MED ONCE .ROUTE ; Start 05/17/19 at 07:12; Stop 05/17/19 at 07:13; Status DC Ondansetron HCl (Zofran) 4 mg STK-MED ONCE .ROUTE ; Start 05/17/19 at 07:12; Stop 05/17/19 at 07:13; Status DC Dexamethasone Sodium Phosphate (Decadron) 4 mg STK-MED ONCE .ROUTE ; Start 05/17/19 at 07:12; Stop 05/17/19 at 07:13; Status DC Succinylcholine Chloride (Anectine) 200 mg STK-MED ONCE .ROUTE ; Start 05/17/19 at 07:13; Stop 05/17/19 at 07:13; Status DC Rocuronium [place] (Zemuron) 50 mg STK-MED ONCE .ROUTE ; Start 05/17/19 at 07:13; Stop 05/17/19 at 07:13; Status DC Midazolam HCl (Versed) 2 mg STK-MED ONCE .ROUTE ; Start 05/17/19 at 07:13; Stop 05/17/19 at 07:13; Status DC Fentanyl Citrate (Fentanyl 5ml Vial) 250 mcg STK-MED ONCE .ROUTE ; Start 05/17/19 at 07:13; Stop 05/17/19 at 07:13; Status DC Famotidine (Pepcid Vial) 20 mg STK-MED ONCE .ROUTE ; Start 05/17/19 at 07:14; Stop 05/17/19 at 07:15; Status DC Cefazolin Sodium/ Dextrose 50 ml @ 100 mls/hr 1X PREOP ONCE IV ; Start 05/17/19 at 07:30; Stop 05/17/19 at 07:59; Status UNV Sevoflurane (Ultane) 60 ml STK-MED ONCE IH ; Start 05/17/19 at 07:38; Stop 05/17/19 at 07:38; Status DC Neostigmine Methylsulfate (Neostigmine Methylsulfate) 5 mg STK-MED ONCE .ROUTE ; Start 05/17/19 at 07:40; Stop 05/17/19 at 07:40; Status DC Glycopyrrolate (Robinul) 1 mg STK-MED ONCE .ROUTE ; Start 05/17/19 at 07:40; Stop 05/17/19 at 07:40; Status DC Phenylephrine HCl (PHENYLEPHRINE in 0.9% NACL PF) 1 mg STK-MED ONCE IV ; Start 05/17/19 at 07:42; Stop 05/17/19 at 07:42; Status DC Rocuronium [place] (Zemuron) 50 mg STK-MED ONCE .ROUTE ; Start 05/17/19 at 08:27; Stop 05/17/19 at 08:27; Status DC Oxycodone/ Acetaminophen (Percocet 5/325) 1 tab PRN Q4HRS PRN PO PAIN MILD TO MOD Last administered on 05/19/19at 15:28; Start 05/17/19 at 09:45 Enoxaparin Sodium (Lovenox 40mg Syringe) 40 mg Q12HR SQ ; Start 05/17/19 at 21:00; Status Cancel Oxycodone/ Acetaminophen (Percocet 5/325) 2 tab PRN Q4HRS PRN PO PAIN SEVERE Last administered on 05/17/19at 22:10; Start 05/17/19 at 10:00 Enoxaparin Sodium (Lovenox 120mg Syringe) 120 mg Q12HR SQ Last administered on 05/19/19at 21:31; Start 05/17/19 at 21:00 Influenza Virus Vaccine Quadrival (Afluria Quad 2019-20 (3yr Up) Syringe) 0.5 ml ONCE ONCE VAX IM Last administered on 05/18/19at 14:09; Start 05/18/19 at 13:00; Stop 05/18/19 at 13:01; Status DC Cefazolin Sodium/ Dextrose (Ancef 2gm Premix) 2 gm STK-MED ONCE IV ; Start 05/17/19 at 08:00; Stop 05/19/19 at 13:18; Status DC Pantoprazole Sodium (PROTONIX VIAL for IV PUSH) 40 mg DAILYAC IVP Last administered on 05/19/19at 17:25; Start 05/19/19 at 17:00 Sodium Chloride 1,000 ml @ 100 mls/hr 1X ONCE IV Last administered on 05/19/19at 17:22; Start 05/19/19 at 17:15; Stop 05/20/19 at 03:14; Status DC Active Scripts Active Doxycycline Hyclate 100 Mg Tablet 1 Tab PO BID Proair Hfa (Albuterol Sulfate) 8.5 Gm Hfa.aer.ad 1 Puff INH PRN Q6HRS PRN Coumadin (Warfarin Sodium) 4 Mg Tablet 1 Tab PO SEE ADMIN INSTRUCTIO 30 Days Take Thursday, Thursday, , and Thursday. Take 2mg tabs MWF F/u INR at [facility] Cardiology clinic Lovenox (Enoxaparin Sodium) 120 Mg/0.8 Ml Disp.syrin 120 Mg SQ BID 5 Days Reported Multi Vitamin Daily (Multivitamin) 1 Each Tablet 1 Each PO DAILY Warfarin Sodium 2 Mg Tablet 2 Mg PO DAILY Senna (Sennosides) 8.6 Mg Tablet 17.2 Mg PO BID Potassium Chloride 10 Meq Tablet.er 10 Meq PO DAILY Oxycodone-Acetaminophen 5-325 (Oxycodone Hcl/Acetaminophen) 1 Each Tablet 1 Each PO PRN Q4HRS PRN Metoprolol Tartrate 25 Mg Tablet 12.5 Mg PO BID Lamotrigine 200 Mg Tablet 1 Tab PO BID Klonopin (Clonazepam) 1 Mg Tablet 1 Mg PO PRN BID PRN Gabapentin 600 Mg Tablet 300 Mg PO TID Furosemide 20 Mg Tablet 1 Tab PO DAILY Tricor (Fenofibrate Nanocrystallized) 145 Mg Tablet 1 Tab PO DAILY Zetia (Ezetimibe) 10 Mg Tablet 1 Tab PO DAILY Cymbalta (Duloxetine Hcl) 60 Mg Capsule. 90 Mg PO DAILY Atorvastatin Calcium 40 Mg Tablet 1 Tab PO DAILY Aspirin Ec (Aspirin) 81 Mg Tablet. 1 Tab PO DAILY Amiodarone Hcl 200 Mg Tablet 200 Mg PO DAILY Vitals/I & O Vital Sign - Last 24 Hours 05/19/19 05/19/19 05/19/19 05/19/19 08:00 08:58 08:59 11:00 Temp 98.4 98.4 Pulse 79 79 77 Resp 18 B/P (MAP) 140/82 140/82 138/79 (98) Pulse Ox 93 O2 Delivery Room Air Room Air 05/19/19 05/19/19 05/19/19 05/19/19 14:56 15:00 15:26 15:28 Temp 98.3 98.3 Pulse 73 Resp 22 B/P (MAP) 127/76 (93) Pulse Ox 93 94 94 O2 Delivery Room Air Room Air Room Air Room Air O2 Flow Rate 2.0 2.0 05/19/19 05/19/19 05/19/19 05/19/19 16:28 17:25 17:55 19:04 Temp 98.3 98.3 Pulse 84 Resp 24 B/P (MAP) 147/75 (99) Pulse Ox 94 94 94 98 O2 Delivery Room Air Room Air Room Air Room Air O2 Flow Rate 2.0 2.0 05/19/19 05/19/19 05/19/19 05/20/19 20:00 21:30 23:05 03:05 Temp 98.2 97.7 98.2 97.7 Pulse 84 85 70 Resp 18 18 B/P (MAP) 147/75 159/95 (116) 142/78 (99) Pulse Ox 92 93 O2 Delivery Room Air Room Air Room Air O2 Flow Rate 2.0 Intake and Output 05/19/19 05/19/19 05/20/19 15:00 23:00 07:00 Intake Total 760 ml 570 ml 700 ml Output Total 250 ml Balance 760 ml 320 ml 700 ml ROHAN SHAH MD May 20, 2019 07:20
[2019-05-20] MEDS: PANTOPRAZOLE IV PUSH 40 MG VIAL. IVP SCH (08:39)
[2019-05-20] MEDS: FENOFIBRATE,MICRONIZED 134 MG CAPSULE PO SCH (08:39)
[2019-05-20] MEDS: EZETIMIBE 10 MG TABLET. PO SCH (08:39)
[2019-05-20] MEDS: lamoTRIgine 100 MG TABLET. PO SCH ×2 (08:39→20:34)
[2019-05-20] MEDS: FUROSEMIDE 20 MG TABLET PO SCH (08:40)
[2019-05-20] MEDS: SENNOSIDES 8.6 MG TABLET PO SCH ×2 (08:40→20:34)
[2019-05-20] MEDS: MULTIVITAMIN with MINERAL TABLET. PO SCH (08:40)
[2019-05-20] MEDS: GABAPENTIN 300 MG CAPSULE. PO SCH ×3 (08:42→20:34)
[2019-05-20] MEDS: DULoxetine HCL 30 MG CAPSULE.DR PO SCH (08:42)
[2019-05-20] MEDS: POTASSIUM CHLORIDE 10 MEQ TABLET.ER. PO SCH (08:42)
[2019-05-20] MEDS: METOPROLOL TART IMMED RELEASE 25 MG TABLET. PO SCH ×2 (08:43→20:34)
[2019-05-20] MEDS: ATORVASTATIN CALCIUM 40 MG TABLET. PO SCH (08:43)
[2019-05-20] MEDS: AMIODARONE HCL 200 MG TABLET. PO SCH (08:43)
[2019-05-20] MEDS ORDERED: OXYC1TAB15 PO (09:20)
[2019-05-20 11:00] VITALS: BP 153/79
--- NOTE | 2019-05-20 12:45 | PDOC3 ---
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 _ follow INR CHF, dyslipdemia, etc chronic stable Accel HTN with relative bradycardia - Hydralazine IVF, fair control hypercalcemia RECENT CABG AND ARTIFICIAL valve on warfarin ///[facility] October 2018 PLAn: s/p hernia repair PAin control HOLD Warfarin and ASA Check INR iv fluid support cardiac meds FULL CODe seen at ER HYdralazine IV prn for high BP - 05/19 C/O GERD SYMPTOMS 05/20 needs lovenox bridging on d/c , home health s/p hernia repair 05/19 POD # 3 d/c planning 34 min Operative Note Operative Note Operative Note: Preoperative Diagnosis: Incarcerated umbilical hernia Postoperative Diagnosis: Same Procedure: Repair of incarcerated umbilical hernia with mesh Surgeon: Jacobo Ticket Collector Or Usher: Alejandra PARKER Anesthesia: Gen. EBL: 50 mL Specimen: Incarcerated omentum, hernia sac to pathology Findings: Incarcerated omentum, single loop of small bowel with reversible isch emia Vitals Vitals Vital Signs Date Time Temp Pulse Resp B/P (MAP) Pulse Ox O2 Delivery O2 Flow Rate FiO2 05/20/19 03:05 97.7 70 18 142/78 (99) 93 Room Air 97.7 05/19/19 20:00 2.0 Physical Exam General: Alert, Oriented X3, Cooperative, No acute distress Heart: Regular rate, Normal S1 Lungs: Clear Abdomen: Normal bowel sounds, Soft, Other (binder on , incision clean, mildly distended ) Extremities: No clubbing, No cyanosis Skin: No rashes Labs LABS Aortic Valve AoV Peak Maco. 181.9cm/s AoV VTI 29.3cm AO Peak GR. 13.2mmHg LVOT VTI 21.51cm AO Mean GR. 7mmHg RAZA (VTI) 3.70cm2 Mitral Valve MV E Velocity 163.1cm/s MV E Peak Gr. 14mmHg MV DECEL TIME 286ms MV A Velocity 131.4cm/s MV E Mean Gr. 6mmHg E/A Ratio 1.2 Tricuspid Valve TR P. Velocity 287cm/s RAP ESTIMATE 3mmHg TR Peak Gr. 33mmHg RVSP 36mmHg LEFT VENTRICLE The left ventricle is normal size. There is moderate concentric left ventricular hypertrophy. Left ventricle systolic function is mildly to moderately impaired. The Ejection Fraction is 40%. Septal motion consistent with post-operative state and pacing. Moderate global hypokinesis. Wall motion not well visualized. Tissue Doppler imaging reveals moderate left ventricular diastolic dysfunction. RIGHT VENTRICLE The right ventricle is normal size. The right ventricular systolic function is normal. ATRIA The left atrium is severely dilated. The right atrium size is normal. The interatrial septum is intact with no evidence for an atrial septal defect or patent foramen ovale as noted on 2-D or Doppler imaging. AORTIC VALVE The aortic valve is not well visualized. Doppler and Color Flow revealed no sig nificant aortic regurgitation. There is no significant aortic valvular stenosis. MITRAL VALVE Calculated mitral valve area is 2.7 cm2 with maximum pressure gradient of 14 mmHg and mean pressure gradient of 6 mmHg. Doppler and Color-flow revealed trace mitral regurgitation. There is a mechanical mitral valve and it is not well visualized. TRICUSPID VALVE The tricuspid valve is normal in structure and function. Doppler and Color Flow revealed trace tricuspid regurgitation. The PA pressure was estimated at 36 mmHg. There is no tricuspid valve stenosis. PULMONIC VALVE The pulmonic valve is not well visualized. Doppler and Color Flow revealed no pulmonic valvular regurgitation. There is no pulmonic valvular stenosis. GREAT VESSELS Not well visualized. The ascending aorta is normal in size. The IVC is normal in size and collapses >50% with inspiration. PERICARDIAL EFFUSION There is no evidence of significant pericardial effusion. Critical Notification Critical Value: No <Conclusion> Left ventricle systolic function is mildly to moderately impaired. The Ejection Fraction is 40%. Septal motion consistent with post-operative state and pacing. Moderate global hypokinesis. Wall motion not well visualized. There is a mechanical mitral valve and it is not well visualized. Calculated mitral valve area is 2.7 cm2 with maximum pressure gradient of 14 mmHg and mean pressure gradient of 6 mmHg. Technically very difficult study Signed by : Lucas Carranza, Electronically Approved : 11/29/2018 08:26:05 FINAL DIAGNOSIS Problems Medical Problems: (1) Umbilical hernia Status: Acute Brief Hospital Course Mr. Campos is a 69 old [sex] who presented with [ umbilical hernia] CONDITION AT DISCHARGE: Improved Discharge Medications Current Medications Morphine Sulfate (Morphine Sulfate) 4 mg PRN Q15MIN PRN IV/SQ PAIN GREATER THAN 3/10 Last administered on 05/16/19at 16:56; Start 05/16/19 at 14:00; Stop 05/16/19 at 21:00; Status DC Ondansetron HCl (Zofran) 4 mg 1X ONCE IV Last administered on 05/16/19at 14:23; Start 05/16/19 at 14:00; Stop 05/16/19 at 14:01; Status DC Iohexol (Omnipaque 300 Mg/ml) 75 ml 1X ONCE IV Last administered on 05/16/19at 14:15; Start 05/16/19 at 14:15; Stop 05/16/19 at 14:16; Status DC Info (CONTRAST GIVEN -- Rx MONITORING) 1 each PRN DAILY PRN MC SEE COMMENTS; Start 05/16/19 at 14:15; Stop 05/18/19 at 14:14; Status DC Hydralazine HCl (Apresoline Inj) 10 mg PRN Q4HRS PRN IVP ELEVATED BP, SEE COMMENTS; Start 05/16/19 at 17:30 Morphine Sulfate (Morphine Sulfate) 4 mg PRN Q2HR PRN IV PAIN Last administered on 05/19/19at 17:25; Start 05/16/19 at 17:30 Ondansetron HCl (Zofran) 4 mg PRN Q6HRS PRN IVP NAUSEA/VOMITING Last administered on 05/19/19at 09:10; Start 05/16/19 at 17:30 Oxycodone/ Acetaminophen (Percocet 5/325) 1 tab PRN Q4HRS PRN PO PAIN Last administered on 05/16/19at 23:08; Start 05/16/19 at 17:30; Stop 05/17/19 at 09:46; Status DC Calcium Carbonate/ Glycine (Tums) 500 mg PRN AFTMEALHC PRN PO INDIGESTION Last administered on 05/19/19at 17:32; Start 05/16/19 at 17:30 Zolpidem Tartrate (Ambien) 5 mg PRN QHS PRN PO INSOMNIA Last administered on 21:07; Start 05/16/19 at 17:30 Amiodarone HCl (Cordarone) 200 mg DAILY PO Last administered on 05/20/19 08:43; Start 05/17/19 at 09:00 Atorvastatin Calcium (Lipitor) 40 mg DAILY PO Last administered on 05/20/19 08:43; Start 05/17/19 at 09:00 EZETIMIBE (Zetia) 10 mg DAILY PO Last administered on 05/20/19 08:39; Start 05/17/19 at 09:00 Furosemide (Lasix) 20 mg DAILY PO Last administered on 05/20/19 08:40; Start 05/17/19 at 09:00 Metoprolol Tartrate (Lopressor) 12.5 mg BID PO Last administered on 05/20/19 08:43; Start 05/16/19 at 21:00 Oxycodone/ Acetaminophen (Percocet 5/325) 1 tab PRN Q4HRS PRN PO PAIN; Start 05/16/19 at 17:30; Status Cancel Potassium Chloride (Klor-Con) 10 meq DAILY PO Last administered on 05/20/19 08:42; Start 05/17/19 at 09:00 Sennosides (Senna) 17.2 mg BID PO Last administered on 05/20/19 08:40; Start 05/16/19 at 21:00 Clonazepam (KlonoPIN) 1 mg PRN BID PRN PO ANXIETY / AGITATION Last administered on 05/18/19 15:57; Start 05/16/19 at 17:30 Duloxetine HCl (Cymbalta) 90 mg DAILY PO Last administered on 05/20/19 08:42; Start 05/17/19 at 09:00 Fenofibrate (Lofibra) 134 mg DAILY PO Last administered on 05/20/19 08:39; Start 05/17/19 at 09:00 Gabapentin (Neurontin) 300 mg TID PO Last administered on 05/20/19 08:42; Start 05/16/19 at 21:00 Lamotrigine (LaMICtal) 200 mg BID PO Last administered on 05/20/19 08:39; Start 05/16/19 at 21:00 Multivitamins (Thera M Plus) 1 tab DAILY PO Last administered on 05/20/19 08:40; Start 05/17/19 at 09:00 Hydromorphone HCl (Dilaudid) 1 mg 1X ONCE IV Last administered on 05/16/19at 18:21; Start 05/16/19 at 18:30; Stop 05/16/19 at 18:31; Status DC Ondansetron HCl (Zofran) 4 mg PRN Q8HRS PRN IV NAUSEA/VOMITING; Start 05/16/19 at 18:30; Stop 05/17/19 at 18:29; Status UNV Morphine Sulfate (Morphine Sulfate) 4 mg PRN Q2HR PRN IV PAIN; Start 05/16/19 at 18:30; Stop 05/17/19 at 18:29; Status UNV Acetaminophen (Tylenol) 650 mg PRN Q4HRS PRN PO FEVER; Start 05/16/19 at 18:30; Stop 05/17/19 at 18:29; Status DC Phytonadione 10 mg/Dextrose 51 ml @ 102 mls/hr 1X ONCE IV Last administered on 05/16/19at 20:54; Start 05/16/19 at 21:00; Stop 05/16/19 at 21:29; Status DC Cefazolin Sodium/ Dextrose 50 ml @ 100 mls/hr 1X PREOP PRN IV PER PROTOCOL; S tart 05/17/19 at 06:00; Stop 05/17/19 at 18:00; Status DC Nicotine (Nicoderm Cq 21mg) 1 patch PRN DAILY PRN TD SMOKING CESSATION Last administered on 05/19/19at 09:10; Start 05/17/19 at 00:00 Influenza Virus Vaccine Quadrival (Afluria Quad 2019-20 (3yr Up) Syringe) 0.5 ml ONCE ONCE VAX IM ; Start 05/17/19 at 09:00; Stop 05/17/19 at 09:01; Status DC Ondansetron HCl (Zofran) 4 mg PRN Q6HRS PRN IV NAUSEA/VOMITING Last administered on 05/18/19at 04:18; Start 05/17/19 at 06:30; Stop 05/18/19 at 06:29; Status DC Fentanyl Citrate (Fentanyl 2ml Vial) 25 mcg PRN Q5MIN PRN IV MILD PAIN 1-3; Start 05/17/19 at 06:30; Stop 05/18/19 at 06:29; Status DC Fentanyl Citrate (Fentanyl 2ml Vial) 50 mcg PRN Q5MIN PRN IV MODERATE TO SEVERE PAIN Last administered on 05/17/19at 07:00; Start 05/17/19 at 06:30; Stop 05/18/19 at 06:29; Status DC Morphine Sulfate (Morphine Sulfate) 1 mg PRN Q10MIN PRN IV SEVERE PAIN 7-10; Start 05/17/19 at 06:30; Stop 05/18/19 at 06:29; Status DC Ringer's Solution 1,000 ml @ 30 mls/hr Q24H IV Last administered on 05/17/19at 06:56; Start 05/17/19 at 06:30; Stop 05/17/19 at 06:43; Status DC Lidocaine HCl (Xylocaine-Mpf 1% 2ml Vial) 2 ml 1X PRN PRN ID IV START; Start 05/17/19 at 06:30; Stop 05/18/19 at 06:29; Status DC Hydromorphone HCl (Dilaudid) 0.5 mg PRN Q10MIN PRN IV SEV PAIN, Second choice; Start 05/17/19 at 06:30; Stop 05/18/19 at 06:29; Status DC Prochlorperazine Edisylate (Compazine) 5 mg PACU PRN PRN IV NAUSEA, MRX1; Start 05/17/19 at 06:30; Stop 05/18/19 at 06:29; Status DC Albuterol/ Ipratropium (Duoneb) 3 ml STK-MED ONCE .ROUTE ; Start 05/17/19 at 06:45; Stop 05/17/19 at 06:46; Status DC Albuterol/ Ipratropium (Duoneb) 3 ml 1X ONCE NEB Last administered on 05/17/19at 06:56; Start 05/17/19 at 07:00; Stop 05/17/19 at 07:01; Status DC Bupivacaine HCl/ Epinephrine Bitart (Sensorcain-Epi 0.5%-1:389337 Mpf) 30 ml 1X ONCE INJ ; Start 05/17/19 at 07:15; Stop 05/17/19 at 07:16; Status DC Propofol 20 ml @ As Directed STK-MED ONCE IV ; Start 05/17/19 at 07:12; Stop 05/17/19 at 07:13; Status DC Ketorolac Tromethamine (Toradol 30mg Vial) 30 mg STK-MED ONCE .ROUTE ; Start 05/17/19 at 07:12; Stop 05/17/19 at 07:13; Status DC Lidocaine HCl (Lidocaine Pf 2% Vial) 5 ml STK-MED ONCE .ROUTE ; Start 05/17/19 at 07:12; Stop 05/17/19 at 07:13; Status DC Ondansetron HCl (Zofran) 4 mg STK-MED ONCE .ROUTE ; Start 05/17/19 at 07:12; Stop 05/17/19 at 07:13; Status DC Dexamethasone Sodium Phosphate (Decadron) 4 mg STK-MED ONCE .ROUTE ; Start 05/17/19 at 07:12; Stop 05/17/19 at 07:13; Status DC Succinylcholine Chloride (Anectine) 200 mg STK-MED ONCE .ROUTE ; Start 05/17/19 at 07:13; Stop 05/17/19 at 07:13; Status DC Rocuronium Louisa (Zemuron) 50 mg STK-MED ONCE .ROUTE ; Start 05/17/19 at 07:13; Stop 05/17/19 at 07:13; Status DC Midazolam HCl (Versed) 2 mg STK-MED ONCE .ROUTE ; Start 05/17/19 at 07:13; Stop 05/17/19 at 07:13; Status DC Fentanyl Citrate (Fentanyl 5ml Vial) 250 mcg STK-MED ONCE .ROUTE ; Start 05/17/19 at 07:13; Stop 05/17/19 at 07:13; Status DC Famotidine (Pepcid Vial) 20 mg STK-MED ONCE .ROUTE ; Start 05/17/19 at 07:14; Stop 05/17/19 at 07:15; Status DC Cefazolin Sodium/ Dextrose 50 ml @ 100 mls/hr 1X PREOP ONCE IV ; Start 05/17/19 at 07:30; Stop 05/17/19 at 07:59; Status UNV Sevoflurane (Ultane) 60 ml STK-MED ONCE IH ; Start 05/17/19 at 07:38; Stop 05/17/19 at 07:38; Status DC Neostigmine Methylsulfate (Neostigmine Methylsulfate) 5 mg STK-MED ONCE .ROUTE ; Start 05/17/19 at 07:40; Stop 05/17/19 at 07:40; Status DC Glycopyrrolate (Robinul) 1 mg STK-MED ONCE .ROUTE ; Start 05/17/19 at 07:40; Stop 05/17/19 at 07:40; Status DC Phenylephrine HCl (PHENYLEPHRINE in 0.9% NACL PF) 1 mg STK-MED ONCE IV ; Start 05/17/19 at 07:42; Stop 05/17/19 at 07:42; Status DC Rocuronium Louisa (Zemuron) 50 mg STK-MED ONCE .ROUTE ; Start 05/17/19 at 08:27; Stop 05/17/19 at 08:27; Status DC Oxycodone/ Acetaminophen (Percocet 5/325) 1 tab PRN Q4HRS PRN PO PAIN MILD TO MOD Last administered on 05/19/19at 15:28; Start 05/17/19 at 09:45 Enoxaparin Sodium (Lovenox 40mg Syringe) 40 mg Q12HR SQ ; Start 05/17/19 at 21:00; Status Cancel Oxycodone/ Acetaminophen (Percocet 5/325) 2 tab PRN Q4HRS PRN PO PAIN SEVERE Last administered on 05/17/19at 22:10; Start 05/17/19 at 10:00 Enoxaparin Sodium (Lovenox 120mg Syringe) 120 mg Q12HR SQ Last administered on 05/20/19at 08:42; Start 05/17/19 at 21:00 Influenza Virus Vaccine Quadrival (Afluria Quad 2019-20 (3yr Up) Syringe) 0.5 ml ONCE ONCE VAX IM Last administered on 05/18/19 14:09; Start 05/18/19 at 13:00; Stop 05/18/19 at 13:01; Status DC Cefazolin Sodium/ Dextrose (Ancef 2gm Premix) 2 gm STK-MED ONCE IV ; Start 05/17/19 at 08:00; Stop 05/19/19 at 13:18; Status DC Pantoprazole Sodium (PROTONIX VIAL for IV PUSH) 40 mg DAILYAC IVP Last administ ered on 05/20/19 08:39; Start 05/19/19 at 17:00 Sodium Chloride 1,000 ml @ 100 mls/hr 1X ONCE IV Last administered on 11/2 1/19at 17:22; Start 05/19/19 at 17:15; Stop 05/20/19 at 03:14; Status DC Active Scripts Active Percocet 5-325 Mg Tablet (Oxycodone/Acetaminophen) 1 Each Tablet 1 Tab PO PRN Q4HRS PRN Doxycycline Hyclate 100 Mg Tablet 1 Tab PO BID Proair Hfa (Albuterol Sulfate) 8.5 Gm Hfa.aer.ad 1 Puff INH PRN Q6HRS PRN Coumadin (Warfarin Sodium) 4 Mg Tablet 1 Tab PO SEE ADMIN INSTRUCTIO 30 Days Take Thursday, Thursday, , and Thursday. Take 2mg tabs MWF F/u INR at [facility] Lovenox (Enoxaparin Sodium) 120 Mg/0.8 Ml Disp.syrin 120 Mg SQ BID 5 Days Reported Multi Vitamin Daily (Multivitamin) 1 Each Tablet 1 Each PO DAILY Warfarin Sodium 2 Mg Tablet 2 Mg PO DAILY Senna (Sennosides) 8.6 Mg Tablet 17.2 Mg PO BID Potassium Chloride 10 Meq Tablet.er 10 Meq PO DAILY Oxycodone-Acetaminophen 5-325 (Oxycodone Hcl/Acetaminophen) 1 Each Tablet 1 Each PO PRN Q4HRS PRN Metoprolol Tartrate 25 Mg Tablet 12.5 Mg PO BID Lamotrigine 200 Mg Tablet 1 Tab PO BID Klonopin (Clonazepam) 1 Mg Tablet 1 Mg PO PRN BID PRN Gabapentin 600 Mg Tablet 300 Mg PO TID Furosemide 20 Mg Tablet 1 Tab PO DAILY Tricor (Fenofibrate Nanocrystallized) 145 Mg Tablet 1 Tab PO DAILY Zetia (Ezetimibe) 10 Mg Tablet 1 Tab PO DAILY Cymbalta (Duloxetine Hcl) 60 Mg Capsule. 90 Mg PO DAILY Atorvastatin Calcium 40 Mg Tablet 1 Tab PO DAILY Aspirin Ec (Aspirin) 81 Mg Tablet.dr 1 Tab PO DAILY Amiodarone Hcl 200 Mg Tablet 200 Mg PO DAILY Vital Signs Vital Signs Date Time Temp Pulse Resp B/P (MAP) Pulse Ox O2 Delivery O2 Flow Rate FiO2 05/20/19 11:00 98.1 73 18 153/79 (103) 94 Room Air 98.1 05/19/19 20:00 2.0 Labs Laboratory Tests Test 05/19/19 16:35 White Blood Count 4.7 x10^3/uL (4.0-11.0) Red Blood Count 4.29 x10^6/uL (4.30-5.70) Hemoglobin 13.2 g/dL (13.0-17.5) Hematocrit 39.6 % (39.0-53.0) Mean Corpuscular Volume 92 fL (79-100) Mean Corpuscular Hemoglobin 31 pg (25-35) Mean Corpuscular Hemoglobin Concent 33 g/dL (31-37) Red Cell Distribution Width 14.0 % (11.5-14.5) Platelet Count 158 x10^3/uL (140-400) Neutrophils (%) (Auto) 66 % (31-73) Lymphocytes (%) (Auto) 13 % (24-48) Monocytes (%) (Auto) 20 % (0-9) Eosinophils (%) (Auto) 1 % (0-3) Basophils (%) (Auto) 0 % (0-3) Neutrophils # (Auto) 3.1 x10^3/uL (1.8-7.7) Lymphocytes # (Auto) 0.6 x10^3/uL (1.0-4.8) Monocytes # (Auto) 0.9 x10^3/uL (0.0-1.1) Eosinophils # (Auto) 0.1 x10^3/uL (0.0-0.7) Basophils # (Auto) 0.0 x10^3/uL (0.0-0.2) Segmented Neutrophils % 38 % (35-66) Band Neutrophils % 21 % (0-9) Lymphocytes % 21 % (24-48) Monocytes % 17 % (0-10) Eosinophils % 1 % (0-5) Metamyelocytes % 2 % (0-0) Platelet Estimate Adequate (ADEQUATE) Large Platelets Present Sodium Level 134 mmol/L (136-145) Potassium Level 3.8 mmol/L (3.5-5.1) Chloride Level 94 mmol/L (98-107) Carbon Dioxide Level 33 mmol/L (21-32) Anion Gap 7 (6-14) Blood Urea Nitrogen 19 mg/dL (8-26) Creatinine 0.9 mg/dL (0.7-1.3) Estimated GFR (Cockcroft-Gault) 83.9 BUN/Creatinine Ratio 21 (6-20) Glucose Level 115 mg/dL (70-99) Calcium Level 9.6 mg/dL (8.5-10.1) Total Bilirubin 0.5 mg/dL (0.2-1.0) Aspartate Amino Transf (AST/SGOT) 24 U/L (15-37) Alanine Aminotransferase (ALT/SGPT) 19 U/L (16-63) Alkaline Phosphatase 61 U/L (46-116) Total Protein 6.9 g/dL (6.4-8.2) Albumin 3.0 g/dL (3.4-5.0) Albumin/Globulin Ratio 0.8 (1.0-1.7) Laboratory Tests Test 05/19/19 16:35 White Blood Count 4.7 x10^3/uL (4.0-11.0) Red Blood Count 4.29 x10^6/uL (4.30-5.70) Hemoglobin 13.2 g/dL (13.0-17.5) Hematocrit 39.6 % (39.0-53.0) Mean Corpuscular Volume 92 fL (79-100) Mean Corpuscular Hemoglobin 31 pg (25-35) Mean Corpuscular Hemoglobin Concent 33 g/dL (31-37) Red Cell Distribution Width 14.0 % (11.5-14.5) Platelet Count 158 x10^3/uL (140-400) Neutrophils (%) (Auto) 66 % (31-73) Lymphocytes (%) (Auto) 13 % (24-48) Monocytes (%) (Auto) 20 % (0-9) Eosinophils (%) (Auto) 1 % (0-3) Basophils (%) (Auto) 0 % (0-3) Neutrophils # (Auto) 3.1 x10^3/uL (1.8-7.7) Lymphocytes # (Auto) 0.6 x10^3/uL (1.0-4.8) Monocytes # (Auto) 0.9 x10^3/uL (0.0-1.1) Eosinophils # (Auto) 0.1 x10^3/uL (0.0-0.7) Basophils # (Auto) 0.0 x10^3/uL (0.0-0.2) Segmented Neutrophils % 38 % (35-66) Band Neutrophils % 21 % (0-9) Lymphocytes % 21 % (24-48) Monocytes % 17 % (0-10) Eosinophils % 1 % (0-5) Metamyelocytes % 2 % (0-0) Platelet Estimate Adequate (ADEQUATE) Large Platelets Present Sodium Level 134 mmol/L (136-145) Potassium Level 3.8 mmol/L (3.5-5.1) Chloride Level 94 mmol/L (98-107) Carbon Dioxide Level 33 mmol/L (21-32) Anion Gap 7 (6-14) Blood Urea Nitrogen 19 mg/dL (8-26) Creatinine 0.9 mg/dL (0.7-1.3) Estimated GFR (Cockcroft-Gault) 83.9 BUN/Creatinine Ratio 21 (6-20) Glucose Level 115 mg/dL (70-99) Calcium Level 9.6 mg/dL (8.5-10.1) Total Bilirubin 0.5 mg/dL (0.2-1.0) Aspartate Amino Transf (AST/SGOT) 24 U/L (15-37) Alanine Aminotransferase (ALT/SGPT) 19 U/L (16-63) Alkaline Phosphatase 61 U/L (46-116) Total Protein 6.9 g/dL (6.4-8.2) Albumin 3.0 g/dL (3.4-5.0) Albumin/Globulin Ratio 0.8 (1.0-1.7) Allergies Allergies Coded Allergies Type Severity Reaction Last Updated Verified No Known Drug Allergies 05/17/19 No Disposition/Orders: D/C to Home w/ HH ROHAN SHAH MD May 20, 2019 12:45
--- NOTE | 2019-05-20 13:42 | PDOC2 ---
CARDIAC CONSULT DATE OF CONSULT Date of Consult DATE: 05/20/19 TIME: 13:19 REASON FOR CONSULT Reason for Consult: Recent valvular repair REFERRING PHYSICIAN Referring Physician: Fullbright SOURCE Source: Chart review, Patient HISTORY OF PRESENT ILLNESS HISTORY OF PRESENT ILLNESS This is a pleasant 69 yo male admitted for complains of abdominal pain. He was then noted with incarcerated umbilical hernia and has a successful repair. He tolerated procedure well. However pt ruvalcaba have an artificial mechanical aortic valve which was placed via open heart sugery in 10/2018 in [facility] with PPM as well. He has been doing well before his abd surgery, no complains of chest pain or SOA. He has been complaint with his medications including his coumadin. This was held due to surgery and with the recent of his MVR he will need lovenox bridging till INR is at least 2.0. No coronary bypass associated with his MVR. PAST MEDICAL HISTORY Cardiovascular: AFIB (parox), CHF, HTN, Hyperlipidemia, Valve insufficiency, Other (bradycardia) Pulmonary: No pertinent hx GI: Constipation, GI bleed Heme/Onc: Anemia NOS, Other (chronic anticoagulation) Psych: Anxiety, Depression, Other (alcoholism) Musculoskeletal: low back pain, Osteoarthritis Rheumatologic: No pertinent hx Infectious disease: No pertinent hx ENT: No pertinent hx Renal/: Chronic renal insuff Endocrine: No pertinent hx Dermatology: No pertinent hx PAST SURGICAL HISTORY Past Surgical History: Pacemaker, Appendectomy, Other (Open AVR; vasectomy) FAMILY HISTORY Family History: Hypertension SOCIAL HISTORY Smoke: <1 pack per day ALCOHOL: none Drugs: None Lives: with Family CURRENT MEDICATIONS CURRENT MEDICATIONS Current Medications Medications (Trade) Dose Ordered Sig/Marlon Route PRN Reason Start Time Stop Time Status Last Admin Dose Admin Pantoprazole Sodium (PROTONIX VIAL for IV PUSH) 40 mg DAILYAC IVP 05/19/19 17:00 05/20/19 08:39 Sodium Chloride 1,000 ml @ 100 mls/hr 1X ONCE IV 05/19/19 17:15 05/20/19 03:14 DC 05/19/19 17:22 ALLERGIES ALLERGIES: Coded Allergies: No Known Drug Allergies (Unverified , 05/17/19) ROS Review of System 14 point ROS evaluated with pertinent positives noted per HPI PHYSICAL EXAM General: Alert, Oriented X3, Cooperative, No acute distress HEENT: Atraumatic, Mucous membr. moist/pink Lungs: Clear to auscultation, Normal air movement Heart: Regular rate (Paced), Other (sysolic murmur to LLS border) Abdomen: Soft, Other (abd binder on) Extremities: No cyanosis, No edema Skin: No breakdown, No significant lesion Neuro: Normal speech, Sensation intact Psych/Mental Status: Mental status NL, Mood NL MUSCULOSKELETAL: Osteoarthritic changes both hands VITALS/I&O VITALS/I&O: Vital Signs Date Time Temp Pulse Resp B/P (MAP) Pulse Ox O2 Delivery O2 Flow Rate FiO2 05/20/19 11:00 98.1 73 18 153/79 (103) 94 Room Air 98.1 05/19/19 20:00 2.0 I & O 05/19/19 05/19/19 05/20/19 15:00 23:00 07:00 Intake Total 760 ml 570 ml 700 ml Output Total 250 ml Balance 760 ml 320 ml 700 ml LABS Lab: Laboratory Tests Test 05/19/19 16:35 White Blood Count 4.7 x10^3/uL (4.0-11.0) Red Blood Count 4.29 x10^6/uL (4.30-5.70) L Hemoglobin 13.2 g/dL (13.0-17.5) Hematocrit 39.6 % (39.0-53.0) Mean Corpuscular Volume 92 fL (79-100) Mean Corpuscular Hemoglobin 31 pg (25-35) Mean Corpuscular Hemoglobin Concent 33 g/dL (31-37) Red Cell Distribution Width 14.0 % (11.5-14.5) Platelet Count 158 x10^3/uL (140-400) Neutrophils (%) (Auto) 66 % (31-73) Lymphocytes (%) (Auto) 13 % (24-48) L Monocytes (%) (Auto) 20 % (0-9) H Eosinophils (%) (Auto) 1 % (0-3) Basophils (%) (Auto) 0 % (0-3) Neutrophils # (Auto) 3.1 x10^3/uL (1.8-7.7) Lymphocytes # (Auto) 0.6 x10^3/uL (1.0-4.8) L Monocytes # (Auto) 0.9 x10^3/uL (0.0-1.1) Eosinophils # (Auto) 0.1 x10^3/uL (0.0-0.7) Basophils # (Auto) 0.0 x10^3/uL (0.0-0.2) Segmented Neutrophils % 38 % (35-66) Band Neutrophils % 21 % (0-9) H Lymphocytes % 21 % (24-48) L Monocytes % 17 % (0-10) H Eosinophils % 1 % (0-5) Metamyelocytes % 2 % (0-0) H Platelet Estimate Adequate (ADEQUATE) Large Platelets Present Sodium Level 134 mmol/L (136-145) L Potassium Level 3.8 mmol/L (3.5-5.1) Chloride Level 94 mmol/L (98-107) L Carbon Dioxide Level 33 mmol/L (21-32) H Anion Gap 7 (6-14) Blood Urea Nitrogen 19 mg/dL (8-26) Creatinine 0.9 mg/dL (0.7-1.3) Estimated GFR (Cockcroft-Gault) 83.9 BUN/Creatinine Ratio 21 (6-20) H Glucose Level 115 mg/dL (70-99) H Calcium Level 9.6 mg/dL (8.5-10.1) Total Bilirubin 0.5 mg/dL (0.2-1.0) Aspartate Amino Transferase (AST) 24 U/L (15-37) Alanine Aminotransferase (ALT) 19 U/L (16-63) Alkaline Phosphatase 61 U/L (46-116) Total Protein 6.9 g/dL (6.4-8.2) Albumin 3.0 g/dL (3.4-5.0) L Albumin/Globulin Ratio 0.8 (1.0-1.7) L Laboratory Tests 05/19/19 16:35 Laboratory Tests 05/19/19 16:35 ECHOCARDIOGRAM ECHOCARDIOGRAM This is a technically difficult study with limited acoustic windows. 11/2018 [facility] * Left ventricle is normal in size, severe asymmetric basal septal hypertrophy. No outflow tract obstruction. LV function mildly depressed, ejection fraction 45%. Regional wall motion abnormalities as described in diagram * The right ventricle is normal in size and function. Pacemaker or ICD lead is noted in right atrium and right ventricle * The left atrium is severely dilated right atrium is normal in size * There is a 31 mm [place] mechanical bileaflet prosthesis in the mitral p osition, mild elevated gradients otherwise normal function. No paravalvular regurgitation. ASSESSMENT/PLAN ASSESSMENT/PLAN 1. Abd pain: S/P repair of incarcerated umbilical hernia with mesh POD#3 2. PPM in situ: medtronic 3. Hx of HOCM with recent septal myectomy, mechanical MVR: 10/2018 4. HTN 5. PAFIB: Paced rhythm 6. Tobaccoism 7. Chronic diastolic CHF: compensated Recommendations 1. INR goal 2.5 to 3.5. Lovenox bridge INR on Thursday, Will need to check with surgery. Discussed with RN 2. Continue wkth baby ASA. Follow up with [facility] cardiology in 2 weeks. 3. Smoking cessation 4. Continue home BP regimen and lasix MARLENI QUINTANA SOFTWARE DEVELOPER May 20, 2019 13:42
[2019-05-20 13:49] LABS: PROTHROMBIN TIME PATIENT 13.7 SEC (11.7-14.0)
[2019-05-20 15:08] VITALS: BP 171/91
[2019-05-20] MEDS ORDERED: ANTI-COAG MONITOR BY PHARMACY. MC PRN (15:30)
[2019-05-20] MEDS: ASPIRIN ENTERIC COATED 81 MG TABLET.DR. PO SCH (16:07)
[2019-05-20] MEDS: CALCIUM CARBONATE 500 MG TAB.CHEW PO PRN (16:16)
[2019-05-20] MEDS: ONDANSETRON PF 4 MG/2 ML VIAL. IVP PRN (16:16)
[2019-05-20] MEDS ORDERED: WARFARIN 7.5 MG TABLET. PO ONE (18:30)
[2019-05-20] MEDS: oxyCODONE/APAP 5/325 1 TAB TABLET PO PRN (18:42)
[2019-05-20 19:54] VITALS: BP 156/87
[2019-05-20 23:12] VITALS: BP 131/80
[2019-05-21] MEDS: oxyCODONE/APAP 5/325 1 TAB TABLET PO PRN (01:54)
[2019-05-21] MEDS: ONDANSETRON PF 4 MG/2 ML VIAL. IVP PRN (01:54)
[2019-05-21] MEDS: ZOLPIDEM 5 MG TABLET. PO PRN (01:54)
--- NOTE | 2019-05-21 06:04 | PDOC ---
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 _ follow INR CHF, dyslipdemia, etc chronic stable Accel HTN with relative bradycardia - Hydralazine IVF, fair control hypercalcemia RECENT CABG AND ARTIFICIAL valve on warfarin ///[facility] October 2018 PLAn: s/p hernia repair PAin control HOLD Warfarin and ASA Check INR iv fluid support cardiac meds FULL CODe seen at ER HYdralazine IV prn for high BP - 05/19 C/O GERD SYMPTOMS 05/20 needs lovenox bridging on d/c , home health 05/21 HAD LOVENOX TEACHING, D/C TODAY, [facility] SEE PCP THURSDAY!! s/p hernia repair 05/19 POD # 4 D/C PLANNING 34 MIN Operative Note Operative Note Operative Note: Preoperative Diagnosis: Incarcerated umbilical hernia Postoperative Diagnosis: Same Procedure: Repair of incarcerated umbilical hernia with mesh Surgeon: Jacobo Swift Tender: Alejandra PARKER Anesthesia: Gen. EBL: 50 mL Specimen: Incarcerated omentum, hernia sac to pathology Findings: Incarcerated omentum, single loop of small bowel with reversible ischemia Vitals Vitals Vital Signs Date Time Temp Pulse Resp B/P (MAP) Pulse Ox O2 Delivery O2 Flow Rate FiO2 05/21/19 03:18 80 20 90 Room Air 05/20/19 23:12 98.5 98.5 05/20/19 20:00 2.0 Physical Exam General: Alert, Oriented X3, Cooperative, No acute distress Heart: Regular rate (Paced), Normal S1, Other (sysolic murmur to LLS border) Lungs: Clear Abdomen: Soft, No tenderness, Other (abd binder on) Extremities: No clubbing, No cyanosis, No edema Skin: No breakdown, No significant lesion Labs LABS Laboratory Tests Test 05/20/19 13:25 Prothrombin Time 13.7 SEC (11.7-14.0) Prothromb Time International Ratio 1.1 (0.8-1.1) Assessment and Plan Assessmemt and Plan Problems Medical Problems: (1) Umbilical hernia Status: Acute Comment Review of Relevant I have reviewed the following items sebastian (where applicable) has been applied. Labs Laboratory Tests Test 05/19/19 16:35 05/20/19 13:25 White Blood Count 4.7 x10^3/uL (4.0-11.0) Red Blood Count 4.29 x10^6/uL (4.30-5.70) Hemoglobin 13.2 g/dL (13.0-17.5) Hematocrit 39.6 % (39.0-53.0) Mean Corpuscular Volume 92 fL (79-100) Mean Corpuscular Hemoglobin 31 pg (25-35) Mean Corpuscular Hemoglobin Concent 33 g/dL (31-37) Red Cell Distribution Width 14.0 % (11.5-14.5) Platelet Count 158 x10^3/uL (140-400) Neutrophils (%) (Auto) 66 % (31-73) Lymphocytes (%) (Auto) 13 % (24-48) Monocytes (%) (Auto) 20 % (0-9) Eosinophils (%) (Auto) 1 % (0-3) Basophils (%) (Auto) 0 % (0-3) Neutrophils # (Auto) 3.1 x10^3/uL (1.8-7.7) Lymphocytes # (Auto) 0.6 x10^3/uL (1.0-4.8) Monocytes # (Auto) 0.9 x10^3/uL (0.0-1.1) Eosinophils # (Auto) 0.1 x10^3/uL (0.0-0.7) Basophils # (Auto) 0.0 x10^3/uL (0.0-0.2) Segmented Neutrophils % 38 % (35-66) Band Neutrophils % 21 % (0-9) Lymphocytes % 21 % (24-48) Monocytes % 17 % (0-10) Eosinophils % 1 % (0-5) Metamyelocytes % 2 % (0-0) Platelet Estimate Adequate (ADEQUATE) Large Platelets Present Sodium Level 134 mmol/L (136-145) Potassium Level 3.8 mmol/L (3.5-5.1) Chloride Level 94 mmol/L (98-107) Carbon Dioxide Level 33 mmol/L (21-32) Anion Gap 7 (6-14) Blood Urea Nitrogen 19 mg/dL (8-26) Creatinine 0.9 mg/dL (0.7-1.3) Estimated GFR (Cockcroft-Gault) 83.9 BUN/Creatinine Ratio 21 (6-20) Glucose Level 115 mg/dL (70-99) Calcium Level 9.6 mg/dL (8.5-10.1) Total Bilirubin 0.5 mg/dL (0.2-1.0) Aspartate Amino Transf (AST/SGOT) 24 U/L (15-37) Alanine Aminotransferase (ALT/SGPT) 19 U/L (16-63) Alkaline Phosphatase 61 U/L (46-116) Total Protein 6.9 g/dL (6.4-8.2) Albumin 3.0 g/dL (3.4-5.0) Albumin/Globulin Ratio 0.8 (1.0-1.7) Prothrombin Time 13.7 SEC (11.7-14.0) Prothromb Time International Ratio 1.1 (0.8-1.1) Laboratory Tests Test 05/20/19 13:25 Prothrombin Time 13.7 SEC (11.7-14.0) Prothromb Time International Ratio 1.1 (0.8-1.1) Medications Current Medications Morphine Sulfate (Morphine Sulfate) 4 mg PRN Q15MIN PRN IV/SQ PAIN GREATER THAN 3/10 Last administered on 05/16/19at 16:56; Start 05/16/19 at 14:00; Stop 05/16/19 at 21:00; Status DC Ondansetron HCl (Zofran) 4 mg 1X ONCE IV Last administered on 05/16/19at 14:23 ; Start 05/16/19 at 14:00; Stop 05/16/19 at 14:01; Status DC Iohexol (Omnipaque 300 Mg/ml) 75 ml 1X ONCE IV Last administered on 05/16/19at 14:15; Start 05/16/19 at 14:15; Stop 05/16/19 at 14:16; Status DC Info (CONTRAST GIVEN -- Rx MONITORING) 1 each PRN DAILY PRN MC SEE COMMENTS; Start 05/16/19 at 14:15; Stop 05/18/19 at 14:14; Status DC Hydralazine HCl (Apresoline Inj) 10 mg PRN Q4HRS PRN IVP ELEVATED BP, SEE COMMENTS; Start 05/16/19 at 17:30 Morphine Sulfate (Morphine Sulfate) 4 mg PRN Q2HR PRN IV PAIN Last administered on 05/19/19 17:25; Start 05/16/19 at 17:30 Ondansetron HCl (Zofran) 4 mg PRN Q6HRS PRN IVP NAUSEA/VOMITING Last administered on 05/21/19 01:54; Start 05/16/19 at 17:30 Oxycodone/ Acetaminophen (Percocet 5/325) 1 tab PRN Q4HRS PRN PO PAIN Last administered on 05/16/19 23:08; Start 05/16/19 at 17:30; Stop 05/17/19 at 09:46; Status DC Calcium Carbonate/ Glycine (Tums) 500 mg PRN AFTMEALHC PRN PO INDIGESTION Last administered on 05/20/19 16:16; Start 05/16/19 at 17:30 Zolpidem Tartrate (Ambien) 5 mg PRN QHS PRN PO INSOMNIA Last administered on 05/21/19 01:54; Start 05/16/19 at 17:30 Amiodarone HCl (Cordarone) 200 mg DAILY PO Last administered on 05/20/19 08:43; Start 05/17/19 at 09:00 Atorvastatin Calcium (Lipitor) 40 mg DAILY PO Last administered on 05/20/19 08:43; Start 05/17/19 at 09:00 EZETIMIBE (Zetia) 10 mg DAILY PO Last administered on 05/20/19 08:39; Start 05/17/19 at 09:00 Furosemide (Lasix) 20 mg DAILY PO Last administered on 05/20/19 08:40; Start 05/17/19 at 09:00 Metoprolol Tartrate (Lopressor) 12.5 mg BID PO Last administered on 05/20/19 20:34; Start 05/16/19 at 21:00 Oxycodone/ Acetaminophen (Percocet 5/325) 1 tab PRN Q4HRS PRN PO PAIN; Start 05/16/19 at 17:30; Status Cancel Potassium Chloride (Klor-Con) 10 meq DAILY PO Last administered on 05/20/19 08:42; Start 05/17/19 at 09:00 Sennosides (Senna) 17.2 mg BID PO Last administered on 05/20/19 20:34; Start 05/16/19 at 21:00 Clonazepam (KlonoPIN) 1 mg PRN BID PRN PO ANXIETY / AGITATION Last administered on 05/18/19 15:57; Start 05/16/19 at 17:30 Duloxetine HCl (Cymbalta) 90 mg DAILY PO Last administered on 05/20/19 08:42; Start 05/17/19 at 09:00 Fenofibrate (Lofibra) 134 mg DAILY PO Last administered on 05/20/19 08:39; Start 05/17/19 at 09:00 Gabapentin (Neurontin) 300 mg TID PO Last administered on 05/20/19 20:34; Start 05/16/19 at 21:00 Lamotrigine (LaMICtal) 200 mg BID PO Last administered on 05/20/19 20:34; Start 05/16/19 at 21:00 Multivitamins (Thera M Plus) 1 tab DAILY PO Last administered on 05/20/19 08:40; Start 05/17/19 at 09:00 Hydromorphone HCl (Dilaudid) 1 mg 1X ONCE IV Last administered on 05/16/19 18:21; Start 05/16/19 at 18:30; Stop 05/16/19 at 18:31; Status DC Ondansetron HCl (Zofran) 4 mg PRN Q8HRS PRN IV NAUSEA/VOMITING; Start 05/16/19 at 18:30; Stop 05/17/19 at 18:29; Status UNV Morphine Sulfate (Morphine Sulfate) 4 mg PRN Q2HR PRN IV PAIN; Start 05/16/19 at 18:30; Stop 05/17/19 at 18:29; Status UNV Acetaminophen (Tylenol) 650 mg PRN Q4HRS PRN PO FEVER; Start 05/16/19 at 18:30; Stop 05/17/19 at 18:29; Status DC Phytonadione 10 mg/Dextrose 51 ml @ 102 mls/hr 1X ONCE IV Last administered on 05/16/19 20:54; Start 05/16/19 at 21:00; Stop 05/16/19 at 21:29; Status DC Cefazolin Sodium/ Dextrose 50 ml @ 100 mls/hr 1X PREOP PRN IV PER PROTOCOL; Start 05/17/19 at 06:00; Stop 05/17/19 at 18:00; Status DC Nicotine (Nicoderm Cq 21mg) 1 patch PRN DAILY PRN TD SMOKING CESSATION Last administered on 05/19/19at 09:10; Start 05/17/19 at 00:00 Influenza Virus Vaccine Quadrival (Afluria Quad 2019-20 (3yr Up) Syringe) 0.5 ml ONCE ONCE VAX IM ; Start 05/17/19 at 09:00; Stop 05/17/19 at 09:01; Status DC Ondansetron HCl (Zofran) 4 mg PRN Q6HRS PRN IV NAUSEA/VOMITING Last administered on 05/18/19at 04:18; Start 05/17/19 at 06:30; Stop 05/18/19 at 06:29; Status DC Fentanyl Citrate (Fentanyl 2ml Vial) 25 mcg PRN Q5MIN PRN IV MILD PAIN 1-3; Start 05/17/19 at 06:30; Stop 05/18/19 at 06:29; Status DC Fentanyl Citrate (Fentanyl 2ml Vial) 50 mcg PRN Q5MIN PRN IV MODERATE TO SEVERE PAIN Last administered on 05/17/19at 07:00; Start 05/17/19 at 06:30; Stop 05/18/19 at 06:29; Status DC Morphine Sulfate (Morphine Sulfate) 1 mg PRN Q10MIN PRN IV SEVERE PAIN 7-10; Start 05/17/19 at 06:30; Stop 05/18/19 at 06:29; Status DC Ringer's Solution 1,000 ml @ 30 mls/hr Q24H IV Last administered on 05/17/19at 06:56; Start 05/17/19 at 06:30; Stop 05/17/19 at 06:43; Status DC Lidocaine HCl (Xylocaine-Mpf 1% 2ml Vial) 2 ml 1X PRN PRN ID IV START; Start 05/17/19 at 06:30; Stop 05/18/19 at 06:29; Status DC Hydromorphone HCl (Dilaudid) 0.5 mg PRN Q10MIN PRN IV SEV PAIN, Second choice; Start 05/17/19 at 06:30; Stop 05/18/19 at 06:29; Status DC Prochlorperazine Edisylate (Compazine) 5 mg PACU PRN PRN IV NAUSEA, MRX1; Start 05/17/19 at 06:30; Stop 05/18/19 at 06:29; Status DC Albuterol/ Ipratropium (Duoneb) 3 ml STK-MED ONCE .ROUTE ; Start 05/17/19 at 06:45; Stop 05/17/19 at 06:46; Status DC Albuterol/ Ipratropium (Duoneb) 3 ml 1X ONCE NEB Last administered on 05/17/19at 06:56; Start 05/17/19 at 07:00; Stop 05/17/19 at 07:01; Status DC Bupivacaine HCl/ Epinephrine Bitart (Sensorcain-Epi 0.5%-1:[id number] Mpf) 30 ml 1X ONCE INJ ; Start 05/17/19 at 07:15; Stop 05/17/19 at 07:16; Status DC Propofol 20 ml @ As Directed STK-MED ONCE IV ; Start 05/17/19 at 07:12; Stop 05/17/19 at 07:13; Status DC Ketorolac Tromethamine (Toradol 30mg Vial) 30 mg STK-MED ONCE .ROUTE ; Start 05/17/19 at 07:12; Stop 05/17/19 at 07:13; Status DC Lidocaine HCl (Lidocaine Pf 2% Vial) 5 ml STK-MED ONCE .ROUTE ; Start 05/17/19 at 07:12; Stop 05/17/19 at 07:13; Status DC Ondansetron HCl (Zofran) 4 mg STK-MED ONCE .ROUTE ; Start 05/17/19 at 07:12; Stop 05/17/19 at 07:13; Status DC Dexamethasone Sodium Phosphate (Decadron) 4 mg STK-MED ONCE .ROUTE ; Start 05/17/19 at 07:12; Stop 05/17/19 at 07:13; Status DC Succinylcholine Chloride (Anectine) 200 mg STK-MED ONCE .ROUTE ; Start 05/17/19 at 07:13; Stop 05/17/19 at 07:13; Status DC Rocuronium [place] (Zemuron) 50 mg STK-MED ONCE .ROUTE ; Start 05/17/19 at 07:13; Stop 05/17/19 at 07:13; Status DC Midazolam HCl (Versed) 2 mg STK-MED ONCE .ROUTE ; Start 05/17/19 at 07:13; Stop 05/17/19 at 07:13; Status DC Fentanyl Citrate (Fentanyl 5ml Vial) 250 mcg STK-MED ONCE .ROUTE ; Start 05/17/19 at 07:13; Stop 05/17/19 at 07:13; Status DC Famotidine (Pepcid Vial) 20 mg STK-MED ONCE .ROUTE ; Start 05/17/19 at 07:14; Stop 05/17/19 at 07:15; Status DC Cefazolin Sodium/ Dextrose 50 ml @ 100 mls/hr 1X PREOP ONCE IV ; Start 05/17/19 at 07:30; Stop 05/17/19 at 07:59; Status UNV Sevoflurane (Ultane) 60 ml STK-MED ONCE IH ; Start 05/17/19 at 07:38; Stop 05/17/19 at 07:38; Status DC Neostigmine Methylsulfate (Neostigmine Methylsulfate) 5 mg STK-MED ONCE .ROUTE ; Start 05/17/19 at 07:40; Stop 05/17/19 at 07:40; Status DC Glycopyrrolate (Robinul) 1 mg STK-MED ONCE .ROUTE ; Start 05/17/19 at 07:40; Stop 05/17/19 at 07:40; Status DC Phenylephrine HCl (PHENYLEPHRINE in 0.9% NACL PF) 1 mg STK-MED ONCE IV ; Start 05/17/19 at 07:42; Stop 05/17/19 at 07:42; Status DC Rocuronium [place] (Zemuron) 50 mg STK-MED ONCE .ROUTE ; Start 05/17/19 at 08:27; Stop 05/17/19 at 08:27; Status DC Oxycodone/ Acetaminophen (Percocet 5/325) 1 tab PRN Q4HRS PRN PO PAIN MILD TO MOD Last administered on 05/19/19at 15:28; Start 05/17/19 at 09:45 Enoxaparin Sodium (Lovenox 40mg Syringe) 40 mg Q12HR SQ ; Start 05/17/19 at 21:00; Status Cancel Oxycodone/ Acetaminophen (Percocet 5/325) 2 tab PRN Q4HRS PRN PO PAIN SEVERE Last administered on 05/21/19at 01:54; Start 05/17/19 at 10:00 Enoxaparin Sodium (Lovenox 120mg Syringe) 120 mg Q12HR SQ Last administered on 05/20/19at 20:34; Start 05/17/19 at 21:00 Influenza Virus Vaccine Quadrival (Afluria Quad 2019-20 (3yr Up) Syringe) 0.5 ml ONCE ONCE VAX IM Last administered on 05/18/19at 14:09; Start 05/18/19 at 13:00; Stop 05/18/19 at 13:01; Status DC Cefazolin Sodium/ Dextrose (Ancef 2gm Premix) 2 gm STK-MED ONCE IV ; Start 05/17/19 at 08:00; Stop 05/19/19 at 13:18; Status DC Pantoprazole Sodium (PROTONIX VIAL for IV PUSH) 40 mg DAILYAC IVP Last administered on 05/20/19at 08:39; Start 05/19/19 at 17:00 Sodium Chloride 1,000 ml @ 100 mls/hr 1X ONCE IV Last administered on 05/19/19at 17:22; Start 05/19/19 at 17:15; Stop 05/20/19 at 03:14; Status DC Enoxaparin Sodium (Lovenox 120mg Syringe) 120 mg Q12HR SQ ; Start 05/20/19 at 21:00; Status UNV Aspirin (Ecotrin) 81 mg DAILYWBKFT PO Last administered on 05/20/19at 16:07; Start 05/20/19 at 14:00 Info (Anti-Coagulation Monitoring By Pharmacy) 1 each PRN DAILY PRN MC SEE COMMENTS; Start 05/20/19 at 15:30 Warfarin Sodium (Coumadin) 7.5 mg 1X WARF ONCE PO Last administered on 05/20/19at 18:42; Start 05/20/19 at 18:30; Stop 05/20/19 at 18:31; Status DC Warfarin Sodium (Coumadin Per Pharmacy) 1 each PRN DAILY PRN MC SEE COMMENTS; Start 05/20/19 at 18:30 Warfarin Sodium (Coumadin Per Physician) 1 each PRN DAILY PRN MC SEE COMMENTS; Start 05/20/19 at 18:30; Stop 05/20/19 at 18:26; Status DC Active Scripts Active Percocet 5-325 Mg Tablet (Oxycodone/Acetaminophen) 1 Each Tablet 1 Tab PO PRN Q4HRS PRN Doxycycline Hyclate 100 Mg Tablet 1 Tab PO BID Proair Hfa (Albuterol Sulfate) 8.5 Gm Hfa.aer.ad 1 Puff INH PRN Q6HRS PRN Coumadin (Warfarin Sodium) 4 Mg Tablet 1 Tab PO SEE ADMIN INSTRUCTIO 30 Days Take Thursday, Thursday, , and Thursday. Take 2mg tabs MWF F/u INR at [facility] Card[facility] clinic Lovenox (Enoxaparin Sodium) 120 Mg/0.8 Ml Disp.syrin 120 Mg SQ BID 5 Days Reported Multi Vitamin Daily (Multivitamin) 1 Each Tablet 1 Each PO DAILY Warfarin Sodium 2 Mg Tablet 2 Mg PO DAILY Senna (Sennosides) 8.6 Mg Tablet 17.2 Mg PO BID Potassium Chloride 10 Meq Tablet.er 10 Meq PO DAILY Oxycodone-Acetaminophen 5-325 (Oxycodone Hcl/Acetaminophen) 1 Each Tablet 1 Each PO PRN Q4HRS PRN Metoprolol Tartrate 25 Mg Tablet 12.5 Mg PO BID Lamotrigine 200 Mg Tablet 1 Tab PO BID Klonopin (Clonazepam) 1 Mg Tablet 1 Mg PO PRN BID PRN Gabapentin 600 Mg Tablet 300 Mg PO TID Furosemide 20 Mg Tablet 1 Tab PO DAILY Tricor (Fenofibrate Nanocrystallized) 145 Mg Tablet 1 Tab PO DAILY Zetia (Ezetimibe) 10 Mg Tablet 1 Tab PO DAILY Cymbalta (Duloxetine Hcl) 60 Mg Capsule. 90 Mg PO DAILY Atorvastatin Calcium 40 Mg Tablet 1 Tab PO DAILY Aspirin Ec (Aspirin) 81 Mg Tablet. 1 Tab PO DAILY Amiodarone Hcl 200 Mg Tablet 200 Mg PO DAILY Vitals/I & O Vital Sign - Last 24 Hours 05/20/19 05/20/19 05/20/19 05/20/19 07:00 08:00 08:43 08:43 Temp 98.8 98.8 Pulse 75 75 75 Resp 18 B/P (MAP) 140/77 (98) 140/77 140/77 Pulse Ox 94 O2 Delivery Room Air Room Air 05/20/19 05/20/19 05/20/19 05/20/19 11:00 15:08 18:42 19:42 Temp 98.1 98.4 98.1 98.4 Pulse 73 71 Resp 18 18 B/P (MAP) 153/79 (103) 171/91 (117) Pulse Ox 94 95 95 O2 Delivery Room Air Room Air Room Air Room Air 05/20/19 05/20/19 05/20/19 05/20/19 19:54 20:00 20:34 23:12 Temp 98.1 98.5 98.1 98.5 Pulse 78 72 Resp 18 16 B/P (MAP) 156/87 (110) 156/87 131/80 (97) Pulse Ox 92 92 O2 Delivery Room Air Room Air Room Air O2 Flow Rate 2.0 05/21/19 05/21/19 05/21/19 01:54 02:54 03:18 Pulse 80 Resp 20 B/P (MAP) Pulse Ox 90 O2 Delivery Room Air Room Air Room Air Intake and Output 05/20/19 05/20/19 05/21/19 14:59 22:59 06:59 Intake Total 600 ml 240 ml 240 ml Balance 600 ml 240 ml 240 ml ROHAN SHAH MD May 21, 2019 06:04
[2019-05-21] MEDS: PANTOPRAZOLE IV PUSH 40 MG VIAL. IVP SCH ×2 (07:30→08:58)
[2019-05-21 07:44] VITALS: BP 119/83
[2019-05-21 08:11] LABS: BASO % 0 % (0-3); EOS # 0.1 x10^3/uL (0.0-0.7); EOS % 2 % (0-3); HEMATOCRIT 36.6 % (39.0-53.0); HEMOGLOBIN 12.3 g/dL (13.0-17.5); LYMPH # 0.9 x10^3/uL (1.0-4.8); LYMPH % 17 % (24-48); MEAN CORPUSCULAR HEMOGLOBIN 31 pg (25-35); MEAN CORPUSCULAR HGB CONC 34 g/dL (31-37); MEAN CORPUSCULAR VOLUME 93 fL (79-100); MONO # 0.9 x10^3/uL (0.0-1.1); MONO % 17 % (0-9); NEUT # 3.3 x10^3/uL (1.8-7.7); NEUT % 63 % (31-73); PLATELET COUNT 181 x10^3/uL (140-400); RED BLOOD COUNT 3.94 x10^6/uL (4.30-5.70); RED CELL DISTRIBUTION WIDTH 14.3 % (11.5-14.5); WHITE BLOOD COUNT 5.3 x10^3/uL (4.0-11.0)
[2019-05-21 08:22] LABS: CALCIUM 9.4 mg/dL (8.5-10.1); CREATININE 0.8 mg/dL (0.7-1.3); GFR 96.1; MAGNESIUM 1.7 mg/dL (1.8-2.4); POTASSIUM 3.4 mmol/L (3.5-5.1)
[2019-05-21] MEDS: FUROSEMIDE 20 MG TABLET PO SCH (08:58)
[2019-05-21] MEDS: SENNOSIDES 8.6 MG TABLET PO SCH (08:58)
[2019-05-21] MEDS: EZETIMIBE 10 MG TABLET. PO SCH (08:58)
[2019-05-21] MEDS: DULoxetine HCL 30 MG CAPSULE.DR PO SCH (08:58)
[2019-05-21] MEDS: lamoTRIgine 100 MG TABLET. PO SCH (08:58)
[2019-05-21] MEDS: FENOFIBRATE,MICRONIZED 134 MG CAPSULE PO SCH (08:59)
[2019-05-21] MEDS: METOPROLOL TART IMMED RELEASE 25 MG TABLET. PO SCH (08:59)
[2019-05-21] MEDS: ASPIRIN ENTERIC COATED 81 MG TABLET.DR. PO SCH (08:59)
[2019-05-21] MEDS: GABAPENTIN 300 MG CAPSULE. PO SCH (09:00)
[2019-05-21] MEDS: POTASSIUM CHLORIDE 10 MEQ TABLET.ER. PO SCH (09:00)
[2019-05-21] MEDS: AMIODARONE HCL 200 MG TABLET. PO SCH (09:00)
[2019-05-21] MEDS: MULTIVITAMIN with MINERAL TABLET. PO SCH (09:00)
[2019-05-21] MEDS: ATORVASTATIN CALCIUM 40 MG TABLET. PO SCH (09:00)
[2019-05-21] MEDS ORDERED: PANT40TA77 PO (11:14)
--- NOTE | 2019-05-21 11:15 | DISCH ---
DISCHARGE INSTRUCTIONS Condition on Discharge Condition on Discharge: Stable Activity After Discharge Activity Instructions for Disc: Activity as tolerated Bathing Instructions: Shower-keep dressing dry Lifting Instructions after Dis: No heavy lifting, No pulling or pushing Exercise Instruction after Dis: Progress as tolerated Driving Instructions after Dis: Do not drive, Do not drive today Weight Bearing Status after Di: As tolerated Diet after Discharge Diet after Discharge: Cardiac Diet Texture: Regular Checks after Discharge Checks after discharge: Check blood press - daily, Check your Temp as needed, Weigh Yourself Daily Contacting the DR. after DC Call your doctor for: If your condition worsens ROHAN SHAH MD May 21, 2019 11:15
[2019-05-21 11:23] VITALS: BP 135/55
--- NOTE | 2019-05-21 11:57 | PDOC ---
Provider Note Provider Note LUCA hernandez incision c/d f/u with Dr Jacobo DUARTE,JENNIFER Josue MD May 21, 2019 11:57
--- NOTE | 2019-05-21 12:23 | NUR ---
Discharge Note: LADARIUS ELLIS Discharge instructions and discharge home medications reviewed with Patient and a copy given. All questions have been answered and understanding verbalized. The following instructions and handouts were given: follow up instructions, prescrptions sent to pharmacy with medication education Discontinued lines and drains: 20 gauge right AC, tip intact. patient tolerated well. Patient discharged to home with self care via family.
== END 2019-05-21 12:45 | disposition home or self-care (01) | DRG 353 ==
LOC: ER 12:48 → 4 SOUTHEST 16:55 → 2 SOUTH 20:09 → 6 SOUTH 05-18 16:44
PROVIDERS: ADMIT Internal Medicine; ATTEND Internal Medicine
PROC: 30233K1 Transfusion of Nonautologous Frozen Plasma into Peripheral Vein, Percutaneous Approach (ICD-10-PCS; 2019-05-16)
PROC: 0DBU0ZZ Excision of Omentum, Open Approach (ICD-10-PCS; 2019-05-17)
PROC: 0WUF0JZ Supplement Abdominal Wall with Synthetic Substitute, Open Approach (ICD-10-PCS; principal; 2019-05-17 07:30)
DX: K42.0 Umbilical hernia with obstruction, without gangrene (principal); J96.01 Acute respiratory failure with hypoxia; K55.019 Acute (reversible) ischemia of small intestine, extent unspecified; I13.0 Hypertensive heart and chronic kidney disease with heart failure and stage 1 through stage 4 chronic kidney disease, or unspecified chronic kidney disease; I42.1 Obstructive hypertrophic cardiomyopathy; I50.32 Chronic diastolic (congestive) heart failure; E78.00 Pure hypercholesterolemia, unspecified; E78.5 Hyperlipidemia, unspecified; E83.52 Hypercalcemia; F17.210 Nicotine dependence, cigarettes, uncomplicated; F31.9 Bipolar disorder, unspecified; F41.9 Anxiety disorder, unspecified; I25.10 Atherosclerotic heart disease of native coronary artery without angina pectoris; I48.0 Paroxysmal atrial fibrillation; N18.9 Chronic kidney disease, unspecified; Z79.01 Long term (current) use of anticoagulants; T45.515A Adverse effect of anticoagulants, initial encounter; Z95.0 Presence of cardiac pacemaker; Z82.49 Family history of ischemic heart disease and other diseases of the circulatory system; Z90.49 Acquired absence of other specified parts of digestive tract; Z95.1 Presence of aortocoronary bypass graft; Z96.659 Presence of unspecified artificial knee joint; Z95.2 Presence of prosthetic heart valve; Z71.6 Tobacco abuse counseling; Y92.89 Other specified places as the place of occurrence of the external cause
CPT/HCPCS: 36415; 36430; 71045; 74177; 80048; 80053; 80307; 82553; 83690; 83735; 83880; 84443; 84484; 85007; 85025; 85610; 86850; 86900; 86901; 86927; 88304; 88307; 90471; 90686; 93005; 94640; 96374; 96375; 96376; C1781; C9113; G0480; J0330; J0696; J1100; J1170; J1650; J1885; J2001; J2250; J2270; J2370; J2405; J2704; J2710; J3010; J3430; J3490; J7030; J7120; J7620; P9017; Q9967; 99285-25; G0378

== ENCOUNTER 2019-05-26 06:42 | Emergency (ER) | payer MEDICARE, OTHER ==
[~2019-05-26] VITALS: Ht 170.2 cm; Wt 122.5 kg
[~2019-05-26 06:42] MED LIST changes: +PANT40TA77 PO; -POTA10TA12 PO; +POTASSIUM CHLO10 ME1 PO
--- NOTE | 2019-05-26 07:28 | PHYS DOC ---
Past Medical History Past Medical History: CAD, High Cholesterol, Hypertension Additional Past Medical Histor: hernia Past Surgical History: Appendectomy, Coronary Bypass Surgery, Other Additional Past Surgical Histo: eye surgery, Hernia Alcohol Use: Heavy Drug Use: None Adult General Chief Complaint Chief Complaint: POST-OP PROBLEM HPI HPI Patient is a 69-year-old male who presents with complaint of postoperative bleeding. Patient states that his dressing from recent surgery was bloody and when he removed it, he states that a large amount of bloody fluid ran down his a bdomen. He states that it continued to leak as he walked through the house. He denies any significant pain. He denies any dizziness.[] Review of Systems Review of Systems Constitutional: Denies fever or chills [] Respiratory: Denies cough or shortness of breath [] Cardiovascular: No additional information not addressed in HPI [] GI: Denies abdominal pain, nausea, vomiting or diarrhea [] Integument: Positive skin erosion around the umbilicus[] Neurologic: Denies headache, focal weakness or sensory changes [] All other systems were reviewed and found to be within normal limits, except as documented in this note. Allergies Allergies Allergies Coded Allergies Type Severity Reaction Last Updated Verified No Known Drug Allergies 05/17/19 No Physical Exam Physical Exam Constitutional: Well developed, well nourished, no acute distress, non-toxic appearance. [] HENT: Normocephalic, atraumatic, bilateral external ears normal, oropharynx moist, no oral exudates, nose normal. [] Eyes: PERRLA, EOMI, conjunctiva normal, no discharge. [] Neck: Normal range of motion, no tenderness, supple. [] Cardiovascular: Regular rate and rhythm[] Lungs & Thorax: Bilateral breath sounds clear to auscultation [] Abdomen: Bowel sounds normal, soft, with mild. Incisional tenderness. There is significant skin breakdown around the tissue overlying umbilicus with a small pinhole-sized opening with return of serosanguineous fluid with pressure over umbilicus [] Skin: Warm, dry, no erythema, no rash. [] Extremities: No tenderness, no cyanosis, no clubbing, ROM intact. [] Neurologic: Alert and oriented X 3, no focal deficits noted. [] Current Patient Data Vital Signs Vital Signs Date Time Temp Pulse Resp B/P (MAP) Pulse Ox O2 Delivery O2 Flow Rate FiO2 05/26/19 06:56 98.0 76 20 146/79 (101) 98 Room Air 98.0 Lab Values Laboratory Tests Test 05/26/19 07:30 White Blood Count 8.0 x10^3/uL (4.0-11.0) Red Blood Count 3.98 x10^6/uL (4.30-5.70) L Hemoglobin 12.3 g/dL (13.0-17.5) L Hematocrit 36.0 % (39.0-53.0) L Mean Corpuscular Volume 91 fL (79-100) Mean Corpuscular Hemoglobin 31 pg (25-35) Mean Corpuscular Hemoglobin Concent 34 g/dL (31-37) Red Cell Distribution Width 14.3 % (11.5-14.5) Platelet Count 299 x10^3/uL (140-400) Neutrophils (%) (Auto) 72 % (31-73) Lymphocytes (%) (Auto) 16 % (24-48) L Monocytes (%) (Auto) 10 % (0-9) H Eosinophils (%) (Auto) 2 % (0-3) Basophils (%) (Auto) 1 % (0-3) Neutrophils # (Auto) 5.7 x10^3/uL (1.8-7.7) Lymphocytes # (Auto) 1.2 x10^3/uL (1.0-4.8) Monocytes # (Auto) 0.8 x10^3/uL (0.0-1.1) Eosinophils # (Auto) 0.2 x10^3/uL (0.0-0.7) Basophils # (Auto) 0.1 x10^3/uL (0.0-0.2) Prothrombin Time 41.4 SEC (11.7-14.0) H Prothrombin Time INR 4.3 (0.8-1.1) H Laboratory Tests 05/26/19 07:30 EKG EKG [] Radiology/Procedures Radiology/Procedures [] Course & Med Decision Making Course & Med Decision Making Pertinent Labs and Imaging studies reviewed. (See chart for details) Patient moved to room upon arrival was evaluated by your medical staff. Small amount of pressure was applied in area of umbilicus with return of approximately 200 mL of serosanguineous fluid. Patient's case discussed with Dr. Centeno who performed the surgery and he does not recommend any further intervention at this time. He indicates that this patient has a history of liver failure with chronic a sideways and he indicates that with the ascites fluid, this will continue until area heals. A bulky dressing was applied over wound and CBC and an INR have been obtained. Dragon Disclaimer Dragon Disclaimer This electronic medical record was generated, in whole or in part, using a voice recognition dictation system. Departure Departure Impression: Primary Impression: Postoperative bleeding from incision Disposition: 01 HOME, SELF-CARE Condition: STABLE Referrals: UNKNOWN PCP NAME (PCP) ANGELA CORTES MD Patient Instructions: Postsurgical Bleeding Additional Instructions: Hold Coumadin for the next 24 hours. RONN DC Jr. DO May 26, 2019 07:28
[2019-05-26 07:42] LABS: BASO # 0.1 x10^3/uL (0.0-0.2); BASO % 1 % (0-3); EOS # 0.2 x10^3/uL (0.0-0.7); EOS % 2 % (0-3); HEMOGLOBIN 12.3 g/dL (13.0-17.5); LYMPH # 1.2 x10^3/uL (1.0-4.8); LYMPH % 16 % (24-48); MEAN CORPUSCULAR HEMOGLOBIN 31 pg (25-35); MEAN CORPUSCULAR HGB CONC 34 g/dL (31-37); MEAN CORPUSCULAR VOLUME 91 fL (79-100); MONO # 0.8 x10^3/uL (0.0-1.1); MONO % 10 % (0-9); NEUT # 5.7 x10^3/uL (1.8-7.7); NEUT % 72 % (31-73); PLATELET COUNT 299 x10^3/uL (140-400); RED BLOOD COUNT 3.98 x10^6/uL (4.30-5.70); RED CELL DISTRIBUTION WIDTH 14.3 % (11.5-14.5)
[2019-05-26 07:54] LABS: PROTHROMBIN TIME PATIENT 41.4 SEC (11.7-14.0)
[2019-05-26 08:30] VITALS: BP 140/97
== END 2019-05-26 08:32 | disposition home or self-care (01) ==
LOC: ER 06:42
DX: K91.840 Postprocedural hemorrhage of a digestive system organ or structure following a digestive system procedure (principal); I10 Essential (primary) hypertension; E78.00 Pure hypercholesterolemia, unspecified; I25.10 Atherosclerotic heart disease of native coronary artery without angina pectoris; Z90.89 Acquired absence of other organs; Z95.1 Presence of aortocoronary bypass graft; Z98.890 Other specified postprocedural states; Y83.8 Other surgical procedures as the cause of abnormal reaction of the patient, or of later complication, without mention of misadventure at the time of the procedure
CPT/HCPCS: 36415; 85025; 85610; 99284

== ENCOUNTER 2019-06-01 19:59 | Emergency (ER) | payer MEDICARE, OTHER ==
[~2019-06-01] VITALS: Ht 170.2 cm; Wt 122.5 kg
[2019-06-01 20:26] VITALS: BP 173/81
--- NOTE | 2019-06-01 21:05 | PHYS DOC ---
Past Medical History Past Medical History: CAD, High Cholesterol, Hypertension Additional Past Medical Histor: hernia (MONTRELL WOLF APRN) Past Surgical History: Appendectomy, Coronary Bypass Surgery, Other Additional Past Surgical Histo: eye surgery, Hernia (MONTRELL WOLF APRN) Alcohol Use: Heavy Drug Use: None (MONTRELL WOLF APRN) Attending Signature I have participated in the care of this patient and I have reviewed and agree with all pertinent clinical information above including history, exam, and recommendations. (LONI AYALA MD) Adult General Chief Complaint Chief Complaint: WOUND CHECK HPI HPI Patient is a 69 year old male who presents for wound check. The patient states that he was seen a week ago on [facility] and his wound was repacked and states that he does want to have it checked again. He states that he originally had a hernia surgery [address] Mccord. He has not had a follow-up appointment with Dr. Mccord does not know of any follow-up appointments. Denies any pain, denies any fever. (MONTRELL WOLF APRN) Review of Systems Review of Systems Constitutional: Denies fever or chills [] Eyes: Denies change in visual acuity, redness, or eye pain [] HENT: Denies nasal congestion or sore throat [] Respiratory: Denies cough or shortness of breath [] Cardiovascular: No additional information not addressed in HPI [] GI: Reports hernia wound to umbilical area. : Denies dysuria or hematuria [] Musculoskeletal: Denies back pain or joint pain [] Integument: Denies rash or skin lesions [] Neurologic: Denies headache, focal weakness or sensory changes [] Endocrine: Denies polyuria or polydipsia [] Complete systems were reviewed and found to be within normal limits, except as documented in this note. (MONTRELL WOLF APRN) Allergies Allergies Allergies Coded Allergies Type Severity Reaction Last Updated Verified No Known Drug Allergies 05/17/19 No (LONI AYALA MD) Physical Exam Physical Exam Constitutional: Well developed, well nourished, no acute distress, non-toxic appearance. [] HENT: Normocephalic, atraumatic, bilateral external ears normal, oropharynx moist, no oral exudates, nose normal. [] Eyes: PERRLA, EOMI, conjunctiva normal, no discharge. [] Neck: Normal range of motion, no tenderness, supple, no stridor. [] Abdomen: Bowel sounds normal, soft, no tenderness, no masses, no pulsatile masses. Wound from hernia surgery has no erythema, or drainage. Non tender. Skin: Warm, dry, no erythema, no rash. [] Back: No tenderness, no CVA tenderness. [] Extremities: No tenderness, no cyanosis, no clubbing, ROM intact, no edema. [] Neurologic: Alert and oriented X 3, normal motor function, normal sensory function, no focal deficits noted. [] Psychologic: Affect normal, judgement normal, mood normal. [] (MONTRELL WOLF APRN) Current Patient Data Vital Signs Vital Signs Date Time Temp Pulse Resp B/P (MAP) Pulse Ox O2 Delivery O2 Flow Rate FiO2 06/01/19 20:26 98.5 75 22 173/81 (111) 97 Room Air 98.5 (LONI AYALA MD) EKG EKG [] (MONTRELL WOLF APRN) Radiology/Procedures Radiology/Procedures [] (MONTRELL WOLF APRN) Course & Med Decision Making Course & Med Decision Making Pertinent Labs and Imaging studies reviewed. (See chart for details) Discussed with patient the need for his surgeon to look at the wound and be conducting wound check follow-up appointment. The wound looks nonemergent this time. Offered to have the wound redressed in the emergency Department. Patient declined. Patient states that he has materials to dress and take care of the wound at home. (MONTRELL WOLF APRN) Dragon Disclaimer Dragon Disclaimer This electronic medical record was generated, in whole or in part, using a voice recognition dictation system. (MONTRELL WOLF APRN) Departure Departure Impression: Primary Impression: Visit for wound check Disposition: HOME, SELF-CARE Condition: STABLE Referrals: UNKNOWN PCP NAME (PCP) HARRIET MCCORD MD Patient Instructions: Wound Check Additional Instructions: Thank you for visiting [facility]. We appreciate you trusting us with your care. If any additional problems come up don't hesitate to return to visit us. Please follow up with your primary care provider so they can plan additional care if needed and know about the problem that you had. If symptoms worsen come back to the Emergency Department. Any concerning symptoms that start such as chest pain, shortness of air, weakness or numbness on one side of the body, running high fevers or any other concerning symptoms return to the ER. Please follow up with Dr. Mccord for management of post-surgical care. MONTRELL WOLF APRN Jun 01, 2019 21:05 LONI AYALA MD Jun 02, 2019 03:45
== END 2019-06-01 21:15 | disposition home or self-care (01) ==
LOC: ER 19:59
DX: Z48.01 Encounter for change or removal of surgical wound dressing (principal); I10 Essential (primary) hypertension; E78.00 Pure hypercholesterolemia, unspecified; F10.20 Alcohol dependence, uncomplicated; Y90.9 Presence of alcohol in blood, level not specified; I25.10 Atherosclerotic heart disease of native coronary artery without angina pectoris; Z90.89 Acquired absence of other organs; Z98.890 Other specified postprocedural states; Z95.1 Presence of aortocoronary bypass graft
CPT/HCPCS: 99281

== ENCOUNTER 2019-11-08 15:08 | Emergency (ER) | payer MEDICARE, OTHER ==
[~2019-11-08] VITALS: Ht 170.2 cm; Wt 127.0 kg
[~2019-11-08 15:08] MED LIST changes: +SENN-182 PO; -SENN-80 PO
[2019-11-08 15:56] LABS: BASO % 1 % (0-3); EOS # 0.2 x10^3/uL (0.0-0.7); EOS % 2 % (0-3); HEMATOCRIT 41.1 % (39.0-53.0); HEMOGLOBIN 13.9 g/dL (13.0-17.5); LYMPH # 1.3 x10^3/uL (1.0-4.8); LYMPH % 18 % (24-48); MEAN CORPUSCULAR HEMOGLOBIN 31 pg (25-35); MEAN CORPUSCULAR HGB CONC 34 g/dL (31-37); MEAN CORPUSCULAR VOLUME 91 fL (79-100); MONO # 0.5 x10^3/uL (0.0-1.1); MONO % 8 % (0-9); NEUT # 5.1 x10^3/uL (1.8-7.7); NEUT % 72 % (31-73); PLATELET COUNT 188 x10^3/uL (140-400); RED BLOOD COUNT 4.51 x10^6/uL (4.30-5.70); RED CELL DISTRIBUTION WIDTH 14.5 % (11.5-14.5); WHITE BLOOD COUNT 7.1 x10^3/uL (4.0-11.0)
[2019-11-08 16:02] LABS: PROTHROMBIN TIME PATIENT 73.4 SEC (11.7-14.0)
[2019-11-08 16:29] LABS: CREATININE 0.9 mg/dL (0.7-1.3); GFR 83.9; POTASSIUM 4.3 mmol/L (3.5-5.1)
[2019-11-08 16:42] LABS: ALBUMIN 3.5 g/dL (3.4-5.0); ALBUMIN/GLOBULIN RATIO 1.1 (1.0-1.7); TOTAL BILIRUBIN 0.3 mg/dL (0.2-1.0); TOTAL PROTEIN 6.7 g/dL (6.4-8.2)
--- NOTE | 2019-11-08 16:43 | PHYS DOC ---
Past Medical History Past Medical History: CAD, High Cholesterol, Hypertension Additional Past Medical Histor: hernia Past Surgical History: Appendectomy, Coronary Bypass Surgery, Knee Replacement, Other Additional Past Surgical Histo: eye surgery, Hernia Smoking Status: Former Smoker Alcohol Use: None Drug Use: None General Adult EDM: Chief Complaint: ABNORMAL LABS HPI: HPI: Patient is a 69 year old male with history of CAD on Coumadin 6 mg during the week and 8 mg on the weekends who presents to the ED today to have his INR checked. Patient states he did an INR on Thursday this week and he called him today letting him know his INR was 12.5. Patient denies any bleeding anywhere. Review of Systems: Review of Systems: Constitutional: Denies fever or chills. [] Eyes: Denies change in visual acuity. [] HENT: Denies nasal congestion or sore throat. [] Respiratory: Denies cough or shortness of breath. [] Cardiovascular: Visit for INR check. Denies chest pain or edema. [] GI: Denies abdominal pain, nausea, vomiting, bloody stools or diarrhea. [] : Denies dysuria. [] Musculoskeletal: Denies back pain or joint pain. [] Integument: Denies rash. [] Neurologic: Denies headache, focal weakness or sensory changes. [] Psychiatric: Denies depression or anxiety. [] Heart Score: Risk Factors: Risk Factors: DM, Current or recent (<one month) smoker, HTN, HLP, family history of CAD, obesity. Risk Scores: Score 0 - 3: 2.5% MACE over next 6 weeks - Discharge Home Score 4 - 6: 20.3% MACE over next 6 weeks - Admit for Clinical Observation Score 7 - 10: 72.7% MACE over next 6 weeks - Early Invasive Strategies Allergies: Allergies: Allergies Coded Allergies Type Severity Reaction Last Updated Verified No Known Drug Allergies 05/17/19 No Physical Exam: PE: Constitutional: Well developed, well nourished, no acute distress, non-toxic appearance. [] HENT: Normocephalic, atraumatic, bilateral external ears normal, oropharynx moist, no oral exudates, nose normal. [] Eyes: PERRLA, EOMI, conjunctiva normal, no discharge. [] Neck: Normal range of motion, no tenderness, supple, no stridor. [] Cardiovascular:Heart rate regular rhythm, no murmur [] Lungs & Thorax: Bilateral breath sounds clear to auscultation [] Abdomen: Bowel sounds normal, soft, no tenderness, no masses, no pulsatile masses. [] Skin: Warm, dry, no erythema, no rash. [] Back: No tenderness, no CVA tenderness. [] Extremities: No tenderness, no cyanosis, no clubbing, ROM intact, no edema. [] Neurologic: Alert and oriented X 3, normal motor function, normal sensory function, no focal deficits noted. [] Psychologic: Affect normal, judgement normal, mood normal. [] Current Patient Data: Labs: Laboratory Tests Test 11/08/19 15:41 White Blood Count 7.1 x10^3/uL (4.0-11.0) Red Blood Count 4.51 x10^6/uL (4.30-5.70) Hemoglobin 13.9 g/dL (13.0-17.5) Hematocrit 41.1 % (39.0-53.0) Mean Corpuscular Volume 91 fL (79-100) Mean Corpuscular Hemoglobin 31 pg (25-35) Mean Corpuscular Hemoglobin Concent 34 g/dL (31-37) Red Cell Distribution Width 14.5 % (11.5-14.5) Platelet Count 188 x10^3/uL (140-400) Neutrophils (%) (Auto) 72 % (31-73) Lymphocytes (%) (Auto) 18 % (24-48) L Monocytes (%) (Auto) 8 % (0-9) Eosinophils (%) (Auto) 2 % (0-3) Basophils (%) (Auto) 1 % (0-3) Neutrophils # (Auto) 5.1 x10^3/uL (1.8-7.7) Lymphocytes # (Auto) 1.3 x10^3/uL (1.0-4.8) Monocytes # (Auto) 0.5 x10^3/uL (0.0-1.1) Eosinophils # (Auto) 0.2 x10^3/uL (0.0-0.7) Basophils # (Auto) 0.0 x10^3/uL (0.0-0.2) Prothrombin Time 73.4 SEC (11.7-14.0) H Prothrombin Time INR 8.6 (0.8-1.1) *H Activated Partial Thromboplast Time 68 SEC (24-38) H Sodium Level 141 mmol/L (136-145) Potassium Level 4.3 mmol/L (3.5-5.1) Chloride Level 105 mmol/L (98-107) Carbon Dioxide Level 30 mmol/L (21-32) Anion Gap 6 (6-14) Blood Urea Nitrogen 23 mg/dL (8-26) Creatinine 0.9 mg/dL (0.7-1.3) Estimated GFR (Cockcroft-Gault) 83.9 BUN/Creatinine Ratio 26 (6-20) H Glucose Level 98 mg/dL (70-99) Calcium Level 9.0 mg/dL (8.5-10.1) Total Bilirubin Pending Aspartate Amino Transferase (AST) Pending Alanine Aminotransferase (ALT) Pending Alkaline Phosphatase Pending Total Protein Pending Albumin Pending Albumin/Globulin Ratio Pending Laboratory Tests 11/08/19 15:41 Laboratory Tests 11/08/19 15:41 Vital Signs: Vital Signs Date Time Temp Pulse Resp B/P (MAP) Pulse Ox O2 Delivery O2 Flow Rate FiO2 11/08/19 15:18 98.3 73 20 188/93 (124) 97 Room Air 98.3 EKG: EKG: [] Radiology/Procedures: Radiology/Procedures: [] Course & Med Decision Making: Course & Med Decision Making Pertinent Labs and Imaging studies reviewed. (See chart for details) This is a 69-year-old male patient on Coumadin for CAD presenting to the ED today to have his INR checked, he had the INR checked on Thursday which was 12.5. Denies any bleeding. INR in the ED is 8.5, was given vitamin K p.o. x1. He was instructed to hold his Coumadin today. He has a boat rental clerk at [facility] who has been following up with his INR. Requested him to call the boat rental clerk tomorrow and they will recheck to see where his INR is. His hemoglobin and hematocrit are normal. Dragon Disclaimer: Dragon Disclaimer: This electronic medical record was generated, in whole or in part, using a voice recognition dictation system. Departure Departure Impression: Primary Impression: Elevated INR Disposition: 01 HOME, SELF-CARE Condition: STABLE Referrals: UNKNOWN PCP NAME (PCP) follow up with your cardilogy as soon as possible Patient Instructions: Prothrombin Time, International Normalized Ratio Additional Instructions: Your INR is 8.9 today. Please do not take coumadin today Please call your boat rental clerk tomorrow and have them repeat INR Please come to the ED with any worsening symptoms especially rectal bleeding, nose bleeding, blood in urine or any unusual bleeding or bruising EVER CHRISTINA APRN November 08, 2019 16:43
[2019-11-08] MEDS ORDERED: PHYTONADIONE 10 MG/ML ORAL SOLUTION. PO ONE (16:45)
[2019-11-08 16:46] VITALS: BP 158/99
== END 2019-11-08 17:04 | disposition home or self-care (01) ==
LOC: ER 15:08
DX: R79.1 Abnormal coagulation profile (principal); I11.9 Hypertensive heart disease without heart failure; E78.00 Pure hypercholesterolemia, unspecified; Z90.89 Acquired absence of other organs; Z98.890 Other specified postprocedural states; Z87.891 Personal history of nicotine dependence
CPT/HCPCS: 36415; 80053; 85025; 85610; 85730; 99283

== ENCOUNTER 2020-03-21 16:01 | Emergency (ER) | payer MEDICARE, OTHER ==
[~2020-03-21] VITALS: Ht 170.2 cm; Wt 127.0 kg
[~2020-03-21 16:01] MED LIST changes: -ASPI-612 PO; +ASPI-886 PO
--- NOTE | 2020-03-21 16:12 | PHYS DOC ---
Past Medical History Past Medical History: CAD, High Cholesterol, Hypertension Additional Past Medical Histor: hernia Past Surgical History: Appendectomy, Coronary Bypass Surgery, Knee Replacement, Other Additional Past Surgical Histo: eye surgery, Hernia Smoking Status: Former Smoker Alcohol Use: None Drug Use: None General Adult EDM: Chief Complaint: SHORTNESS OF BREATH HPI: HPI: 69-year-old male significant history of hypertension, hyperlipidemia, congestive heart failure, CAD s/p CABG, valve replacement on coumadin, p/w a 1 day history of dyspnea, worsened with exertion. Also reports some recent atraumatic scattered bruising throughout, currently on Coumadin for prior history of valve replacement. No chest pain, abdominal pain, URI symptoms, nausea vomiting or di arrhea. Review of Systems: Review of Systems: Gen: No fever, chills. Eyes: No blurred vision, diplopia. ENT: No nasal congestion, sore throat. CV: No CP, palpitations. Resp. No cough. Reports dyspnea on exertion. GI: No abd pain, N/V. : No dysuria, hematuria. Neuro: No BRYAN, dizziness, weakness. MSK: No myalgia, arthralgia, back pain. Skin: Reports scattered atraumatic ecchymoses of varying age. Heart Score: Risk Factors: Risk Factors: DM, Current or recent (<one month) smoker, HTN, HLP, family history of CAD, obesity. Risk Scores: Score 0 - 3: 2.5% MACE over next 6 weeks - Discharge Home Score 4 - 6: 20.3% MACE over next 6 weeks - Admit for Clinical Observation Score 7 - 10: 72.7% MACE over next 6 weeks - Early Invasive Strategies Allergies: Allergies: Allergies Coded Allergies Type Severity Reaction Last Updated Verified No Known Drug Allergies 05/17/19 No Physical Exam: PE: Gen: NAD. Well nourished. Head: NC/AT. Eyes: No scleral icterus. No conjunctival injection. ENT: MMM. Posterior OP clear. Neck: Supple. NT. CV: RRR. Peripheral pulses intact. Resp: CTAB. Abd: Soft. NT. ND. MSK: No peripheral cyanosis. No edema. No calf tenderness or asymmetry. Neuro: A&Ox3. Strength & sensation grossly intact throughout. GCS 15. Skin. Warm. Dry. Psych: Appropriate mood & affect. Current Patient Data: Labs: Laboratory Tests Test 9/23/20 16:30 White Blood Count 8.4 x10^3/uL (4.0-11.0) Red Blood Count 3.29 x10^6/uL (4.30-5.70) Hemoglobin 10.4 g/dL (13.0-17.5) Hematocrit 30.0 % (39.0-53.0) Mean Corpuscular Volume 91 fL (79-100) Mean Corpuscular Hemoglobin 32 pg (25-35) Mean Corpuscular Hemoglobin Concent 35 g/dL (31-37) Red Cell Distribution Width 13.5 % (11.5-14.5) Platelet Count 191 x10^3/uL (140-400) Neutrophils (%) (Auto) 74 % (31-73) Lymphocytes (%) (Auto) 14 % (24-48) Monocytes (%) (Auto) 9 % (0-9) Eosinophils (%) (Auto) 2 % (0-3) Basophils (%) (Auto) 1 % (0-3) Neutrophils # (Auto) 6.2 x10^3/uL (1.8-7.7) Lymphocytes # (Auto) 1.2 x10^3/uL (1.0-4.8) Monocytes # (Auto) 0.7 x10^3/uL (0.0-1.1) Eosinophils # (Auto) 0.2 x10^3/uL (0.0-0.7) Basophils # (Auto) 0.1 x10^3/uL (0.0-0.2) Prothrombin Time 105.0 SEC (11.7-14.0) Prothromb Time International Ratio 13.3 (0.8-1.1) Activated Partial Thromboplast Time > 150 SEC (24-38) Sodium Level 141 mmol/L (136-145) Chloride Level 105 mmol/L (98-107) Carbon Dioxide Level 26 mmol/L (21-32) Anion Gap 10 (6-14) Blood Urea Nitrogen 18 mg/dL (8-26) Estimated GFR (Cockcroft-Gault) 83.7 BUN/Creatinine Ratio 20 (6-20) Glucose Level 105 mg/dL (70-99) Calcium Level 8.7 mg/dL (8.5-10.1) Total Bilirubin 0.6 mg/dL (0.2-1.0) Aspartate Amino Transf (AST/SGOT) 108 U/L (15-37) Alkaline Phosphatase 59 U/L (46-116) Troponin I Quantitative 0.023 ng/mL (0.000-0.055) Total Protein 6.5 g/dL (6.4-8.2) Albumin 3.4 g/dL (3.4-5.0) Albumin/Globulin Ratio 1.1 (1.0-1.7) EKG: EKG: EKG at 1618. Sinus rhythm. Heart rate 75. Left bundle branch block morphology. Diffuse nonspecific STT changes. No STEMI criteria met. Interpreted by me. Radiology/Procedures: Radiology/Procedures: PORTABLE CHEST 1V History: Shortness of air Comparison: May 16, 2019 Findings: Single view of the chest is submitted. There again has been a median sternotomy. There is again dual lead right electronic cardiac device. Pericardial cardiac silhouette is similar. There is no pneumothorax or significant dependent pleural fluid. There is some opacity along the left heart border as seen previously, possible component of epicardial fat. No new convincing infiltrate is identified by radiograph. Impression: 1. There is no convincing radiographic evidence of acute cardiopulmonary disease. Electronically signed by: Pierce Santamaria MD (03/21/2020 4:40 PM) [id number] Course & Med Decision Making: Course & Med Decision Making Pertinent Labs and Imaging studies reviewed. (See chart for details) In summary, 70-year-old male who presents for evaluation of recent scattered atraumatic ecchymoses, found to have a supratherapeutic INR of 13. No bleeding sequelae otherwise without headache, chest pain, abdominal pain. He also reports some recent dyspnea over the last 24 hours or so. Chest x-ray is clear. Troponin negative. EKG shows no acute injury pattern. Received oral vitamin K 5 mg, with plan to hold coumadin given absence of serious bleeding per [employer] protocol. I offered admission for further monitoring, though the patient declines, understanding the risks of leaving. Patient is of sound mind. I welcomed the patient to return at any time if he changes his mind, or develops new/worsening symptoms. I advised holding coumadin for 2 days and having his INR rechecked prior to reinitiating his coumadin. Dragon Disclaimer: Dragon Disclaimer: This electronic medical record was generated, in whole or in part, using a voice recognition dictation system. Departure Departure Impression: Primary Impression: Dyspnea Additional Impression: Supratherapeutic INR Disposition: 01 HOME, SELF-CARE Condition: STABLE Referrals: UNKNOWN PCP NAME (PCP) Patient Instructions: Prothrombin Time, International Normalized Ratio, Shortness of Breath, [id number] Additional Instructions: Please return to the ED immediately if you develop new or worsening symptoms, or if you sustain a fall or injury. You received Vitamin K today for your elevated INR. Please hold the coumadin for the next 2 days and have your INR rechecked thereafter. You may require dose adjustment per discretion of your prescribing physician. Justicifation of Admission Dx: Justifications for Admission: Justification of Admission Dx: N/A CECILE LOPEZ DO Mar 21, 2020 16:12
[2020-03-21 16:41] LABS: BASO # 0.1 x10^3/uL (0.0-0.2); BASO % 1 % (0-3); EOS # 0.2 x10^3/uL (0.0-0.7); EOS % 2 % (0-3); HEMOGLOBIN 10.4 g/dL (13.0-17.5); LYMPH # 1.2 x10^3/uL (1.0-4.8); LYMPH % 14 % (24-48); MEAN CORPUSCULAR HEMOGLOBIN 32 pg (25-35); MEAN CORPUSCULAR HGB CONC 35 g/dL (31-37); MEAN CORPUSCULAR VOLUME 91 fL (79-100); MONO # 0.7 x10^3/uL (0.0-1.1); MONO % 9 % (0-9); NEUT # 6.2 x10^3/uL (1.8-7.7); NEUT % 74 % (31-73); PLATELET COUNT 191 x10^3/uL (140-400); RED BLOOD COUNT 3.29 x10^6/uL (4.30-5.70); RED CELL DISTRIBUTION WIDTH 13.5 % (11.5-14.5); WHITE BLOOD COUNT 8.4 x10^3/uL (4.0-11.0)
--- NOTE | 2020-03-21 16:43 | RAD ---
PORTABLE CHEST 1V History: Shortness of air Comparison: May 16, 2019 Findings: Single view of the chest is submitted. There again has been a median sternotomy. There is again dual lead right electronic cardiac device. Pericardial cardiac silhouette is similar. There is no pneumothorax or significant dependent pleural fluid. There is some opacity along the left heart border as seen previously, possible component of epicardial fat. No new convincing infiltrate is identified by radiograph. Impression: 1. There is no convincing radiographic evidence of acute cardiopulmonary disease. Electronically signed by: Pierce Santamaria MD (03/21/2020 4:40 PM) [id number]
[2020-03-21 16:58] LABS: PARTIAL THROMBOPLASTIN TIME > 150 SEC (24-38)
[2020-03-21 17:07] LABS: CALCIUM 8.7 mg/dL (8.5-10.1); CREATININE 0.9 mg/dL (0.7-1.3); GFR 83.7; POTASSIUM 3.8 mmol/L (3.5-5.1)
[2020-03-21 17:14] LABS: ALBUMIN 3.4 g/dL (3.4-5.0); ALBUMIN/GLOBULIN RATIO 1.1 (1.0-1.7); TOTAL BILIRUBIN 0.6 mg/dL (0.2-1.0); TOTAL PROTEIN 6.5 g/dL (6.4-8.2)
--- NOTE | 2020-03-21 17:37 | EKG ---
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
[2020-03-21] MEDS ORDERED: PHYTONADIONE 10 MG/ML ORAL SOLUTION. PO ONE (17:45)
[2020-03-21 17:46] VITALS: BP 170/116
== END 2020-03-21 18:30 | disposition home or self-care (01) ==
LOC: ER 16:01
DX: R06.00 Dyspnea, unspecified (principal); R20.8 Other disturbances of skin sensation; I11.9 Hypertensive heart disease without heart failure; E78.00 Pure hypercholesterolemia, unspecified; Z90.89 Acquired absence of other organs; Z98.890 Other specified postprocedural states; Z87.891 Personal history of nicotine dependence
CPT/HCPCS: 36415; 71045; 80053; 83735; 83880; 84484; 85025; 85610; 85730; 93005; 99285

== ENCOUNTER 2020-04-17 02:37 | Inpatient (IN) | payer MEDICARE, OTHER ==
[2020-04-17] VITALS (11 sets, daily range): BP systolic 107–182; BP diastolic 69–118
[~2020-04-17] VITALS: Ht 170.2 cm; Wt 125.0 kg
[~2020-04-17 02:37] MED LIST changes: -AMIO200T4 PO; +AMIO200T6 PO; +CARV3.123 PO; +METO50TA4 PO; +SPIR25TA5 PO; +WARF4TAB64 PO; +WARF6TAB47 PO
[2020-04-17 03:17] LABS: BASO % 0 % (0-3); EOS # 0.1 x10^3/uL (0.0-0.7); EOS % 1 % (0-3); HEMATOCRIT 39.5 % (39.0-53.0); LYMPH # 0.9 x10^3/uL (1.0-4.8); LYMPH % 10 % (24-48); MEAN CORPUSCULAR HEMOGLOBIN 31 pg (25-35); MEAN CORPUSCULAR HGB CONC 33 g/dL (31-37); MEAN CORPUSCULAR VOLUME 95 fL (79-100); MONO # 0.7 x10^3/uL (0.0-1.1); MONO % 7 % (0-9); NEUT % 82 % (31-73); PLATELET COUNT 282 x10^3/uL (140-400); RED BLOOD COUNT 4.17 x10^6/uL (4.30-5.70); RED CELL DISTRIBUTION WIDTH 16.4 % (11.5-14.5); WHITE BLOOD COUNT 9.7 x10^3/uL (4.0-11.0)
[2020-04-17] MEDS ORDERED: MORPHINE SULFATE 4 MG/ML VIAL. ONE (03:19)
[2020-04-17] MEDS ORDERED: ONDANSETRON PF 4 MG/2 ML VIAL. ONE ×2 (03:19→10:39)
--- NOTE | 2020-04-17 03:23 | PHYS DOC ---
Past Medical History Past Medical History: CAD, High Cholesterol, Hypertension Additional Past Medical Histor: hernia Past Surgical History: Appendectomy, Coronary Bypass Surgery, Knee Replacement, Other Additional Past Surgical Histo: eye surgery, Hernia Smoking Status: Never Smoker Alcohol Use: None Drug Use: None General Adult EDM: Chief Complaint: ABDOMINAL PAIN HPI: HPI: Patient is a 70 year old male with a past medical history of hypertension CAD hyperlipidemia presents with the chief complaint of abdominal pain. Onset of abdominal pain around 2200hrs and it is located periumbilcal without radiate. Patient has associated nausea and vomiting. Patient denies any chest pain or shortness of breath. Patient states over the last week he has had an increased heart rate. 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 Patient had a past surgical history of appendectomy and hernioorphay. Review of Systems: Review of Systems: Constitutional: Denies fever or chills. [] Eyes: Denies change in visual acuity. [] HENT: Denies nasal congestion or sore throat. [] Respiratory: Denies cough or shortness of breath. [] Cardiovascular: Denies chest pain or edema. [] GI: positive abdominal pain, nausea, : Denies dysuria. [] Musculoskeletal: Denies back pain or joint pain. [] Integument: Denies rash. [] Neurologic: Denies headache, focal weakness or sensory changes. [] Endocrine: Denies polyuria or polydipsia. [] Lymphatic: Denies swollen glands. [] Psychiatric: Denies depression or anxiety. [] Heart Score: Risk Factors: Risk Factors: DM, Current or recent (<one month) smoker, HTN, HLP, family history of CAD, obesity. Risk Scores: Score 0 - 3: 2.5% MACE over next 6 weeks - Discharge Home Score 4 - 6: 20.3% MACE over next 6 weeks - Admit for Clinical Observation Score 7 - 10: 72.7% MACE over next 6 weeks - Early Invasive Strategies Current Medications: Current Medications Medications (Trade) Dose Ordered Sig/Marlon Start Time Stop Time Status Last Admin Dose Admin Morphine Sulfate (Morphine Sulfate) 4 mg 1X ONCE 04/17/20 03:30 04/17/20 03:31 UNV Allergies: Allergies: Allergies Coded Allergies Type Severity Reaction Last Updated Verified No Known Drug Allergies 05/17/19 No Physical Exam: PE: Constitutional: Well developed, well nourished, no acute distress, non-toxic appearance. [] HENT: Normocephalic, atraumatic, bilateral external ears normal, oropharynx moist, no oral exudates, nose normal. [] Eyes: PERRLA, EOMI, conjunctiva normal, no discharge. [] Neck: Normal range of motion, no tenderness, supple, no stridor. [] Cardiovascular:Heart rate regular rhythm, no murmur [] Lungs & Thorax: Bilateral breath sounds clear to auscultation [] Abdomen: distended, tenderness to palpation right periumbilical. Skin: Warm, dry, no erythema, no rash. [] Back: No tenderness, no CVA tenderness. [] Extremities: No tenderness, no cyanosis, no clubbing, ROM intact, no edema. [] Neurologic: Alert and oriented X 3, normal motor function, normal sensory function, no focal deficits noted. [] Psychologic: Affect normal, judgement normal, mood normal. [] Current Patient Data: Labs: Laboratory Tests Test 04/17/20 03:06 White Blood Count 9.7 x10^3/uL (4.0-11.0) Red Blood Count 4.17 x10^6/uL (4.30-5.70) L Hemoglobin 13.0 g/dL (13.0-17.5) Hematocrit 39.5 % (39.0-53.0) Mean Corpuscular Volume 95 fL (79-100) Mean Corpuscular Hemoglobin 31 pg (25-35) Mean Corpuscular Hemoglobin Concent 33 g/dL (31-37) Red Cell Distribution Width 16.4 % (11.5-14.5) H Platelet Count 282 x10^3/uL (140-400) Neutrophils (%) (Auto) 82 % (31-73) H Lymphocytes (%) (Auto) 10 % (24-48) L Monocytes (%) (Auto) 7 % (0-9) Eosinophils (%) (Auto) 1 % (0-3) Basophils (%) (Auto) 0 % (0-3) Neutrophils # (Auto) 8.0 x10^3/uL (1.8-7.7) H Lymphocytes # (Auto) 0.9 x10^3/uL (1.0-4.8) L Monocytes # (Auto) 0.7 x10^3/uL (0.0-1.1) Eosinophils # (Auto) 0.1 x10^3/uL (0.0-0.7) Basophils # (Auto) 0.0 x10^3/uL (0.0-0.2) Laboratory Tests 04/17/20 03:06 Vital Signs: Vital Signs Date Time Temp Pulse Resp B/P (MAP) Pulse Ox O2 Delivery O2 Flow Rate FiO2 04/17/20 02:46 97.6 24 130/83 (99) 98 Room Air 97.6 EKG: EKG: time 0300hrs rate 120bmp []v paced rhythm no stemi ekg compared to previous 03/21/20 rate is tachycardic Radiology/Procedures: Radiology/Procedures: [] Impression: CT scan the abdomen pelvis was done using 60 mL Omnipaque 300 contrast. Comparison is made with a study from April 2019. On image #1 there is a possible groundglass nodule in the right lung base measuring 8 mm. Follow-up CT in 6 months may be of benefit. There are old left rib fractures. There is scarring in the left lung base. Liver is normal in appearance. Gallbladder is unremarkable. Spleen and adrenal glands are normal. Pancreas is normal. There is no mass or hydronephrosis in the kidneys. There is an anterior abdominal wall hernia. There are bowel loops in the hernia. Bowel is mildly dilated. There is mild bowel wall thickening of the loops in the hernia suggesting some element of inflammation. There is a small amount of fluid in the hernia. There is diverticulosis of the colon. IMPRESSION: 1. Dilated small bowel with mild edema of the bowel wall at the level the hernia with partial obstruction. 2. Bladder distention. 3. Groundglass nodule right lung base follow-up may be of benefit. Course & Med Decision Making: Course & Med Decision Making Pertinent Labs and Imaging studies reviewed. (See chart for details) [] Treatment with zofran and morphine and IV fluids. Patient and nausea improved post treatment. Discussed patient with Dr Valencia. Patient admitted to Dr Disla. Sharifa Disclaimer: Sharifa Disclaimer: This electronic medical record was generated, in whole or in part, using a voice recognition dictation system. Departure Departure Impression: Primary Impression: Abdominal pain Additional Impressions: Abdominal hernia Partial bowel obstruction LBBB (left bundle branch block) Disposition: 09 ADMITTED INPT THIS HOSP Condition: STABLE Referrals: LEANDER COMBS D.O. (PCP) KUSHAL MCNALLY DO Apr 17, 2020 03:23
[2020-04-17 03:26] LABS: CALCIUM 10.2 mg/dL (8.5-10.1); CREATININE 1.4 mg/dL (0.7-1.3); GFR 50.2; POTASSIUM 4.3 mmol/L (3.5-5.1)
[2020-04-17] MEDS ORDERED: ONDANSETRON PF 4 MG/2 ML VIAL. IVP ONE (03:30)
[2020-04-17] MEDS ORDERED: IV NORMAL SALINE 1000ML BAG 1,000 ML IV ONE (03:30)
[2020-04-17] MEDS ORDERED: MORPHINE SULFATE 4 MG/ML VIAL. IV ONE ×2 (03:30→04:45)
[2020-04-17 03:32] LABS: ALBUMIN 3.9 g/dL (3.4-5.0); ALBUMIN/GLOBULIN RATIO 1.1 (1.0-1.7); MAGNESIUM 2.2 mg/dL (1.8-2.4); PROTHROMBIN TIME PATIENT 20.2 SEC (11.7-14.0); TOTAL BILIRUBIN 0.3 mg/dL (0.2-1.0); TOTAL PROTEIN 7.4 g/dL (6.4-8.2)
[2020-04-17] MEDS ORDERED: CONTRAST GIVEN. MC PRN (03:45)
[2020-04-17] MEDS ORDERED: IOHEXOL 300 MG/ML 100ML VIAL. IV ONE (03:45)
--- NOTE | 2020-04-17 04:08 | RAD ---
CT abdomen pelvis with contrast. HISTORY: History umbilical hernia, abdominal pain CT scan the abdomen pelvis was done using 60 mL Omnipaque 300 contrast. Comparison is made with a study from April 2019. On image #1 there is a possible groundglass nodule in the right lung base measuring 8 mm. Follow-up CT in 6 months may be of benefit. There are old left rib fractures. There is scarring in the left lung base. Liver is normal in appearance. Gallbladder is unremarkable. Spleen and adrenal glands are normal. Pancreas is normal. There is no mass or hydronephrosis in the kidneys. There is an anterior abdominal wall hernia. There are bowel loops in the hernia. Bowel is mildly dilated. There is mild bowel wall thickening of the loops in the hernia suggesting some element of inflammation. There is a small amount of fluid in the hernia. There is diverticulosis of the colon. IMPRESSION: 1. Dilated small bowel with mild edema of the bowel wall at the level the hernia with partial obstruction. 2. Bladder distention. 3. Groundglass nodule right lung base follow-up may be of benefit. PQRS Compliance Statement: One or more of the following individualized dose reduction techniques were utilized for this examination: 1. Automated exposure control 2. Adjustment of the mA and/or kV according to patient size 3. Use of iterative reconstruction technique Electronically signed by: Joshua Wilson MD (04/17/2020 4:05 AM) [id number]
--- NOTE | 2020-04-17 05:16 | EKG ---
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
[2020-04-17] MEDS ORDERED: ONDANSETRON PF 4 MG/2 ML VIAL. IV PRN ×2 (06:00→07:45)
[2020-04-17] MEDS ORDERED: IV RINGERS,LACTATED 1000ML 1,000 ML IV SCH (07:39)
[2020-04-17] MEDS ORDERED: MORPHINE SULFATE 2 MG/ML VIAL. IV PRN (07:45)
[2020-04-17] MEDS ORDERED: PROCHLORPERAZINE 10 MG/2 ML VIAL. IV PRN (07:45)
[2020-04-17] MEDS ORDERED: LIDOCAINE 1% PF 2 ML VIAL. ID PRN (07:45)
[2020-04-17] MEDS ORDERED: fentaNYL PF VIAL 100 MCG/2 ML VIAL IV PRN (07:45)
[2020-04-17] MEDS ORDERED: BUPIVACAINE-EPI 0.25%-1:200000 MPF 30 ML VIAL. INJ ONE (07:45)
[2020-04-17] MEDS ORDERED: HYDROmorphone 2 MG/ML VIAL IV PRN (07:45)
[2020-04-17] MEDS ORDERED: PHYTONADIONE 10 MG/ML AMPUL. SQ ONE (08:30)
--- NOTE | 2020-04-17 08:35 | PDOC1 ---
History and Physical Date of Service: DOS: DATE: 04/17/20 TIME: 08:32 Chief Complaint: Chief Complain: Abdominal pain History of Present Illness: HPI: 70-year-old male with past medical history of CAD, valve replacement, hypertension, and history of umbilical hernia repair who presents to the ED with abdominal pain. He describes as periumbilical stabbing and tearing pain that is 10 out of 10. He does have associated nausea vomiting. Denies any constipation or diarrhea. He did have his valve replacement at [facility] and was scheduled for a cardiology appointment for his tachycardia. Unsure if he has a history of A. fib. Patient states he generally has a high pain threshold and decides he needed to come in to be evaluated. Past Medical/Surgical History: PMH/PSH: Past Medical History: CAD, High Cholesterol, Hypertension, hernia Past Surgical History: Appendectomy, Coronary Bypass Surgery, Knee Replacement, eye surgery, Hernia Repair Allergies: Allergies: Coded Allergies: No Known Drug Allergies (Unverified , 05/17/19) Family History: Family History: Reviewed and none reported Social History: Social History: Smoking Status: 1PPD Alcohol Use: None Drug Use: None Current Medications: Current Medications Current Medications Morphine Sulfate (Morphine Sulfate) 4 mg 1X ONCE IV Last administered on 04/17/20at 03:22; Start 04/17/20 at 03:30; Stop 04/17/20 at 03:31; Status DC Ondansetron HCl (Zofran) 4 mg 1X ONCE IVP Last administered on 04/17/20at 03:22; Start 04/17/20 at 03:30; Stop 04/17/20 at 03:31; Status DC Sodium Chloride 1,000 ml @ 1,000 mls/hr 1X ONCE IV Last administered on at 03:23; Start 04/17/20 at 03:30; Stop 04/17/20 at 04:29; Status DC Ondansetron HCl (Zofran) 4 mg STK-MED ONCE .ROUTE ; Start 04/17/20 at 03:19; Stop 04/17/20 at 03:19; Status DC Morphine Sulfate (Morphine Sulfate) 4 mg STK-MED ONCE .ROUTE ; Start 04/17/20 at 03:19; Stop 04/17/20 at 03:19; Status DC Iohexol (Omnipaque 300 Mg/ml) 75 ml 1X ONCE IV Last administered on 04/17/20at 03:44; Start 04/17/20 at 03:45; Stop 04/17/20 at 03:46; Status DC Info (CONTRAST GIVEN -- Rx MONITORING) 1 each PRN DAILY PRN MC SEE COMMENTS; Start 04/17/20 at 03:45; Stop 04/19/20 at 03:44 Morphine Sulfate (Morphine Sulfate) 4 mg 1X ONCE IV Last administered on 04/17/20at 05:01; Start 04/17/20 at 04:45; Stop 04/17/20 at 04:46; Status DC Ondansetron HCl (Zofran) 4 mg PRN Q8HRS PRN IV NAUSEA/VOMITING; Start 04/17/20 at 06:00; Stop 04/18/20 at 05:59 Morphine Sulfate (Morphine Sulfate) 4 mg PRN Q2HR PRN IV PAIN; Start 04/17/20 at 06:00; Stop 04/18/20 at 05:59 Ondansetron HCl (Zofran) 4 mg PRN Q6HRS PRN IV NAUSEA/VOMITING Last administered on 04/17/20at 08:28; Start 04/17/20 at 07:45; Stop 04/17/20 at 20:00 Fentanyl Citrate (Fentanyl 2ml Vial) 25 mcg PRN Q5MIN PRN IV MILD PAIN 1-3; Start 04/17/20 at 07:45; Stop 04/17/20 at 20:00 Fentanyl Citrate (Fentanyl 2ml Vial) 50 mcg PRN Q5MIN PRN IV MODERATE TO SEVERE PAIN; Start 04/17/20 at 07:45; Stop 04/17/20 at 20:00 Morphine Sulfate (Morphine Sulfate) 1 mg PRN Q10MIN PRN IV SEVERE PAIN 7-10 Last administered on 04/17/20at 08:28; Start 04/17/20 at 07:45; Stop 04/17/20 at 20:00 Ringer's Solution 1,000 ml @ 30 mls/hr Q24H IV ; Start 04/17/20 at 07:39; Stop 04/17/20 at 19:38 Lidocaine HCl (Xylocaine-Mpf 1% 2ml Vial) 2 ml PRN 1X PRN ID PRIOR TO IV START; Start 10/20/20 at 07:45; Stop 04/17/20 at 20:00 Hydromorphone HCl (Dilaudid) 0.5 mg PRN Q10MIN PRN IV SEV PAIN, Second choice; Start 04/17/20 at 07:45; Stop 04/17/20 at 20:00 Prochlorperazine Edisylate (Compazine) 5 mg PACU PRN PRN IV NAUSEA, MRX1; Start 04/17/20 at 07:45; Stop 04/17/20 at 20:00 Bupivacaine HCl/ Epinephrine Bitart (Sensorcaine-Epi 0.25%-1:643225 Mpf) 30 ml 1X ONCE INJ ; Start 04/17/20 at 07:45; Stop 04/17/20 at 07:46; Status DC Phytonadione (Vitamin K Ampule) 5 mg 1X ONCE SQ ; Start 04/17/20 at 08:30; Stop 04/17/20 at 08:31; Status UNV Active Scripts Active Toprol XL (Metoprolol Succinate) 50 Mg Tab.er.24h 50 Mg PO DAILY Percocet 5-325 Mg Tablet (Oxycodone/Acetaminophen) 1 Each Tablet 1 Tab PO PRN Q4HRS PRN Proair Hfa (Albuterol Sulfate) 8.5 Gm Hfa.aer.ad 1 Puff INH PRN Q6HRS PRN Lovenox (Enoxaparin Sodium) 120 Mg/0.8 Ml Disp.syrin 120 Mg SQ BID 5 Days Reported Spironolactone 25 Mg Tablet 25 Mg PO QHS Cymbalta (Duloxetine Hcl) 60 Mg Capsule.dr 120 Mg PO QHS Warfarin Sodium 4 Mg Tablet 8 Mg PO QMWF Warfarin Sodium 6 Mg Tablet 6 Mg PO QTUTHSASU Senna (Sennosides) 8.6 Mg Tablet 17.2 Mg PO BID Potassium Chloride 10 Meq Tablet.er 20 Meq PO QHS Oxycodone-Acetaminophen 5-325 (Oxycodone Hcl/Acetaminophen) 1 Each Tablet 1 Each PO PRN Q4HRS PRN Lamotrigine 200 Mg Tablet 1 Tab PO BID Tricor (Fenofibrate Nanocrystallized) 145 Mg Tablet 1 Tab PO DAILY Zetia (Ezetimibe) 10 Mg Tablet 1 Tab PO DAILY Atorvastatin Calcium 40 Mg Tablet 1 Tab PO QHS ROS: Review of Systems Review of System REVIEW OF SYSTEMS: GENERAL: Denies weakness SKIN: No bruising, hair changes or rashes. EYES: No blurred, double or loss of vision. NOSE AND THROAT: No history of nosebleeds, hoarseness or sore throat. HEART: No history of palpitations, chest pain or shortness of breath on exertion. LUNGS: Denies cough, hemoptysis, wheezing or shortness of breath. GASTROINTESTINAL: Denies changes in appetite, nausea, vomiting, diarrhea or constipation. GENITOURINARY: No history of frequency, urgency, hesitancy or nocturia. NEUROLOGIC: Denies history of numbness, tingling, or tremor. PSYCHIATRIC: No history of panic, anxiety or depression. ENDOCRINE: No history of heat or cold intolerance, polyuria or polydipsia. EXTREMITIES: Denies joint pain, pain on walking or stiffness. Physical Exam: Vital Signs: Vital Signs Date Time Temp Pulse Resp B/P (MAP) Pulse Ox O2 Delivery O2 Flow Rate FiO2 04/17/20 07:24 97.6 116 19 160/114 (129) 99 Nasal Cannula 2.0 97.6 Physcial Exam: GEN: No apparent distress. Alert and oriented HEENT: Normal cephalic, atraumatic, external auditory canals are patent EYES: Extraocular muscles are intact, pupil are equally round and reactive to light and accommodation MUSCULOSKELETAL: Well developed , well nourished, good range of motion ENDOCRINE: No thyromegaly was palpated LYMPHATICS: No cervical chain or axillary nodes were noted HEMATOPOIETIC: No bruising NECK: Supple, no JVD, no thyromegaly was noted LUNGS: Clear to auscultation in all lung amres without rhonchi or wheezing HEART: RRR, S!, S2 present. Peripheral pulses intact, no obvious murmurs noted ABDOMEN: Soft, nontender. Positive bowel sounds, no organomegaly, normal bowel sounds EXTREMITIES: Without clubbing, cyanosis, or edema. Pedal pulses intact. Negative Homans sign NEUROLOGIC: Normal speech and tone. A&O x 3, moves all extremities, no obvious focal deficits PSYCHIATRIC: Normal affect, normal mood. Stable SKIN: No ulcerations or rashes, good skin turgor, no jaundice VASCULAR: Good capillary refill, neurovascular bundle appears to be intact Labs: Labs: Laboratory Tests Test 04/17/20 03:06 10/20/20 05:04 White Blood Count 9.7 x10^3/uL (4.0-11.0) Red Blood Count 4.17 x10^6/uL (4.30-5.70) Hemoglobin 13.0 g/dL (13.0-17.5) Hematocrit 39.5 % (39.0-53.0) Mean Corpuscular Volume 95 fL (79-100) Mean Corpuscular Hemoglobin 31 pg (25-35) Mean Corpuscular Hemoglobin Concent 33 g/dL (31-37) Red Cell Distribution Width 16.4 % (11.5-14.5) Platelet Count 282 x10^3/uL (140-400) Neutrophils (%) (Auto) 82 % (31-73) Lymphocytes (%) (Auto) 10 % (24-48) Monocytes (%) (Auto) 7 % (0-9) Eosinophils (%) (Auto) 1 % (0-3) Basophils (%) (Auto) 0 % (0-3) Neutrophils # (Auto) 8.0 x10^3/uL (1.8-7.7) Lymphocytes # (Auto) 0.9 x10^3/uL (1.0-4.8) Monocytes # (Auto) 0.7 x10^3/uL (0.0-1.1) Eosinophils # (Auto) 0.1 x10^3/uL (0.0-0.7) Basophils # (Auto) 0.0 x10^3/uL (0.0-0.2) Prothrombin Time 20.2 SEC (11.7-14.0) Prothromb Time International Ratio 1.8 (0.8-1.1) Activated Partial Thromboplast Time 43 SEC (24-38) Sodium Level 139 mmol/L (136-145) Potassium Level 4.3 mmol/L (3.5-5.1) Chloride Level 103 mmol/L (98-107) Carbon Dioxide Level 28 mmol/L (21-32) Anion Gap 8 (6-14) Blood Urea Nitrogen 18 mg/dL (8-26) Creatinine 1.4 mg/dL (0.7-1.3) Estimated GFR (Cockcroft-Gault) 50.2 BUN/Creatinine Ratio 13 (6-20) Glucose Level 165 mg/dL (70-99) Lactic Acid Level 1.6 mmol/L (0.4-2.0) Calcium Level 10.2 mg/dL (8.5-10.1) Magnesium Level 2.2 mg/dL (1.8-2.4) Total Bilirubin 0.3 mg/dL (0.2-1.0) Aspartate Amino Transf (AST/SGOT) 21 U/L (15-37) Alanine Aminotransferase (ALT/SGPT) 29 U/L (16-63) Alkaline Phosphatase 57 U/L (46-116) Troponin I Quantitative 0.019 ng/mL (0.000-0.055) Total Protein 7.4 g/dL (6.4-8.2) Albumin 3.9 g/dL (3.4-5.0) Albumin/Globulin Ratio 1.1 (1.0-1.7) Lipase 67 U/L (73-393) SARS-CoV-2 Antigen (Rapid) Negative (NEGATIVE) Laboratory Tests Test 04/17/20 03:06 04/17/20 05:04 White Blood Count 9.7 x10^3/uL (4.0-11.0) Red Blood Count 4.17 x10^6/uL (4.30-5.70) Hemoglobin 13.0 g/dL (13.0-17.5) Hematocrit 39.5 % (39.0-53.0) Mean Corpuscular Volume 95 fL (79-100) Mean Corpuscular Hemoglobin 31 pg (25-35) Mean Corpuscular Hemoglobin Concent 33 g/dL (31-37) Red Cell Distribution Width 16.4 % (11.5-14.5) Platelet Count 282 x10^3/uL (140-400) Neutrophils (%) (Auto) 82 % (31-73) Lymphocytes (%) (Auto) 10 % (24-48) Monocytes (%) (Auto) 7 % (0-9) Eosinophils (%) (Auto) 1 % (0-3) Basophils (%) (Auto) 0 % (0-3) Neutrophils # (Auto) 8.0 x10^3/uL (1.8-7.7) Lymphocytes # (Auto) 0.9 x10^3/uL (1.0-4.8) Monocytes # (Auto) 0.7 x10^3/uL (0.0-1.1) Eosinophils # (Auto) 0.1 x10^3/uL (0.0-0.7) Basophils # (Auto) 0.0 x10^3/uL (0.0-0.2) Prothrombin Time 20.2 SEC (11.7-14.0) Prothromb Time International Ratio 1.8 (0.8-1.1) Activated Partial Thromboplast Time 43 SEC (24-38) Sodium Level 139 mmol/L (136-145) Potassium Level 4.3 mmol/L (3.5-5.1) Chloride Level 103 mmol/L (98-107) Carbon Dioxide Level 28 mmol/L (21-32) Anion Gap 8 (6-14) Blood Urea Nitrogen 18 mg/dL (8-26) Creatinine 1.4 mg/dL (0.7-1.3) Estimated GFR (Cockcroft-Gault) 50.2 BUN/Creatinine Ratio 13 (6-20) Glucose Level 165 mg/dL (70-99) Lactic Acid Level 1.6 mmol/L (0.4-2.0) Calcium Level 10.2 mg/dL (8.5-10.1) Magnesium Level 2.2 mg/dL (1.8-2.4) Total Bilirubin 0.3 mg/dL (0.2-1.0) Aspartate Amino Transf (AST/SGOT) 21 U/L (15-37) Alanine Aminotransferase (ALT/SGPT) 29 U/L (16-63) Alkaline Phosphatase 57 U/L (46-116) Troponin I Quantitative 0.019 ng/mL (0.000-0.055) Total Protein 7.4 g/dL (6.4-8.2) Albumin 3.9 g/dL (3.4-5.0) Albumin/Globulin Ratio 1.1 (1.0-1.7) Lipase 67 U/L (73-393) SARS-CoV-2 Antigen (Rapid) Negative (NEGATIVE) Images: Images CT ABD PELVIS IMPRESSION: 1. Dilated small bowel with mild edema of the bowel wall at the level the hernia with partial obstruction. 2. Bladder distention. 3. Groundglass nodule right lung base follow-up may be of benefit. Assessment/Plan Assessment/Plan Acute abdominal pain due to partial small bowel obstruction HUMZA due to vasomotor nephropathy Mild hypercalcemia Appropriate coagulopathy due to warfarin Morbid obesity Admit to medicine for further management Surgical consult for small bowel obstruction Cardiology consult for preop clearance and evaluation for his mechanical valve Patient may need IV vitamin K for reversal before surgery PT OT after surgery Hold for now for preop for DVT prophylaxis ADA diet Full code Discussed with RN and SW Disposition inpatient management as above Surrogate decision maker is Glenn Campos Justifications for Admission Other Justification A. fib with RVR RAVIN ORELLANA MD Apr 17, 2020 08:35
--- NOTE | 2020-04-17 08:37 | PDOC2 ---
CARLOS RUANO PUBLIC AREA SUPERVISOR 04/17/20 0837: CONSULT Date of Consult Date of Consult DATE: 04/17/20 TIME: 08:30 Reason for Consult Reason for Consult: bowel obstruction Referring Physician Referring Physician: ER Identification/Chief Complaint Chief Complaint abdominal pain Source Source: Chart review, Patient History of Present Illness Reason for Visit: acute onset abdominal pain and vomiting yesterday. Started having pain to previous hernia site about a week ago, had a sono done, never got results Umbilical hernia repair Apr 2019 cardiac hx--follows cardiology at --was set to see this week for tachycardia Past Medical History Cardiovascular: HTN, Hyperlipidemia, Other Pulmonary: No pertinent hx GI: Other Heme/Onc: Anemia NOS, Other Hepatobiliary: No pertinent hx Psych: Anxiety, Depression Musculoskeletal: low back pain, Osteoarthritis Rheumatologic: No pertinent hx Infectious disease: No pertinent hx Renal/: Chronic renal insuff Endocrine: No pertinent hx Past Surgical History Past Surgical History: Pacemaker, Appendectomy, Hernia Repair, Total knee replacement, Other Family History Family History: Diabetes, Hypertension Social History No ALCOHOL: none Drugs: None Lives: Alone Current Problem List Problem List Problems Medical Problems: (1) Abdominal hernia Status: Acute (2) Abdominal pain Status: Acute (3) Partial bowel obstruction Status: Acute Current Medications Current Medications Current Medications Morphine Sulfate (Morphine Sulfate) 4 mg 1X ONCE IV Last administered on 04/17/20at 03:22; Start 04/17/20 at 03:30; Stop 04/17/20 at 03:31; Status DC Ondansetron HCl (Zofran) 4 mg 1X ONCE IVP Last administered on 04/17/20at 03:22; Start 04/17/20 at 03:30; Stop 04/17/20 at 03:31; Status DC Sodium Chloride 1,000 ml @ 1,000 mls/hr 1X ONCE IV Last administered on at 03:23; Start 04/17/20 at 03:30; Stop 04/17/20 at 04:29; Status DC Ondansetron HCl (Zofran) 4 mg STK-MED ONCE .ROUTE ; Start 04/17/20 at 03:19; Stop 04/17/20 at 03:19; Status DC Morphine Sulfate (Morphine Sulfate) 4 mg STK-MED ONCE .ROUTE ; Start 04/17/20 at 03:19; Stop 04/17/20 at 03:19; Status DC Iohexol (Omnipaque 300 Mg/ml) 75 ml 1X ONCE IV Last administered on 04/17/20at 03:44; Start 04/17/20 at 03:45; Stop 04/17/20 at 03:46; Status DC Info (CONTRAST GIVEN -- Rx MONITORING) 1 each PRN DAILY PRN MC SEE COMMENTS; Start 04/17/20 at 03:45; Stop 04/19/20 at 03:44 Morphine Sulfate (Morphine Sulfate) 4 mg 1X ONCE IV Last administered on 04/17/20at 05:01; Start 04/17/20 at 04:45; Stop 04/17/20 at 04:46; Status DC Ondansetron HCl (Zofran) 4 mg PRN Q8HRS PRN IV NAUSEA/VOMITING; Start 04/17/20 at 06:00; Stop 04/18/20 at 05:59 Morphine Sulfate (Morphine Sulfate) 4 mg PRN Q2HR PRN IV PAIN; Start 04/17/20 at 06:00; Stop 04/18/20 at 05:59 Ondansetron HCl (Zofran) 4 mg PRN Q6HRS PRN IV NAUSEA/VOMITING Last administered on 04/17/20at 08:28; Start 04/17/20 at 07:45; Stop 04/17/20 at 20:00 Fentanyl Citrate (Fentanyl 2ml Vial) 25 mcg PRN Q5MIN PRN IV MILD PAIN 1-3; Start 04/17/20 at 07:45; Stop 04/17/20 at 20:00 Fentanyl Citrate (Fentanyl 2ml Vial) 50 mcg PRN Q5MIN PRN IV MODERATE TO SEVERE PAIN; Start 04/17/20 at 07:45; Stop 04/17/20 at 20:00 Morphine Sulfate (Morphine Sulfate) 1 mg PRN Q10MIN PRN IV SEVERE PAIN 7-10 Last administered on 04/17/20at 08:28; Start 04/17/20 at 07:45; Stop 04/17/20 at 20:00 Ringer's Solution 1,000 ml @ 30 mls/hr Q24H IV ; Start 04/17/20 at 07:39; Stop 04/17/20 at 19:38 Lidocaine HCl (Xylocaine-Mpf 1% 2ml Vial) 2 ml PRN 1X PRN ID PRIOR TO IV START; Start 04/17/20 at 07:45; Stop 04/17/20 at 20:00 Hydromorphone HCl (Dilaudid) 0.5 mg PRN Q10MIN PRN IV SEV PAIN, Second choice; Start 04/17/20 at 07:45; Stop 04/17/20 at 20:00 Prochlorperazine Edisylate (Compazine) 5 mg PACU PRN PRN IV NAUSEA, MRX1; Start 04/17/20 at 07:45; Stop 04/17/20 at 20:00 Bupivacaine HCl/ Epinephrine Bitart (Sensorcaine-Epi 0.25%-1:419130 Mpf) 30 ml 1X ONCE INJ ; Start 04/17/20 at 07:45; Stop 04/17/20 at 07:46; Status DC Phytonadione (Vitamin K Ampule) 5 mg 1X ONCE SQ ; Start 04/17/20 at 08:30; Stop 04/17/20 at 08:31; Status UNV Active Scripts Active Toprol XL (Metoprolol Succinate) 50 Mg Tab.er.24h 50 Mg PO DAILY Percocet 5-325 Mg Tablet (Oxycodone/Acetaminophen) 1 Each Tablet 1 Tab PO PRN Q4HRS PRN Proair Hfa (Albuterol Sulfate) 8.5 Gm Hfa.aer.ad 1 Puff INH PRN Q6HRS PRN Lovenox (Enoxaparin Sodium) 120 Mg/0.8 Ml Disp.syrin 120 Mg SQ BID 5 Days Reported Spironolactone 25 Mg Tablet 25 Mg PO QHS Cymbalta (Duloxetine Hcl) 60 Mg Capsule.dr 120 Mg PO QHS Warfarin Sodium 4 Mg Tablet 8 Mg PO QMWF Warfarin Sodium 6 Mg Tablet 6 Mg PO QTUTHSASU Senna (Sennosides) 8.6 Mg Tablet 17.2 Mg PO BID Potassium Chloride 10 Meq Tablet.er 20 Meq PO QHS Oxycodone-Acetaminophen 5-325 (Oxycodone Hcl/Acetaminophen) 1 Each Tablet 1 Each PO PRN Q4HRS PRN Lamotrigine 200 Mg Tablet 1 Tab PO BID Tricor (Fenofibrate Nanocrystallized) 145 Mg Tablet 1 Tab PO DAILY Zetia (Ezetimibe) 10 Mg Tablet 1 Tab PO DAILY Atorvastatin Calcium 40 Mg Tablet 1 Tab PO QHS Allergies Allergies: Coded Allergies: No Known Drug Allergies (Unverified , 05/17/19) ROS General: No: Chills, Other (fevers ) PSYCHOLOGICAL ROS: No: Anxiety, Depression Eyes: No Blurry vision, No Double vision HEENT: No: Heacaches, Sore Throat Hematological and Lymphatic: YES: Bleeding Problems; No: Blood Clots Respiratory: No: Cough, Shortness of breath Cardiovascular: No Chest Pain, No Palpitations Gastrointestinal: Yes Other (see hpi) Genitourinary: No Dysuria, No Hematuria Musculoskeletal: No Joint Pain, No Muscle Pain Neurological: No Impaired Coord/balance, No Numbness/Tingling Skin: No Pruritus, No Rash Physical Exam General: Alert, Oriented X3, Cooperative HEENT: Atraumatic, PERRLA Lungs: Clear to auscultation, Normal air movement Heart: Other (tachy) Abdomen: Soft, Other (ecchymosis to abdomen--umbilical scar present--firmness and tenderness to area, unable to reduce) Extremities: No clubbing, No cyanosis Neuro: Normal speech, Sensation intact Psych/Mental Status: Mental status NL, Mood NL MUSCULOSKELETAL: No deformity, No swelling Vitals VITALS Vital Signs Date Time Temp Pulse Resp B/P (MAP) Pulse Ox O2 Delivery O2 Flow Rate FiO2 04/17/20 07:24 97.6 116 19 160/114 (129) 99 Nasal Cannula 2.0 97.6 Labs Labs Laboratory Tests Test 04/17/20 03:06 04/17/20 05:04 White Blood Count 9.7 x10^3/uL (4.0-11.0) Red Blood Count 4.17 x10^6/uL (4.30-5.70) Hemoglobin 13.0 g/dL (13.0-17.5) Hematocrit 39.5 % (39.0-53.0) Mean Corpuscular Volume 95 fL (79-100) Mean Corpuscular Hemoglobin 31 pg (25-35) Mean Corpuscular Hemoglobin Concent 33 g/dL (31-37) Red Cell Distribution Width 16.4 % (11.5-14.5) Platelet Count 282 x10^3/uL (140-400) Neutrophils (%) (Auto) 82 % (31-73) Lymphocytes (%) (Auto) 10 % (24-48) Monocytes (%) (Auto) 7 % (0-9) Eosinophils (%) (Auto) 1 % (0-3) Basophils (%) (Auto) 0 % (0-3) Neutrophils # (Auto) 8.0 x10^3/uL (1.8-7.7) Lymphocytes # (Auto) 0.9 x10^3/uL (1.0-4.8) Monocytes # (Auto) 0.7 x10^3/uL (0.0-1.1) Eosinophils # (Auto) 0.1 x10^3/uL (0.0-0.7) Basophils # (Auto) 0.0 x10^3/uL (0.0-0.2) Prothrombin Time 20.2 SEC (11.7-14.0) Prothromb Time International Ratio 1.8 (0.8-1.1) Activated Partial Thromboplast Time 43 SEC (24-38) Sodium Level 139 mmol/L (136-145) Potassium Level 4.3 mmol/L (3.5-5.1) Chloride Level 103 mmol/L (98-107) Carbon Dioxide Level 28 mmol/L (21-32) Anion Gap 8 (6-14) Blood Urea Nitrogen 18 mg/dL (8-26) Creatinine 1.4 mg/dL (0.7-1.3) Estimated GFR (Cockcroft-Gault) 50.2 BUN/Creatinine Ratio 13 (6-20) Glucose Level 165 mg/dL (70-99) Lactic Acid Level 1.6 mmol/L (0.4-2.0) Calcium Level 10.2 mg/dL (8.5-10.1) Magnesium Level 2.2 mg/dL (1.8-2.4) Total Bilirubin 0.3 mg/dL (0.2-1.0) Aspartate Amino Transf (AST/SGOT) 21 U/L (15-37) Alanine Aminotransferase (ALT/SGPT) 29 U/L (16-63) Alkaline Phosphatase 57 U/L (46-116) Troponin I Quantitative 0.019 ng/mL (0.000-0.055) Total Protein 7.4 g/dL (6.4-8.2) Albumin 3.9 g/dL (3.4-5.0) Albumin/Globulin Ratio 1.1 (1.0-1.7) Lipase 67 U/L (73-393) SARS-CoV-2 Antigen (Rapid) Negative (NEGATIVE) Laboratory Tests Test 04/17/20 03:06 04/17/20 05:04 White Blood Count 9.7 x10^3/uL (4.0-11.0) Red Blood Count 4.17 x10^6/uL (4.30-5.70) Hemoglobin 13.0 g/dL (13.0-17.5) Hematocrit 39.5 % (39.0-53.0) Mean Corpuscular Volume 95 fL (79-100) Mean Corpuscular Hemoglobin 31 pg (25-35) Mean Corpuscular Hemoglobin Concent 33 g/dL (31-37) Red Cell Distribution Width 16.4 % (11.5-14.5) Platelet Count 282 x10^3/uL (140-400) Neutrophils (%) (Auto) 82 % (31-73) Lymphocytes (%) (Auto) 10 % (24-48) Monocytes (%) (Auto) 7 % (0-9) Eosinophils (%) (Auto) 1 % (0-3) Basophils (%) (Auto) 0 % (0-3) Neutrophils # (Auto) 8.0 x10^3/uL (1.8-7.7) Lymphocytes # (Auto) 0.9 x10^3/uL (1.0-4.8) Monocytes # (Auto) 0.7 x10^3/uL (0.0-1.1) Eosinophils # (Auto) 0.1 x10^3/uL (0.0-0.7) Basophils # (Auto) 0.0 x10^3/uL (0.0-0.2) Prothrombin Time 20.2 SEC (11.7-14.0) Prothromb Time International Ratio 1.8 (0.8-1.1) Activated Partial Thromboplast Time 43 SEC (24-38) Sodium Level 139 mmol/L (136-145) Potassium Level 4.3 mmol/L (3.5-5.1) Chloride Level 103 mmol/L (98-107) Carbon Dioxide Level 28 mmol/L (21-32) Anion Gap 8 (6-14) Blood Urea Nitrogen 18 mg/dL (8-26) Creatinine 1.4 mg/dL (0.7-1.3) Estimated GFR (Cockcroft-Gault) 50.2 BUN/Creatinine Ratio 13 (6-20) Glucose Level 165 mg/dL (70-99) Lactic Acid Level 1.6 mmol/L (0.4-2.0) Calcium Level 10.2 mg/dL (8.5-10.1) Magnesium Level 2.2 mg/dL (1.8-2.4) Total Bilirubin 0.3 mg/dL (0.2-1.0) Aspartate Amino Transf (AST/SGOT) 21 U/L (15-37) Alanine Aminotransferase (ALT/SGPT) 29 U/L (16-63) Alkaline Phosphatase 57 U/L (46-116) Troponin I Quantitative 0.019 ng/mL (0.000-0.055) Total Protein 7.4 g/dL (6.4-8.2) Albumin 3.9 g/dL (3.4-5.0) Albumin/Globulin Ratio 1.1 (1.0-1.7) Lipase 67 U/L (73-393) SARS-CoV-2 Antigen (Rapid) Negative (NEGATIVE) Assessment/Plan Assessment/Plan abd hernia causing bowel obstruction--plan for OR took Coumadin last night--INR 1.8--will give Vit K preop ROHAN FLORES MD 04/17/20 1253: CONSULT Assessment/Plan Assessment/Plan Patient seen and examined by me currently resting comfortably. States pain started several weeks ago until yesterday was too severe he had to come to the emergency room. CT scan reviewed which shows incarcerated recurrent ventral hernia with bowel mild inflammation. Plan for exploratory laparotomy with repair of hernia and reduction of incarcerated bowel. Agree with Jiménez assessment and plan. Of note patient does have new onset of A. fib cardiology following in light of this did discuss significant cardiac risk with this emergent surgery CARLOS RUANO APRN Apr 17, 2020 08:37 ROHAN FLORES MD Apr 17, 2020 12:53
[2020-04-17] MEDS ORDERED: PROPOFOL 10 MG/ML (20ML) VIAL. IV ONE (10:38)
[2020-04-17] MEDS ORDERED: DEXAMETHASONE SOD PHOS 4 MG/ML VIAL ONE (10:38)
[2020-04-17] MEDS ORDERED: LIDOCAINE 2% PF 5 ML VIAL. ONE (10:38)
[2020-04-17] MEDS ORDERED: SUCCINYLCHOLINE 200 MG/10 ML VIAL. ONE (10:39)
[2020-04-17] MEDS ORDERED: ROCURONIUM 50 MG/5 ML VIAL. ONE (10:39)
[2020-04-17] MEDS ORDERED: fentaNYL PF VIAL 100 MCG/2 ML VIAL ONE ×4 (10:40→16:45)
[2020-04-17] MEDS ORDERED: METOPROLOL TARTRATE 5 MG/5 ML VIAL. IVP ONE (11:36)
[2020-04-17] MEDS: METOPROLOL TARTRATE 5 MG/5 ML VIAL. IVP PRN ×2 (11:45→15:35)
[2020-04-17] MEDS: METOPROLOL TARTRATE 5 MG/5 ML VIAL. IVP SCH ×3 (12:15→23:48)
[2020-04-17] MEDS: fentaNYL PF VIAL 100 MCG/2 ML VIAL IV PRN ×4 (12:20→16:49)
--- NOTE | 2020-04-17 12:22 | PDOC2 ---
MARLENI QUINTANA ALIGNER TYPEWRITER 04/17/20 1222: CARDIAC CONSULT DATE OF CONSULT Date of Consult DATE: 04/17/20 TIME: 12:19 REASON FOR CONSULT Reason for Consult: Tachycardia REFERRING PHYSICIAN Referring Physician: Desirae SOURCE Source: Chart review, Patient HISTORY OF PRESENT ILLNESS HISTORY OF PRESENT ILLNESS This is a pleasant 70 yo male admitted for complains of abdominal pain. Reports that this has been going on for about 2 days and has been vomiting with last spell last night. No palpitations and denies any SOA or chest pain. Upon admission he was noted with SR but has been having intermittent episodes of tachycardia with LBBB. Presently he is tachycardic at preop about to have hernia procedure. No hx of AFIB/flutter but accdg to interrogation he has been having intermittent episodes of this sometimes RVR. Presently still having pain to his abdomen. He was seen by our group over a week ago for AFIB and CHF and was placed on amiodarone at that time due to AFIB. He was placed on amiodarone but apparently this was not noted on his med list and likely has not been taking it. PAST MEDICAL HISTORY Past Medical History Cardiovascular: HTN, Hyperlipidemia, Other (HOCM), PAFIB, presumed NICM GI: Other (GIB) Psych: Anxiety, Depression Hem; Chronic coumadin therapy FAMILY HISTORY Family History: Diabetes, Hypertension SOCIAL HISTORY Smoke: No ALCOHOL: none Drugs: None Lives: Alone 1. Dyspnea in the setting of #2 2. PAFIB; presenting in RVR. Now well controlled following Amiodarone therapy 3. Hypertension; controlled 4. Hyperlipidemia; Zetia, fenofibrate 5. SSS s/p PPM ([employer]). Device check 03/13/20 with normal function. Follows with Dr. Manjinder Jean 6. Chronic systolic CHF; Echo 12/15 with LVEF 40%. Clinically compensated 7. HOCM s/p septal myomectomy 10/2018 8. Mechanical mitral valce replacement 9. Chronic OAC with warfarin therapy Recommendations Convert coreg to Toprol for rate control Continue warfarin for stroke prophylaxis; target INR 2.5-3.5. Outpatient echo Continue HF optimization with Lasix, Aldactone, and Toprol. Will add lisinopril. Consider Entresto on an outpatient basis Consider outpatient CV if he remains in AFIB; will defer to primary flask handler Follow up with Dr. Manjinder Jean upon discharge PAST SURGICAL HISTORY Past Surgical History Pacemaker, Appendectomy, Total knee replacement (bilateral ), Other (ventricular septal myectomy, mechanical mitral valce replacement ) FAMILY HISTORY Family History: Family History Unknown SOCIAL HISTORY Smoke: No ALCOHOL: none Drugs: None CURRENT MEDICATIONS CURRENT MEDICATIONS Current Medications Medications (Trade) Dose Ordered Sig/Marlon Route PRN Reason Start Time Stop Time Status Last Admin Dose Admin Morphine Sulfate (Morphine Sulfate) 4 mg 1X ONCE IV 04/17/20 03:30 04/17/20 03:31 DC 04/17/20 03:22 Ondansetron HCl (Zofran) 4 mg 1X ONCE IVP 04/17/20 03:30 04/17/20 03:31 DC 04/17/20 03:22 Sodium Chloride 1,000 ml @ 1,000 mls/hr 1X ONCE IV 04/17/20 03:30 04/17/20 04:29 DC 04/17/20 03:23 Iohexol (Omnipaque 300 Mg/ml) 75 ml 1X ONCE IV 04/17/20 03:45 04/17/20 03:46 DC 04/17/20 03:44 Morphine Sulfate (Morphine Sulfate) 4 mg 1X ONCE IV 04/17/20 04:45 04/17/20 04:46 DC 04/17/20 05:01 Ondansetron HCl (Zofran) 4 mg PRN Q6HRS PRN IV NAUSEA/VOMITING 04/17/20 07:45 04/17/20 20:00 04/17/20 08:28 Fentanyl Citrate (Fentanyl 2ml Vial) 25 mcg PRN Q5MIN PRN IV MILD PAIN 1-3 04/17/20 07:45 04/17/20 20:00 04/17/20 09:16 Morphine Sulfate (Morphine Sulfate) 1 mg PRN Q10MIN PRN IV SEVERE PAIN 7-10 04/17/20 07:45 04/17/20 20:00 04/17/20 08:28 Ringer's Solution 1,000 ml @ 30 mls/hr Q24H IV 04/17/20 07:39 04/17/20 19:38 04/17/20 09:07 Phytonadione (Vitamin K Ampule) 5 mg 1X ONCE SQ 04/17/20 08:30 04/17/20 08:39 DC 04/17/20 09:06 Metoprolol Tartrate (Lopressor Vial) 5 mg PRN Q5MIN PRN IVP TACHYCARDIA 04/17/20 11:45 04/17/20 20:00 04/17/20 11:45 ALLERGIES ALLERGIES: Coded Allergies: No Known Drug Allergies (Unverified , 05/17/19) ROS Review of System 14 piint ROS evaluated with pertinent posittives noted per HPI PHYSICAL EXAM General: Alert, Oriented X3, Cooperative, No acute distress HEENT: Atraumatic, Mucous membr. moist/pink Lungs: Other (diminished bases) Heart: Other (tachycardia) Abdomen: Other (abd tender, obese) Extremities: No cyanosis, No edema Skin: No breakdown Neuro: Normal speech, Sensation intact Psych/Mental Status: Mental status NL, Mood NL MUSCULOSKELETAL: Osteoarthritic changes both hands VITALS/I&O VITALS/I&O: Vital Signs Date Time Temp Pulse Resp B/P (MAP) Pulse Ox O2 Delivery O2 Flow Rate FiO2 04/17/20 11:45 118 151/91 04/17/20 11:21 97.2 18 94 97.2 04/17/20 11:21 Nasal Cannula 2 LABS Lab: Laboratory Tests Test 04/17/20 03:06 04/17/20 05:04 White Blood Count 9.7 x10^3/uL (4.0-11.0) Red Blood Count 4.17 x10^6/uL (4.30-5.70) L Hemoglobin 13.0 g/dL (13.0-17.5) Hematocrit 39.5 % (39.0-53.0) Mean Corpuscular Volume 95 fL (79-100) Mean Corpuscular Hemoglobin 31 pg (25-35) Mean Corpuscular Hemoglobin Concent 33 g/dL (31-37) Red Cell Distribution Width 16.4 % (11.5-14.5) H Platelet Count 282 x10^3/uL (140-400) Neutrophils (%) (Auto) 82 % (31-73) H Lymphocytes (%) (Auto) 10 % (24-48) L Monocytes (%) (Auto) 7 % (0-9) Eosinophils (%) (Auto) 1 % (0-3) Basophils (%) (Auto) 0 % (0-3) Neutrophils # (Auto) 8.0 x10^3/uL (1.8-7.7) H Lymphocytes # (Auto) 0.9 x10^3/uL (1.0-4.8) L Monocytes # (Auto) 0.7 x10^3/uL (0.0-1.1) Eosinophils # (Auto) 0.1 x10^3/uL (0.0-0.7) Basophils # (Auto) 0.0 x10^3/uL (0.0-0.2) Prothrombin Time 20.2 SEC (11.7-14.0) H Prothrombin Time INR 1.8 (0.8-1.1) H Activated Partial Thromboplast Time 43 SEC (24-38) H Sodium Level 139 mmol/L (136-145) Potassium Level 4.3 mmol/L (3.5-5.1) Chloride Level 103 mmol/L (98-107) Carbon Dioxide Level 28 mmol/L (21-32) Anion Gap 8 (6-14) Blood Urea Nitrogen 18 mg/dL (8-26) Creatinine 1.4 mg/dL (0.7-1.3) H Estimated GFR (Cockcroft-Gault) 50.2 BUN/Creatinine Ratio 13 (6-20) Glucose Level 165 mg/dL (70-99) H Lactic Acid Level 1.6 mmol/L (0.4-2.0) Calcium Level 10.2 mg/dL (8.5-10.1) H Magnesium Level 2.2 mg/dL (1.8-2.4) Total Bilirubin 0.3 mg/dL (0.2-1.0) Aspartate Amino Transferase (AST) 21 U/L (15-37) Alanine Aminotransferase (ALT) 29 U/L (16-63) Alkaline Phosphatase 57 U/L (46-116) Troponin I Quantitative 0.019 ng/mL (0.000-0.055) Total Protein 7.4 g/dL (6.4-8.2) Albumin 3.9 g/dL (3.4-5.0) Albumin/Globulin Ratio 1.1 (1.0-1.7) Lipase 67 U/L (73-393) L SARS-CoV-2 Antigen (Rapid) Negative (NEGATIVE) Laboratory Tests 04/17/20 03:06 Laboratory Tests 04/17/20 03:06 ECHOCARDIOGRAM ECHOCARDIOGRAM <Conclusion> Left ventricle systolic function is mildly to moderately impaired. The Ejection Fraction is 40%. Septal motion consistent with post-operative state and pacing. Moderate global hypokinesis. Wall motion not well visualized. There is a mechanical mitral valve and it is not well visualized. Calculated mitral valve area is 2.7 cm2 with maximum pressure gradient of 14 mmHg and mean pressure gradient of 6 mmHg. Technically very difficult study DATE: 11/29/18 0826 ASSESSMENT/PLAN ASSESSMENT/PLAN 1. Abd pain with SBO: possible incarcerated hernia, 2. New AFIB/flutter with RVR with abberancy; interrogation revealed 44% burden with RVR since 03/13/2020. BP stable 3. Presumed NICM; last known EF at 40% compensated 4. Chronic systolic CHF 5. Hx of HOCM with surgery 6. Hx of mechanical MVR 7. PPM is situ: possibly from SSS. Non pacer dependent low pacing burden but noted with 44% AFIB burden since 03/13/2020 8. HTN: controlled Recommendations 1. suspecting amiodarone was not resumed at home. Lopressor IV start amiodarone protocol Heparin drip to start post op when ok with GS and transition to coumadin once clear with GS 2. Moderate to high risk for noncardiac surgery for perioperative CV events. OK to proceed with surgery. possible incarcerated hernia 3. Secondary prevention measures. 4. will follow post op SCOTTY CASTANEDA MD 04/17/201946: CARDIAC CONSULT ASSESSMENT/PLAN ASSESSMENT/PLAN Patient seen and examined. Agree with INDUSTRIAL REAL ESTATE AGENT's assessment and plan. SSS s/p PPM - device interrogation showed 44% AF burden - new diagnosis for him Agree with amiodarone for rhythm maintenance. s/p mechanical MVR and septal myectomy for HOCM, clinically stable. Resume OAC when okay from surgical standpoint Chr syst HF compensated OK to proceed with emergent surgery for incarcerated hernia Thank you for your consultation MARLENI QUINTANA APRN Apr 17, 2020 12:22 SCOTTY CASTANEDA MD Apr 17, 2020 19:47
[2020-04-17] MEDS ORDERED: AMIODARONE 150 MG in IV DEXTROSE 5% 100ML 100 ML IV ONE (12:30)
--- NOTE | 2020-04-17 12:39 | EKG ---
[facility] [address] [place] [address] Test Date: 2020-04-17 Test Time: 12:35:49 Pat Name: LADARIUS ELLIS Department: Room: ED HOLD 5 Gender: M Cash Control Specialist: ROSMERY : [id number] Requested By: MARLENI QUINTANA Order Number: [id number] Reading MD: Measurements Intervals [place] Rate: 100 P: 0 HI: 188 QRS: -8 QRSD: 138 T: 182 QT: 396 QTc: 514 Interpretive Statements SINUS ARRHYTHMIA LEFT ATRIAL ABNORMALITY LEFTWARD AXIS NON SPECIFIC INTRAVENTRICULAR BLOCK QRS(T) CONTOUR ABNORMALITY CONSISTENT WITH INFERIOR INFARCT AGE UNDETERMINED ABNORMAL ECG RI6.02 Compared to ECG 04/17/2020 11:44:46 Atrial abnormality now present Myocardial infarct finding now present Accelerated junctional rhythm no longer present
[2020-04-17] MEDS ORDERED: ETOMIDATE 20 MG/10 ML VIAL. IV ONE (12:43)
[2020-04-17] MEDS: AMIODARONE 450 MG in IV DEXTROSE 5% 250 ML IV PRN ×2 (13:00→23:59)
[2020-04-17] MEDS ORDERED: SEVOFLURANE > 120 MINUTES. IH ONE (13:45)
[2020-04-17] MEDS ORDERED: SURGICEL HEMOSTAT 4X8 EACH. ONE (13:51)
--- NOTE | 2020-04-17 14:41 | PDOC4 ---
Operative Note Operative Note Date: 1019 at 1436 Preoperative diagnosis: Incarcerated recurrent ventral hernia Postoperative diagnosis: Same Procedure: Exploratory laparotomy with lysis of adhesions and repair of ventral hernia Surgeon: Erik Specimen: Hernia sac and mesh Dictation: Patient is a 70-year-old gentleman who had a ventral hernia repaired a year ago emergently he subsequently returns now with abdominal pain to the emergency department CT scan was done which showed recurrence of his ventral hernia with incarcerated small bowel mildly dilated suggestive of bowel obstruction. Procedure of exploratory laparotomy with lysis of adhesions and repair of hernia was explained to the patient detail respite effects were also discussed including bleeding infection possible small bowel resection alternatives to this procedure also discussed with patient who seemed to understand and gave both verbal and written consent to have the procedure performed. Patient was taken to the operating room placed in supine position general anesthesia was initiated once patient was sleeping intubated his abdomen was prepped and draped usual sterile fashion using ChloraPrep. A midline incision was made around the umbilicus excising the umbilicus with a 15 blade scalpel this carried down through the subcutaneous tissues using electrocautery down to the hernia sac which was visualized was partially opened with electrocautery there is quite a bit of ascites fluid surgeon's finger was placed through the opening moving bilateral the way and the hernia sac was further opened electrocautery until the sac was completely open there was a loop of small bowel within the hernia sac with some adhesions to the hernia sac these were taken down with sharp dissection once the bowel was freed from the hernia sac it was then freed up from the underlying fascia using sharp and blunt d issection. Once the small bowel was completely freed up it was run a good length proximally and distally with no other abnormalities noted small bowel was then returned to the abdomen. The hernia sac was excised with electrocautery it appeared that the mesh had come undone from the right fascia part of the mesh was incorporated the hernia sac was removed with a hernia sac. There was still be some mesh attached to and well incorporated to the left fascia. The fascia was then closed with a running looped #1 PDS. A mesh overlay on the anterior surface was then used a phasic's this was sewn into place with 0 Prolene. 19 Frisian MERE drain was placed through separate stab incision in the right lower quadrant into the deep subcutaneous space. Drain was sewn into place with a 2-0 silk drain stitch. Deep subcutaneous layer was closed with a running 3-0 Vicryl a second deep layer subcutaneous tissue was closed with running 3-0 Vicryl skin was reapproximated for septic either Monocryl Mastisol Steri-Strips and island dressings were applied. Patient was awakened and extubated operating room taken to recovery in stable condition all sponge instrument needle counts listed as correct estimated blood loss 60 mL. ROHAN FLORES MD Apr 17, 2020 14:41
[2020-04-17] MEDS ORDERED: NEOSTIGMINE METHYLSULFATE 5 MG/5 ML SYRINGE. ONE (14:43)
[2020-04-17] MEDS ORDERED: GLYCOPYRROLATE 1 MG/5 ML VIAL. ONE (14:43)
[2020-04-17] MEDS ORDERED: PROCHLORPERAZINE 10 MG/2 ML VIAL. ONE (15:06)
[2020-04-17] MEDS ORDERED: LABETALOL 20 MG/4 ML DISP.SYRIN. IVP PRN (16:45)
[2020-04-17] MEDS: MORPHINE SULFATE 4 MG/ML VIAL. IV PRN (22:18)
[2020-04-18] VITALS (13 sets, daily range): BP systolic 98–149; BP diastolic 41–95
[2020-04-18] MEDS: MORPHINE SULFATE 4 MG/ML VIAL. IV PRN (00:03)
[2020-04-18] MEDS: METOPROLOL TARTRATE 5 MG/5 ML VIAL. IVP SCH ×3 (05:22→18:09)
--- NOTE | 2020-04-18 10:35 | NUR ---
Pizarro catheter dc 1030.
--- NOTE | 2020-04-18 11:59 | PDOC ---
SURGICAL PROGRESS NOTE DATE: 04/18/20 TIME: 11:58 Subjective Patient states he is feeling great minimal pain no nausea Vital Signs Vital Signs Date Time Temp Pulse Resp B/P (MAP) Pulse Ox O2 Delivery O2 Flow Rate FiO2 04/18/20 10:00 92 145/79 (101) 04/18/20 08:00 Room Air 3.0 04/18/20 07:00 97.9 22 94 97.9 I&O Intake and Output 04/18/20 07:00 Intake Total 930 ml Output Total 850 ml Balance 80 ml Intake Oral 380 ml IV Total 550 ml Output Urine Total 750 ml Drainage Total 50 ml Estimated Blood Loss 50 ml PATIENT HAS A WHITTEN: No General: Alert, Oriented X3, Cooperative, mild distress Abdomen: Normal bowel sounds, Soft, Other (Mild incisional tenderness wound clean dry and intact) Labs Laboratory Tests Test 04/17/20 03:06 04/17/20 05:04 White Blood Count 9.7 x10^3/uL (4.0-11.0) Red Blood Count 4.17 x10^6/uL (4.30-5.70) Hemoglobin 13.0 g/dL (13.0-17.5) Hematocrit 39.5 % (39.0-53.0) Mean Corpuscular Volume 95 fL (79-100) Mean Corpuscular Hemoglobin 31 pg (25-35) Mean Corpuscular Hemoglobin Concent 33 g/dL (31-37) Red Cell Distribution Width 16.4 % (11.5-14.5) Platelet Count 282 x10^3/uL (140-400) Neutrophils (%) (Auto) 82 % (31-73) Lymphocytes (%) (Auto) 10 % (24-48) Monocytes (%) (Auto) 7 % (0-9) Eosinophils (%) (Auto) 1 % (0-3) Basophils (%) (Auto) 0 % (0-3) Neutrophils # (Auto) 8.0 x10^3/uL (1.8-7.7) Lymphocytes # (Auto) 0.9 x10^3/uL (1.0-4.8) Monocytes # (Auto) 0.7 x10^3/uL (0.0-1.1) Eosinophils # (Auto) 0.1 x10^3/uL (0.0-0.7) Basophils # (Auto) 0.0 x10^3/uL (0.0-0.2) Prothrombin Time 20.2 SEC (11.7-14.0) Prothromb Time International Ratio 1.8 (0.8-1.1) Activated Partial Thromboplast Time 43 SEC (24-38) Sodium Level 139 mmol/L (136-145) Potassium Level 4.3 mmol/L (3.5-5.1) Chloride Level 103 mmol/L (98-107) Carbon Dioxide Level 28 mmol/L (21-32) Anion Gap 8 (6-14) Blood Urea Nitrogen 18 mg/dL (8-26) Creatinine 1.4 mg/dL (0.7-1.3) Estimated GFR (Cockcroft-Gault) 50.2 BUN/Creatinine Ratio 13 (6-20) Glucose Level 165 mg/dL (70-99) Lactic Acid Level 1.6 mmol/L (0.4-2.0) Calcium Level 10.2 mg/dL (8.5-10.1) Magnesium Level 2.2 mg/dL (1.8-2.4) Total Bilirubin 0.3 mg/dL (0.2-1.0) Aspartate Amino Transf (AST/SGOT) 21 U/L (15-37) Alanine Aminotransferase (ALT/SGPT) 29 U/L (16-63) Alkaline Phosphatase 57 U/L (46-116) Troponin I Quantitative 0.019 ng/mL (0.000-0.055) Total Protein 7.4 g/dL (6.4-8.2) Albumin 3.9 g/dL (3.4-5.0) Albumin/Globulin Ratio 1.1 (1.0-1.7) Lipase 67 U/L (73-393) Coronavirus (PCR) Not detected (Not Detected) SARS-CoV-2 Antigen (Rapid) Negative (NEGATIVE) Problem List Problems Medical Problems: (1) Abdominal hernia Status: Acute (2) Abdominal pain Status: Acute (3) Partial bowel obstruction Status: Acute Assessment/Plan Status post oratory laparotomy with repair of recurrent incisional hernia Advance diet Justicifation of Admission Dx: Justifications for Admission: Justification of Admission Dx: N/A ROHAN FLORES MD Apr 18, 2020 11:59
--- NOTE | 2020-04-18 12:42 | PDOC ---
CHERYL MERLOS THIAGO 04/18/20 1242: CARDIO Progress Notes Date and Time Date of Service 04/18/20 Time of Evaluation 1230 Subjective Subjective: No Chest Pain, No shortness of breath, No Palpitations Vitals Vitals Vital Signs Date Time Temp Pulse Resp B/P (MAP) Pulse Ox O2 Delivery O2 Flow Rate FiO2 04/18/20 10:00 92 145/79 (101) 04/18/20 08:00 Room Air 3.0 04/18/20 07:00 97.9 22 94 97.9 Weight Weight [ ] Input and Output Intake and Output Intake and Output 04/18/20 07:00 Intake Total 930 ml Output Total 850 ml Balance 80 ml Intake Oral 380 ml IV Total 550 ml Output Urine Total 750 ml Drainage Total 50 ml Estimated Blood Loss 50 ml Physical Exam HEENT: Neck Supple W Full Motion LUNGS: Clear to Auscultation Heart: irregularly irregular (AFIB- rate near 100-115) Extremities: No Edema Neurology: alert, oriented, follow commands Assessment Assessment 1. Dyspnea in the setting of #2; improved 2. PAFIB; presenting in RVR. Mostly controlled following Amiodarone therapy, but intermittently elevated 3. Hypertension; controlled 4. Hyperlipidemia; Zetia, fenofibrate 5. SSS s/p PPM (Vormetrictronic). Device check 03/13/20 with normal function. Follows with Dr. Manjinder Jean 6. Chronic systolic CHF; Echo 12/15 with LVEF 40%. Clinically compensated 7. HOCM s/p septal myomectomy 10/2018 8. Mechanical mitral valce replacement 9. Chronic OAC with warfarin therapy 10. Incarcerated recurrent ventral hernia; s/p laparotomy with lysis of adhesio ns and repair of ventral hernia; POD #1 Recommendations Convert metoprolol back to oral and increase for better rate control; convert to Toprol if BP tolerates increased dose Start oral Amiodarone when gtt complete Continue warfarin for stroke prophylaxis; target INR 2.5-3.5. Resume HF optimization with Lasix, Aldactone, Toprol, and lisinopril Consider Entresto on an outpatient basis Outpatient echo and consider outpatient CV if he remains in AFIB; will defer to primary internal specialist Follow up with Dr. Manjinder Jean upon discharge Justicifation of Admission Dx: Justifications for Admission: Justification of Admission Dx: N/A SCOTTY CASTANEDA MD 04/18/20 1906: CARDIO Progress Notes Assessment Assessment Patient seen and examined. Agree with PHARMACISTS's assessment and plan. SSS s/p PPM - device interrogation showed 44% AF burden - new diagnosis for him Continue amiodarone for rhythm maintenance - change to PO when loading dose complete s/p mechanical MVR and septal myectomy for HOCM, clinically stable. Resume OAC when okay from surgical standpoint Chr syst HF compensated Consider outpatient CVn with primary internal specialist CHERYL MERLOS APRN Apr 18, 2020 12:42 SCOTTY CASTANEDA MD Apr 18, 2020 19:06
--- NOTE | 2020-04-18 13:03 | NUR ---
SS following for discharge planning. SS reviewed pt chart and discussed with pt RN. Pt is from home and is currently on room air. COVID19 negative. Pt had surgery on 04/17/2020. Pt transitioning from Amio drip to PO Amio. SS will continue to follow for discharge planning.
[2020-04-18] MEDS: FUROSEMIDE 20 MG TABLET PO SCH (13:53)
[2020-04-18] MEDS: EZETIMIBE 10 MG TABLET. PO SCH (13:53)
[2020-04-18] MEDS: LISINOPRIL 5 MG TABLET. PO SCH (13:53)
[2020-04-18] MEDS: METOPROLOL TART IMMED RELEASE 50 MG TABLET. PO SCH ×2 (13:54→21:43)
[2020-04-18] MEDS: AMIODARONE HCL 200 MG TABLET. PO SCH (13:54)
[2020-04-18 14:16] LABS: PROTHROMBIN TIME PATIENT 19.8 SEC (11.7-14.0)
[2020-04-18] MEDS ORDERED: DULoxetine HCL 30 MG CAPSULE.DR PO SCH (15:00)
[2020-04-18] MEDS: oxyCODONE/APAP 5/325 1 TAB TABLET PO PRN ×2 (15:02→21:45)
--- NOTE | 2020-04-18 15:05 | PDOC ---
[facility] PROGRESS NOTE Date of Service DOS: DATE: 04/18/20 TIME: 15:03 Chief Complaint Chief Complaint Acute abdominal pain due to partial small bowel obstruction HUMZA due to vasomotor nephropathy Mild hypercalcemia Appropriate coagulopathy due to warfarin Morbid obesity Admit to medicine for further management Surgical consult for small bowel obstruction Cardiology consult for preop clearance and evaluation for his mechanical valve Patient may need IV vitamin K for reversal before surgery PT OT after surgery Hold for now for preop for DVT prophylaxis ADA diet Full code Discussed with RN and SW Disposition inpatient management as above Surrogate decision maker is Glenn Campos History of Present Illness History of Present Illness 70-year-old male with past medical history of CAD, valve replacement, hypertension, and history of umbilical hernia repair who presents to the ED with abdominal pain. He describes as periumbilical stabbing and tearing pain that is 10 out of 10. He does have associated nausea vomiting. Denies any constipation or diarrhea. He did have his valve replacement at [facility] and was scheduled for a cardiology appointment for his tachycardia. Unsure if he has a history of A. fib. Patient states he generally has a high pain threshold and decides he needed to come in to be evaluated. 04/18: Patient evaluated bedside, s/p exploratory laparotomy with lysis of adhesions and repair of ventral hernia. He complains of abdominal pain only when he coughs. Anticoagulation with Coumadin. His home meds of been resumed, discussed with RN. Possible discharge tomorrow. Vitals/I&O Vitals/I&O: Vital Signs Date Time Temp Pulse Resp B/P (MAP) Pulse Ox O2 Delivery O2 Flow Rate FiO2 04/18/20 13:54 92 145/79 04/18/20 08:00 Room Air 3.0 04/18/20 07:00 97.9 22 94 97.9 I & O 04/17/20 04/17/20 04/18/20 14:59 22:59 06:59 Intake Total 650 ml 280 ml Output Total 450 ml 400 ml Balance 200 ml -120 ml Physical Exam General: Alert, Oriented X3, Cooperative, mild distress Heart: Other (tachycardia) Lungs: Clear Abdomen: Normal bowel sounds, Soft, Other (Mild incisional tenderness wound clean dry and intact) Extremities: No cyanosis, No edema Skin: No breakdown Labs Labs: Laboratory Tests Test 04/18/20 13:35 Prothrombin Time 19.8 SEC (11.7-14.0) Prothromb Time International Ratio 1.7 (0.8-1.1) Review of Systems Review of Systems: Abdominal pain. Denies shortness of breath, denies nausea, denies vomiting, denies chest pain. Assessment and Plan Assessmemt and Plan Problems Medical Problems: (1) Abdominal hernia Status: Acute (2) Abdominal pain Status: Acute (3) Partial bowel obstruction Status: Acute Comment Review of Relevant I have reviewed the following items sebastian (where applicable) has been applied. Medications: Current Medications Medications (Trade) Dose Ordered Sig/Marlon Route PRN Reason Start Time Stop Time Status Last Admin Dose Admin Metoprolol Tartrate (Lopressor) 50 mg BID PO 04/18/20 13:00 04/18/20 13:54 Lisinopril (Prinivil) 5 mg DAILY PO 04/18/20 13:00 04/18/20 13:53 Amiodarone HCl (Cordarone) 200 mg DAILY PO 04/18/20 13:00 04/18/20 13:54 EZETIMIBE (Zetia) 10 mg DAILY PO 04/18/20 13:00 04/18/20 13:53 Furosemide (Lasix) 20 mg DAILY PO 04/18/20 13:00 04/18/20 13:53 Justifications for Admission Other Justification A. fib with RVR ISAÍAS CATALAN MD Apr 18, 2020 15:05
--- NOTE | 2020-04-18 16:28 | NUR ---
Pharmacy Warfarin Dosing Note S:Pharmacy consulted to assist with anticoagulation therapy started with target INR: 2 -3 O:LADARIUS ELLIS is a 70 year old M with Atrial Fibrillation Mechanical Aortic Valve LABS: Last INR: 1.7 Last HGB: Last HCT: Last PLT: Last dose of given on at Previous Regimen: Vitamin K given: Y 5MG SUB Q 2/2 SBO SURG. Drug Interaction Changes: Ongoing Drug Interactions: A:INR of 1.7 is below desired range. Target range for this patient is: 2 -3 P: Warfarin dose: 8 MG Today at 1600 Bridge Therapy: Next INR due IN AM Pharmacy anticoagulation service will continue to follow. AIME MCGREGOR [facility], 04/18/20 0949
[2020-04-18] MEDS ORDERED: WARFARIN 4 MG TABLET. PO ONE (16:30)
[2020-04-18] MEDS ORDERED: SPIRONOLACTONE 25 MG TABLET PO SCH (21:00)
[2020-04-18] MEDS ORDERED: ATORVASTATIN CALCIUM 40 MG TABLET. PO SCH (21:00)
[2020-04-18] MEDS: lamoTRIgine 100 MG TABLET. PO SCH (21:43)
[2020-04-18] MEDS: SENNOSIDES 8.6 MG TABLET PO SCH (21:44)
[2020-04-19 02:15] VITALS: BP 85/47
[2020-04-19] MEDS: METOPROLOL TARTRATE 5 MG/5 ML VIAL. IVP SCH ×2 (06:00)
[2020-04-19 07:00] VITALS: BP 96/51
--- NOTE | 2020-04-19 08:29 | PDOC ---
PROGRESS NOTES Date of Service: DATE: 04/19/20 TIME: 08:29 Chief Complaint Chief Complaint discharge dx Acute abdominal pain due to partial small bowel obstruction HUMZA due to vasomotor nephropathy Mild hypercalcemia Appropriate coagulopathy due to warfarin Morbid obesity Admit to medicine for further management Surgical consult for small bowel obstruction Cardiology consult for preop clearance and evaluation for his mechanical valve Patient may need IV vitamin K for reversal before surgery PT OT after surgery Hold for now for preop for DVT prophylaxis ADA diet Full code Discussed with RN and SW Surrogate decision maker is Glenn Campos Convert metoprolol to long-acting Amiodarone therapy Continue warfarin for stroke prophylaxis; target INR 2.5-3.5. Will bridge with Lovenox as INR in 1.5 HF optimization with Lasix, Aldactone, Toprol, and lisinopril Consider Entresto on an outpatient basis Outpatient echo and consider outpatient CV if he remains in AFIB; will defer to primary display coordinator Follow up with Dr. Manjinder Jean upon discharge Stable from surgical standpoint 04/19 Follow-up Dr. Valencia next week to have drain removed D/C PLANNING 36 MIN History of Present Illness History of Present Illness 70-year-old male with past medical history of CAD, valve replacement, hypertension, and history of umbilical hernia repair who presents to the ED with abdominal pain. He describes as periumbilical stabbing and tearing pain that is 10 out of 10. He does have associated nausea vomiting. Denies any constipation or diarrhea. He did have his valve replacement at [facility] and was scheduled for a cardiology appointment for his tachycardia. Unsure if he has a history of A. fib. Patient states he generally has a high pain threshold and decides he needed to come in to be evaluated. 04/18: Patient evaluated bedside, s/p exploratory laparotomy with lysis of adhesions and repair of ventral hernia. He complains of abdominal pain only when he coughs. Anticoagulation with Coumadin. His home meds of been resumed, discussed with RN. Possible discharge tomorrow. 07-20 D/C PLANNING 36 MIN Vitals Vitals Vital Signs Date Time Temp Pulse Resp B/P (MAP) Pulse Ox O2 Delivery O2 Flow Rate FiO2 04/19/20 02:15 98.0 77 20 85/47 (60) 91 Room Air 98.0 04/18/20 21:45 3.0 Physical Exam General: Alert, Oriented X3, Cooperative, No acute distress Heart: Regular rate, Other (tachycardia) Lungs: Clear Abdomen: Normal bowel sounds, Soft, Other (Mild incisional tenderness wound clean dry and intact) Extremities: No cyanosis, No edema Skin: No breakdown Labs LABS Laboratory Tests Test 04/18/20 13:35 Prothrombin Time 19.8 SEC (11.7-14.0) Prothromb Time International Ratio 1.7 (0.8-1.1) Assessment and Plan Assessmemt and Plan Problems Medical Problems: (1) Abdominal hernia Status: Acute (2) Abdominal pain Status: Acute (3) Partial bowel obstruction Status: Acute Comment Review of Relevant I have reviewed the following items sebastian (where applicable) has been applied. Labs Laboratory Tests Test 04/18/20 13:35 Prothrombin Time 19.8 SEC (11.7-14.0) Prothromb Time International Ratio 1.7 (0.8-1.1) Laboratory Tests Test 04/18/20 13:35 Prothrombin Time 19.8 SEC (11.7-14.0) Prothromb Time International Ratio 1.7 (0.8-1.1) Medications Current Medications Morphine Sulfate (Morphine Sulfate) 4 mg 1X ONCE IV Last administered on 04/17/20at 03:22; Start 04/17/20 at 03:30; Stop 04/17/20 at 03:31; Status DC Ondansetron HCl (Zofran) 4 mg 1X ONCE IVP Last administered on 04/17/20at 03:22; Start 04/17/20 at 03:30; Stop 04/17/20 at 03:31; Status DC Sodium Chloride 1,000 ml @ 1,000 mls/hr 1X ONCE IV Last administered on 04/17/20at 03:23; Start 04/17/20 at 03:30; Stop 04/17/20 at 04:29; Status DC Ondansetron HCl (Zofran) 4 mg STK-MED ONCE .ROUTE ; Start 04/17/20 at 03:19; Stop 04/17/20 at 03:19; Status DC Morphine Sulfate (Morphine Sulfate) 4 mg STK-MED ONCE .ROUTE ; Start 04/17/20 at 03:19; Stop 04/17/20 at 03:19; Status DC Iohexol (Omnipaque 300 Mg/ml) 75 ml 1X ONCE IV Last administered on 04/17/20at 03:44; Start 04/17/20 at 03:45; Stop 04/17/20 at 03:46; Status DC Info (CONTRAST GIVEN -- Rx MONITORING) 1 each PRN DAILY PRN MC SEE COMMENTS; Start 04/17/20 at 03:45; Stop 04/19/20 at 03:44; Status DC Morphine Sulfate (Morphine Sulfate) 4 mg 1X ONCE IV Last administered on 04/17/20at 05:01; Start 04/17/20 at 04:45; Stop 04/17/20 at 04:46; Status DC Ondansetron HCl (Zofran) 4 mg PRN Q8HRS PRN IV NAUSEA/VOMITING; Start 04/17/20 at 06:00; Stop 04/18/20 at 05:59; Status DC Morphine Sulfate (Morphine Sulfate) 4 mg PRN Q2HR PRN IV PAIN Last administered on 04/18/20at 00:03; Start 04/17/20 at 06:00; Stop 04/18/20 at 05:59; Status DC Ondansetron HCl (Zofran) 4 mg PRN Q6HRS PRN IV NAUSEA/VOMITING Last administere d on 04/17/20at 08:28; Start 04/17/20 at 07:45; Stop 04/17/20 at 20:00; Status DC Fentanyl Citrate (Fentanyl 2ml Vial) 25 mcg PRN Q5MIN PRN IV MILD PAIN 1-3 Last administered on 04/17/20at 09:16; Start 04/17/20 at 07:45; Stop 04/17/20 at 20:00; Status DC Fentanyl Citrate (Fentanyl 2ml Vial) 50 mcg PRN Q5MIN PRN IV MODERATE TO SEVERE PAIN Last administered on 04/17/20at 16:49; Start 04/17/20 at 07:45; Stop 04/17/20 at 20:00; Status DC Morphine Sulfate (Morphine Sulfate) 1 mg PRN Q10MIN PRN IV SEVERE PAIN 7-10 Last administered on 04/17/20 08:28; Start 04/17/20 at 07:45; Stop 04/17/20 at 20:00; Status DC Ringer's Solution 1,000 ml @ 30 mls/hr Q24H IV Last administered on 04/17/20at 09:07; Start 04/17/20 at 07:39; Stop 04/17/20 at 19:38; Status DC Lidocaine HCl (Xylocaine-Mpf 1% 2ml Vial) 2 ml PRN 1X PRN ID PRIOR TO IV START; Start 04/17/20 at 07:45; Stop 04/17/20 at 20:00; Status DC Hydromorphone HCl (Dilaudid) 0.5 mg PRN Q10MIN PRN IV SEV PAIN, Second choice; Start 04/17/20 at 07:45; Stop 04/17/20 at 20:00; Status DC Prochlorperazine Edisylate (Compazine) 5 mg PACU PRN PRN IV NAUSEA, MRX1 Last administered on 04/17/20at 15:15; Start 04/17/20 at 07:45; Stop 04/17/20 at 20:00; Status DC Bupivacaine HCl/ Epinephrine Bitart (Sensorcaine-Epi 0.25%-1:[id number] Mpf) 30 ml 1X ONCE INJ ; Start 04/17/20 at 07:45; Stop 04/17/20 at 07:46; Status DC Phytonadione (Vitamin K Ampule) 5 mg 1X ONCE SQ Last administered on 04/17/20at 09:06; Start 04/17/20 at 08:30; Stop 04/17/20 at 08:39; Status DC Propofol (Diprivan) 200 mg STK-MED ONCE IV ; Start 04/17/20 at 10:38; Stop 04/17/20 at 10:39; Status DC Lidocaine HCl (Lidocaine Pf 2% Vial) 5 ml STK-MED ONCE .ROUTE ; Start 04/17/20 at 10:38; Stop 04/17/20 at 10:39; Status DC Dexamethasone Sodium Phosphate (Decadron) 4 mg STK-MED ONCE .ROUTE ; Start 04/17/20 at 10:38; Stop 04/17/20 at 10:39; Status DC Ondansetron HCl (Zofran) 4 mg STK-MED ONCE .ROUTE ; Start 04/17/20 at 10:39; Stop 04/17/20 at 10:39; Status DC Rocuronium [place] (Zemuron) 50 mg STK-MED ONCE .ROUTE ; Start 04/17/20 at 10:39; Stop 04/17/20 at 10:39; Status DC Succinylcholine Chloride (Anectine) 200 mg STK-MED ONCE .ROUTE ; Start 04/17/20 at 10:39; Stop 04/17/20 at 10:40; Status DC Fentanyl Citrate (Fentanyl 2ml Vial) 100 mcg STK-MED ONCE .ROUTE ; Start 04/17/20 at 10:40; Stop 04/17/20 at 10:41; Status DC Metoprolol Tartrate (Lopressor Vial) 5 mg PRN Q5MIN PRN IVP TACHYCARDIA Last administered on 04/17/20at 15:35; Start 04/17/20 at 11:45; Stop 04/17/20 at 20:00; Status DC Metoprolol Tartrate (Lopressor Vial) 5 mg STK-MED ONCE IVP ; Start 04/17/20 at 11:36; Stop 04/17/20 at 11:36; Status DC Metoprolol Tartrate (Lopressor Vial) 5 mg Q6HRS IVP Last administered on 04/18/20at 18:09; Start 04/17/20 at 12:15 Amiodarone HCl 150 mg/Dextrose 103 ml @ 600 mls/hr 1X ONCE IV Last administered on 04/17/20at 12:55; Start 04/17/20 at 12:30; Stop 04/17/20 at 12:40; Status DC Amiodarone HCl 450 mg/Dextrose 259 ml @ 0 mls/hr CONT PRN IV SEE I/O RECORD Last administered on 04/17/20at 23:59; Start 04/17/20 at 12:30; Stop 04/18/20 at 12:29; Status DC Fentanyl Citrate (Fentanyl 2ml Vial) 100 mcg STK-MED ONCE .ROUTE ; Start 04/17/20 at 12:19; Stop 04/17/20 at 12:19; Status DC Etomidate (Amidate) 20 mg STK-MED ONCE IV ; Start 04/17/20 at 12:43; Stop 04/17/20 at 12:43; Status DC Sevoflurane (Ultane) 90 ml STK-MED ONCE IH ; Start 04/17/20 at 13:45; Stop 04/17/20 at 13:45; Status DC Cellulose (Surgicel Hemostat 4x8) 1 each STK-MED ONCE .ROUTE Last administered on 04/17/20at 13:52; Start 04/17/20 at 13:51; Stop 04/17/20 at 13:52; Status DC Glycopyrrolate (Robinul) 1 mg STK-MED ONCE .ROUTE ; Start 04/17/20 at 14:43; Stop 04/17/20 at 14:43; Status DC Neostigmine [place] (Neostigmine Methylsulfate) 5 mg STK-MED ONCE .ROUTE ; Start 04/17/20 at 14:43; Stop 04/17/20 at 14:43; Status DC Fentanyl Citrate (Fentanyl 2ml Vial) 100 mcg STK-MED ONCE .ROUTE ; Start 04/17/20 at 15:06; Stop 04/17/20 at 15:06; Status DC Prochlorperazine Edisylate (Compazine) 10 mg STK-MED ONCE .ROUTE ; Start 04/17/20 at 15:06; Stop 04/17/20 at 15:06; Status DC Labetalol HCl (Normodyne Iv Push) 10 mg PRN Q10MIN PRN IVP HYPERTENSION; Start 04/17/20 at 16:45 Fentanyl Citrate (Fentanyl 2ml Vial) 100 mcg STK-MED ONCE .ROUTE ; Start 04/17/20 at 16:45; Stop 04/17/20 at 16:45; Status DC Metoprolol Tartrate (Lopressor) 50 mg BID PO Last administered on 04/18/20at 21:43; Start 04/18/20 at 13:00 Lisinopril (Prinivil) 5 mg DAILY PO Last administered on 04/18/20at 13:53; Start 04/18/20 at 13:00 Amiodarone HCl (Cordarone) 200 mg DAILY PO Last administered on 04/18/20at 13:54; Start 04/18/20 at 13:00 Atorvastatin Calcium (Lipitor) 40 mg QHS PO Last administered on 04/18/20at 21:44; Start 04/18/20 at 21:00 EZETIMIBE (Zetia) 10 mg DAILY PO Last administered on 04/18/20at 13:53; Start 04/18/20 at 13:00 Spironolactone (Aldactone) 25 mg QHS PO Last administered on 04/18/20at 21:44; Start 04/18/20 at 21:00 Furosemide (Lasix) 20 mg DAILY PO Last administered on 04/18/20at 13:53; Start 04/18/20 at 13:00 Warfarin Sodium (Coumadin Per Pharmacy) 1 each PRN DAILY PRN MC SEE COMMENTS Last administered on 04/18/20at 16:25; Start 04/18/20 at 14:45 Oxycodone/ Acetaminophen (Percocet 5/325) 1 tab PRN Q4HRS PRN PO PAIN MILD TO MOD Last administered on 04/18/20at 21:45; Start 04/18/20 at 15:00 Sennosides (Senna) 17.2 mg BID PO Last administered on 04/18/20at 21:44; Start 04/18/20 at 21:00 Duloxetine HCl (Cymbalta) 120 mg QHS PO Last administered on 04/18/20at 15:02; Start 04/18/20 at 15:00 Fenofibrate (Lofibra) 134 mg DAILY PO ; Start 04/19/20 at 09:00 Lamotrigine (LaMICtal) 200 mg BID PO Last administered on 04/18/20at 21:43; Start 04/18/20 at 21:00 Warfarin Sodium (Coumadin) 8 mg 1X ONCE PO Last administered on 04/18/20at 18:09; Start 04/18/20 at 16:30; Stop 04/18/20 at 16:31; Status DC Active Scripts Active Toprol XL (Metoprolol Succinate) 50 Mg Tab.er.24h 50 Mg PO DAILY Percocet 5-325 Mg Tablet (Oxycodone/Acetaminophen) 1 Each Tablet 1 Tab PO PRN Q4HRS PRN Proair Hfa (Albuterol Sulfate) 8.5 Gm Hfa.aer.ad 1 Puff INH PRN Q6HRS PRN Lovenox (Enoxaparin Sodium) 120 Mg/0.8 Ml Disp.syrin 120 Mg SQ BID 5 Days Reported Spironolactone 25 Mg Tablet 25 Mg PO QHS Cymbalta (Duloxetine Hcl) 60 Mg Capsule.dr 120 Mg PO QHS Warfarin Sodium 4 Mg Tablet 8 Mg PO QMWF Warfarin Sodium 6 Mg Tablet 6 Mg PO QTUTHSASU Senna (Sennosides) 8.6 Mg Tablet 17.2 Mg PO BID Potassium Chloride 10 Meq Tablet.er 20 Meq PO QHS Oxycodone-Acetaminophen 5-325 (Oxycodone Hcl/Acetaminophen) 1 Each Tablet 1 Each PO PRN Q4HRS PRN Lamotrigine 200 Mg Tablet 1 Tab PO BID Tricor (Fenofibrate Nanocrystallized) 145 Mg Tablet 1 Tab PO DAILY Zetia (Ezetimibe) 10 Mg Tablet 1 Tab PO DAILY Atorvastatin Calcium 40 Mg Tablet 1 Tab PO QHS Vitals/I & O Vital Sign - Last 24 Hours 04/18/20 04/18/20 04/18/20 04/18/20 09:00 10:00 10:10 11:54 Pulse 104 92 100 122 B/P (MAP) 127/64 (85) 145/79 (101) 101/71 (81) 132/89 (103) 04/18/20 04/18/20 04/18/20 04/18/20 12:04 13:04 13:53 13:54 Pulse 130 107 92 92 B/P (MAP) 123/84 (97) 141/81 (101) 145/79 145/79 04/18/20 04/18/20 04/18/20 04/18/20 13:54 14:04 15:02 15:04 Pulse 92 135 92 Resp 18 B/P (MAP) 145/79 149/95 (113) 145/79 Pulse Ox 94 O2 Delivery Room Air O2 Flow Rate 3.0 04/18/20 04/18/20 04/18/20 04/18/20 15:17 16:02 18:09 19:37 Temp 98.2 98.3 98.2 98.3 Pulse 109 109 83 Resp 22 18 20 B/P (MAP) 149/95 (113) 149/95 100/57 (71) Pulse Ox 95 95 93 O2 Delivery Room Air Room Air Room Air O2 Flow Rate 3.0 04/18/20 04/18/20 04/18/20 04/18/20 20:00 21:43 21:45 22:05 Temp 98.4 98.4 Pulse 83 89 Resp 18 B/P (MAP) 100/57 98/41 (60) Pulse Ox 93 92 O2 Delivery Room Air Room Air Room Air O2 Flow Rate 3.0 04/18/20 04/19/20 04/19/20 22:45 00:00 02:15 Temp 98.0 98.0 Pulse 89 77 Resp 20 B/P (MAP) 98/41 85/47 (60) Pulse Ox 92 91 O2 Delivery Room Air Room Air Intake and Output 04/18/20 04/18/20 04/19/20 15:00 23:00 07:00 Intake Total 1250 ml 400 ml 750 ml Output Total 380 ml 448 ml 400 ml Balance 870 ml -48 ml 350 ml Justicifation of Admission Dx: Justifications for Admission: Justification of Admission Dx: N/A ROHAN SHAH MD Apr 19, 2020 08:29
[2020-04-19] MEDS ORDERED: FENOFIBRATE,MICRONIZED 134 MG CAPSULE PO SCH (09:00)
--- NOTE | 2020-04-19 09:54 | PDOC ---
CHERYL MERLOS THIAGO 04/19/20 0954: CARDIO Progress Notes Date and Time Date of Service 04/19/20 Time of Evaluation 1115 Subjective Subjective: No Chest Pain, No shortness of breath, No Palpitations Vitals Vitals Vital Signs Date Time Temp Pulse Resp B/P (MAP) Pulse Ox O2 Delivery O2 Flow Rate FiO2 04/19/20 07:00 98.0 71 22 96/51 (66) 93 Room Air 98.0 04/18/20 21:45 3.0 Weight Weight [ ] Input and Output Intake and Output Intake and Output 04/19/20 07:00 Intake Total 2400 ml Output Total 1228 ml Balance 1172 ml Intake Oral 2400 ml Output Urine Total 1110 ml Gastric Drainage Total 118 ml Laboratory Labs Laboratory Tests Test 04/18/20 13:35 Prothrombin Time 19.8 SEC (11.7-14.0) Prothromb Time International Ratio 1.7 (0.8-1.1) Physical Exam HEENT: Neck Supple W Full Motion Chest: Symmetric LUNGS: Clear to Auscultation, Other (diminished ) Heart: irregularly irregular (AFIB- rate controlled ) Abdomen: Soft N/T, Other (obese) Extremities: Other (trace bilateral LE edema ) Neurology: alert, oriented, follow commands Assessment Assessment 1. Dyspnea in the setting of #2; improved 2. PAFIB; presenting in RVR. Mostly controlled following Amiodarone therapy, but intermittently elevated 3. Hypertension; controlled 4. Hyperlipidemia; Zetia, fenofibrate 5. SSS s/p PPM ([employer]). Device check 03/13/20 with normal function. Follows with Dr. Manjinder Jean 6. Chronic systolic CHF; Echo 12/15 with LVEF 40%. Clinically compensated 7. HOCM s/p septal myomectomy 10/2018 8. Mechanical mitral valce replacement 9. Chronic OAC with warfarin therapy 10. Incarcerated recurrent ventral hernia; s/p laparotomy with lysis of adhesions and repair of ventral hernia; POD #1 Recommendations Convert metoprolol to long-acting Amiodarone therapy Continue warfarin for stroke prophylaxis; target INR 2.5-3.5. Will bridge with Lovenox as INR in 1.5 HF optimization with Lasix, Aldactone, Toprol, and lisinopril Consider Entresto on an outpatient basis Outpatient echo and consider outpatient CV if he remains in AFIB; will defer to primary agricultural research technologist Follow up with Dr. Manjinder Jean upon discharge Justicifation of Admission Dx: Justifications for Admission: Justification of Admission Dx: N/A SCOTTY CASTANEDA MD 04/19/20 1835: CARDIO Progress Notes Assessment Assessment Patient seen and examined. Agree with WOOL FLEECE SORTER's assessment and plan. SSS s/p PPM - device interrogation showed 44% AF burden - new diagnosis for him Continue amiodarone for rhythm maintenance s/p mechanical MVR and septal myectomy for HOCM, clinically stable. Continue warfarin Chr syst HF compensated Consider outpatient CVn with primary agricultural research technologist CHERYL MERLOS APRN Apr 19, 2020 09:54 SCOTTY CASTANEDA MD Apr 19, 2020 18:35
[2020-04-19] MEDS: lamoTRIgine 100 MG TABLET. PO SCH (10:23)
[2020-04-19] MEDS: EZETIMIBE 10 MG TABLET. PO SCH (10:23)
[2020-04-19] MEDS: LISINOPRIL 5 MG TABLET. PO SCH (10:24)
[2020-04-19] MEDS: SENNOSIDES 8.6 MG TABLET PO SCH (10:24)
[2020-04-19] MEDS: AMIODARONE HCL 200 MG TABLET. PO SCH (10:25)
[2020-04-19] MEDS: FUROSEMIDE 20 MG TABLET PO SCH (10:25)
[2020-04-19] MEDS: METOPROLOL TART IMMED RELEASE 50 MG TABLET. PO SCH (10:25)
[2020-04-19] MEDS: oxyCODONE/APAP 5/325 1 TAB TABLET PO PRN (10:27)
[2020-04-19 10:49] LABS: PROTHROMBIN TIME PATIENT 17.4 SEC (11.7-14.0)
--- NOTE | 2020-04-19 10:54 | PDOC ---
SURGICAL PROGRESS NOTE DATE: 04/19/20 TIME: 10:52 Subjective Patient doing quite well denies any abdominal pain Vital Signs Vital Signs Date Time Temp Pulse Resp B/P (MAP) Pulse Ox O2 Delivery O2 Flow Rate FiO2 04/19/20 10:27 20 93 Room Air 3.0 04/19/20 10:25 71 96/51 04/19/20 07:00 98.0 98.0 I&O Intake and Output 04/19/20 06:59 Intake Total 2400 ml Output Total 1228 ml Balance 1172 ml Intake Oral 2400 ml Output Urine Total 1110 ml Gastric Drainage Total 118 ml PATIENT HAS A WHITTEN: No General: Alert, Oriented X3, Cooperative, No acute distress Abdomen: Normal bowel sounds, Soft, No tenderness, Other (Wounds clean dry and intact, MERE drain intact with serosanguineous drainage) Labs Laboratory Tests Test 04/18/20 13:35 04/19/20 09:49 Prothrombin Time 19.8 SEC (11.7-14.0) 17.4 SEC (11.7-14.0) Prothromb Time International Ratio 1.7 (0.8-1.1) 1.5 (0.8-1.1) Laboratory Tests Test 04/18/20 13:35 04/19/20 09:49 Prothrombin Time 19.8 SEC (11.7-14.0) 17.4 SEC (11.7-14.0) Prothromb Time International Ratio 1.7 (0.8-1.1) 1.5 (0.8-1.1) Problem List Problems Medical Problems: (1) Abdominal hernia Status: Acute (2) Abdominal pain Status: Acute (3) Partial bowel obstruction Status: Acute Assessment/Plan Stable from surgical standpoint Follow-up Dr. Flores next week to have drain removed Justicifation of Admission Dx: Justifications for Admission: Justification of Admission Dx: N/A ROHAN FLORES MD Apr 19, 2020 10:54
[2020-04-19 11:00] VITALS: BP 125/59
--- NOTE | 2020-04-19 11:27 | NUR ---
Pharmacy Warfarin Dosing Note S:Pharmacy consulted to assist with anticoagulation therapy started with target INR: 2.5 - 3.5 O:LADARIUS ELLIS is a 70 year old M with Atrial Fibrillation and Mechanical Aortic Valve. LABS: Last INR: 1.5 Last HGB: 13 Last HCT: 39.5 Last PLT: 282 Last dose of 8 mg given on 04/18/20 at 1809 Previous Regimen: Home med: 6 mg qTuThSASU and 8 mg QMWF Vitamin K given: Y 5MG SUB Q 2/2 SBO SURG. Drug Interaction Changes: Same Interacting Drug Ongoing Drug Interactions: Amiodarone A:INR of 1.5 is below desired range. Target range for this patient is: 2.5 - 3.5 P: Warfarin dose: 8 MG Today at 1600 Bridge Therapy: Enoxaparin 1 mg/kg q12h Next INR due 04/20/20 Pharmacy anticoagulation service will continue to follow. DOUGLAS HERNANDEZ [facility] [place], 04/19/20 1127
--- NOTE | 2020-04-19 14:02 | NUR ---
SS following up with discharge planning. SS reviewed pt chart and discussed with pt RN. Pt is currently on room air. COVID19 negative. Pt had surgery on 04/17/2020. Pt has MERE drain. Working to advance diet. Discharge plan is to home when medically stable. SS will continue to follow for discharge planning.
[2020-04-19 15:00] VITALS: BP 130/76
--- NOTE | 2020-04-19 15:14 | PDOC3 ---
Discharge Summary Date of Admission: Apr 17, 2020 Date of Discharge: Apr 19, 2020 Follow-Up: 3-5 days Admitting Diagnosis comment: discharge dx Acute abdominal pain due to partial small bowel obstruction HUMZA due to vasomotor nephropathy Mild hypercalcemia Appropriate coagulopathy due to warfarin Morbid obesity Admit to medicine for further management Surgical consult for small bowel obstruction Cardiology consult for preop clearance and evaluation for his mechanical valve IV vitamin K for reversal before surgery PT OT after surgery ADA diet Full code Discussed with RN and SW Surrogate decision maker is Glenn Campos Convert metoprolol to long-acting Amiodarone therapy Continue warfarin for stroke prophylaxis; target INR 2.5-3.5. Will bridge with Lovenox as INR in 1.5 HF optimization with Lasix, Aldactone, Toprol, and lisinopril Consider Entresto on an outpatient basis Outpatient echo and consider outpatient CV if he remains in AFIB; will defer to primary supervisory historian Follow up with Dr. Manijnder Jean upon discharge Stable from surgical standpoint 04/19 Follow-up Dr. Valencia next week to have drain removed D/C PLANNING 36 MIN History of Present Illness History of Present Illness 70-year-old male with past medical history of CAD, valve replacement, hypertension, and history of umbilical hernia repair who presents to the ED with abdominal pain. He describes as periumbilical stabbing and tearing pain that is 10 out of 10. He does have associated nausea vomiting. Denies any constipation or diarrhea. He did have his valve replacement at [facility] and was scheduled for a cardiology appointment for his tachycardia. Unsure if he has a history of A. fib. Patient states he generally has a high pain threshold and decides he needed to come in to be evaluated. 04/18: Patient evaluated bedside, s/p exploratory laparotomy with lysis of adhesions and repair of ventral hernia. He complains of abdominal pain only when he coughs. Anticoagulation with Coumadin. His home meds of been resumed, discussed with RN. Possible discharge tomorrow. 07-20 D/C PLANNING 36 MIN Vitals Vitals Vital Signs Date Time Temp Pulse Resp B/P (MAP) Pulse Ox O2 Delivery O2 Flow Rate FiO2 04/19/20 02:15 98.0 77 20 85/47 (60) 91 Room Air 98.0 04/18/20 21:45 3.0 Physical Exam General: Alert, Oriented X3, Cooperative, No acute distress Heart: Regular rate, Other (tachycardia) Lungs: Clear Abdomen: Normal bowel sounds, Soft, Other (Mild incisional tenderness wound clean dry and intact) Extremities: No cyanosis, No edema Skin: No breakdown Labs LABS Laboratory Tests Test 04/18/20 13:35 Prothrombin Time 19.8 SEC (11.7-14.0) Prothromb Time International Ratio 1.7 (0.8-1.1) Assessment and Plan Assessmemt and Plan Problems Medical Problems: (1) Abdominal hernia Status: Acute (2) Abdominal pain Status: Acute (3) Partial bowel obstruction Status: Acute FINAL DIAGNOSIS Problems Medical Problems: (1) Abdominal hernia Status: Acute (2) Abdominal pain Status: Acute (3) Partial bowel obstruction Status: Acute Brief Hospital Course Mr. Cmapos is a 70 old [sex] who presented with [ PARTIAL SMALL BOWEL OBST] CONDITION AT DISCHARGE: Improved Discharge Medications Current Medications Morphine Sulfate (Morphine Sulfate) 4 mg 1X ONCE IV Last administered on 04/17/20at 03:22; Start 04/17/20 at 03:30; Stop 04/17/20 at 03:31; Status DC Ondansetron HCl (Zofran) 4 mg 1X ONCE IVP Last administered on 04/17/20at 03:22; Start 04/17/20 at 03:30; Stop 04/17/20 at 03:31; Status DC Sodium Chloride 1,000 ml @ 1,000 mls/hr 1X ONCE IV Last administered on 04/17/20at 03:23; Start 04/17/20 at 03:30; Stop 04/17/20 at 04:29; Status DC Ondansetron HCl (Zofran) 4 mg STK-MED ONCE .ROUTE ; Start 04/17/20 at 03:19; Stop 04/17/20 at 03:19; Status DC Morphine Sulfate (Morphine Sulfate) 4 mg STK-MED ONCE .ROUTE ; Start 04/17/20 at 03:19; Stop 04/17/20 at 03:19; Status DC Iohexol (Omnipaque 300 Mg/ml) 75 ml 1X ONCE IV Last administered on 04/17/20at 03:44; Start 04/17/20 at 03:45; Stop 04/17/20 at 03:46; Status DC Info (CONTRAST GIVEN -- Rx MONITORING) 1 each PRN DAILY PRN MC SEE COMMENTS; Start 04/17/20 at 03:45; Stop 04/19/20 at 03:44; Status DC Morphine Sulfate (Morphine Sulfate) 4 mg 1X ONCE IV Last administered on 04/17/20at 05:01; Start 04/17/20 at 04:45; Stop 04/17/20 at 04:46; Status DC Ondansetron HCl (Zofran) 4 mg PRN Q8HRS PRN IV NAUSEA/VOMITING; Start 04/17/20 at 06:00; Stop 04/18/20 at 05:59; Status DC Morphine Sulfate (Morphine Sulfate) 4 mg PRN Q2HR PRN IV PAIN Last administered on 04/18/20at 00:03; Start 04/17/20 at 06:00; Stop 04/18/20 at 05:59; Status DC Ondansetron HCl (Zofran) 4 mg PRN Q6HRS PRN IV NAUSEA/VOMITING Last administered on 04/17/20at 08:28; Start 04/17/20 at 07:45; Stop 04/17/20 at 20:00; Status DC Fentanyl Citrate (Fentanyl 2ml Vial) 25 mcg PRN Q5MIN PRN IV MILD PAIN 1-3 Last administered on 04/17/20at 09:16; Start 04/17/20 at 07:45; Stop 04/17/20 at 20:00; Status DC Fentanyl Citrate (Fentanyl 2ml Vial) 50 mcg PRN Q5MIN PRN IV MODERATE TO SEVERE PAIN Last administered on 04/17/20at 16:49; Start 04/17/20 at 07:45; Stop 04/17/20 at 20:00; Status DC Morphine Sulfate (Morphine Sulfate) 1 mg PRN Q10MIN PRN IV SEVERE PAIN 7-10 Last administered on 04/17/20at 08:28; Start 04/17/20 at 07:45; Stop 04/17/20 at 20:00; Status DC Ringer's Solution 1,000 ml @ 30 mls/hr Q24H IV Last administered on 04/17/20at 09:07; Start 04/17/20 at 07:39; Stop 04/17/20 at 19:38; Status DC Lidocaine HCl (Xylocaine-Mpf 1% 2ml Vial) 2 ml PRN 1X PRN ID PRIOR TO IV START; Start 04/17/20 at 07:45; Stop 04/17/20 at 20:00; Status DC Hydromorphone HCl (Dilaudid) 0.5 mg PRN Q10MIN PRN IV SEV PAIN, Second choice; Start 04/17/20 at 07:45; Stop 04/17/20 at 20:00; Status DC Prochlorperazine Edisylate (Compazine) 5 mg PACU PRN PRN IV NAUSEA, MRX1 Last administered on 04/17/20at 15:15; Start 04/17/20 at 07:45; Stop 04/17/20 at 20:00; Status DC Bupivacaine HCl/ Epinephrine Bitart (Sensorcaine-Epi 0.25%-1:[id number] Mpf) 30 ml 1X ONCE INJ ; Start 04/17/20 at 07:45; Stop 04/17/20 at 07:46; Status DC Phytonadione (Vitamin K Ampule) 5 mg 1X ONCE SQ Last administered on 04/17/20at 09:06; Start 04/17/20 at 08:30; Stop 04/17/20 at 08:39; Status DC Propofol (Diprivan) 200 mg STK-MED ONCE IV ; Start 04/17/20 at 10:38; Stop 04/17/20 at 10:39; Status DC Lidocaine HCl (Lidocaine Pf 2% Vial) 5 ml STK-MED ONCE .ROUTE ; Start 04/17/20 at 10:38; Stop 04/17/20 at 10:39; Status DC Dexamethasone Sodium Phosphate (Decadron) 4 mg STK-MED ONCE .ROUTE ; Start 04/17/20 at 10:38; Stop 04/17/20 at 10:39; Status DC Ondansetron HCl (Zofran) 4 mg STK-MED ONCE .ROUTE ; Start 04/17/20 at 10:39; Stop 04/17/20 at 10:39; Status DC Rocuronium [place] (Zemuron) 50 mg STK-MED ONCE .ROUTE ; Start 04/17/20 at 10:39; Stop 04/17/20 at 10:39; Status DC Succinylcholine Chloride (Anectine) 200 mg STK-MED ONCE .ROUTE ; Start 04/17/20 at 10:39; Stop 04/17/20 at 10:40; Status DC Fentanyl Citrate (Fentanyl 2ml Vial) 100 mcg STK-MED ONCE .ROUTE ; Start 04/17/20 at 10:40; Stop 04/17/20 at 10:41; Status DC Metoprolol Tartrate (Lopressor Vial) 5 mg PRN Q5MIN PRN IVP TACHYCARDIA Last administered on 04/17/20at 15:35; Start 04/17/20 at 11:45; Stop 04/17/20 at 20:00; Status DC Metoprolol Tartrate (Lopressor Vial) 5 mg STK-MED ONCE IVP ; Start 04/17/20 at 11:36; Stop 04/17/20 at 11:36; Status DC Metoprolol Tartrate (Lopressor Vial) 5 mg Q6HRS IVP Last administered on 04/18/20at 18:09; Start 04/17/20 at 12:15; Stop 04/19/20 at 12:53; Status DC Amiodarone HCl 150 mg/Dextrose 103 ml @ 600 mls/hr 1X ONCE IV Last administered on 04/17/20at 12:55; Start 04/17/20 at 12:30; Stop 04/17/20 at 12:40; Status DC Amiodarone HCl 450 mg/Dextrose 259 ml @ 0 mls/hr CONT PRN IV SEE I/O RECORD Last administered on 04/17/20at 23:59; Start 04/17/20 at 12:30; Stop 04/18/20 at 12:29; Status DC Fentanyl Citrate (Fentanyl 2ml Vial) 100 mcg STK-MED ONCE .ROUTE ; Start 04/17/20 at 12:19; Stop 04/17/20 at 12:19; Status DC Etomidate (Amidate) 20 mg STK-MED ONCE IV ; Start 04/17/20 at 12:43; Stop 04/17/20 at 12:43; Status DC Sevoflurane (Ultane) 90 ml STK-MED ONCE IH ; Start 04/17/20 at 13:45; Stop 04/17/20 at 13:45; Status DC Cellulose (Surgicel Hemostat 4x8) 1 each STK-MED ONCE .ROUTE Last administered on 04/17/20at 13:52; Start 04/17/20 at 13:51; Stop 04/17/20 at 13:52; Status DC Glycopyrrolate (Robinul) 1 mg STK-MED ONCE .ROUTE ; Start 04/17/20 at 14:43; Stop 04/17/20 at 14:43; Status DC Neostigmine [place] (Neostigmine Methylsulfate) 5 mg STK-MED ONCE .ROUTE ; S tart 04/17/20 at 14:43; Stop 04/17/20 at 14:43; Status DC Fentanyl Citrate (Fentanyl 2ml Vial) 100 mcg STK-MED ONCE .ROUTE ; Start 04/17/20 at 15:06; Stop 04/17/20 at 15:06; Status DC Prochlorperazine Edisylate (Compazine) 10 mg STK-MED ONCE .ROUTE ; Start 04/17/20 at 15:06; Stop 04/17/20 at 15:06; Status DC Labetalol HCl (Normodyne Iv Push) 10 mg PRN Q10MIN PRN IVP HYPERTENSION; Start 04/17/20 at 16:45 Fentanyl Citrate (Fentanyl 2ml Vial) 100 mcg STK-MED ONCE .ROUTE ; Start 04/17/20 at 16:45; Stop 04/17/20 at 16:45; Status DC Metoprolol Tartrate (Lopressor) 50 mg BID PO Last administered on 04/19/20at 10:25; Start 04/18/20 at 13:00; Stop 04/19/20 at 22:00 Lisinopril (Prinivil) 5 mg DAILY PO Last administered on 04/19/20at 10:24; Start 04/18/20 at 13:00 Amiodarone HCl (Cordarone) 200 mg DAILY PO Last administered on 04/19/20at 10:25; Start 04/18/20 at 13:00 Atorvastatin Calcium (Lipitor) 40 mg QHS PO Last administered on 04/18/20at 21:44; Start 04/18/20 at 21:00 EZETIMIBE (Zetia) 10 mg DAILY PO Last administered on 04/19/20at 10:23; Start 04/18/20 at 13:00 Spironolactone (Aldactone) 25 mg QHS PO Last administered on 04/18/20at 21:44; Start 04/18/20 at 21:00 Furosemide (Lasix) 20 mg DAILY PO Last administered on 04/19/20at 10:25; Start 04/18/20 at 13:00 Warfarin Sodium (Coumadin Per Pharmacy) 1 each PRN DAILY PRN MC SEE COMMENTS Last administered on 04/19/20at 11:23; Start 04/18/20 at 14:45 Oxycodone/ Acetaminophen (Percocet 5/325) 1 tab PRN Q4HRS PRN PO PAIN MILD TO MOD Last administered on 04/19/20at 10:27; Start 04/18/20 at 15:00 Sennosides (Senna) 17.2 mg BID PO Last administered on 04/19/20at 10:24; Start 04/18/20 at 21:00 Duloxetine HCl (Cymbalta) 120 mg QHS PO Last administered on 04/18/20at 15:02; Start 04/18/20 at 15:00 Fenofibrate (Lofibra) 134 mg DAILY PO Last administered on 04/19/20at 10:24; Start 04/19/20 at 09:00 Lamotrigine (LaMICtal) 200 mg BID PO Last administered on 04/19/20at 10:23; Start 04/18/20 at 21:00 Warfarin Sodium (Coumadin) 8 mg 1X ONCE PO Last administered on 04/18/20at 18:09; Start 04/18/20 at 16:30; Stop 04/18/20 at 16:31; Status DC Warfarin Sodium (Coumadin) 8 mg 1X WARF ONCE PO ; Start 04/19/20 at 16:00; Stop 04/19/20 at 16:01; Status Cancel Warfarin Sodium (Coumadin) 8 mg 1X WARF ONCE PO ; Start 04/19/20 at 16:00; Stop 04/19/20 at 16:01 Enoxaparin Sodium (Lovenox 120mg Syringe) 120 mg Q12HR SQ Last administered on 04/19/20at 13:15; Start 04/19/20 at 11:30 Metoprolol Succinate (Toprol Xl) 100 mg DAILY PO ; Start 04/20/20 at 09:00 Active Scripts Active Toprol XL (Metoprolol Succinate) 50 Mg Tab.er.24h 50 Mg PO DAILY Percocet 5-325 Mg Tablet (Oxycodone/Acetaminophen) 1 Each Tablet 1 Tab PO PRN Q4HRS PRN Proair Hfa (Albuterol Sulfate) 8.5 Gm Hfa.aer.ad 1 Puff INH PRN Q6HRS PRN Lovenox (Enoxaparin Sodium) 120 Mg/0.8 Ml Disp.syrin 120 Mg SQ BID 5 Days Reported Spironolactone 25 Mg Tablet 25 Mg PO QHS Cymbalta (Duloxetine Hcl) 60 Mg Capsule.dr 120 Mg PO QHS Warfarin Sodium 4 Mg Tablet 8 Mg PO QMWF Warfarin Sodium 6 Mg Tablet 6 Mg PO QTUTHSASU Senna (Sennosides) 8.6 Mg Tablet 17.2 Mg PO BID Potassium Chloride 10 Meq Tablet.er 20 Meq PO QHS Oxycodone-Acetaminophen 5-325 (Oxycodone Hcl/Acetaminophen) 1 Each Tablet 1 Each PO PRN Q4HRS PRN Lamotrigine 200 Mg Tablet 1 Tab PO BID Tricor (Fenofibrate Nanocrystallized) 145 Mg Tablet 1 Tab PO DAILY Zetia (Ezetimibe) 10 Mg Tablet 1 Tab PO DAILY Atorvastatin Calcium 40 Mg Tablet 1 Tab PO QHS Vital Signs Vital Signs Date Time Temp Pulse Resp B/P (MAP) Pulse Ox O2 Delivery O2 Flow Rate FiO2 04/19/20 11:27 20 93 Room Air 3.0 04/19/20 11:00 98.5 92 125/59 (81) 98.5 Labs Laboratory Tests Test 04/18/20 13:35 04/19/20 09:49 Prothrombin Time 19.8 SEC (11.7-14.0) 17.4 SEC (11.7-14.0) Prothromb Time International Ratio 1.7 (0.8-1.1) 1.5 (0.8-1.1) Laboratory Tests Test 04/19/20 09:49 Prothrombin Time 17.4 SEC (11.7-14.0) Prothromb Time International Ratio 1.5 (0.8-1.1) Allergies Allergies Coded Allergies Type Severity Reaction Last Updated Verified No Known Drug Allergies 05/17/19 No Disposition/Orders: D/C to Home w/ HH Justicifation of Admission Dx: Justifications for Admission: Justification of Admission Dx: N/A ROHAN SHAH MD Apr 19, 2020 15:14
[2020-04-19] MEDS ORDERED: LISI-338 PO (15:17)
[2020-04-19] MEDS ORDERED: METO-247 PO (15:17)
[2020-04-19] MEDS ORDERED: AMIO200T6 PO (15:17)
[2020-04-19] MEDS ORDERED: FURO20TA3 PO (15:17)
--- NOTE | 2020-04-19 15:19 | SNU/HH DC ---
DISCHARGE WITH HOME HEALTH DISCHARGE INFORMATION: Discharge Date: Apr 19, 2020 Final Diagnosis: Problems Medical Problems: (1) Abdominal hernia Status: Acute (2) Abdominal pain Status: Acute (3) Partial bowel obstruction Status: Acute Condition on Discharge: Stable CODE STATUS: Code Status: Full HOME HEALTH: Face to Face: I certify this patient is under my care and that I, or a nurse practitioner or physician's hospital administrative assistant working with me, had a face to face encounter that meets the physician face to face encounter requirements with this patient on []. Medical Complications: Other (SBO) RN For Eval/Treatment: Yes Physical Therapy For: Evalulation/Treatment Occupational Therapy For: Evaluation/Treatment Speech Language Pathology For: Evaluation/Treatment Home Health Aide For: Self-care [employer]ER For: Community Resources Pt Meets Homebound Status: Fatigue w/ amb., Limited distance walking POST DISCHARGE ORDERS: Activity Instructions for Disc: Activity as tolerated, Progressive ambulation Weight Bearing Status after Di: As tolerated Bathing Instructions: Shower-keep dressing dry DIET AFTER DISCHARGE: Cardiac CHECKS AFTER DISCHARGE: Checks after discharge: Check blood press - daily FOLLOW-UP: PCP to follow Home Health: TOMORROW Follow up with: SURGERY DIRECTED Follow Up With: CARDIOLOGY SOON TREATMENT/EQUIPMENT ORDERS: Adaptive Equipment Issued: None CERTIFICATION STATEMENT: Certification Statement: Certification Statement: Based on the above finding, I certify that this patient is confined to the home and needs intermittent snf care, physical therapy and/or speech therapy, or continues to need occupational therapy.~ This patient is under my care, and I have initiated the establishment of the plan of care.~ This patient will be followed by myself or a community physician who will periodically review the plan of care. Home Meds Active Scripts Furosemide (FUROSEMIDE) 20 Mg Tablet, 20 MG PO DAILY for CHF for 30 Days, #30 TAB Prov:ROHAN SHAH MD 04/19/20 Lisinopril (LISINOPRIL) 5 Mg Tablet, 5 MG PO DAILY for HEART for 30 Days, #30 TAB Prov:ROHAN SHAH MD 04/19/20 Metoprolol Succinate (METOPROLOL SUCCINATE ( XL )) 100 Mg Tab.er.24h, 100 MG PO DAILY for BP for 30 Days, #30 TAB.SR Prov:ROHAN SHAH MD 04/19/20 Amiodarone Hcl (AMIODARONE HCL) 200 Mg Tablet, 200 MG PO DAILY for HEART for 30 Days, #30 TAB Prov:ROHAN SHAH MD 04/19/20 Oxycodone/Apap 5-325 (PERCOCET 5-325 MG TABLET ) 1 Each Tablet, 1 TAB PO PRN Q4HRS PRN for PAIN MILD TO MOD, #30 TAB 0 Refills Prov:CARLOS RUANO L [employer]ING [employer]ANT OPERATOR 05/20/19 Albuterol Sulfate (Proair Hfa) 8.5 Gm Hfa.aer.ad, 1 PUFF INH PRN Q6HRS PRN for SHORTNESS OF BREATH, #1 INHALER Prov:EVER CHRISTINA [employer] OPERATOR 03/04/19 Enoxaparin Sodium (LOVENOX) 120 Mg/0.8 Ml Disp.syrin, 120 MG SQ BID for ANTI- COAGULANT for 5 Days, #10 DIS.SYR Prov:FAY LEMUS MD 11/28/18 Reported Medications Spironolactone (SPIRONOLACTONE) 25 Mg Tablet, 25 MG PO QHS for , TAB 04/09/20 Duloxetine Hcl (CYMBALTA) 60 Mg Capsule.dr, 120 MG PO QHS for , CAP 04/09/20 Warfarin Sodium (WARFARIN SODIUM) 4 Mg Tablet, 8 MG PO QMWF for , #30 TAB 04/09/20 Warfarin Sodium (WARFARIN SODIUM) 6 Mg Tablet, 6 MG PO QTUTHSASU for , #30 TAB 04/09/20 Sennosides (SENNA) 8.6 Mg Tablet, 17.2 MG PO BID for Stool Softener, TAB 11/27/18 Potassium Chloride (POTASSIUM CHLORIDE) 10 Meq Tablet.er, 20 MEQ PO QHS for Electrolyte support, TAB 11/27/18 Lamotrigine (LAMOTRIGINE) 200 Mg Tablet, 1 TAB PO BID for Anticonvulsant, #60 TAB 2 Refills 11/27/18 Fenofibrate Nanocrystallized (TRICOR) 145 Mg Tablet, 1 TAB PO DAILY for HLD, #30 TAB 5 Refills 11/27/18 Ezetimibe (ZETIA) 10 Mg Tablet, 1 TAB PO DAILY for HLD, #30 TAB 5 Refills 11/27/18 Atorvastatin Calcium (ATORVASTATIN CALCIUM) 40 Mg Tablet, 1 TAB PO QHS for HLD, #30 TAB 5 Refills 11/27/18 Discontinued Reported Medications Oxycodone Hcl/Acetaminophen (OXYCODONE-ACETAMINOPHEN 5-325) 1 Each Tablet, 1 EACH PO PRN Q4HRS PRN for PAIN, TAB 0 Refills 11/27/18 Discontinued Scripts Metoprolol Succinate (Toprol XL) 50 Mg Tab.er.24h, 50 MG PO DAILY for Afib, #30 TAB.SR 6 Refills Prov:ISAÍAS CATALAN MD 04/09/20 ROHAN SHAH MD Apr 19, 2020 15:19
[2020-04-19] MEDS ORDERED: WARFARIN 4 MG TABLET. PO ONE ×2 (16:00)
--- NOTE | 2020-04-19 18:00 | NUR ---
Discharge Note: LADARIUS ELLIS [address] Discharge instructions and discharge home medications reviewed with Patient and a copy given. All questions have been answered and understanding verbalized. The following instructions and handouts were given: hernia repair and afib. Emphasized to patient that he should remain in town and avoid travelling until he see Dr. Valencia in office next week Discontinued iv line and drains: catheter intact. Patient discharged to home with self-care via private vehicle.
[2020-04-20] MEDS ORDERED: METOPROLOL SUCC 24HR ER 100 MG TAB.ER.24H. PO SCH (09:00)
--- NOTE | 2020-04-20 15:09 | PATHOLOGY ---
[facility] Accession Number: [id number] . 01 Material submitted: . PART A: hernia - HERNIA SAC PART B: body - MESH . 01 Clinical history: . ABDOMINAL PAIN, PARTIAL SBO . 02 Diagnosis: A. Segments of fibromembranous and adipose tissue, ventral hernia repair: - Hernia sac showing reactive fibrosis and focal chronic inflammation and foreign body giant cell reaction. . B. Segment of mesh and focally attached fibromembranous tissue, ventral hernia repair: - Mesh (Gross only). - Reactive fibrosis with focal chronic inflammation and recent hemorrhage of attached fibromembranous tissue. . ([facility]:[place]; 04/20/2020) MBR 04/20/2020 1404 Local . 02 Electronically signed: . Blake Sunshine MD, Pathologist NPI- [id number] . 01 Gross description: . A. Received in formalin labeled "Zan Campos, hernia sac" are two portions of mock-brown membranous and yellow-mock lobulated soft tissue measuring in aggregate 8.7 x 9.2 x 3.5 cm. The specimen is sectioned to reveal focal fibrotic cut surfaces. Print Finisher sections are submitted in cassette A1. . B. Received in formalin labeled "Zan Campos, mesh" is a portion of mock-white flexible surgical mesh measuring 7.5 x 4.5 x 0.8 cm. Scant portions of mock-brown membranous soft tissue are adherent to the mesh. Print Finisher soft tissue is submitted in cassette B1. ([facility]; 04/19/2020) SY/SYC 04/19/2020 1200 Local . 02 Pathologist provided ICD-10: K43.9 . 02 CPT . 652660, [id number] Specimen Comment: A courtesy copy of this report has been sent to [phone], [phone] Specimen Comment: [phone], Specimen Comment: Report sent to ,DR ORELLANA / DR COMBS Performed at: [address], [place] [id number] MD David An MD Phone: [phone] Performed at: 02 [facility] [address] [place], [place] [id number] MD Blake Sunshine MD Phone: [phone]
== END 2020-04-19 17:59 | disposition home health service (06) | DRG 335 ==
LOC: ER 02:37 → ED HOLD 04:49 → 2 SOUTH 16:21
PROVIDERS: ADMIT Internal Medicine; ATTEND Internal Medicine
PROC: 0DN80ZZ Release Small Intestine, Open Approach (ICD-10-PCS; 2020-04-17)
PROC: 0WUF0JZ Supplement Abdominal Wall with Synthetic Substitute, Open Approach (ICD-10-PCS; 2020-04-17)
PROC: 0WQF0ZZ Repair Abdominal Wall, Open Approach (ICD-10-PCS; principal; 2020-04-17 12:00)
DX: K43.6 Other and unspecified ventral hernia with obstruction, without gangrene (principal); N17.0 Acute kidney failure with tubular necrosis; I13.0 Hypertensive heart and chronic kidney disease with heart failure and stage 1 through stage 4 chronic kidney disease, or unspecified chronic kidney disease; I42.1 Obstructive hypertrophic cardiomyopathy; I42.8 Other cardiomyopathies; I48.92 Unspecified atrial flutter; I50.22 Chronic systolic (congestive) heart failure; K56.600 Partial intestinal obstruction, unspecified as to cause; Z68.41 Body mass index [BMI] 40.0-44.9, adult; Z20.828 Contact with and (suspected) exposure to other viral communicable diseases; E66.01 Morbid (severe) obesity due to excess calories; E78.00 Pure hypercholesterolemia, unspecified; E78.5 Hyperlipidemia, unspecified; E83.52 Hypercalcemia; I25.10 Atherosclerotic heart disease of native coronary artery without angina pectoris; I44.7 Left bundle-branch block, unspecified; I48.0 Paroxysmal atrial fibrillation; I49.5 Sick sinus syndrome; J98.4 Other disorders of lung; K43.2 Incisional hernia without obstruction or gangrene; K57.30 Diverticulosis of large intestine without perforation or abscess without bleeding; N13.9 Obstructive and reflux uropathy, unspecified; N18.9 Chronic kidney disease, unspecified; N32.89 Other specified disorders of bladder; R79.1 Abnormal coagulation profile; T45.515A Adverse effect of anticoagulants, initial encounter; Z79.01 Long term (current) use of anticoagulants; Z82.49 Family history of ischemic heart disease and other diseases of the circulatory system; Z83.3 Family history of diabetes mellitus; Z90.49 Acquired absence of other specified parts of digestive tract; Z95.0 Presence of cardiac pacemaker; Z95.2 Presence of prosthetic heart valve; Z96.653 Presence of artificial knee joint, bilateral; F32.9 Major depressive disorder, single episode, unspecified; F41.9 Anxiety disorder, unspecified
CPT/HCPCS: 36415; 74177; 80053; 83605; 83690; 83735; 84484; 85025; 85610; 85730; 87426; 93005; 96361; 96374; 96375; 99285; C1781; J0282; J0330; J0780; J1100; J1650; J2270; J2405; J2704; J2710; J3010; J3430; J3490; J7030; J7060; J7120; Q9967; G0378; U0003-CS